=== PATIENT | male | born 1955 ===

== ENCOUNTER 2017-04-19 18:47 | Inpatient (IN) | payer OTHER ==
[~2017-04-19] VITALS: Ht 170.2 cm; Wt 117.7 kg
[2017-04-19 20:01] VITALS: BP 162/96; PULSE 99; TEMP 36.7; O2SAT 95; BMI 35.2
[2017-04-19] MEDS ORDERED: PNEUMOCOCCAL POLYSACCHARIDES 25 MCG/0.5 ML VIAL/SYR IM. ONE (21:15)
[2017-04-19] MEDS ORDERED: INFLUENZA ADMINISTRATION CHARGE ONE (21:15)
[2017-04-19] MEDS ORDERED: INFLUENZA VIRUS QUAD VACCINE 0.5 ML SYR IM. ONE (21:15)
[2017-04-19] MEDS ORDERED: PNEUMOCOCCAL ADMINISTRATION CHARGE ONE (21:15)
[2017-04-19] MEDS ORDERED: PATIENT'S ALLERGY INFO NEEDS ENTERED SCH (21:30)
[2017-04-19] MEDS ORDERED: FRS/40 PO (22:24)
[2017-04-19] MEDS ORDERED: INSU1INJ2 SQ (22:24)
[2017-04-19] MEDS ORDERED: insulin aspart SQ (22:27)
[2017-04-19] MEDS ORDERED: INSDGI SC (22:28)
[2017-04-19] MEDS ORDERED: ISOS10TA5 PO (22:37)
[2017-04-19] MEDS ORDERED: LEVO1INJ IV (22:39)
[2017-04-19] MEDS ORDERED: METO25TA3 PO (22:40)
[2017-04-19] MEDS ORDERED: NTRGSL/4 SL (22:42)
[2017-04-19] MEDS ORDERED: PRLSR20 PO (22:42)
[2017-04-19] MEDS ORDERED: [UNRECOGNIZED DRUG - CODE] IV (22:44)
--- NOTE | 2017-04-19 22:44 | History and Physical ---
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 Deal. He had presented to [facility] with complaints of chest pain, dry coughing which seemed to exacerbate his chest pain, vomiting and loose stools since 4 days. He was having about 4-5 episodes of vomiting per day. Also complains of midabdominal pain about 6-7/10 in severity. Denies any fevers or chills. Denies any chest pain currently, shortness of breath, palpitations or lightheadedness. He stated that he is aware about the pancreatic adenocarcinoma and had elected not to have surgery. Past Medical/Surgical History Coronary artery disease, Hypertension, Hyperlipidemia, Diabetes type 2, Prostate cancer, Pancreatic adenocarcinoma Amputation of toes Social History Smoking Status: Former Smoker Allergies Coded Allergies: Iodinated Diagnostic Agents (Verified Allergy, Mild, GI SYMPTOMS, 04/19/17) No Known Drug Allergy (Verified Allergy, Unknown, none, 04/19/17) Uncoded Allergies: dye (Allergy, Unknown, RASH, 04/19/17) patient does not remember what kind of dye or what kind of reaction he is allergic to Home Medications Scheduled Bisacodyl (Bisacodyl), 2 TAB PO UD Furosemide (Lasix), 40 MG PO DAILY Insulin Aspart (Novolog Penfill), 5 UNITS SQ AC Insulin Glargine (Lantus), 60 UNITS SC HS Ipratropium-Albuterol (Duoneb), 1 TREATMENT INH Q4H Ipratropium-Albuterol (Duoneb), 1 TREATMENT INH QID Isosorbide Mononitrate (Isosorbide Mononitrate), 30 MG PO DAILY Levofloxacin in D5w (Levofloxacin in 5% Dextro 500 mg/100Ml), 500 MG IV DIRECTED Metoprolol Succ (Toprol Xl) (Toprol-Xl), 25 MG PO DAILY Nicotine (Nicoderm Cq 7 Mg Patch), 7 MG TD DAILY Omeprazole (Prilosec), 20 MG PO DAILY Piperacillin Sodium-Tazobactam (Zosyn), 3.375 GM IV Q8 Polyethylene Glycol 3350 (Polyethylene Glycol 3350), 17 GM PO DAILY [insulin aspart], SQ ACHS Scheduled PRN Nitroglycerin (Nitrostat), 0.4 MG SL q5min prn PRN for Chest Pain Ondansetron Hcl (Ondansetron Hcl), 4 MG IV Q6H PRN for Nausea Miscellaneous Medications Acetaminophen (Tylenol), 325 MG PO Metoclopramide Hcl (Reglan), 5 MG PO Nystatin (Topical) (Nystop) Oxycodone Ir (Roxicodone Ir), 5 MG PO Tamsulosin Hcl (Flomax), 0.4 MG PO Review of Systems Constitutional: No fever, No chills Eyes: No worsening of vision ENT: No hearing loss Respiratory: + cough, No sputum, No shortness of breath Cardiovascular: No chest pain, No orthopnea, No edema Abdomen: + pain, + nausea, + vomiting, + diarrhea Musculoskeletal: No joint pain Genitourinary - Male: No hematuria, No dysuria Neurologic: No memory loss Psychiatric: No depression symptoms Endocrine: No fatigue Hematologic / Lymphatic: No abnormal bleeding/bruising Integumentary: No rash Physical Exam Vital Signs Date Time Temp Pulse Resp B/P (MAP) Pulse Ox O2 Delivery O2 Flow Rate FiO2 04/19/17 20:01 36.7 99 18 162/96 95 Room Air General Appearance: WD/WN, no apparent distress Head: normocephalic ENT: normal ENT inspection, hearing grossly normal Neck: supple Respiratory/Chest: lungs clear, normal breath sounds, no respiratory distress, no accessory muscle use Cardiovascular: regular rate, rhythm Abdomen/GI: normal bowel sounds, non tender, soft Extremities/Musculoskelatal: + pedal edema, + pertinent finding (Right foot first and second toes amputated) Neurologic/Psych: alert, normal mood/affect, oriented x 3 Skin: + pertinent finding (Several scabs on bilateral lower extremities) Diagnostics Laboratory Results Results Past 24 Hours Test 04/19/17 21:06 Range/Units Bedside Glucose 76 70-99 mg/dl Diagnostic Radiology Gallbladder ultrasound performed at [facility]: Hydropic gallbladder with intraluminal sludge. Dilated extrahepatic common bile duct 23 mm. Right renal pelviectasis with intrarenal calculus without significant hydronephrosis Impression Assessment and Plan 62-year-old male with a past medical history of coronary artery disease, diabetes, diabetic foot ulcer status post amputation of right first and second toes, hypertension, hyperlipidemia, prostate cancer status post radiation therapy in 2015, pancreatic adenocarcinoma, status post common bile duct stent placement presented a direct admit from [facility] for stent removal by Dr. Deal. Was treated for possible cholangitis at [facility] with Zosyn, white count appears to be normal today Obstructive jaundice: ?Secondary to stent occlusion/history of adenocarcinoma of pancreas -Gallbladder ultrasound from outside hospital suggestive of dilated extrahepatic common bile duct at 23 mm -Total bili 5.1 -ERCP scheduled for tomorrow with Dr. Deal -n.p.o. after midnight -Gastroenterology consult Diabetes mellitus type 2: -Continue Lantus home dose with insulin sliding scale BPH/prostate cancer: -Continue tamsulosin CAD/hypertension -Continue metoprolol and Imdur COPD: Stable -Continue duo nebs Current smoker -Smokes one fourth pack per day -Smoking cessation counseling -NicoDerm patch Full code DVT prophylaxis: SCDs Disposition admitted to [facility]: Resident Physician Supervision Note: I was present with Dr. Saez during the history and exam. I discussed the case with the resident and agree with the findings and plan as documented in the note. Any exceptions or clarifications are listed here: 62 y/o M Hx CAD, COPD, diabetes, DM w/diabetic ulcers and toe amptuations, HTN, HPL, prostate CA treated with radiation, pancreatic adenocarcinoma - bile duct stent placement presents as direct admit from [place] for signs of biliary obstruction. he was scheduled to have his stent removed on the . He will proceed to ERCP and likely removal AM. He had c/o abdominal pain, n/v and CP at [place]. At the time of admission he has no specific complaints and stated that he "just want to get the procedure over with". OE AAO x 3 S1,2 R CTAB mild upper abdominal tenderness No CCE - prior amputations P: Pt to be evaluated w/ERCP for stent removal - NPO Placed on SS for DM Cont nebs as needed for COPD No current evidence of ACS - CP has not recurred Documented By: Ronald Conklin Advanced Directives Existing Living Will: No Existing Power of Rebar Worker: No Resuscitation Status VTE Prophylaxis Will order VTE Prophylaxis: Yes Resident Tracking Resident Involvement: Resident Care Provided Care Provided: Adult Hospital Medicine
[2017-04-19] MEDS ORDERED: ACETAMINOPHEN 325 MG TAB PO PRN (22:45)
[2017-04-19] MEDS ORDERED: POLYETHYLENE (MIRALAX) 17 GM PACK PO PRN (22:45)
[2017-04-19] MEDS ORDERED: PIPE2SOL IV (22:47)
[2017-04-19] MEDS ORDERED: ACET-1311 PO (22:49)
[2017-04-19] MEDS ORDERED: BISA1TAB15 PO (22:50)
[2017-04-19] MEDS ORDERED: NICO7DIS7 TD (22:52)
[2017-04-19] MEDS ORDERED: METO1TAB54 PO (22:52)
[2017-04-19] MEDS ORDERED: NYST100010 (22:54)
[2017-04-19] MEDS ORDERED: OXYC1TAB3 PO (22:55)
[2017-04-19] MEDS ORDERED: TAMS0.4C38 PO (22:55)
[2017-04-19] MEDS ORDERED: POLY3350 PO (22:56)
[2017-04-19] MEDS ORDERED: IPRASOL4 INH ×2 (22:59→23:00)
[2017-04-19 23:02] VITALS: BP 149/90; PULSE 106; TEMP 37.2; O2SAT 98
[2017-04-19 23:07] LABS: BASO % 0.1 %; BASO ABS # 0.01 K/uL (0-0.2); EOS % 0.1 %; EOS ABS # 0.01 K/uL (0-0.5); HEMATOCRIT 33.7 % (42-52); HEMOGLOBIN 11.4 g/dL (14.0-18.0); IG# 0.02 K/uL (0.00-0.02); LYMPH % 8.1 %; LYMPH ABS # 0.88 K/uL (1.2-3.4); MEAN CORPUSCULAR HEMOGLOBIN 27.7 pg (25-34); MEAN CORPUSCULAR HGB CONC 33.8 g/dl (32-36); MEAN PLATELET VOLUME 9.1 fL (7.4-10.4); MONO % 7.2 %; MONO ABS # 0.78 K/uL (0.11-0.59); NEUT % 84.3 %; PLATELET COUNT 241 K/uL (130-400); RED CELL DISTRIBUTION WIDTH CV 14.1 % (11.5-14.5); RED CELL DISTRIBUTION WIDTH SD 42.8 fL (36.4-46.3)
[2017-04-19 23:25] LABS: ALBUMIN 1.6 gm/dl (3.4-5.0); CALCIUM 8.7 mg/dl (8.5-10.1); CREATININE 1.33 mg/dl (0.60-1.40); POTASSIUM 3.3 mmol/L (3.5-5.1)
[2017-04-19 23:28] LABS: TOTAL PROTEIN 6.4 gm/dl (6.4-8.2)
[2017-04-20] VITALS (8 sets, daily range): BP systolic 110–161; BP diastolic 72–89; PULSE 66–138; TEMP 36.4–37.1; O2SAT 94–100; BMI 35.2
[2017-04-20] MEDS ORDERED: BISACODYL 5 MG TABEC PO PRN (00:45)
[2017-04-20] MEDS: SODIUM CHLORIDE 0.9% 1000ML 1,000 ML IV SCH ×2 (02:17→12:04)
[2017-04-20] MEDS ORDERED: ALBUT/IPRATROP 3MG/0.5MG NEB 3 ML VIAL INH SCH (04:00)
[2017-04-20] MEDS ORDERED: ALBUT/IPRATROP 3MG/0.5MG NEB 3 ML VIAL INH PRN (04:00)
[2017-04-20] MEDS ORDERED: NURSING DECISION MEDICATION ORDER SCH (05:15)
[2017-04-20] MEDS: INSULIN ASPART 100 UNITS/ML 3 ML PEN SC SCH ×3 (05:54→18:00)
[2017-04-20 06:59] LABS: HEMATOCRIT 33.8 % (42-52); HEMOGLOBIN 11.2 g/dL (14.0-18.0); MEAN CELL VOLUME 83.3 fL (80-100); MEAN CORPUSCULAR HEMOGLOBIN 27.6 pg (25-34); MEAN CORPUSCULAR HGB CONC 33.1 g/dl (32-36); MEAN PLATELET VOLUME 9.7 fL (7.4-10.4); PLATELET COUNT 229 K/uL (130-400); RED CELL DISTRIBUTION WIDTH CV 14.2 % (11.5-14.5); RED CELL DISTRIBUTION WIDTH SD 43.6 fL (36.4-46.3)
[2017-04-20 07:36] LABS: ALBUMIN 1.5 gm/dl (3.4-5.0); CALCIUM 8.8 mg/dl (8.5-10.1); CREATININE 1.51 mg/dl (0.60-1.40); POTASSIUM 3.4 mmol/L (3.5-5.1)
[2017-04-20 07:38] LABS: TOTAL PROTEIN 6.3 gm/dl (6.4-8.2)
[2017-04-20] MEDS: ALBUT/IPRATROP 3MG/0.5MG NEB 3 ML VIAL INH SCH ×4 (08:00→20:12)
[2017-04-20] MEDS ORDERED: INSULIN ASPART 100 UNITS/ML 3 ML PEN SC SCH ×2 (08:00→12:00)
[2017-04-20] MEDS: NYSTATIN POWDER 15GM BTL EXT SCH ×3 (08:27→16:00)
[2017-04-20] MEDS: POLYETHYLENE (MIRALAX) 17 GM PACK PO SCH (08:29)
[2017-04-20] MEDS: NICOTINE 7 MG/24 HR TDSY TD SCH (08:30)
[2017-04-20] MEDS: ISOSORBIDE MONONITRATE 30 MG TABCR PO SCH (08:32)
[2017-04-20] MEDS: METOPROLOL SUCC 25MG EXT REL TAB PO SCH (08:32)
[2017-04-20] MEDS: PANTOprazole SOD 40 MG TAB PO SCH (08:32)
[2017-04-20] MEDS: FUROSEMIDE 40 MG TAB PO SCH (08:32)
[2017-04-20] MEDS: TAMSULOSIN HCL 0.4 MG CAP PO SCH (08:33)
--- NOTE | 2017-04-20 08:49 | Family Medicine Progress Note ---
Progress Note Date of Service Apr 20, 2017. Subjective Pt evaluation today including: conversation w/ patient, physical exam, chart review, lab review, review of studies, conversation w/ portrait consultant, review of inpatient medication list Patient is a poor historian. He states that he has nausea and vomiting for the last week. He denies fevers, chills, chest pain, dyspnea, or abdominal discomfort or distension. He does not know when his biliary stent was placed. He denies changes in stool habits. He does note that occasionally the stool is light colored stool. He is unable to describe any changes or abnormalities with urination . He is unsure about any lower extremity swelling or skin changes/ rashes. He is not able to provide significant past medical history. He admits to intermittent compliance with his diabetic medications and was unable to elicit range of recent blood glucose measurements. Difficult to obtain more detailed ROS. Objective Vital Signs Date Time Temp Pulse Resp B/P (MAP) Pulse Ox O2 Delivery O2 Flow Rate FiO2 04/20/17 07:39 37.1 84 18 116/84 (95) 94 Room Air 04/20/17 00:20 Room Air 04/19/17 23:02 37.2 106 16 149/90 (109) 98 Room Air 04/19/17 20:01 36.7 99 18 162/96 95 Room Air Physical Exam General Appearance: WD/WN, + mild distress Eyes: normal inspection ENT: hearing grossly normal Neck: supple, no JVD Respiratory/Chest: lungs clear, normal breath sounds, no respiratory distress, no accessory muscle use Cardiovascular: regular rate, rhythm Abdomen: normal bowel sounds, non tender, + distended (mildly ascitic), + pertinent finding (no rebound or guarding, unable to appreciate any organomegaly ) Extremities: no calf tenderness, + pedal edema Neurologic/Psychiatric: alert, + disoriented Skin: + pertinent finding (Evidence of chronic venous stasis extremities, scabs on shins secondary to excoriation.) Laboratory Results Results Past 24 Hours Test 04/20/17 05:46 04/20/17 06:24 04/20/17 10:41 04/20/17 11:50 Range/Units Bedside Glucose 79 75 70-99 mg/dl White Blood Count 10.10 4.8-10.8 K/uL Red Blood Count 4.06 4.7-6.1 M/uL Hemoglobin 11.2 14.0-18.0 g/dL Hematocrit 33.8 42-52 % Mean Corpuscular Volume 83.3 80-100 fL Mean Corpuscular Hemoglobin 27.6 25-34 pg Mean Corpuscular Hemoglobin Concent 33.1 32-36 g/dl RDW Standard Deviation 43.6 36.4-46.3 fL RDW Coefficient of Variation 14.2 11.5-14.5 % Platelet Count 229 130-400 K/uL Mean Platelet Volume 9.7 7.4-10.4 fL Sodium Level 135 136-145 mmol/L Potassium Level 3.4 3.5-5.1 mmol/L Chloride Level 102 98-107 mmol/L Carbon Dioxide Level 24 21-32 mmol/L Anion Gap 9.0 3-11 mmol/L Blood Urea Nitrogen 25 7-18 mg/dl Creatinine 1.51 0.60-1.40 mg/dl Est Creatinine Clear Calc Drug Dose 56.2 ml/min Estimated GFR () 55.8 Estimated GFR (Non- 48.1 BUN/Creatinine Ratio 16.3 10-20 Random Glucose 72 70-99 mg/dl Calcium Level 8.8 8.5-10.1 mg/dl Total Bilirubin 5.1 0.2-1 mg/dl Aspartate Amino Transf (AST/SGOT) 67 15-37 U/L Alanine Aminotransferase (ALT/SGPT) 64 12-78 U/L Alkaline Phosphatase 467 45-117 U/L Total Protein 6.3 6.4-8.2 gm/dl Albumin 1.5 3.4-5.0 gm/dl Globulin 4.8 2.5-4.0 gm/dl Albumin/Globulin Ratio 0.3 0.9-2 Hepatitis C Antibody Screen NEG NEG Test 04/20/17 13:41 04/20/17 15:07 04/20/17 15:49 04/20/17 20:01 Range/Units Bedside Glucose 59 82 84 139 70-99 mg/dl Test 04/20/17 23:48 Range/Units Bedside Glucose 133 70-99 mg/dl Assessment and Plan 62yo male with a pMHx of CAD, DMII, diabetic foot ulcer status post amputation of right first and second toes, HTN, HLD, prostate cancer s/p radiation therapy in 2014, pancreatic adenocarcinoma s/p common bile duct stent placement transferred from [facility] for stent removal by Dr. Deal with concern for cholangitis with stent obstruction. Cholangitis with possible sepsis - WBC in [facility] was 15,000, was treated for possible cholangitis with Zosyn, with minimal elevation of white count today, but had tachycardic and low BP - Gastroenterology consulted, recs appreciated - s/p emergent ERCP with stent removal, brush cytology, stricture dilation and stent placement - Continue antibiotic coverage with Zosyn Obstructive jaundice secondary to stent occlusion/history of adenocarcinoma of pancreas - Gallbladder ultrasound from outside hospital suggestive of dilated extrahepatic common bile duct at 23 mm - LFTs show TB 5 AST 67 ALT 63, ALKP 467 - Gastroenterology consulted, recs appreciated - s/p emergent ERCP with intra-op findings included occluded stent, segmental biliary stricture - which was malignant-appearing, dilated bile duct, hepatic ducts, and intrahepatic branches. Mild, pus, sludge flowed through new stents once tracts were patent again. - Repeat ERCP recommended in 2-4 weeks for stent change New onset a.fib with RVR - Possibly secondary to sepsis - s/p digoxin 250mcg with no improvement of HR - s/p extra dose metoprolol tartrate 25mg - Aim for rate control, which will hopefully improve with drainage of infected GB and resolution of sepsis - Monitor in telemetry - ARTHUR score - 2 - If A fib persists - will discuss anticoagulation and get echo. To consider Event monitor as outpatient to check if cryptogenic. - TSH normal. - Correct electrolytes. Diabetes mellitus type 2 - Continue Lantus home dose with insulin sliding scale - Check HbA1c BPH/prostate cancer: - Continue tamsulosin CAD/hypertension - Continue metoprolol and Imdur COPD: Stable - Continue duo nebs Tobacco abuse: smokes one fourth pack per day. Offered smoking cessation counseling - NicoDerm patch ordered DVT prophylaxis - SCDs Full code Continued [facility] stay due to: abnormal vital signs Resident Tracking Resident Involvement: Resident Care Provided Care Provided: Adult Hospital Medicine Reviewed: Pt Seen/Exam by Me History noted to be a fib with RVR before ERCP. seen in PACU. denied any complains Constitutional: denies: fever Respiratory: negative: short of breath Cardiovascular: denies chest pain Gastrointestinal/Abdominal: negative: abdominal pain General Appearance: no apparent distress Respiratory: lungs clear, no respiratory distress Cardiovascular: other Gastrointestinal: soft Neurologic/Psychiatric: alert, oriented x 3 Skin Characteristics: warm/dry Assessment/Plan Resident Physician Supervision Note: I independently interviewed and examined the patient and verified the casas history and physical, reviewed labs and image studies, discussed the case with the resident Dr. Clarke and agree with the findings and care plan.
--- NOTE | 2017-04-20 09:08 | Gastrointestinal Consultation ---
Gastrointestinal Consultation Date of Consultation: Apr 20, 2017 Attending Physician: Katerin Consulting Physician: Say Reason for Consultation: ERCP History of Present Illness Patient is a 62 year old male w/ pancreatic adenocarcinoma w/ stent placement in December with others listed below who was transferred form [facility] for suspected obstructive symptoms. Pt was seen and evaluated, chart reviewed. Pt is a poor historian. I asked him why he was transferred to [facility] and he is unsure. He tells me this AM he feels ok. He notes his abd pain is improved from yesterday w / less nausea and vomiting. Today, denies fever, chills, CP, SOB. Past Medical/Surgical History abd pain panc ca nausea vomiting ERCP w/ stent Past Medical History: CAD T2DM diabetic neuropathy HTN Dyslipidemia Prostate CA s/p radiation Pancreatic CA Past Surgical History: ERCP amputation of great toe on right foot amputation of second toe on right foot Social History Smoking Status: Former Smoker Allergies Coded Allergies: Iodinated Diagnostic Agents (Verified Allergy, Mild, GI SYMPTOMS, 04/19/17) No Known Drug Allergy (Verified Allergy, Unknown, none, 04/19/17) Uncoded Allergies: dye (Allergy, Unknown, RASH, 04/19/17) patient does not remember what kind of dye or what kind of reaction he is allergic to Current Medications Home Meds and Scripts Medications Dose Route/Sig Max Daily Dose Days Date Category Duoneb (Ipratropium-Albuterol) 3 Ml Nebu 1 Treatment INH QID 04/19/17 Reported Duoneb (Ipratropium-Albuterol) 3 Ml Nebu 1 Treatment INH Q4H 04/19/17 Reported Polyethylene Glycol 3350 1 Pow Pow 17 Gm PO DAILY 04/19/17 Reported Flomax (Tamsulosin Hcl) 0.4 Mg Cap 0.4 Mg PO 04/19/17 Reported Roxicodone Ir (Oxycodone HCl) 5 Mg Tab 5 Mg PO 04/19/17 Reported Nystop (Nystatin (Topical)) 100,000 Unit/Gm Pow 04/19/17 Reported Nicoderm Cq 7 Mg Patch (Nicotine) 7 Mg/24 Hr Dis 7 Mg TD DAILY 04/19/17 Reported Reglan (Metoclopramide Hcl) 5 Mg Tab 5 Mg PO 04/19/17 Reported Bisacodyl 5 Mg Tab 2 Tab PO UD 04/19/17 Reported Tylenol (Acetaminophen) 325 Mg Tab 325 Mg PO 04/19/17 Reported Zosyn (Piperacillin Sodium-Tazobactam) 1 Rayne Rayne 3.375 Gm IV Q8 04/19/17 Reported Ondansetron Hcl 4 Mg/2 Ml Inj 4 Mg IV Q6H PRN 04/19/17 Reported Prilosec (Omeprazole) 20 Mg Capcr 20 Mg PO DAILY 04/19/17 Reported Nitrostat (Nitroglycerin) 0.4 Mg Tab 0.4 Mg SL Q5MIN PRN PRN 04/19/17 Reported Toprol-Xl (Metoprolol Succinate) 25 Mg Tabcr 25 Mg PO DAILY 04/19/17 Reported Levofloxacin in 5% Dextro 500 mg/100Ml (Levofloxacin in D5w) 1 Inj Inj 500 Mg IV DIRECTED 04/19/17 Reported Isosorbide Mononitrate 10 Mg Tab 30 Mg PO DAILY 04/19/17 Reported Lantus (Insulin Glargine) 100 Unit/Ml Inj 60 Units SC HS 04/19/17 Reported [insulin aspart] SQ ACHS 04/19/17 Reported Novolog Penfill (Insulin Aspart) 100 Unit/Ml Inj 5 Units SQ AC 04/19/17 Reported Lasix (Furosemide) 40 Mg Tab 40 Mg PO DAILY 04/19/17 Reported Review of Systems Constitutional: No fever, No chills Respiratory: No cough, No shortness of breath Cardiac: No chest pain, No edema Abdomen: + pain, No nausea, No vomiting, No diarrhea, No constipation, No GI bleeding Physical Exam Date Time Temp Pulse Resp B/P (MAP) Pulse Ox O2 Delivery O2 Flow Rate FiO2 04/20/17 07:39 37.1 84 18 116/84 (95) 94 Room Air 04/20/17 00:20 Room Air 04/19/17 23:02 37.2 106 16 149/90 (109) 98 Room Air 04/19/17 20:01 36.7 99 18 162/96 95 Room Air General Appearance: no apparent distress (pt is resting in bed) Eyes: PERRL ENT: hearing grossly normal Neck: supple, trachea midline Respiratory/Chest: normal breath sounds Cardiovascular: regular rate, rhythm Abdomen: normal bowel sounds, non tender, soft, no organomegaly Neurologic/Psych: alert, normal mood/affect Skin: + jaundice Laboratory Results Last 24 Hours Test 04/19/17 21:06 04/19/17 22:47 04/20/17 00:09 04/20/17 05:46 Bedside Glucose 76 mg/dl 76 mg/dl 79 mg/dl White Blood Count 10.80 K/uL Red Blood Count 4.11 M/uL Hemoglobin 11.4 g/dL Hematocrit 33.7 % Mean Corpuscular Volume 82.0 fL Mean Corpuscular Hemoglobin 27.7 pg Mean Corpuscular Hemoglobin Concent 33.8 g/dl Platelet Count 241 K/uL Mean Platelet Volume 9.1 fL Neutrophils (%) (Auto) 84.3 % Lymphocytes (%) (Auto) 8.1 % Monocytes (%) (Auto) 7.2 % Eosinophils (%) (Auto) 0.1 % Basophils (%) (Auto) 0.1 % Neutrophils # (Auto) 9.10 K/uL Lymphocytes # (Auto) 0.88 K/uL Monocytes # (Auto) 0.78 K/uL Eosinophils # (Auto) 0.01 K/uL Basophils # (Auto) 0.01 K/uL RDW Standard Deviation 42.8 fL RDW Coefficient of Variation 14.1 % Immature Granulocyte % (Auto) 0.2 % Immature Granulocyte # (Auto) 0.02 K/uL Sodium Level 135 mmol/L Potassium Level 3.3 mmol/L Chloride Level 100 mmol/L Carbon Dioxide Level 27 mmol/L Anion Gap 7.0 mmol/L Blood Urea Nitrogen 25 mg/dl Creatinine 1.33 mg/dl Est Creatinine Clear Calc Drug Dose 63.8 ml/min Estimated GFR () 65.0 Estimated GFR (Non- 56.1 BUN/Creatinine Ratio 19.1 Random Glucose 86 mg/dl Calcium Level 8.7 mg/dl Total Bilirubin 5.1 mg/dl Aspartate Amino Transf (AST/SGOT) 68 U/L Alanine Aminotransferase (ALT/SGPT) 65 U/L Alkaline Phosphatase 439 U/L Total Protein 6.4 gm/dl Albumin 1.6 gm/dl Globulin 4.8 gm/dl Albumin/Globulin Ratio 0.3 Test 04/20/17 06:24 White Blood Count 10.10 K/uL Red Blood Count 4.06 M/uL Hemoglobin 11.2 g/dL Hematocrit 33.8 % Mean Corpuscular Volume 83.3 fL Mean Corpuscular Hemoglobin 27.6 pg Mean Corpuscular Hemoglobin Concent 33.1 g/dl RDW Standard Deviation 43.6 fL RDW Coefficient of Variation 14.2 % Platelet Count 229 K/uL Mean Platelet Volume 9.7 fL Sodium Level 135 mmol/L Potassium Level 3.4 mmol/L Chloride Level 102 mmol/L Carbon Dioxide Level 24 mmol/L Anion Gap 9.0 mmol/L Blood Urea Nitrogen 25 mg/dl Creatinine 1.51 mg/dl Est Creatinine Clear Calc Drug Dose 56.2 ml/min Estimated GFR () 55.8 Estimated GFR (Non- 48.1 BUN/Creatinine Ratio 16.3 Random Glucose 72 mg/dl Calcium Level 8.8 mg/dl Total Bilirubin 5.1 mg/dl Aspartate Amino Transf (AST/SGOT) 67 U/L Alanine Aminotransferase (ALT/SGPT) 64 U/L Alkaline Phosphatase 467 U/L Total Protein 6.3 gm/dl Albumin 1.5 gm/dl Globulin 4.8 gm/dl Albumin/Globulin Ratio 0.3 Impression Patient is a 62 year old male w/ known pancreatic CA s/p ERCP w/ CBD stenting, he had decided he did not want stent change back in December, now symptomatic. Suspect obstruction w/ cholangitis. WBC elevated at [facility]. Was on Zosyn Pt is afebrile, VSS without evidence of leukocytosis. Nausea/Vomiting have resolved. TB 5 AST 67 ALT 63, ALKP 467 Plan NPO ERCP today for stent change Indocin to be given in OR ABX for cholangitis coverage Additional recommendation will be found in ERCP report. I saw and evaluated the patient. He presented to an OSH with abdominal pain, nausea, and what appears to be obstruciton of a biliary stent. Given the constellation of symptoms it appears he has cholangitis. His hx is notable a pancreatic mass which was found several months ago with atypical cells. The patient is presently not interested in any therapy. PE: NAD, Icterus IRR/IRR Abd: ruq TTP Impression: patient admitted with signs c/w cholangitis from an obstructed stent. given the problems this appears to be an urgent procedure and will need to proceed with ERCP today. As we do not yet have a cancer diagnosis I will plan for placement of either a covered metal stent or plastic stent. We have discussed the risks to include bleeding, infectio, perforation, pain, pancreatitis, and failed cannulation.
[2017-04-20] MEDS ORDERED: INDOMETHACIN 50 MG SUPP PR SCH (09:30)
[2017-04-20] MEDS ORDERED: PIPERACILL/TAZOBAC CONSULT ACTIVE PRN (14:00)
[2017-04-20] MEDS ORDERED: EpHEDrine SULFATE INJ 50 MG/ML AMP IV PRN (14:15)
[2017-04-20] MEDS ORDERED: ATROPINE SULFATE 0.1 MG/ML 5ML SYR IV PRN (14:15)
[2017-04-20] MEDS ORDERED: ONDANSETRON INJ 2 MG/ML 2 ML VIAL IV PRN (14:15)
[2017-04-20] MEDS ORDERED: FENTANYL CITRATE INJ 50 MCG/1 ML 2 ML VIAL IV PRN (14:15)
[2017-04-20] MEDS ORDERED: ONDANSETRON INJ 2 MG/ML 2 ML VIAL ONE (14:16)
[2017-04-20] MEDS ORDERED: LIDOCAINE HCL 2% 2 ML VIAL (20MG/ML) ONE (14:16)
[2017-04-20] MEDS ORDERED: PROPOFOL IV EMULSION 10 MG/ML 20 ML VIAL IV ONE (14:16)
[2017-04-20] MEDS ORDERED: DEXAMETHASONE SOD INJ 4 MG/ML VIAL ONE ×2 (14:16→15:34)
[2017-04-20] MEDS ORDERED: MIDAZOLAM HCL 1 MG/ML 2ML VIAL ONE (14:17)
[2017-04-20] MEDS ORDERED: FENTANYL CITRATE INJ 50 MCG/1 ML 2 ML VIAL ONE (14:17)
[2017-04-20] MEDS ORDERED: VOLUVEN IN NSS ONE (14:22)
[2017-04-20] MEDS ORDERED: ALBUMIN HUMAN 5% 12.5 GM/250 ML VIAL IV ONE (14:22)
--- NOTE | 2017-04-20 14:26 | History & Physical Bridge Note ---
H&P Re-Evaluation Bridge Note: I have examined the patient, reviewed the History & Physical and in the interval since the performance of the History & Physical I have noted the following changes of clinical significance: No changes noted. Please consult from this am with full details.
[2017-04-20] MEDS ORDERED: PIPERACILL/TAZOBAC IV 4.5 GM in DEXTROSE 5% 100ML IV ONE (14:30)
[2017-04-20] MEDS ORDERED: PHENYLEPHRINE HCL INJ 10 MG/ML VIAL ONE (14:40)
[2017-04-20] MEDS ORDERED: ETOMIDATE 2 MG/ML 20 ML VIAL IV ONE (14:40)
[2017-04-20] MEDS ORDERED: ESMOLOL HCL 10 MG/ML 10 ML VIAL ONE (14:41)
[2017-04-20] MEDS ORDERED: SUCCINYLCHOLINE CHLORIDE 20 MG/ML 10 ML VIAL IV ONE (14:41)
[2017-04-20] MEDS ORDERED: METOPROLOL TARTRATE 1 MG/ML VIAL ONE (14:45)
--- NOTE | 2017-04-20 15:13 | [facility] Post Operative Brief Note ---
Immediate Operative Summary Operative Date Apr 20, 2017. Pre-Operative Diagnosis Cholangitis Post-Operative Diagnosis Cholangitis Procedure(s) Performed ERCP with stent removal, brush cytology, stricture dilation and stent placement Surgeon Dr. Adalid Deal Data Power Consultant Surgeon(s) none Estimated Blood Loss None Findings Consistent with Post-Op Diagnosis Specimens CBD brush cytology Drains None Anesthesia Type General Complication(s) none Disposition Accompanied Pt To Recover: no Disposition: Recovery Room / PACU
--- NOTE | 2017-04-20 16:10 | DIAGNOSTIC IMAGING REPORT ---
ERCP BILIARY DUCTAL HISTORY: 62 years-old Male EXPLORE DUCTS diagnostic ERCP COMPARISON: None available TECHNIQUE: 12 spot fluoroscopic images of the right upper abdomen were obtained utilizing 68.2 seconds fluoroscopy time FINDINGS: Endoscope is noted within the duodenum. There is cannulation of the common bile duct with placement of a biliary stent within the common bile duct. Opacification of the common bile duct demonstrates suggested common bile duct dilation with questioned central filling defect on image 6 suggesting a stone or gas bubble. Additionally, a stent of the right upper abdomen is partially imaged. IMPRESSION: Fluoroscopic assistance as above. Please see procedural report for further details. The above report was generated using voice recognition software. It may contain grammatical, syntax or spelling errors. Electronically signed by: Francisco Francisco M.D. 04/20/2017 4:09 PM Dictated Date/Time: 04/20/2017 4:06 PM
[2017-04-20] MEDS ORDERED: DIGOXIN INJ 500 MCG/2 ML AMP ONE (16:19)
--- NOTE | 2017-04-20 16:20 | Anesthesiology Progress Note ---
Anesthesia Post Op Note Date & Time Apr 20, 2017 at 16:12 Vital Signs Pain Intensity: 0 Vital Signs Past 12 Hours Date Time Temp Pulse Resp B/P (MAP) Pulse Ox O2 Delivery O2 Flow Rate FiO2 04/20/17 16:02 131 12 97 04/20/17 16:02 126 12 04/20/17 16:01 115/88 04/20/17 16:00 36.8 138 18 115/88 (94) 96 Room Air 2 Oxymask 04/20/17 15:57 133 13 04/20/17 15:57 130 13 97 04/20/17 15:56 120/90 04/20/17 15:52 116 17 99 04/20/17 15:52 121 17 04/20/17 15:51 113/85 04/20/17 15:47 131 20 100 04/20/17 15:47 134 20 04/20/17 15:46 112/80 04/20/17 15:45 133 18 100 04/20/17 15:45 139 18 04/20/17 15:41 107/80 04/20/17 15:40 132 26 04/20/17 15:40 144 26 100 04/20/17 15:36 105/75 04/20/17 15:35 128 19 04/20/17 15:35 133 19 100 04/20/17 15:31 105/73 04/20/17 15:30 118 21 04/20/17 15:30 132 21 97 04/20/17 15:26 122/78 04/20/17 15:25 121 22 04/20/17 15:25 121 22 99 04/20/17 15:23 36.3 126 20 122/78 (84) 99 Room Air 10 Oxymask 04/20/17 08:25 Room Air 04/20/17 07:39 37.1 84 18 116/84 (95) 94 Room Air Notes Mental Status: alert / awake / arousable, participated in evaluation Pt Amnestic to Procedure: Yes Nausea / Vomiting: adequately controlled Pain: adequately controlled Airway Patency, RR, SpO2: stable & adequate BP & HR: see Notes Hydration State: stable & adequate Anesthetic Complications: no major complications apparent Patient had new onset A fib with RVR noted in preop holding. Dr. Deal aware but there was a concern for cholangitis and deemed this procedure an emergency. He was taken to the OR and successful underwent ERCP with mario pus noted although patient tolerated a general anesthetic. We gave several doses of esmolol and metoprolol intraoperatively for rate control. In recovery room, patient was awake and conversant. Still in A fib with RVR but stable BP's. After several attempts, I finally was able to speak with the attending hospitalist and updated her on the condition of the patient (Dr. Robles). She stated she was going to come to bedside to evaluate the patient to ensure he is ok for telemetry vs ICU and whether or not they want to initiate further HR control.
[2017-04-20] MEDS ORDERED: DIGOXIN IV 250 MCG in SYRINGE 9 ML IV ONE (16:30)
--- NOTE | 2017-04-20 16:57 | GI REPORT ---
Procedure Date: 04/20/2017 2:35 PM Procedure: ERCP Indications: Abdominal pain of suspected biliary origin, Suspected ascending cholangitis, Elevated liver enzymes Medicines: General Anesthesia Complications: No immediate complications. Estimated blood loss: Minimal. Estimated Blood Loss: Estimated blood loss was minimal. Procedure: Pre-Anesthesia Assessment: - Prior to the procedure, a History and Physical was performed, and patient medications, allergies and sensitivities were reviewed. The patient's tolerance of previous anesthesia was reviewed. - The risks and benefits of the procedure and the sedation options and risks were discussed with the patient. All questions were answered and informed consent was obtained. - Patient identification and proposed procedure were verified prior to the procedure by the physician, the nurse and the paint stock clerk. The procedure was verified in the procedure room. - Pre-procedure physical examination revealed no contraindications to sedation. - ASA Grade Assessment: IV - A patient with severe systemic disease that is a constant threat to life. - After reviewing the risks and benefits, the patient was deemed in satisfactory condition to undergo the procedure. - The anesthesia plan was to use general anesthesia. - Immediately prior to administration of medications, the patient was re-assessed for adequacy to receive sedatives. - The heart rate, respiratory rate, oxygen saturations, blood pressure, adequacy of pulmonary ventilation, and response to care were monitored throughout the procedure. - The physical status of the patient was re-assessed after the procedure. After obtaining informed consent, the scope was passed under direct vision. Throughout the procedure, the patient's blood pressure, pulse, and oxygen saturations were monitored continuously. The SCOPE was introduced through the mouth, and advanced to the duodenum and used to inject contrast into the bile duct. The ERCP was accomplished without difficulty. The patient tolerated the procedure well. Findings: The radio electronics technician film was normal. The esophagus was successfully intubated under direct vision without detailed examination of the pharynx, larynx, and associated structures, and upper GI tract. The upper GI tract was grossly normal. One biliary stent originating in the biliary tree was emerging from the major papilla. The stent was visibly occluded. A biliary sphincterotomy had been performed. The sphincterotomy appeared open. One stent was removed from the biliary tree using a rat-toothed forceps and sent for cytology. The bile duct was deeply cannulated with the short-nosed traction sphincterotome and guidewire. Contrast was injected. I personally interpreted the bile duct images. Contrast extended to the hepatic ducts. The middle third of the main bile duct, upper third of the main bile duct and left and right hepatic ducts and all intrahepatic branches were moderately dilated and diffusely dilated. The largest diameter was 12 mm. The lower third of the main bile duct contained a single segmental stenosis 30 mm in length. Cells for cytology were obtained by brushing. Common bile duct was successfully dilated with a 6 mm balloon dilator. One 10 Fr by 8 cm biliary stent with a single external flap and a single internal flap was placed 8 cm into the common bile duct. Bile, pus and sludge flowed through the stent. The stent was in good position. One 8.5 Fr by 8 cm biliary stent with a single external flap and a single internal flap was attempted to be placed into the common bile duct. Despite a number of tries, the stent could not be placed without pushing the 10 Fr stent up into the duct, therefore it was aborted. Indomethacin 100 mg was given via suppository to decrease the risk of post-ERCP pancreatitis (PEP). The endoscope was withdrawn from the patient. Impression: - One visibly occluded stent from the biliary tree was seen in the major papilla. - Prior biliary sphincterotomy appeared open. - A segmental biliary stricture was found. The stricture was malignant appearing. - The upper third of the main bile duct, middle third of the main bile duct and left and right hepatic ducts and all intrahepatic branches were moderately dilated. - One stent was removed from the biliary tree. - One 10 Fr biliary stent was placed into the common bile duct. - Indomethacin given to decrease risk of post-ERCP pancreatitis. Recommendation: - Return patient to hospital [facility] for ongoing care. - Clear liquid diet today. - Use broad spectrum antibiotics for 2 weeks. - Repeat ERCP in 2 -4 weeks to exchange stent (EUS if cytology negative today). Kiet Deal D.O. Kiet Deal DO 04/20/2017 3:21:07 PM This report has been signed electronically. Note Initiated On: 04/20/2017 2:35 PM I attest to the content of the Intraoperative Record and orders documented therein, exceptions below
[2017-04-20] MEDS ORDERED: METOPROLOL TARTRATE 25 MG TAB PO ONE (19:15)
[2017-04-20] MEDS: PIPERACILL/TAZOBAC IV 4.5 GM in DEXTROSE 5% 100ML 100 ML IV SCH (19:50)
[2017-04-20] MEDS: INSULIN GLARGINE SOLOSTAR 100 UNITS/ML 3 ML PEN SC SCH (20:11)
[2017-04-20] MEDS ORDERED: NURSING VERBAL MED ORDER ONE (20:15)
[2017-04-21] VITALS (9 sets, daily range): BP systolic 132–146; BP diastolic 55–82; PULSE 68–106; TEMP 36.4–36.7; O2SAT 95–99; BMI 37.3
[2017-04-21] MEDS: PIPERACILL/TAZOBAC IV 4.5 GM in DEXTROSE 5% 100ML 100 ML IV SCH ×3 (04:29→20:06)
[2017-04-21 05:58] LABS: HEMATOCRIT 30.8 % (42-52); HEMOGLOBIN 10.1 g/dL (14.0-18.0); MEAN CELL VOLUME 83.9 fL (80-100); MEAN CORPUSCULAR HEMOGLOBIN 27.5 pg (25-34); MEAN CORPUSCULAR HGB CONC 32.8 g/dl (32-36); MEAN PLATELET VOLUME 9.6 fL (7.4-10.4); PLATELET COUNT 229 K/uL (130-400); RED CELL DISTRIBUTION WIDTH CV 14.4 % (11.5-14.5); RED CELL DISTRIBUTION WIDTH SD 44.1 fL (36.4-46.3); WHITE BLOOD COUNT 6.73 K/uL (4.8-10.8)
[2017-04-21] MEDS: SODIUM CHLORIDE 0.9% 1000ML 1,000 ML IV SCH ×2 (06:16→16:40)
[2017-04-21 06:39] LABS: ALBUMIN 1.7 gm/dl (3.4-5.0); CREATININE 2.43 mg/dl (0.60-1.40); POTASSIUM 3.2 mmol/L (3.5-5.1)
[2017-04-21 06:48] LABS: TOTAL PROTEIN 5.9 gm/dl (6.4-8.2)
[2017-04-21] MEDS: ALBUT/IPRATROP 3MG/0.5MG NEB 3 ML VIAL INH SCH ×4 (07:06→19:08)
[2017-04-21 07:30] LABS: HEMOGLOBIN A1C 10.2 % (4.5-5.6)
--- NOTE | 2017-04-21 07:50 | Anesthesiology Progress Note ---
Anesthesia Post Op Note Date & Time Apr 21, 2017 at 07:49 Vital Signs Pain Intensity: 0.0 Vital Signs Past 12 Hours Date Time Temp Pulse Resp B/P (MAP) Pulse Ox O2 Delivery O2 Flow Rate FiO2 04/21/17 07:07 68 16 99 Nasal Cannula 2.0 04/21/17 04:30 Nasal Cannula 2.0 04/21/17 03:40 36.7 75 16 144/82 (102) 99 Nasal Cannula 2.0 04/21/17 00:00 Nasal Cannula 2.0 04/20/17 23:38 36.4 84 20 158/83 (108) 100 Nasal Cannula 2.0 04/20/17 22:26 78 16 124/72 (89) 99 Nasal Cannula 2.0 04/20/17 20:31 93 18 161/89 (113) 99 Nasal Cannula 2.0 Oxymask 04/20/17 20:14 88 20 152/79 (103) 100 Nasal Cannula 2.0 Oxymask 04/20/17 20:12 66 16 98 Nasal Cannula 2.0 04/20/17 20:00 99 Nasal Cannula 2.0 Notes Mental Status: alert / awake / arousable, participated in evaluation Pt Amnestic to Procedure: Yes Nausea / Vomiting: adequately controlled Pain: adequately controlled Airway Patency, RR, SpO2: stable & adequate BP & HR: stable & adequate Hydration State: stable & adequate Anesthetic Complications: no major complications apparent
--- NOTE | 2017-04-21 08:03 | Family Medicine Progress Note ---
Progress Note Date of Service Apr 21, 2017. Subjective Patient denies acute overnight events. He states that he is feeling better this morning and his nausea has seemed to resolve.. He denies fevers, chills, chest pain, dyspnea, or abdominal discomfort. He states no issues with voiding and stooling. He does describe feeling weak. He ambulates with walker at home, but states sometimes his legs give way. ROS otherwise unremarkable. Objective Vital Signs Date Time Temp Pulse Resp B/P (MAP) Pulse Ox O2 Delivery O2 Flow Rate FiO2 04/21/17 07:07 68 16 99 Nasal Cannula 2.0 04/21/17 04:30 Nasal Cannula 2.0 04/21/17 03:40 36.7 75 16 144/82 (102) 99 Nasal Cannula 2.0 04/21/17 00:00 Nasal Cannula 2.0 04/20/17 23:38 36.4 84 20 158/83 (108) 100 Nasal Cannula 2.0 04/20/17 22:26 78 16 124/72 (89) 99 Nasal Cannula 2.0 04/20/17 20:31 93 18 161/89 (113) 99 Nasal Cannula 2.0 Oxymask 04/20/17 20:14 88 20 152/79 (103) 100 Nasal Cannula 2.0 Oxymask 04/20/17 20:12 66 16 98 Nasal Cannula 2.0 04/20/17 20:00 99 Nasal Cannula 2.0 04/20/17 19:30 37.0 138 20 110/76 (87) 99 Nasal Cannula 2.0 Oxymask 04/20/17 19:17 142 26 146/78 93 04/20/17 19:17 141 26 04/20/17 19:12 138 32 94 04/20/17 19:12 141 32 04/20/17 19:10 125/65 04/20/17 19:07 144 26 94 04/20/17 19:07 132 26 04/20/17 19:06 141 20 140/109 95 04/20/17 19:06 146 20 04/20/17 19:01 123 22 04/20/17 19:01 132 22 127/78 95 18 18:56 138 17 04/20/17 18:56 140 17 95 04/20/17 18:51 125 15 140/121 97 3/15/18 18:51 136 15 3/15/18 18:47 119/77 3/15/18 18:46 128 15 /15/18 18:46 127 15 95 /15/18 18:41 143 19 138/84 95 /15/18 18:41 148 19 /15/18 18:36 134 18 154/93 96 /15/18 18:36 139 18 /15/18 18:31 126 14 133/127 98 /15/18 18:31 128 14 /15/18 18:26 124 18 136/90 96 /15/18 18:26 131 18 /15/18 18:21 130 28 113/97 90 15/18 18:21 122 28 15/18 18:16 131 38 15/18 18:16 137 38 139/103 92 15/18 18:12 121/89 15/18 18:11 143 10 15/18 18:11 138 10 131/103 94 15/18 18:08 146/131 15/18 18:07 145/99 /15/18 18:06 145 16 130/101 96 /15/18 18:06 140 16 /15/18 18:01 133 16 126/93 96 15/18 18:01 133 16 /15/18 17:56 140 15 125/93 98 15/18 17:56 132 15 /15/18 17:51 134 18 /15/18 17:51 134 18 131/87 97 /15/18 17:46 120 23 116/88 96 15/18 17:46 133 23 /15/18 17:41 149 12 /15/18 17:41 145 12 129/87 95 15/18 17:38 129/93 /15/18 17:36 128 10 /15/18 17:36 123 10 124/101 92 15/18 17:31 112 9 /15/18 17:31 121 9 132/94 96 15/18 17:26 122 14 119/86 97 /15/18 17:26 127 14 15/18 17:21 107 4 15/18 17:21 137 4 117/81 96 15/18 17:16 129 4 3/15/18 17:16 132 4 116/88 96 04/20/17 17:11 142 4 04/20/17 17:11 142 4 106/79 96 04/20/17 17:06 129 2 127/82 97 04/20/17 17:06 133 2 04/20/17 17:01 149 2 107/81 97 04/20/17 17:01 137 2 04/20/17 17:00 111 14 04/20/17 17:00 129 14 96 04/20/17 16:56 140/76 04/20/17 16:55 126 14 04/20/17 16:55 117 14 98 04/20/17 16:51 131/82 04/20/17 16:50 116 16 04/20/17 16:50 134 16 98 04/20/17 16:46 117/83 04/20/17 16:45 128 12 04/20/17 16:45 130 12 97 04/20/17 16:44 124 12 97 04/20/17 16:44 127 12 04/20/17 16:41 125/85 04/20/17 16:39 140 17 96 04/20/17 16:39 118 17 04/20/17 16:36 125/90 04/20/17 16:34 132 13 97 04/20/17 16:34 112 13 04/20/17 16:31 107/85 04/20/17 16:29 122 10 04/20/17 16:29 124 10 97 04/20/17 16:28 138 4 97 04/20/17 16:28 128 4 04/20/17 16:26 114/87 04/20/17 16:23 124 3 94 04/20/17 16:23 129 3 04/20/17 16:21 97/81 04/20/17 16:18 145 11 92 04/20/17 16:18 136 11 04/20/17 16:16 130/93 04/20/17 16:13 142 24 95 04/20/17 16:13 140 24 04/20/17 16:11 107/76 04/20/17 16:08 130 2 04/20/17 16:08 147 2 97 04/20/17 16:06 114/87 04/20/17 16:03 119 9 97 04/20/17 16:03 104 9 04/20/17 16:02 131 12 97 04/20/17 16:02 126 12 04/20/17 16:01 115/88 04/20/17 16:00 36.8 138 18 115/88 (94) 96 Room Air 2 Oxymask 04/20/17 15:57 133 13 04/20/17 15:57 130 13 97 04/20/17 15:56 120/90 04/20/17 15:52 116 17 99 04/20/17 15:52 121 17 04/20/17 15:51 113/85 04/20/17 15:47 131 20 100 04/20/17 15:47 134 20 04/20/17 15:46 112/80 04/20/17 15:45 133 18 100 04/20/17 15:45 139 18 04/20/17 15:41 107/80 04/20/17 15:40 132 26 04/20/17 15:40 144 26 100 04/20/17 15:36 105/75 04/20/17 15:35 128 19 04/20/17 15:35 133 19 100 04/20/17 15:31 105/73 04/20/17 15:30 118 21 04/20/17 15:30 132 21 97 04/20/17 15:26 122/78 04/20/17 15:25 121 22 04/20/17 15:25 121 22 99 04/20/17 15:23 36.3 126 20 122/78 (84) 99 Room Air 10 Oxymask 04/20/17 08:25 Room Air Physical Exam Notes: General Appearance: WD/WN, no distress Eyes: normal inspection ENT: hearing grossly normal Neck: supple, no JVD Respiratory/Chest: lungs clear, normal breath sounds, no respiratory distress, no accessory muscle use Cardiovascular: regular rate, rhythm Abdomen: normal bowel sounds, non tender, + pertinent finding (no rebound or guarding, unable to appreciate any organomegaly) Extremities: no calf tenderness, + pedal edema Neurologic/Psychiatric: alert, + disoriented Skin: + pertinent finding (Evidence of chronic venous stasis extremities, scabs on shins secondary to excoriation.) Laboratory Results Results Past 24 Hours Test 04/20/17 13:41 04/20/17 15:07 04/20/17 15:49 04/20/17 20:01 Range/Units Bedside Glucose 59 82 84 139 70-99 mg/dl Test 04/20/17 23:48 04/21/17 02:12 04/21/17 04:14 04/21/17 05:43 Range/Units Bedside Glucose 133 179 70-99 mg/dl Urine Color DK YELLOW Urine Appearance CLOUDY CLEAR Urine pH 5.5 4.5-7.5 Urine Specific [place] 1.019 1.000-1.030 Urine Protein 3+ NEG Urine Glucose (UA) NEG NEG Urine Ketones NEG NEG Urine Occult Blood 2+ NEG Urine Nitrite NEG NEG Urine Bilirubin 2+ NEG Urine Urobilinogen NEG NEG Urine Leukocyte Esterase MODERATE NEG Urine WBC (Auto) >30 0-5 /hpf Urine RBC (Auto) 5-10 0-4 /hpf Urine Hyaline Casts (Auto) 1-5 0-5 /lpf Urine Epithelial Cells (Auto) 10-20 0-5 /lpf Urine Bacteria (Auto) NEG NEG Urine Crystals NONE PRSENT Urine Yeast (Auto) BUD W/ HYPHAE NONE PRSENT White Blood Count 6.73 4.8-10.8 K/uL Red Blood Count 3.67 4.7-6.1 M/uL Hemoglobin 10.1 14.0-18.0 g/dL Hematocrit 30.8 42-52 % Mean Corpuscular Volume 83.9 80-100 fL Mean Corpuscular Hemoglobin 27.5 25-34 pg Mean Corpuscular Hemoglobin Concent 32.8 32-36 g/dl RDW Standard Deviation 44.1 36.4-46.3 fL RDW Coefficient of Variation 14.4 11.5-14.5 % Platelet Count 229 130-400 K/uL Mean Platelet Volume 9.6 7.4-10.4 fL Sodium Level 136 136-145 mmol/L Potassium Level 3.2 3.5-5.1 mmol/L Chloride Level 102 98-107 mmol/L Carbon Dioxide Level 25 21-32 mmol/L Anion Gap 9.0 3-11 mmol/L Blood Urea Nitrogen 32 7-18 mg/dl Creatinine 2.43 0.60-1.40 mg/dl Est Creatinine Clear Calc Drug Dose 36.0 ml/min Estimated GFR () 31.4 Estimated GFR (Non- 27.1 BUN/Creatinine Ratio 13.2 10-20 Random Glucose 142 70-99 mg/dl Calcium Level 8.0 8.5-10.1 mg/dl Total Bilirubin 5.3 0.2-1 mg/dl Aspartate Amino Transf (AST/SGOT) 48 15-37 U/L Alanine Aminotransferase (ALT/SGPT) 45 12-78 U/L Alkaline Phosphatase 461 45-117 U/L Total Protein 5.9 6.4-8.2 gm/dl Albumin 1.7 3.4-5.0 gm/dl Globulin 4.2 2.5-4.0 gm/dl Albumin/Globulin Ratio 0.4 0.9-2 Thyroid Stimulating Hormone (TSH) 1.370 0.300-4.500 uIu/ml Test 04/21/17 06:31 04/21/17 11:12 Range/Units Bedside Glucose 141 166 70-99 mg/dl Microbiology Results 04/21/17 Urine Culture, Received Pending Assessment and Plan 62yo male with a pMHx of CAD, DMII, diabetic foot ulcer status post amputation of right first and second toes, HTN, HLD, prostate cancer s/p radiation therapy in 2014, pancreatic adenocarcinoma s/p common bile duct stent placement transferred from [facility] for stent removal by Dr. Deal with concern for cholangitis with stent obstruction. Cholangitis with possible sepsis - WBC in [facility] was 15,000, was treated for possible cholangitis with Zosyn, with minimal elevation of white count today, but had tachycardic and low BP - Gastroenterology consulted, recs appreciated - s/p emergent ERCP with stent removal, brush cytology, stricture dilation and stent placement - Continue antibiotic coverage with Zosyn (Day 2 of 14) Obstructive jaundice secondary to stent occlusion/history of adenocarcinoma of pancreas - Gallbladder ultrasound from outside hospital suggestive of dilated extrahepatic common bile duct at 23 mm - Gastroenterology consulted, recs appreciated - LFTs on admission show TB 5 AST 67 ALT 63, ALKP 467 - s/p emergent ERCP with intra-op findings included occluded stent, segmental biliary stricture - which was malignant-appearing, dilated bile duct, hepatic ducts, and intrahepatic branches. Mild, pus, sludge flowed through new stents once tracts were patent again. - Subsequent improvement in LFTs - Repeat ERCP recommended in 2-4 weeks for stent change New Episode of a.fib with RVR - Back in NSR now - Possibly secondary to sepsis - converted to NSR last night. - s/p digoxin 250mcg - s/p extra dose metoprolol tartrate 25mg - Monitor in telemetry - Normal TSH - Replace K - consider outpatient echo and holter monitor. If recurrent A fib - will need anticoagulation. Diabetes mellitus type 2 - Continue Lantus home dose with insulin sliding scale - HbA1c 10.2 - Patient needs appointment with PCP and visual educator on discharge Weakness - Patient feels his legs are weak and asking about rehab - PT/OT evals ordered BPH/prostate cancer: - Continue tamsulosin CAD/hypertension - Continue metoprolol and Imdur COPD: Stable - Continue duo nebs Tobacco abuse: smokes one fourth pack per day. Offered smoking cessation counseling - NicoDerm patch ordered DVT prophylaxis - SCDs Full code Continued [facility] stay due to: multiple IV medications needed Resident Tracking Resident Involvement: Resident Care Provided Care Provided: Adult Hospital Medicine Reviewed: Pt Seen/Exam by Me History no chest pain, shortness of breath Constitutional: denies: fever Respiratory: negative: short of breath Cardiovascular: denies chest pain General Appearance: no apparent distress Respiratory: lungs clear, no respiratory distress Cardiovascular: regular rate, rhythm Neurologic/Psychiatric: alert, oriented x 3 Assessment/Plan Resident Physician Supervision Note: I independently interviewed and examined the patient and verified the casas history and physical, reviewed labs and image studies, discussed the case with the resident Dr. Clarke and agree with the findings and care plan.
[2017-04-21] MEDS ORDERED: POTASSIUM CHLORIDE 20 MEQ TABCR PO STA (08:04)
[2017-04-21] MEDS: ISOSORBIDE MONONITRATE 30 MG TABCR PO SCH (08:47)
[2017-04-21] MEDS: TAMSULOSIN HCL 0.4 MG CAP PO SCH (08:47)
[2017-04-21] MEDS: METOPROLOL SUCC 25MG EXT REL TAB PO SCH (08:47)
[2017-04-21] MEDS: PANTOprazole SOD 40 MG TAB PO SCH (08:47)
[2017-04-21] MEDS: NYSTATIN POWDER 15GM BTL EXT SCH ×3 (08:47→16:40)
[2017-04-21] MEDS: FUROSEMIDE 40 MG TAB PO SCH (08:48)
[2017-04-21] MEDS: POLYETHYLENE (MIRALAX) 17 GM PACK PO SCH (08:48)
[2017-04-21] MEDS: NICOTINE 7 MG/24 HR TDSY TD SCH (08:51)
[2017-04-21] MEDS: INSULIN ASPART 100 UNITS/ML 3 ML PEN SC SCH ×4 (08:54→21:00)
--- NOTE | 2017-04-21 10:17 | Gastroenterology Progress Note ---
Progress Note Date of Service: Apr 21, 2017 Subjective Pt evaluation today including: conversation w/ patient, physical exam, chart review, lab review Pt was seen and evaluated, chart reviewed. Had ERCP yesterday, today more alert and feels better. Did not sleep last night because he was not tired. Today no abd pain, nausea, vomiting. Denies fever, chills, CP, SOB ERCP 04/20/17: - One visibly occluded stent from the biliary tree was seen in the major papilla. - Prior biliary sphincterotomy appeared open. - A segmental biliary stricture was found. The stricture was malignant appearing.- The upper third of the main bile duct, middle third of the main bile duct and left and right hepatic ducts and all intrahepatic branches were moderately dilated. - One stent was removed from the biliary tree. - One 10 Fr biliary stent was placed into the common bile duct.- Indomethacin given to decrease risk of post -ERCP pancreatitis. Review of Systems Constitutional: No fever, No chills, No weakness, No fatigue Respiratory: No cough, No sputum, No shortness of breath, No hemoptysis Cardiac: No chest pain, No orthopnea, No edema, No palpitations Abdomen: No pain, No nausea, No vomiting, No diarrhea, No constipation, No GI bleeding, No dysphagia, No odynophagia Skin: + jaundice, No rash, No itch, No bleeding Medications Current Inpatient Medications Medications (Trade) Dose Ordered Sig/Sarah Route Start Time Stop Time Status Last Admin Dose Admin Acetaminophen (Tylenol Tab) 650 mg Q4H PRN PO 04/19/17 22:45 05/19/17 22:44 Polyethylene (Miralax Powder Packet) 17 gm DAILY PRN PO 04/19/17 22:45 05/19/17 22:44 Ondansetron HCl (Zofran Inj) 4 mg Q6H PRN IV 04/19/17 22:45 05/19/17 22:44 Bisacodyl (Dulcolax Tab) 10 mg DAILY PRN PO 04/20/17 00:45 05/20/17 00:44 Furosemide (Lasix Tab) 40 mg DAILY PO 04/20/17 09:00 05/20/17 08:59 04/21/17 08:48 40 MG Insulin Glargine (Lantus Solostar Pen) 60 units HS SC 04/20/17 21:00 05/20/17 20:59 04/20/17 20:11 60 UNITS Albuterol/ Ipratropium (Duoneb) 3 ml QIDR INH 04/20/17 08:00 05/20/17 07:59 04/21/17 07:06 3 ML Metoprolol Succinate (Toprol Xl Tab) 25 mg DAILY PO 04/20/17 09:00 05/20/17 08:59 04/21/17 08:47 25 MG Nystatin (Mycostatin Powder) 1 appln [id number] EXT 04/20/17 08:00 05/20/17 07:59 04/21/17 08:47 1 APPLN Tamsulosin HCl (Flomax Cap) 0.4 mg DAILY PO 04/20/17 09:00 05/20/17 08:59 04/21/17 08:47 0.4 MG Isosorbide Mononitrate (Imdur Ext Rel Tab) 30 mg DAILY PO 04/20/17 09:00 05/20/17 08:59 04/21/17 08:47 30 MG Pantoprazole Sodium (Protonix Tab) 40 mg QAM PO 04/20/17 09:00 05/20/17 08:59 04/21/17 08:47 40 MG Polyethylene (Miralax Powder Packet) 17 gm DAILY PO 04/20/17 09:00 05/20/17 08:59 Sodium Chloride 1,000 ml @ 100 mls/hr Q10H IV 04/20/17 00:45 05/20/17 00:44 04/21/17 06:16 100 MLS/HR Nicotine (Nicoderm Cq 7 Mg Patch) 1 patch QAM TD 04/20/17 09:00 05/20/17 08:59 04/21/17 08:51 1 PATCH Miscellaneous (Remove Nicoderm Patch) 1 ea HS N/A 04/20/17 21:00 05/20/17 20:59 Albuterol/ Ipratropium (Duoneb) 3 ml Q4R PRN INH 04/20/17 04:00 05/20/17 03:59 Piperacillin Sod/ Tazobactam Sod 4.5 gm/Dextrose 120 ml @ 30 mls/hr Q8H IV 04/20/17 20:00 04/30/17 19:59 04/21/17 04:29 30 MLS/HR Miscellaneous Information (Consult) 1 ea UD PRN N/A 04/20/17 14:00 05/20/17 13:59 Insulin Aspart (novoLOG ASPART) SLIDING SCALE G... ACHS SC 04/20/17 21:00 05/20/17 05:59 04/21/17 08:54 6 UNITS Potassium Chloride (Klor-Con Tab) 20 meq BID PO 04/21/17 21:00 04/22/17 21:01 Objective Vital Signs Date Time Temp Pulse Resp B/P (MAP) Pulse Ox O2 Delivery O2 Flow Rate FiO2 04/21/17 07:35 36.7 86 20 143/76 (98) 97 Nasal Cannula 1.0 04/21/17 07:07 68 16 99 Nasal Cannula 2.0 04/21/17 04:30 Nasal Cannula 2.0 04/21/17 03:40 36.7 75 16 144/82 (102) 99 Nasal Cannula 2.0 04/21/17 00:00 Nasal Cannula 2.0 04/20/17 23:38 36.4 84 20 158/83 (108) 100 Nasal Cannula 2.0 04/20/17 22:26 78 16 124/72 (89) 99 Nasal Cannula 2.0 04/20/17 20:31 93 18 161/89 (113) 99 Nasal Cannula 2.0 Oxymask 04/20/17 20:14 88 20 152/79 (103) 100 Nasal Cannula 2.0 Oxymask 04/20/17 20:12 66 16 98 Nasal Cannula 2.0 04/20/17 20:00 99 Nasal Cannula 2.0 04/20/17 19:30 37.0 138 20 110/76 (87) 99 Nasal Cannula 2.0 Oxymask 04/20/17 19:17 142 26 146/78 93 04/20/17 19:17 141 26 04/20/17 19:12 138 32 94 04/20/17 19:12 141 32 04/20/17 19:10 125/65 04/20/17 19:07 144 26 94 04/20/17 19:07 132 26 04/20/17 19:06 141 20 140/109 95 04/20/17 19:06 146 20 04/20/17 19:01 123 22 3/15/18 19:01 132 22 127/78 95 3/15/18 18:56 138 17 /15/18 18:56 140 17 95 3/15/18 18:51 125 15 140/121 97 3/15/18 18:51 136 15 3/15/18 18:47 119/77 3/15/18 18:46 128 15 3/15/18 18:46 127 15 95 3/15/18 18:41 143 19 138/84 95 /15/18 18:41 148 19 /15/18 18:36 134 18 154/93 96 /15/18 18:36 139 18 /15/18 18:31 126 14 133/127 98 /15/18 18:31 128 14 15/18 18:26 124 18 136/90 96 /15/18 18:26 131 18 /15/18 18:21 130 28 113/97 90 /15/18 18:21 122 28 15/18 18:16 131 38 /15/18 18:16 137 38 139/103 92 /15/18 18:12 121/89 /15/18 18:11 143 10 /15/18 18:11 138 10 131/103 94 /15/18 18:08 146/131 /15/18 18:07 145/99 /15/18 18:06 145 16 130/101 96 /15/18 18:06 140 16 /15/18 18:01 133 16 126/93 96 /15/18 18:01 133 16 /15/18 17:56 140 15 125/93 98 /15/18 17:56 132 15 3/15/18 17:51 134 18 /15/18 17:51 134 18 131/87 97 /15/18 17:46 120 23 116/88 96 /15/18 17:46 133 23 /15/18 17:41 149 12 /15/18 17:41 145 12 129/87 95 /15/18 17:38 129/93 /15/18 17:36 128 10 /15/18 17:36 123 10 124/101 92 15/18 17:31 112 9 /15/18 17:31 121 9 132/94 96 3/15/18 17:26 122 14 119/86 97 04/20/17 17:26 127 14 04/20/17 17:21 107 4 04/20/17 17:21 137 4 117/81 96 04/20/17 17:16 129 4 04/20/17 17:16 132 4 116/88 96 04/20/17 17:11 142 4 04/20/17 17:11 142 4 106/79 96 04/20/17 17:06 129 2 127/82 97 04/20/17 17:06 133 2 04/20/17 17:01 149 2 107/81 97 04/20/17 17:01 137 2 04/20/17 17:00 111 14 04/20/17 17:00 129 14 96 04/20/17 16:56 140/76 04/20/17 16:55 126 14 04/20/17 16:55 117 14 98 04/20/17 16:51 131/82 18 16:50 116 16 04/20/17 16:50 134 16 98 04/20/17 16:46 117/83 04/20/17 16:45 128 12 04/20/17 16:45 130 12 97 04/20/17 16:44 124 12 97 04/20/17 16:44 127 12 04/20/17 16:41 125/85 04/20/17 16:39 140 17 96 04/20/17 16:39 118 17 04/20/17 16:36 125/90 04/20/17 16:34 132 13 97 04/20/17 16:34 112 13 04/20/17 16:31 107/85 04/20/17 16:29 122 10 04/20/17 16:29 124 10 97 04/20/17 16:28 138 4 97 04/20/17 16:28 128 4 04/20/17 16:26 114/87 18 16:23 124 3 94 18 16:23 129 3 04/20/17 16:21 97/81 04/20/17 16:18 145 11 92 04/20/17 16:18 136 11 1518 16:16 130/93 1518 16:13 142 24 95 1518 16:13 140 24 04/20/17 16:11 107/76 04/20/17 16:08 130 2 04/20/17 16:08 147 2 97 04/20/17 16:06 114/87 04/20/17 16:03 119 9 97 04/20/17 16:03 104 9 04/20/17 16:02 131 12 97 04/20/17 16:02 126 12 04/20/17 16:01 115/88 04/20/17 16:00 36.8 138 18 115/88 (94) 96 Room Air 2 Oxymask 04/20/17 15:57 133 13 04/20/17 15:57 130 13 97 04/20/17 15:56 120/90 04/20/17 15:52 116 17 99 04/20/17 15:52 121 17 04/20/17 15:51 113/85 04/20/17 15:47 131 20 100 04/20/17 15:47 134 20 04/20/17 15:46 112/80 04/20/17 15:45 133 18 100 04/20/17 15:45 139 18 04/20/17 15:41 107/80 04/20/17 15:40 132 26 04/20/17 15:40 144 26 100 04/20/17 15:36 105/75 04/20/17 15:35 128 19 04/20/17 15:35 133 19 100 04/20/17 15:31 105/73 04/20/17 15:30 118 21 04/20/17 15:30 132 21 97 04/20/17 15:26 122/78 04/20/17 15:25 121 22 04/20/17 15:25 121 22 99 04/20/17 15:23 36.3 126 20 122/78 (84) 99 Room Air 10 Oxymask Physical Exam General Appearance: no apparent distress Eyes: PERRL ENT: hearing grossly normal Neck: supple, trachea midline Respiratory/Chest: lungs clear, normal breath sounds, no respiratory distress, no accessory muscle use Cardiovascular: regular rate, rhythm, no edema, no gallop, no JVD Abdomen: normal bowel sounds, non tender, soft, no organomegaly Neurologic/Psych: alert, normal mood/affect, oriented x 3 Skin: normal color, warm/dry, no rash, + jaundice Laboratory Results Last 24 Hours Test 3/15/18 10:41 04/20/17 11:50 04/20/17 13:41 04/20/17 15:07 Hepatitis C Antibody Screen NEG Bedside Glucose 75 mg/dl 59 mg/dl 82 mg/dl Test 04/20/17 15:49 04/20/17 20:01 04/20/17 23:48 04/21/17 02:12 Bedside Glucose 84 mg/dl 139 mg/dl 133 mg/dl 179 mg/dl Test 04/21/17 04:14 04/21/17 05:43 04/21/17 06:31 Urine Color DK YELLOW Urine Appearance CLOUDY Urine pH 5.5 Urine Specific [place] 1.019 Urine Protein 3+ Urine Glucose (UA) NEG Urine Ketones NEG Urine Occult Blood 2+ Urine Nitrite NEG Urine Bilirubin 2+ Urine Urobilinogen NEG Urine Leukocyte Esterase MODERATE Urine WBC (Auto) >30 /hpf Urine RBC (Auto) 5-10 /hpf Urine Hyaline Casts (Auto) 1-5 /lpf Urine Epithelial Cells (Auto) 10-20 /lpf Urine Bacteria (Auto) NEG Urine Crystals Urine Yeast (Auto) BUD W/ HYPHAE White Blood Count 6.73 K/uL Red Blood Count 3.67 M/uL Hemoglobin 10.1 g/dL Hematocrit 30.8 % Mean Corpuscular Volume 83.9 fL Mean Corpuscular Hemoglobin 27.5 pg Mean Corpuscular Hemoglobin Concent 32.8 g/dl RDW Standard Deviation 44.1 fL RDW Coefficient of Variation 14.4 % Platelet Count 229 K/uL Mean Platelet Volume 9.6 fL Sodium Level 136 mmol/L Potassium Level 3.2 mmol/L Chloride Level 102 mmol/L Carbon Dioxide Level 25 mmol/L Anion Gap 9.0 mmol/L Blood Urea Nitrogen 32 mg/dl Creatinine 2.43 mg/dl Est Creatinine Clear Calc Drug Dose 36.0 ml/min Estimated GFR () 31.4 Estimated GFR (Non- 27.1 BUN/Creatinine Ratio 13.2 Random Glucose 142 mg/dl Calcium Level 8.0 mg/dl Total Bilirubin 5.3 mg/dl Aspartate Amino Transf (AST/SGOT) 48 U/L Alanine Aminotransferase (ALT/SGPT) 45 U/L Alkaline Phosphatase 461 U/L Total Protein 5.9 gm/dl Albumin 1.7 gm/dl Globulin 4.2 gm/dl Albumin/Globulin Ratio 0.4 Thyroid Stimulating Hormone (TSH) 1.370 uIu/ml Bedside Glucose 141 mg/dl Assessment and Plan 62 year old male w/ pancreatic malignancy, history of obstruction s/p biliary stenting in December who presented w/ cholangitis. Is S/P ERCP yesterday for decompression w/ placement of 10 Fr biliary stent was placed into the common bile duct. This AM, notes resolution of his symptoms and is feeling a lot better. - Advance diet as tolerated - Continue broad spectrum antibiotics for 2 weeks - OP ERCP in 2 -4 weeks to exchange stent - EUS for FNA if cytology negative - GI to sign off. Please call with any acute changes, questions or concerns. I saw and evaluated the patient. He does appear improved today. I would suggest that he be continued on intravenous antibiotics for another 24 hours after which he can be discharged. The patient should complete 2 week course of oral antibiotics. We will be awaiting his pathology from yesterday, if negative a repeat EUS will be offered to the patient.
[2017-04-21] MEDS: ONDANSETRON INJ 2 MG/ML 2 ML VIAL IV PRN (19:04)
[2017-04-21] MEDS: POTASSIUM CHLORIDE 20 MEQ TABCR PO SCH (21:00)
[2017-04-21] MEDS ORDERED: NURSING VERBAL MED ORDER ONE (21:15)
[2017-04-21] MEDS: INSULIN GLARGINE SOLOSTAR 100 UNITS/ML 3 ML PEN SC SCH (21:57)
[2017-04-22] VITALS (10 sets, daily range): BP systolic 121–154; BP diastolic 61–79; PULSE 74–122; TEMP 36.8–37.5; O2SAT 91–96; BMI 37.1
[2017-04-22] MEDS: PIPERACILL/TAZOBAC IV 4.5 GM in DEXTROSE 5% 100ML 100 ML IV SCH ×2 (03:30→11:47)
[2017-04-22] MEDS: SODIUM CHLORIDE 0.9% 1000ML 1,000 ML IV SCH ×5 (04:53→22:31)
[2017-04-22 05:50] LABS: HEMATOCRIT 27.5 % (42-52); HEMOGLOBIN 9.2 g/dL (14.0-18.0); MEAN CELL VOLUME 82.8 fL (80-100); MEAN CORPUSCULAR HEMOGLOBIN 27.7 pg (25-34); MEAN CORPUSCULAR HGB CONC 33.5 g/dl (32-36); MEAN PLATELET VOLUME 9.1 fL (7.4-10.4); PLATELET COUNT 287 K/uL (130-400); RED CELL DISTRIBUTION WIDTH CV 14.6 % (11.5-14.5); RED CELL DISTRIBUTION WIDTH SD 44.3 fL (36.4-46.3); WHITE BLOOD COUNT 8.05 K/uL (4.8-10.8)
[2017-04-22 06:29] LABS: ALBUMIN 1.6 gm/dl (3.4-5.0); CALCIUM 7.7 mg/dl (8.5-10.1); CREATININE 3.29 mg/dl (0.60-1.40); POTASSIUM 3.5 mmol/L (3.5-5.1)
[2017-04-22 06:40] LABS: TOTAL PROTEIN 5.7 gm/dl (6.4-8.2)
[2017-04-22] MEDS: ALBUT/IPRATROP 3MG/0.5MG NEB 3 ML VIAL INH SCH ×4 (07:06→19:41)
[2017-04-22] MEDS: INSULIN ASPART 100 UNITS/ML 3 ML PEN SC SCH ×4 (08:22→20:36)
[2017-04-22] MEDS: ONDANSETRON INJ 2 MG/ML 2 ML VIAL IV PRN ×2 (08:23→19:56)
[2017-04-22] MEDS: NYSTATIN POWDER 15GM BTL EXT SCH ×3 (08:23→15:27)
[2017-04-22] MEDS: FUROSEMIDE 40 MG TAB PO SCH (08:26)
[2017-04-22] MEDS: POLYETHYLENE (MIRALAX) 17 GM PACK PO SCH (08:26)
--- NOTE | 2017-04-22 08:58 | Gastroenterology Progress Note ---
Progress Note Date of Service: Apr 22, 2017 Subjective Pt evaluation today including: conversation w/ patient, physical exam The patient reports having nausea and vomiting this morning. Of note he has had some problems with urination and a Velez catheter was placed again. Patient also appears to be having worsening renal failure. Review of Systems Constitutional: No fever, No weight loss Respiratory: No cough, No wheezing, No dyspnea at rest Cardiac: No chest pain, No PND, No palpitations Medications Current Inpatient Medications Medications (Trade) Dose Ordered Sig/Sarah Route Start Time Stop Time Status Last Admin Dose Admin Acetaminophen (Tylenol Tab) 650 mg Q4H PRN PO 04/19/17 22:45 05/19/17 22:44 Polyethylene (Miralax Powder Packet) 17 gm DAILY PRN PO 04/19/17 22:45 05/19/17 22:44 Ondansetron HCl (Zofran Inj) 4 mg Q6H PRN IV 04/19/17 22:45 05/19/17 22:44 04/22/17 08:23 4 MG Bisacodyl (Dulcolax Tab) 10 mg DAILY PRN PO 04/20/17 00:45 05/20/17 00:44 Furosemide (Lasix Tab) 40 mg DAILY PO 04/20/17 09:00 05/20/17 08:59 04/21/17 08:48 40 MG Insulin Glargine (Lantus Solostar Pen) 60 units HS SC 04/20/17 21:00 05/20/17 20:59 04/20/17 20:11 60 UNITS Albuterol/ Ipratropium (Duoneb) 3 ml QIDR INH 04/20/17 08:00 05/20/17 07:59 04/22/17 07:06 3 ML Metoprolol Succinate (Toprol Xl Tab) 25 mg DAILY PO 04/20/17 09:00 05/20/17 08:59 04/21/17 08:47 25 MG Nystatin (Mycostatin Powder) 1 appln [id number] EXT 04/20/17 08:00 05/20/17 07:59 04/22/17 08:23 1 APPLN Tamsulosin HCl (Flomax Cap) 0.4 mg DAILY PO 04/20/17 09:00 05/20/17 08:59 3/16/18 08:47 0.4 MG Isosorbide Mononitrate (Imdur Ext Rel Tab) 30 mg DAILY PO 04/20/17 09:00 05/20/17 08:59 04/21/17 08:47 30 MG Pantoprazole Sodium (Protonix Tab) 40 mg QAM PO 04/20/17 09:00 05/20/17 08:59 04/21/17 08:47 40 MG Polyethylene (Miralax Powder Packet) 17 gm DAILY PO 04/20/17 09:00 05/20/17 08:59 Nicotine (Nicoderm Cq 7 Mg Patch) 1 patch QAM TD 04/20/17 09:00 05/20/17 08:59 04/21/17 08:51 1 PATCH Miscellaneous (Remove Nicoderm Patch) 1 ea HS N/A 04/20/17 21:00 05/20/17 20:59 04/21/17 20:08 1 EA Albuterol/ Ipratropium (Duoneb) 3 ml Q4R PRN INH 04/20/17 04:00 05/20/17 03:59 Piperacillin Sod/ Tazobactam Sod 4.5 gm/Dextrose 120 ml @ 30 mls/hr Q8H IV 04/20/17 20:00 04/30/17 19:59 04/22/17 03:30 30 MLS/HR Miscellaneous Information (Consult) 1 ea UD PRN N/A 04/20/17 14:00 05/20/17 13:59 Insulin Aspart (novoLOG ASPART) SLIDING SCALE G... ACHS SC 04/20/17 21:00 05/20/17 05:59 04/21/17 18:20 7 UNITS Potassium Chloride (Klor-Con Tab) 20 meq BID PO 04/21/17 21:00 04/22/17 21:01 Sodium Chloride 1,000 ml @ 80 mls/hr [id number] IV 04/21/17 20:00 05/21/17 19:59 04/22/17 04:53 80 MLS/HR Objective Vital Signs Date Time Temp Pulse Resp B/P (MAP) Pulse Ox O2 Delivery O2 Flow Rate FiO2 04/22/17 07:14 37.1 100 16 153/78 (103) 96 Room Air 04/22/17 07:06 98 16 91 Room Air 3/17/18 04:00 Room Air 04/22/17 03:31 37.5 101 20 136/70 (92) 96 Room Air 04/22/17 00:01 Room Air 04/21/17 23:32 36.7 102 18 136/73 (94) 95 Room Air 04/21/17 20:29 36.6 106 16 146/76 (99) 98 Room Air 04/21/17 20:00 Room Air 04/21/17 16:54 36.6 105 18 136/71 (92) 97 Room Air 04/21/17 16:05 Room Air 04/21/17 15:36 83 16 95 Room Air 04/21/17 12:10 36.4 102 20 132/55 (80) 96 Room Air 04/21/17 12:05 Room Air 04/21/17 11:06 88 16 98 Nasal Cannula 1.0 Physical Exam General Appearance: no apparent distress Neck: no JVD Respiratory/Chest: + decreased breath sounds Cardiovascular: + systolic murmur Abdomen: soft Laboratory Results Last 24 Hours Test 04/21/17 11:12 04/21/17 16:01 04/21/17 20:54 04/22/17 02:10 Bedside Glucose 166 mg/dl 175 mg/dl 132 mg/dl 115 mg/dl Test 04/22/17 05:13 04/22/17 06:55 White Blood Count 8.05 K/uL Red Blood Count 3.32 M/uL Hemoglobin 9.2 g/dL Hematocrit 27.5 % Mean Corpuscular Volume 82.8 fL Mean Corpuscular Hemoglobin 27.7 pg Mean Corpuscular Hemoglobin Concent 33.5 g/dl RDW Standard Deviation 44.3 fL RDW Coefficient of Variation 14.6 % Platelet Count 287 K/uL Mean Platelet Volume 9.1 fL Sodium Level 135 mmol/L Potassium Level 3.5 mmol/L Chloride Level 105 mmol/L Carbon Dioxide Level 22 mmol/L Anion Gap 8.0 mmol/L Blood Urea Nitrogen 37 mg/dl Creatinine 3.29 mg/dl Est Creatinine Clear Calc Drug Dose 26.5 ml/min Estimated GFR () 21.7 Estimated GFR (Non- 18.8 BUN/Creatinine Ratio 11.1 Random Glucose 105 mg/dl Calcium Level 7.7 mg/dl Total Bilirubin 4.7 mg/dl Aspartate Amino Transf (AST/SGOT) 42 U/L Alanine Aminotransferase (ALT/SGPT) 40 U/L Alkaline Phosphatase 474 U/L Total Protein 5.7 gm/dl Albumin 1.6 gm/dl Globulin 4.1 gm/dl Albumin/Globulin Ratio 0.4 Bedside Glucose 103 mg/dl Assessment and Plan 62-year-old male with a creatinine of mass. His brush cytology from last week did show evidence of adenocarcinoma. Of note he does have worsening nausea, I am not certain if this is related to his renal insufficiency or stent occlusion. Of note the material coming out of his bile duct after his ERCP was very thick and tenacious and could easily occlude the stent that was recently placed. I would suggest that we repeat his liver enzymes later today to see if they are trending upward. In addition I would suggest that he be n.p.o. at midnight in case an urgent ERCP is indicated over the weekend. If there is no evidence of obstruction by labs today or tomorrow we could certainly repeat his ERCP in the next 1-2 weeks as an outpatient for stent replacement.
[2017-04-22] MEDS: NICOTINE 7 MG/24 HR TDSY TD SCH (09:00)
[2017-04-22] MEDS: ISOSORBIDE MONONITRATE 30 MG TABCR PO SCH (09:00)
[2017-04-22] MEDS: PANTOprazole SOD 40 MG TAB PO SCH (09:00)
[2017-04-22] MEDS: METOPROLOL SUCC 25MG EXT REL TAB PO SCH (09:00)
[2017-04-22] MEDS: POTASSIUM CHLORIDE 20 MEQ TABCR PO SCH ×2 (09:00→20:36)
[2017-04-22] MEDS: TAMSULOSIN HCL 0.4 MG CAP PO SCH (09:00)
--- NOTE | 2017-04-22 10:13 | Family Medicine Progress Note ---
Progress Note Date of Service Apr 22, 2017. Subjective Pt evaluation today including: conversation w/ patient, physical exam, chart review, lab review The patient was seen and examined at bedside. Pt reported intractable vomiting overnight. Evening Lantus dose was held. Patient reports feeling cruddy and to have had continued vomiting since admission. Per signout from previous team this appears to be new onset vomiting. Pt is unable to tolerate PO. At bedside IVF of 80mls/hr were being infused. Per patient he is not in any pain except for his vomiting. Pt denies have a BM in the hospital. Per nursing staff they have required to straight cath the patient, a verbal OK was placed for cherry to gravity. Plan of care was described to the patient and all questions were answered. Constitutional: No fever, No chills, No sweats Eyes: No worsening of vision ENT: No hearing loss Respiratory: No cough, No sputum, No wheezing, No shortness of breath Cardiovascular: No chest pain Abdomen: + pain, + nausea, + vomiting, + constipation, No diarrhea Musculoskeletal: No joint pain Neurologic: No weakness, No numbness/tingling Objective Physical Exam Notes: General Appearance: WD/WN, mild distress Eyes: normal inspection ENT: hearing grossly normal Neck: supple, no JVD Respiratory/Chest: lungs clear, normal breath sounds, no respiratory distress, no accessory muscle use Cardiovascular: regular rate, rhythm, questionable systolic murmur (hard to hear due to large body habitus). Abdomen: there is tenderness to palpation in the RLQ and LLQ, no rebound noted. Patient jumps out in pain. Extremities: no calf tenderness, + pedal edema Neurologic/Psychiatric: Awake, alert and oriented x 3. Skin: + pertinent finding (Evidence of chronic venous stasis extremities, scabs on shins secondary to excoriation.) Assessment and Plan 62Mwith a pMHx of CAD, DM2, diabetic foot ulcer status post amputation of right first and second toes, HTN, HLD, prostate cancer s/p radiation therapy in 2014, pancreatic adenocarcinoma s/p common bile duct stent placement in Dec 2016. Pt presented to [facility] for vomiting. There was a concern for bile duct obstruction. Pt was transferred to [facility] on 04/19. 04/20 - ERCP with stent removal, brush cytology, stricture dilation and stent placement 04/21 - Emergent ERCP showed intra-op findings included occluded stent, segmental biliary stricture - which was malignant-appearing, dilated bile duct, hepatic ducts, and intrahepatic branches. Mild, pus, sludge flowed through new stents once tracts were patent again. (reocclusion possible if not likely) 04/22- Worsening of nausea and vomiting, 2/2 to worsening renal function vs bile duct reocclusion. Cholangitis with possible sepsis 2/2 occluded bile duct stent in setting of pancreatic adenocarcinoma. Pt has worsening nausea, thus far LFTs have been either downtrending or stable. Per Dr. Deal, we will repeat the LFTs at 2pm today and make pt NPO at midnight for possible repeat ERCP. There is a concern for reocclusion. Per PGY2 Dr. Doshi - Chest portable and KUB for possible obstruction. C/w Zosyn (Day 3 ) Zofran PRN. DC follow up will need repeat ERCP. New Episode of A.fib with RVR (resolved) 2/2 ?Sepsis Converted to NSR on overnight 04/20 and has been in sinus since. TSH WNL. s/p digoxin 250mcg and extra dose metoprolol tartrate 25mg c/w Metoprolol 25mg XL & Imdur. consider outpatient holter to determine if patient needs terminal gauger AC. Will get echo today. Acute Kidney Injury 2/2 to dehydration Pt was on [id number] on admission, decreased to 80mls/hr on 04/21. Creatinine rising from 2.43 to 3.29 this AM Consulting Nephro today. (Dr. Hudson) Increasing IVF to NSS 125mls/hr. Getting ECHO for Afib / murmur which will also give us EF. HOLDING LASIX. (pt was on 40mg PO daily) Anemia Hemoglobin on admission was 11.4, now 9.2 this AM. One documented BM since admission on 04/19, small and soft. Will get FOBT and track hemoglobin Q12H. DM2 (HBA1C was 10.2) Lantus held overnight but sugars have been stable. Pt is not tolerating PO intake. Diabetic control consult once pt's condition improves. Weakness Patient feels his legs are weak and asking about rehab PT/OT evals ordered. BPH/prostate cancer Continue tamsulosin CAD/hypertension Continue metoprolol and Imdur COPD: Stable Continue duo nebs Tobacco abuse: smokes one fourth pack per day. Offered smoking cessation counseling NicoDerm patch ordered DVT prophylaxis SCDs Full code Resident Involvement: Resident Care Provided Care Provided: Adult Hospital Medicine Reviewed: Pt Seen/Exam by Me History has been nauseous all morning. Constitutional: denies: fever Respiratory: negative: short of breath Cardiovascular: denies chest pain General Appearance: no apparent distress Respiratory: lungs clear, no respiratory distress Cardiovascular: regular rate, rhythm Gastrointestinal: soft Neurologic/Psychiatric: alert, oriented x 3 Skin Characteristics: warm/dry Assessment/Plan Resident Physician Supervision Note: I independently interviewed and examined the patient and verified the casas history and physical, reviewed labs and image studies, discussed the case with the resident Dr. Doshi and agree with the findings and care plan.
--- NOTE | 2017-04-22 10:46 | DIAGNOSTIC IMAGING REPORT ---
KUB CLINICAL HISTORY: persistent vomiting, r/o obstruction COMPARISON STUDY: No previous studies for comparison. FINDINGS: Nonobstructive bowel pattern. Biliary stent in position. Right ureteral stent is noted. IMPRESSION: Nonobstructive bowel pattern. Good position of the right ureteral and biliary stents. The above report was generated using voice recognition software. It may contain grammatical, syntax or spelling errors. Electronically signed by: Robert Rodriguez M.D. 04/22/2017 10:44 AM Dictated Date/Time: 04/22/2017 10:44 AM
--- NOTE | 2017-04-22 10:46 | DIAGNOSTIC IMAGING REPORT ---
CHEST ONE VIEW PORTABLE CLINICAL HISTORY: vomiting, eval for pulm edema pain COMPARISON STUDY: No previous studies for comparison. FINDINGS: The bones soft tissues and hemidiaphragms are normal. The cardiomediastinal silhouette is normal. The lungs are clear. The pulmonary vasculature is normal. IMPRESSION: Negative chest. The above report was generated using voice recognition software. It may contain grammatical, syntax or spelling errors. Electronically signed by: Robert Rodriguez M.D. 04/22/2017 10:45 AM Dictated Date/Time: 04/22/2017 10:45 AM
[2017-04-22] MEDS ORDERED: PERFLUTREN LIPID MICROSPHERE (DEFINITY) IV ONE (12:11)
[2017-04-22 14:15] LABS: HEMATOCRIT 28.7 % (42-52); HEMOGLOBIN 9.4 g/dL (14.0-18.0)
[2017-04-22 14:35] LABS: ALBUMIN 1.6 gm/dl (3.4-5.0); TOTAL PROTEIN 5.9 gm/dl (6.4-8.2)
--- NOTE | 2017-04-22 15:08 | Nephrology Consultation ---
Nephrology Consultation Date & Providers Date of Consultation: Apr 22, 2017. Primary Care Provider: Marilyn Blue PA-C Referring Provider: Reason for Consultation LIYA History of Present Illness Mr. Plummer is a 62 year old white male who is seen at the request of Dr. Robles for evaluation of nonoliguric LIYA. Medical records in the hospital EMR were reviewed and are summarized as follows: Mr. Plummer lives in [place], [place]. His PCP is Dr. Marilyn Blue. This is his first [facility] hospitalization. He has no history of kidney disease. His baseline creatinine is 1.0. Mr. Plummer's medical history is significant for ASCVD, AODM, HTN, dyslipidemia and prostate CA s/p radiation therapy. Recently Mr. Plummer was diagnosed with pancreatic carcinoma. He required biliary stenting 12/23. 0n 04/19 Mr. Plummer presented to [facility] w/ a 4 day h/o N/V/D. There was concern that his biliary stent was obstructed. He was transferred to [facility] to have the stent changed. On 04/20 Dr. Deal changed the stent. He noted the presence of a biliary stricture and purulent drainage. Mr. Plummer was placed on broad spectrum antibiotics and hydrated. Despite these measures his creatinine has risen from 1.0 to 3.2. He remains nonoliguric. Urine sediment is difficult to assess. He has hematuria related to his cherry catheter and urine has tested positive for bilirubin. Past Medical/Surgical History Medical: # ASCVD # AODM # diabetic neuropathy # HTN # Dyslipidemia # Prostate CA s/p radiation # Pancreatic CA Surgical: # Biliary stent Allergies Coded Allergies: Iodinated Diagnostic Agents (Verified Allergy, Mild, GI SYMPTOMS, 04/19/17) No Known Drug Allergy (Verified Allergy, Unknown, none, 04/19/17) Uncoded Allergies: dye (Allergy, Unknown, RASH, 04/19/17) patient does not remember what kind of dye or what kind of reaction he is allergic to Inpatient Medications Current Inpatient Medications Medications (Trade) Dose Ordered Sig/Sarah Route Start Time Stop Time Status Last Admin Dose Admin Acetaminophen (Tylenol Tab) 650 mg Q4H PRN PO 04/19/17 22:45 05/19/17 22:44 Polyethylene (Miralax Powder Packet) 17 gm DAILY PRN PO 04/19/17 22:45 05/19/17 22:44 Ondansetron HCl (Zofran Inj) 4 mg Q6H PRN IV 04/19/17 22:45 05/19/17 22:44 04/22/17 08:23 4 MG Bisacodyl (Dulcolax Tab) 10 mg DAILY PRN PO 04/20/17 00:45 05/20/17 00:44 Furosemide (Lasix Tab) 40 mg DAILY PO 04/20/17 09:00 05/20/17 08:59 Future Hold 04/21/17 08:48 40 MG Insulin Glargine (Lantus Solostar Pen) 60 units HS SC 04/20/17 21:00 05/20/17 20:59 04/20/17 20:11 60 UNITS Albuterol/ Ipratropium (Duoneb) 3 ml QIDR INH 04/20/17 08:00 05/20/17 07:59 04/22/17 14:29 3 ML Metoprolol Succinate (Toprol Xl Tab) 25 mg DAILY PO 04/20/17 09:00 05/20/17 08:59 04/21/17 08:47 25 MG Nystatin (Mycostatin Powder) 1 appln [id number] EXT 04/20/17 08:00 05/20/17 07:59 04/22/17 11:47 1 APPLN Tamsulosin HCl (Flomax Cap) 0.4 mg DAILY PO 04/20/17 09:00 05/20/17 08:59 04/21/17 08:47 0.4 MG Isosorbide Mononitrate (Imdur Ext Rel Tab) 30 mg DAILY PO 04/20/17 09:00 05/20/17 08:59 04/21/17 08:47 30 MG Pantoprazole Sodium (Protonix Tab) 40 mg QAM PO 04/20/17 09:00 05/20/17 08:59 04/21/17 08:47 40 MG Polyethylene (Miralax Powder Packet) 17 gm DAILY PO 04/20/17 09:00 05/20/17 08:59 Nicotine (Nicoderm Cq 7 Mg Patch) 1 patch QAM TD 04/20/17 09:00 05/20/17 08:59 04/21/17 08:51 1 PATCH Miscellaneous (Remove Nicoderm Patch) 1 ea HS N/A 04/20/17 21:00 05/20/17 20:59 04/21/17 20:08 1 EA Albuterol/ Ipratropium (Duoneb) 3 ml Q4R PRN INH 04/20/17 04:00 05/20/17 03:59 Piperacillin Sod/ Tazobactam Sod 4.5 gm/Dextrose 120 ml @ 30 mls/hr Q8H IV 04/20/17 20:00 04/30/17 19:59 04/22/17 11:47 30 MLS/HR Miscellaneous Information (Consult) 1 ea UD PRN N/A 04/20/17 14:00 05/20/17 13:59 Insulin Aspart (novoLOG ASPART) SLIDING SCALE G... ACHS SC 04/20/17 21:00 05/20/17 05:59 04/21/17 18:20 7 UNITS Potassium Chloride (Klor-Con Tab) 20 meq BID PO 04/21/17 21:00 04/22/17 21:01 Sodium Chloride 1,000 ml @ 125 mls/hr Q8H IV 04/21/17 20:00 05/21/17 19:59 04/22/17 11:20 125 MLS/HR Family History Negative for CKD / ESRD Social History Smoking Status: Former Smoker Marital Status: Resides in [place], [place]. . Seven children. Formerly worked in [employer]. Review of Systems Constitutional: No fever Respiratory: No dyspnea at rest Cardiovascular: No chest pain Abdomen: + nausea, + vomiting A complete review of systems was performed. Pertinent positives are noted above. All other systems are negative. Physical Exam Date Time Temp Pulse Resp B/P (MAP) Pulse Ox O2 Delivery O2 Flow Rate FiO2 04/22/17 14:30 74 16 93 Room Air 04/22/17 12:00 Room Air 04/22/17 11:15 100 16 93 Room Air 04/22/17 10:48 36.8 100 22 129/69 (89) 93 Room Air 04/22/17 08:00 Room Air 04/22/17 07:14 37.1 100 16 153/78 (103) 96 Room Air 04/22/17 07:06 98 16 91 Room Air 04/22/17 04:00 Room Air 04/22/17 03:31 37.5 101 20 136/70 (92) 96 Room Air 04/22/17 00:01 Room Air 04/21/17 23:32 36.7 102 18 136/73 (94) 95 Room Air 04/21/17 20:29 36.6 106 16 146/76 (99) 98 Room Air 04/21/17 20:00 Room Air 04/21/17 16:54 36.6 105 18 136/71 (92) 97 Room Air 04/21/17 16:05 Room Air 04/21/17 15:36 83 16 95 Room Air General Appearance: + pertinent finding (acutely ill appearing due to recurrent emesis) Head: normocephalic, atraumatic Eyes: PERRL, EOMI, + abnormal sclerae exam (icteric) Neck: no adenopathy Respiratory/Chest: lungs clear, no respiratory distress Cardiovascular: regular rate, rhythm Abdomen/GI: + pertinent finding (no bowel sounds. RUQ tenderness) Genitourinary - Male: + pertinent finding (Cherry catheter draining clear yellow urine) Extremities/Musculoskelatal: no calf tenderness, no pedal edema Neurologic/Psych: alert, oriented x 3 Skin: warm/dry, + jaundice, + pertinent finding (no edema) Laboratory Results Last 24 Hours Test 04/21/17 16:01 04/21/17 20:54 04/22/17 02:10 04/22/17 05:13 Bedside Glucose 175 mg/dl 132 mg/dl 115 mg/dl White Blood Count 8.05 K/uL Red Blood Count 3.32 M/uL Hemoglobin 9.2 g/dL Hematocrit 27.5 % Mean Corpuscular Volume 82.8 fL Mean Corpuscular Hemoglobin 27.7 pg Mean Corpuscular Hemoglobin Concent 33.5 g/dl RDW Standard Deviation 44.3 fL RDW Coefficient of Variation 14.6 % Platelet Count 287 K/uL Mean Platelet Volume 9.1 fL Sodium Level 135 mmol/L Potassium Level 3.5 mmol/L Chloride Level 105 mmol/L Carbon Dioxide Level 22 mmol/L Anion Gap 8.0 mmol/L Blood Urea Nitrogen 37 mg/dl Creatinine 3.29 mg/dl Est Creatinine Clear Calc Drug Dose 26.5 ml/min Estimated GFR () 21.7 Estimated GFR (Non- 18.8 BUN/Creatinine Ratio 11.1 Random Glucose 105 mg/dl Calcium Level 7.7 mg/dl Total Bilirubin 4.7 mg/dl Aspartate Amino Transf (AST/SGOT) 42 U/L Alanine Aminotransferase (ALT/SGPT) 40 U/L Alkaline Phosphatase 474 U/L Total Protein 5.7 gm/dl Albumin 1.6 gm/dl Globulin 4.1 gm/dl Albumin/Globulin Ratio 0.4 Test 04/22/17 06:55 04/22/17 10:51 04/22/17 14:03 Bedside Glucose 103 mg/dl 112 mg/dl Hemoglobin 9.4 g/dL Hematocrit 28.7 % Total Bilirubin 4.5 mg/dl Direct Bilirubin 4.0 mg/dl Aspartate Amino Transf (AST/SGOT) 39 U/L Alanine Aminotransferase (ALT/SGPT) 39 U/L Alkaline Phosphatase 475 U/L Total Protein 5.9 gm/dl Albumin 1.6 gm/dl Impression (1) Acute kidney injury (2) Dehydration (3) Pancreatic carcinoma (4) Common bile duct obstruction (5) Jaundice Acute kidney injury is likely related to dehydration and inflammation. At the time of presentation patient was on a loop diuretic but no other potential nephrotoxic medications. Clinically doubt obstruction as patient remains nonoliguric. Recommendations -- Discontinue furosemide -- Continue IV hydration w/ 0.9 NS at 125 cc/hr -- Will repeat urine microscopy to check for ATN casts -- Volume status and electrolyte balance are acceptable. No acute indication for STAND IN at this time. -- Monitor serial PRP -- Await further GI input. Patient will likely require repeat ERCP -- Recommend consulting pharmacy to assist w/ antibiotic dosing due to changing kidney function.
[2017-04-22 15:12] LABS: CALCIUM 7.8 mg/dl (8.5-10.1); CREATININE 3.63 mg/dl (0.60-1.40); POTASSIUM 3.6 mmol/L (3.5-5.1)
--- NOTE | 2017-04-22 15:46 | ECHOCARDIOGRAM REPORT ---
*NOTICE TO RECEIVING DEMOCRAT AGENCY This information is strictly Confidential and protected under [place] law. [place] law prohibits you from making any further disclosure of this information unless further disclosure is expressly permitted by the written consent of the person to whom it pertains or is authorized by law. A general authorization for the release of medical or other information is not sufficient for this purpose. Hospital accepts no responsibility if the information is made available to any other person, INCLUDING THE PATIENT. Interpretation Summary * Name: SHABNAM MERCADO Study Date: 04/22/2017 11:41 AM BP: 153/78 mmHg * Patient Location: C.2T\S\E218\S\1 HR: 113 * : 1955 (M/d/yyyy) Gender: Male Height: 67 in * Age: 62 yrs Ethnicity: [place] Weight: 236 lb * Ordering Physician: Robert Doshi * Referring Physician: No Doctor, Assigned * Performed By: Juan M Yan RDCS * * Reason For Study: Murmurs * BSA: 2.2 m2 * -- Conclusions -- * 1. Normal left ventricular size with hyperdynamic systolic function. EF 65-70%. No regional wall motion abnormalities. Mild concentric left ventricular hypertrophy. * 2. The left atrium is mildly dilated. * 3. No significant valvular abnormalities visualized. * 4. Small echodense structure within the left atrium near the anterior mitral annulus; cannot rule out artifact. * 5. Technically difficult study, enhanced with IV Definity. * 6. No prior study available for comparison. Procedure Details * A complete two-dimensional transthoracic echocardiogram was performed (2D, M-mode, Doppler and color flow Doppler). * The study was technically difficult, but visualization was adequate with the administration of Definity ultrasound contrast. * There were technical limitations due to patient'spoor positioning Left Ventricle * Normal left ventricular size and hyperdynamic systolic function. EF 65-70%. No regional wall motion abnormalities. Mild concentric left ventricular hypertrophy. Right Ventricle * The right ventricle is normal in size and function. * The right ventricular systolic function is normal as assessed by tricuspid annular plane systolic excursion (TAPSE) (normal >1.5 cm). Atria * The left atrium is mildly dilated. * Right atrial size is normal. * There is no evidence of atrial septal defect, but resolution does not allow assessment for a patent foramen ovale. Mitral Valve * The mitral valve is grossly normal. * There is no mitral valve stenosis. * Significant mitral regurgitation is absent. Tricuspid Valve * The tricuspid valve is not well visualized. * There is no tricuspid stenosis. * Significant tricuspid regurgitation is absent. Aortic Valve * The aortic valve is not well visualized. * No hemodynamically significant valvular aortic stenosis. * There is no significant aortic regurgitation. Pulmonic Valve * The pulmonic valve is not well visualized. * There is no pulmonic valvular stenosis. * There is no significant pulmonary regurgitation. Great Vessels * The aortic root is normal size. * Ascending aorta of normal dimension Pericardium/Pleural * There is no pericardial effusion. Great Vessels * Top normal IVC size with reduced inspiratory collapse. MMode 2D Measurements and Calculations IVSd 1.2 cm IVSs 1.5 cm LVIDd 4.6 cm LVIDs 2.8 cm LVPWd 1.2 cm LVPWs 1.6 cm IVS/LVPW 0.96 FS 37.7 % EDV(Teich) 95.5 ml ESV(Teich) 30.6 ml EF(Teich) 67.9 % EDV(cubed) 95.0 ml ESV(cubed) 22.9 ml EF(cubed) 75.8 % % IVS thick 28.1 % % LVPW thick 31.5 % LV mass(C)d 197.7 grams LV mass(C)dI 91.1 grams/m\S\2 LV mass(C)s 152.9 grams LV mass(C)sI 70.5 grams/m\S\2 SV(Teich) 64.9 ml SI(Teich) 29.9 ml/m\S\2 SV(cubed) 72.1 ml SI(cubed) 33.2 ml/m\S\2 Ao root diam 3.4 cm Ao root area 9.0 cm\S\2 ACS 1.9 cm LA dimension 5.5 cm asc Aorta Diam 3.0 cm LA/Ao 1.6 LVOT diam 2.2 cm LVOT area 4.0 cm\S\2 LVAd ap4 29.4 cm\S\2 LVLd ap4 8.6 cm EDV(MOD-sp4) 81.9 ml EDV(sp4-el) 85.9 ml LVAs ap4 15.3 cm\S\2 LVLs ap4 7.1 cm ESV(MOD-sp4) 27.3 ml ESV(sp4-el) 27.9 ml EF(MOD-sp4) 66.7 % EF(sp4-el) 67.5 % LVAd ap2 26.7 cm\S\2 LVLd ap2 8.9 cm EDV(MOD-sp2) 63.8 ml EDV(sp2-el) 67.9 ml LVAs ap2 14.6 cm\S\2 LVLs ap2 7.3 cm ESV(MOD-sp2) 24.9 ml ESV(sp2-el) 24.9 ml EF(MOD-sp2) 60.9 % EF(sp2-el) 63.4 % LVLd %diff 4.0 % EDV(MOD-bp) 73.2 ml LVLs %diff 2.7 % ESV(MOD-bp) 26.5 ml EF(MOD-bp) 63.9 % SV(MOD-sp4) 54.6 ml SI(MOD-sp4) 25.2 ml/m\S\2 SV(MOD-sp2) 38.9 ml SI(MOD-sp2) 17.9 ml/m\S\2 SV(MOD-bp) 46.8 ml SI(MOD-bp) 21.6 ml/m\S\2 SV(sp4-el) 58.0 ml SI(sp4-el) 26.7 ml/m\S\2 SV(sp2-el) 43.1 ml SI(sp2-el) 19.8 ml/m\S\2 Doppler Measurements and Calculations MV E max rupal 109.1 cm/sec MV A max rupal 102.2 cm/sec MV E/A 1.1 MV dec time 0.22 sec Ao V2 max 163.7 cm/sec Ao max PG 10.7 mmHg Ao max PG (full) 4.9 mmHg BARBARA(V,A) 2.9 cm\S\2 BARBARA(V,D) 2.9 cm\S\2 LV V1 max PG 5.9 mmHg LV V1 max 121.1 cm/sec PA V2 max 157.0 cm/sec PA max PG 9.9 mmHg PA acc slope 1053.3 cm/sec\S\2 PA acc time 0.11 sec RAP systole 8.0 mmHg PA pr(Accel) 31.1 mmHg
[2017-04-22] MEDS: METOPROLOL TARTRATE 1 MG/ML VIAL IV. SCH ×2 (16:10→21:18)
[2017-04-22] MEDS: PIPERACILL/TAZOBAC IV 3.375 GM in DEXTROSE 5% 100ML 100 ML IV SCH (19:50)
[2017-04-22] MEDS ORDERED: INSULIN GLARGINE SOLOSTAR 100 UNITS/ML 3 ML PEN SC SCH (21:00)
[2017-04-23] VITALS (11 sets, daily range): BP systolic 130–161; BP diastolic 70–84; PULSE 63–99; TEMP 36.4–37; O2SAT 95–100
[2017-04-23] MEDS: PIPERACILL/TAZOBAC IV 3.375 GM in DEXTROSE 5% 100ML 100 ML IV SCH ×3 (03:58→23:44)
[2017-04-23] MEDS: METOPROLOL TARTRATE 1 MG/ML VIAL IV. SCH ×2 (03:58→09:32)
[2017-04-23] MEDS: SODIUM CHLORIDE 0.9% 1000ML 1,000 ML IV SCH ×2 (05:52→20:51)
[2017-04-23] MEDS: INSULIN ASPART 100 UNITS/ML 3 ML PEN SC SCH ×4 (07:00→20:52)
[2017-04-23] MEDS: ALBUT/IPRATROP 3MG/0.5MG NEB 3 ML VIAL INH SCH ×4 (07:02→19:25)
[2017-04-23 07:22] LABS: BASO % 1.1 %; BASO ABS # 0.09 K/uL (0-0.2); EOS ABS # 0.24 K/uL (0-0.5); HEMOGLOBIN 9.1 g/dL (14.0-18.0); IG# 0.08 K/uL (0.00-0.02); LYMPH % 12.9 %; LYMPH ABS # 1.04 K/uL (1.2-3.4); MEAN CELL VOLUME 82.6 fL (80-100); MEAN CORPUSCULAR HEMOGLOBIN 26.8 pg (25-34); MEAN CORPUSCULAR HGB CONC 32.5 g/dl (32-36); MEAN PLATELET VOLUME 8.8 fL (7.4-10.4); MONO % 7.9 %; MONO ABS # 0.64 K/uL (0.11-0.59); NEUT % 74.1 %; NEUT ABS # 5.97 K/uL (1.4-6.5); PLATELET COUNT 316 K/uL (130-400); RED CELL DISTRIBUTION WIDTH CV 15.1 % (11.5-14.5); RED CELL DISTRIBUTION WIDTH SD 45.6 fL (36.4-46.3); WHITE BLOOD COUNT 8.06 K/uL (4.8-10.8)
[2017-04-23] MEDS ORDERED: FENTANYL CITRATE INJ 50 MCG/1 ML 2 ML VIAL ONE (07:29)
[2017-04-23] MEDS ORDERED: EpHEDrine SULFATE INJ 50 MG/ML AMP IV PRN (07:30)
[2017-04-23] MEDS ORDERED: ONDANSETRON INJ 2 MG/ML 2 ML VIAL IV PRN (07:30)
[2017-04-23] MEDS ORDERED: FENTANYL CITRATE INJ 50 MCG/1 ML 2 ML VIAL IV PRN (07:30)
[2017-04-23] MEDS ORDERED: ATROPINE SULFATE 0.1 MG/ML 5ML SYR IV PRN (07:30)
--- NOTE | 2017-04-23 07:31 | History & Physical Bridge Note ---
H&P Re-Evaluation Bridge Note: I have examined the patient, reviewed the History & Physical and in the interval since the performance of the History & Physical I have noted the following changes of clinical significance: No changes noted. Due to a suspected early occlusion of a biliay stent we are planning to repeat ERCP today. As we finally have a tissue diagnosis of adenocarcinoma we will place a metal stent which should decrease the chance of early occlusion. We have discussed the risks to include bleeding, infection, perforation, pain, pancreatitis, failed cannulation and need for follow-up studies.
[2017-04-23 07:45] LABS: ALBUMIN 1.6 gm/dl (3.4-5.0); CALCIUM 8.2 mg/dl (8.5-10.1); CREATININE 4.27 mg/dl (0.60-1.40); POTASSIUM 3.4 mmol/L (3.5-5.1)
[2017-04-23 07:48] LABS: TOTAL PROTEIN 6.2 gm/dl (6.4-8.2)
[2017-04-23] MEDS ORDERED: INDOMETHACIN 50 MG SUPP PR ONE (07:50)
--- NOTE | 2017-04-23 08:23 | [facility] Post Operative Brief Note ---
Immediate Operative Summary Operative Date Apr 23, 2017. Pre-Operative Diagnosis Common Bile Duct Stricture Post-Operative Diagnosis Occlusion of biliary stent / malignant biliary stricture / food bolus impaction / esophagitis Procedure(s) Performed Endoscopic Retrograde Cholangiopancreatography Surgeon Dr. Kiet Deal Senior Enterprise Architect Surgeon(s) None Estimated Blood Loss None Findings Consistent with Post-Op Diagnosis Specimens None Drains Internal biliary drain Anesthesia Type General Complication(s) none Disposition Accompanied Pt To Recover: no Disposition: Recovery Room / PACU
--- NOTE | 2017-04-23 08:38 | GI REPORT ---
Procedure Date: 04/23/2017 7:54 AM Procedure: ERCP Indications: Jaundice, Malignant tumor of the head of pancreas, Stent change Medicines: General Anesthesia Complications: No immediate complications. Estimated blood loss: Minimal. Estimated Blood Loss: Estimated blood loss was minimal. Procedure: Pre-Anesthesia Assessment: - Prior to the procedure, a History and Physical was performed, and patient medications, allergies and sensitivities were reviewed. The patient's tolerance of previous anesthesia was reviewed. - The risks and benefits of the procedure and the sedation options and risks were discussed with the patient. All questions were answered and informed consent was obtained. - Patient identification and proposed procedure were verified prior to the procedure by the physician, the nurse and the soapstoner. The procedure was verified in the procedure room. - Pre-procedure physical examination revealed no contraindications to sedation. - ASA Grade Assessment: III - A patient with severe systemic disease. - After reviewing the risks and benefits, the patient was deemed in satisfactory condition to undergo the procedure. - The anesthesia plan was to use general anesthesia. - Immediately prior to administration of medications, the patient was re-assessed for adequacy to receive sedatives. - The heart rate, respiratory rate, oxygen saturations, blood pressure, adequacy of pulmonary ventilation, and response to care were monitored throughout the procedure. - The physical status of the patient was re-assessed after the procedure. After obtaining informed consent, the scope was passed under direct vision. Throughout the procedure, the patient's blood pressure, pulse, and oxygen saturations were monitored continuously. The Scope was introduced through the mouth, and advanced to the duodenum and used to inject contrast into the bile duct. The ERCP was accomplished without difficulty. The patient tolerated the procedure well. Findings: A biliary stent was visible on the fitter placer film. Initially we tried to pass the ERCP scope without success, therefore an upper endoscope was obtained to further evaluate. A standard esophagogastroduodenoscopy scope was used for the examination of the upper gastrointestinal tract. The scope was passed under direct vision through the upper GI tract. A large amount of food was found impacted in the lower third of the esophagus. Food was removed with a snare and Trevino retrieval net. Severe esophagitis with diffuse oozing was found in the lower third of the esophagus. Diffuse mild inflammation characterized by erythema and granularity was found in the entire examined stomach. The in the duodenum was normal. The ERCP scope was then passed easily to the duodenum. One biliary stent originating in the biliary tree was emerging from the major papilla. The stent was partially occluded as suspected. One stent was removed from the biliary tree using a snare. The bile duct was deeply cannulated with the short-nosed traction sphincterotome (Omni 35) and 0.035 in MET 2 guidewire. Contrast was injected. I personally interpreted the bile duct images. Contrast extended to the hepatic ducts. The lower third of the main bile duct contained a single segmental stenosis 30 mm in length. One 10 Fr by 6 cm metal stent ([employer], REF STEPH [id number], REF [id number]) was placed 6 cm into the common bile duct. Bile and sludge flowed through the stent. The stent was in good position. Indomethacin 100 mg was given via suppository to decrease the risk of post-ERCP pancreatitis (PEP). Impression: - Food in the lower third of the esophagus, removed. - Esophagitis. - Gastritis. - One partially occluded stent from the biliary tree was seen in the major papilla and removed. - A segmental biliary stricture was found. The stricture was malignant appearing. - One metal stent was placed into the common bile duct. - Indomethacin given to decrease risk of post-ERCP pancreatitis. Recommendation: - Avoid aspirin and nonsteroidal anti-inflammatory medicines for 1 week. - Use Prilosec (omeprazole) 40 mg PO BID for 6 weeks then 1 time daily. - Clear liquid diet today then advance to a Mechanical soft. - EGD in 2 to 4 weeks to evaluate the distal esophagus and provide an esophageal dilation. Kiet Deal D.O. Kiet Deal, 04/23/2017 8:38:28 AM This report has been signed electronically. Note Initiated On: 04/23/2017 7:54 AM I attest to the content of the Intraoperative Record and orders documented therein, exceptions below
--- NOTE | 2017-04-23 08:51 | Anesthesiology Progress Note ---
Anesthesia Post Op Note Date & Time Apr 23, 2017 at 08:51 Vital Signs Pain Intensity: 0.0 Vital Signs Past 12 Hours Date Time Temp Pulse Resp B/P (MAP) Pulse Ox O2 Delivery O2 Flow Rate FiO2 04/23/17 07:32 37.0 95 22 150/71 (97) 100 Room Air 04/23/17 07:03 96 18 97 Room Air 04/23/17 04:00 Room Air 04/23/17 03:58 99 151/81 04/23/17 03:35 36.7 99 17 151/81 (104) 95 Room Air 04/23/17 00:01 Room Air 04/22/17 23:16 36.8 108 18 138/79 (98) 93 Room Air 04/22/17 21:18 114 119/61 Notes Mental Status: alert / awake / arousable, participated in evaluation Pt Amnestic to Procedure: Yes Nausea / Vomiting: adequately controlled Pain: adequately controlled Airway Patency, RR, SpO2: stable & adequate BP & HR: stable & adequate Hydration State: stable & adequate Anesthetic Complications: no major complications apparent
[2017-04-23] MEDS ORDERED: LIDOCAINE HCL 2% 2 ML VIAL (20MG/ML) ONE ×2 (08:53→08:54)
[2017-04-23] MEDS ORDERED: ONDANSETRON INJ 2 MG/ML 2 ML VIAL ONE (08:53)
--- NOTE | 2017-04-23 08:54 | DIAGNOSTIC IMAGING REPORT ---
ERCP BILIARY DUCTAL HISTORY: 62 years-old Male ERCP DONE IN THE OR repeat exploratory ERCP COMPARISON: ERCP 04/20/2017 TECHNIQUE: 3 spot fluoroscopic images of the right upper abdomen were obtained utilizing 38.0 seconds fluoroscopy time FINDINGS: Endoscope is noted within the duodenum. There is cannulation of the common bile duct with injection of contrast which opacifies the common bile duct and intrahepatic biliary tree. There is a focal area of high-grade luminal narrowing involving the mid common bile duct nicely seen on image 2 of 4 with proximal common bile duct dilation suggesting a stricture or possibly an annular constricting mass. No intrahepatic biliary ductal dilation identified. No definite filling defects identified. The third image demonstrates placement of a stent within the common bile duct. A right ureteral stent is partially imaged. IMPRESSION: Fluoroscopic assistance as above. Please see procedural report for further details. The above report was generated using voice recognition software. It may contain grammatical, syntax or spelling errors. Electronically signed by: Francisco Francisco M.D. 04/23/2017 8:52 AM Dictated Date/Time: 04/23/2017 8:49 AM
[2017-04-23] MEDS ORDERED: PROPOFOL IV EMULSION 10 MG/ML 20 ML VIAL IV ONE (08:56)
[2017-04-23] MEDS: POLYETHYLENE (MIRALAX) 17 GM PACK PO SCH (09:00)
[2017-04-23] MEDS: PANTOprazole SOD 40 MG TAB PO SCH (09:30)
[2017-04-23] MEDS: NICOTINE 7 MG/24 HR TDSY TD SCH (09:30)
[2017-04-23] MEDS: NYSTATIN POWDER 15GM BTL EXT SCH ×3 (09:31→17:12)
[2017-04-23] MEDS: TAMSULOSIN HCL 0.4 MG CAP PO SCH (09:31)
[2017-04-23] MEDS: ISOSORBIDE MONONITRATE 30 MG TABCR PO SCH (09:31)
--- NOTE | 2017-04-23 11:06 | Nephrology Progress Note ---
Nephrology Progress Note Date of Service Apr 23, 2017. Chief Complaint LIYA Subjective Mr. Plummer was seen & examined in the PCU this morning. He has just returned from endoscopy. He reports that his biliary stent was again changed. His appetite has returned and he is now tolerating a liquid diet. Mr. Plummer now relates a h/o kidney stones. He indicates that several years ago he had a stone requiring Lithotripsy and stent placement at [facility]. The ureteral stent has since been removed and he denies any further kidney stones. He denies fever, flank pain or gross hematuria. Review of Systems Constitutional: No fever Cardiovascular: No chest pain Respiratory: No dyspnea at rest Abdomen: No pain, No nausea, No vomiting Extremities: No leg edema A complete review of systems was performed. Pertinent positives are noted above. All other systems are negative. Vital Signs Last 8 Hrs Date Time Temp Pulse Resp B/P (MAP) Pulse Ox O2 Delivery O2 Flow Rate FiO2 04/23/17 09:45 88 16 152/74 (100) 97 Room Air 04/23/17 09:32 94 153/82 04/23/17 09:30 36.5 93 18 153/82 (105) 97 Room Air 04/23/17 09:15 36.4 93 18 148/77 96 Room Air 04/23/17 09:05 94 20 152/77 97 Room Air 04/23/17 08:55 96 15 138/76 99 Oxymask 10 04/23/17 08:45 97 17 138/73 100 Oxymask 10 04/23/17 08:38 36.3 98 20 118/66 98 Oxymask 10 04/23/17 07:32 37.0 95 22 150/71 (97) 100 Room Air 04/23/17 07:03 96 18 97 Room Air 04/23/17 04:00 Room Air 04/23/17 03:58 99 151/81 04/23/17 03:35 36.7 99 17 151/81 (104) 95 Room Air I & O 24-Hour Column 04/24/17 08:00 Intake Total 400 ml Output Total 325 ml Balance 75 ml Last Recorded Weight Weight (Kilograms): 107.600 Physical Exam General Appearance: no apparent distress Head: normocephalic, atraumatic Eyes: PERRL, EOMI Neck: no adenopathy Respiratory/Chest: lungs clear Cardiovascular: regular rate, rhythm Abdomen/GI: normal bowel sounds, non tender, soft Extremities/Musculoskelatal: no calf tenderness, no pedal edema Neurologic/Psych: alert, oriented x 3 Family History Negative for CKD / ESRD Social History Marital Status: Resides in [place], [place]. . Seven children. Formerly worked in [employer]. Laboratory Results Past 24 Hours 04/22/17 14:03 04/23/17 06:43 Red Blood Count 3.39, Mean Corpuscular Volume 82.6, Mean Corpuscular Hemoglobin 26.8, Mean Corpuscular Hemoglobin Concent 32.5, Mean Platelet Volume 8.8, Neutrophils (%) (Auto) 74.1, Lymphocytes (%) (Auto) 12.9, Monocytes (%) (Auto) 7.9, Eosinophils (%) (Auto) 3.0, Basophils (%) (Auto) 1.1, Neutrophils # (Auto) 5.97, Lymphocytes # (Auto) 1.04, Monocytes # (Auto) 0.64, Eosinophils # (Auto) 0.24, Basophils # (Auto) 0.09 04/22/17 14:03 04/23/17 06:43 Test 04/22/17 14:03 04/22/17 15:35 04/22/17 16:16 04/22/17 20:05 Anion Gap 13.0 mmol/L (3-11) Est Creatinine Clear Calc Drug Dose 24.0 ml/min Estimated GFR () 19.3 Estimated GFR (Non- 16.7 BUN/Creatinine Ratio 10.6 (10-20) Calcium Level 7.8 mg/dl (8.5-10.1) Total Bilirubin 4.5 mg/dl (0.2-1) Direct Bilirubin 4.0 mg/dl (0-0.2) Aspartate Amino Transf (AST/SGOT) 39 U/L (15-37) Alanine Aminotransferase (ALT/SGPT) 39 U/L (12-78) Alkaline Phosphatase 475 U/L (45-117) Total Protein 5.9 gm/dl (6.4-8.2) Albumin 1.6 gm/dl (3.4-5.0) Globulin 4.3 gm/dl (2.5-4.0) Albumin/Globulin Ratio 0.4 (0.9-2) Urine Color YELLOW Urine Appearance CLOUDY (CLEAR) Urine pH 5.0 (4.5-7.5) Urine Specific [place] 1.009 (1.000-1.030) Urine Protein TRACE (NEG) Urine Glucose (UA) NEG (NEG) Urine Ketones NEG (NEG) Urine Occult Blood 1+ (NEG) Urine Nitrite NEG (NEG) Urine Bilirubin NEG (NEG) Urine Urobilinogen NEG (NEG) Urine Leukocyte Esterase LARGE (NEG) Urine WBC (Auto) >30 /hpf (0-5) Urine RBC (Auto) 0-4 /hpf (0-4) Urine Hyaline Casts (Auto) 1-5 /lpf (0-5) Urine Epithelial Cells (Auto) 0-5 /lpf (0-5) Urine Bacteria (Auto) NEG (NEG) Urine Yeast (Auto) BUD W/ HYPHAE (NONE PRSENT) Bedside Glucose 156 mg/dl (70-99) 145 mg/dl (70-99) Test 04/23/17 00:18 04/23/17 06:03 04/23/17 06:43 04/23/17 08:48 Bedside Glucose 143 mg/dl (70-99) 92 mg/dl (70-99) 90 mg/dl (70-99) White Blood Count 8.06 K/uL (4.8-10.8) Red Blood Count 3.39 M/uL (4.7-6.1) Hemoglobin 9.1 g/dL (14.0-18.0) Hematocrit 28.0 % (42-52) Mean Corpuscular Volume 82.6 fL (80-100) Mean Corpuscular Hemoglobin 26.8 pg (25-34) Mean Corpuscular Hemoglobin Concent 32.5 g/dl (32-36) Platelet Count 316 K/uL (130-400) Mean Platelet Volume 8.8 fL (7.4-10.4) Neutrophils (%) (Auto) 74.1 % Lymphocytes (%) (Auto) 12.9 % Monocytes (%) (Auto) 7.9 % Eosinophils (%) (Auto) 3.0 % Basophils (%) (Auto) 1.1 % Neutrophils # (Auto) 5.97 K/uL (1.4-6.5) Lymphocytes # (Auto) 1.04 K/uL (1.2-3.4) Monocytes # (Auto) 0.64 K/uL (0.11-0.59) Eosinophils # (Auto) 0.24 K/uL (0-0.5) Basophils # (Auto) 0.09 K/uL (0-0.2) RDW Standard Deviation 45.6 fL (36.4-46.3) RDW Coefficient of Variation 15.1 % (11.5-14.5) Immature Granulocyte % (Auto) 1.0 % Immature Granulocyte # (Auto) 0.08 K/uL (0.00-0.02) Anion Gap 10.0 mmol/L (3-11) Est Creatinine Clear Calc Drug Dose 20.4 ml/min Estimated GFR () 15.9 Estimated GFR (Non- 13.7 BUN/Creatinine Ratio 9.3 (10-20) Calcium Level 8.2 mg/dl (8.5-10.1) Total Bilirubin 4.1 mg/dl (0.2-1) Aspartate Amino Transf (AST/SGOT) 39 U/L (15-37) Alanine Aminotransferase (ALT/SGPT) 36 U/L (12-78) Alkaline Phosphatase 534 U/L (45-117) Total Protein 6.2 gm/dl (6.4-8.2) Albumin 1.6 gm/dl (3.4-5.0) Globulin 4.6 gm/dl (2.5-4.0) Albumin/Globulin Ratio 0.3 (0.9-2) Allergies Coded Allergies: Iodinated Diagnostic Agents (Verified Allergy, Mild, GI SYMPTOMS, 04/19/17) No Known Drug Allergy (Verified Allergy, Unknown, none, 04/19/17) Uncoded Allergies: dye (Allergy, Unknown, RASH, 04/19/17) patient does not remember what kind of dye or what kind of reaction he is allergic to Medications Current Inpatient Medications Medications (Trade) Dose Ordered Sig/Sarah Route Start Time Stop Time Status Last Admin Dose Admin Acetaminophen (Tylenol Tab) 650 mg Q4H PRN PO 04/19/17 22:45 05/19/17 22:44 Polyethylene (Miralax Powder Packet) 17 gm DAILY PRN PO 04/19/17 22:45 05/19/17 22:44 Ondansetron HCl (Zofran Inj) 4 mg Q6H PRN IV 04/19/17 22:45 05/19/17 22:44 04/22/17 19:56 4 MG Bisacodyl (Dulcolax Tab) 10 mg DAILY PRN PO 04/20/17 00:45 05/20/17 00:44 Furosemide (Lasix Tab) 40 mg DAILY PO 04/20/17 09:00 05/20/17 08:59 Future Hold 04/21/17 08:48 40 MG Albuterol/ Ipratropium (Duoneb) 3 ml QIDR INH 04/20/17 08:00 05/20/17 07:59 04/23/17 07:02 3 ML Metoprolol Succinate (Toprol Xl Tab) 25 mg DAILY PO 04/20/17 09:00 05/20/17 08:59 Future Hold 04/21/17 08:47 25 MG Nystatin (Mycostatin Powder) 1 appln [id number] EXT 04/20/17 08:00 05/20/17 07:59 04/23/17 09:31 1 APPLN Tamsulosin HCl (Flomax Cap) 0.4 mg DAILY PO 04/20/17 09:00 05/20/17 08:59 04/23/17 09:31 0.4 MG Isosorbide Mononitrate (Imdur Ext Rel Tab) 30 mg DAILY PO 04/20/17 09:00 05/20/17 08:59 04/23/17 09:31 30 MG Pantoprazole Sodium (Protonix Tab) 40 mg QAM PO 04/20/17 09:00 05/20/17 08:59 04/23/17 09:30 40 MG Polyethylene (Miralax Powder Packet) 17 gm DAILY PO 04/20/17 09:00 05/20/17 08:59 Nicotine (Nicoderm Cq 7 Mg Patch) 1 patch QAM TD 04/20/17 09:00 05/20/17 08:59 04/23/17 09:30 1 PATCH Miscellaneous (Remove Nicoderm Patch) 1 ea HS N/A 04/20/17 21:00 05/20/17 20:59 04/21/17 20:08 1 EA Albuterol/ Ipratropium (Duoneb) 3 ml Q4R PRN INH 04/20/17 04:00 05/20/17 03:59 Miscellaneous Information (Consult) 1 ea UD PRN N/A 04/20/17 14:00 05/20/17 13:59 Insulin Aspart (novoLOG ASPART) SLIDING SCALE G... ACHS SC 04/20/17 21:00 05/20/17 05:59 04/21/17 18:20 7 UNITS Sodium Chloride 1,000 ml @ 140 mls/hr Q7H9M IV 04/21/17 20:00 05/21/17 19:59 04/23/17 05:52 140 MLS/HR Piperacillin Sod/ Tazobactam Sod 3.375 gm/Dextrose 115 ml @ 28.75 mls/ hr Q8H IV 04/22/17 20:00 04/30/17 19:59 04/23/17 03:58 28.75 MLS/HR Metoprolol Tartrate (Lopressor Iv) 5 mg Q6H IV. 04/22/17 16:00 05/22/17 15:59 04/23/17 09:32 5 MG Insulin Glargine (Lantus Solostar Pen) 20 units HS SC 04/22/17 21:00 05/20/17 20:59 04/22/17 21:15 20 UNITS Fentanyl Citrate (Fentanyl Inj) 50 mcg Q5M PRN IV 04/23/17 07:30 04/23/17 12:30 Ondansetron HCl (Zofran Inj) 4 mg ONE PRN IV 04/23/17 07:30 04/23/17 12:30 Ephedrine Sulfate (EpHEDrine SULFATE INJ) 5 mg Q5M PRN IV 04/23/17 07:30 04/23/17 12:30 Atropine Sulfate (Atropine Sulfate 0.1mg/ml Inj) 0.5 mg Q1M PRN IV 04/23/17 07:30 04/23/17 12:30 Impression (1) Acute kidney injury (2) Dehydration (3) Pancreatic carcinoma (4) Common bile duct obstruction (5) Jaundice Acute kidney injury is likely related to dehydration and inflammation. At the time of presentation patient was on a loop diuretic but no other potential nephrotoxic medications. Clinically doubt obstruction as patient remains nonoliguric. Recommendations -- Continue to hold Furosemide -- Continue IV hydration w/ 0.9 NS at 125 cc/hr -- Urinalysis reviewed. No ATN casts reported -- Volume status and electrolyte balance are acceptable. No acute indication for FRAME POLISHER at this time. -- Monitor serial PRP -- Await further GI input. Continue gentle hydration and broad spectrum antibiotics -- Recommend consulting pharmacy to assist w/ antibiotic dosing due to changing kidney function -- Given h/o kidney stones will order renal US today
--- NOTE | 2017-04-23 11:38 | DIAGNOSTIC IMAGING REPORT ---
(RENAL)RETROPERITON COMP HISTORY: 62 years-old Male Elevated creatinine x 4 days, h/o uretral stones acutely elevated creatinine COMPARISON: None available TECHNIQUE: Multiple real-time sonographic images of the kidneys and urinary bladder were obtained assessing grayscale appearance and color flow FINDINGS: The right kidney measures 10.7 cm in length and demonstrates asymmetric cortical thinning which measures up to 6 mm. Mild pelviectasis is likely physiologic without dilation of the calyces identified. No renal calculi or suspicious mass lesions of the right. Velez catheter is noted within a collapsed urinary bladder. Spleen is mildly enlarged, 13.8 cm. Left kidney measures 13.9 cm in length. There is a ovoid hypoechoic lesion of the interpolar left kidney, 1.8 cm suggesting renal cyst. No left-sided renal calculi or hydronephrosis. IMPRESSION: 1. Minimally asymmetric atrophic morphology of the right kidney with cortical thinning. 2. No renal calculi or hydronephrosis. 3. 1.8 cm cyst of the interpolar left kidney. 4. Velez catheter noted within a collapsed urinary bladder lumen. The above report was generated using voice recognition software. It may contain grammatical, syntax or spelling errors. Electronically signed by: Francisco Francisco M.D. 04/23/2017 11:36 AM Dictated Date/Time: 04/23/2017 11:34 AM
--- NOTE | 2017-04-23 14:53 | Family Medicine Progress Note ---
Progress Note Date of Service Apr 23, 2017. Subjective Pt evaluation today including: conversation w/ patient, physical exam, chart review, lab review The patient was seen and examined at bedside. Telemetry showed sinus rhythm in the 90s overnight. Patient is resting comfortably in bed after his endoscope/ ERCP today where a obstructing piece of beef was removed from the esophagus and then his biliary stent was replaced. He is tolerating a clear liquid PO diet. Pt reports feeling much better. He has not pain other than his usual indigestion discomfort. Plan of care was described to the patient and all questions were answered. Constitutional: No fever, No chills, No sweats Eyes: No worsening of vision Respiratory: No cough, No sputum, No wheezing, No shortness of breath Cardiovascular: No chest pain Abdomen: + pain, No nausea, No vomiting, No diarrhea, No constipation Musculoskeletal: No joint pain Male : No dysuria Neurologic: No memory loss Psychiatric: No depression symptoms Objective Physical Exam Notes: General Appearance: WD/WN, no apparent distress, obese. Eyes: normal inspection ENT: hearing grossly normal, pt doesn't not have teeth. Neck: supple, no JVD Respiratory/Chest: lungs clear, normal breath sounds, no respiratory distress, no accessory muscle use Cardiovascular: regular rate, rhythm, questionable systolic murmur (hard to hear due to large body habitus). Abdomen: soft, nontender, non distended, no rebound, no masses, no hepatosplenomegaly appreciated. Extremities: no calf tenderness, + pedal edema Neurologic/Psychiatric: Awake, alert and oriented x 3. Skin: + pertinent finding (Evidence of chronic venous stasis extremities, scabs on shins secondary to excoriation.) Assessment and Plan 62Mwith a pMHx of CAD, DM2, diabetic foot ulcer status post amputation of right first and second toes, HTN, HLD, prostate cancer s/p radiation therapy in 2014, pancreatic adenocarcinoma s/p common bile duct stent placement in Dec 2016. Pt presented to [facility] for vomiting. There was a concern for bile duct obstruction. Pt was transferred to [facility] on 04/19. 04/20 - ERCP with stent removal, brush cytology, stricture dilation and stent placement 04/21 - Emergent ERCP showed intra-op findings included occluded stent, segmental biliary stricture - which was malignant-appearing, dilated bile duct, hepatic ducts, and intrahepatic branches. Mild, pus, sludge flowed through new stents once tracts were patent again. 04/22- Worsening of nausea and vomiting, unknown etiology, renal vs GI. 04/23 - Repeat ERCP, Dr. Deal found a large piece of beef obstructing the lower esophagus, that was removed and bile duct stent was changed - pt showed significant improvement of symptoms. Renal function however is worsening though. Cholangitis with possible sepsis 2/2 occluded bile duct stent in setting of pancreatic adenocarcinoma. s/p ERCP today with bile duct stent change, pt feels much better now. C/w Zosyn (Day 4 ) Zofran PRN. DC follow up will need repeat ERCP in 2-4 weeks. Acute Kidney Injury 2/2 to dehydration Creatinine rising to 4.27 this AM. Per [facility] chart review pt has a history of obstructing uretral stones. US kidney was WNL, no evidence of hydronephrosis or stones. Per nephro, c/w IVF at 125mls/hr Continue to hold LASIX. (was on 40mg daily) Check BMP in AM. This afternoon urine output is low, 125mls over 8 hours - getting a STAT BMP and chest X-ray (lungs clear on exam, no CVA tenderness). New Episode of A.fib with RVR (resolved) 2/2 ?Sepsis Converted to NSR on overnight 04/20 and has been in sinus since. TSH WNL. s/p digoxin 250mcg and extra dose metoprolol tartrate 25mg c/w Metoprolol 25mg XL & Imdur. Grossly normal echo with normal EF of 65-70%. consider outpatient holter to determine if patient needs [facility]. Anemia (stable) Hemoglobin on admission was 11.4 -->9.2-->9.1 One documented BM since admission on 04/19, small and soft. FOBT still pending. DM2 (HBA1C was 10.2) Home dose of Lantus was 60units and reduced to 20units QHS while patient wasn't tolerating PO. Now tolerating PO, will increase Lantus to 30units QHS. Weakness Patient feels his legs are weak and asking about rehab PT/OT on board. BPH/prostate cancer Continue tamsulosin CAD/hypertension Continue IV 5mg Q6H metoprolol and PO Imdur. If pt tolerates PO intake today and tomorrow switch Metoprolol back to home PO dose. COPD: Stable Continue duo nebs Tobacco abuse: smokes one fourth pack per day. Offered smoking cessation counseling NicoDerm patch ordered DVT prophylaxis SCDs FULL CODE Resident Involvement: Resident Care Provided Care Provided: Adult Hospital Medicine Reviewed: Pt Seen/Exam by Me History feeling much better after egd. nausea resolved Constitutional: denies: fever Respiratory: negative: short of breath Cardiovascular: denies chest pain General Appearance: no apparent distress Respiratory: lungs clear, no respiratory distress Cardiovascular: regular rate, rhythm Gastrointestinal: normal bowel sounds, non tender, soft Neurologic/Psychiatric: alert, oriented x 3 Skin Characteristics: warm/dry Assessment/Plan Resident Physician Supervision Note: I independently interviewed and examined the patient and verified the casas history and physical, reviewed labs and image studies, discussed the case with the resident Dr. Doshi and agree with the findings and care plan.
--- NOTE | 2017-04-23 14:56 | DIAGNOSTIC IMAGING REPORT ---
CHEST ONE VIEW PORTABLE HISTORY: 62 years-old Male Low urine output on fluids, eval for developing pulm edema decreased urine output with concern for pulmonary edema COMPARISON: Chest radiograph 04/22/2017 TECHNIQUE: Portable AP view of the chest FINDINGS: Cardiac mediastinal and hilar silhouettes are within normal limits. There is no pneumothorax, pleural effusion or overt pulmonary edema. Subsegmental left basilar opacities. Bones of the chest appear grossly intact. IMPRESSION: Subsegmental left basilar opacities suggest atelectasis. No evidence of overt pulmonary edema. The above report was generated using voice recognition software. It may contain grammatical, syntax or spelling errors. Electronically signed by: Francisco Francisco M.D. 04/23/2017 2:54 PM Dictated Date/Time: 04/23/2017 2:53 PM
[2017-04-23 15:23] LABS: CALCIUM 7.6 mg/dl (8.5-10.1); CREATININE 4.13 mg/dl (0.60-1.40); POTASSIUM 3.5 mmol/L (3.5-5.1)
[2017-04-23] MEDS ORDERED: METOPROLOL TARTRATE 25 MG TAB PO ONE (18:00)
[2017-04-23] MEDS: INSULIN GLARGINE SOLOSTAR 100 UNITS/ML 3 ML PEN SC SCH (20:52)
[2017-04-24] VITALS (12 sets, daily range): BP systolic 129–147; BP diastolic 68–73; PULSE 94–109; TEMP 36.6–37.1; O2SAT 94–100
[2017-04-24] MEDS: ONDANSETRON INJ 2 MG/ML 2 ML VIAL IV PRN ×2 (01:53→09:23)
[2017-04-24 05:29] LABS: BASO % 0.7 %; BASO ABS # 0.05 K/uL (0-0.2); EOS % 3.8 %; EOS ABS # 0.28 K/uL (0-0.5); HEMATOCRIT 22.2 % (42-52); HEMOGLOBIN 7.3 g/dL (14.0-18.0); IG# 0.09 K/uL (0.00-0.02); LYMPH % 13.3 %; LYMPH ABS # 0.99 K/uL (1.2-3.4); MEAN CELL VOLUME 82.5 fL (80-100); MEAN CORPUSCULAR HEMOGLOBIN 27.1 pg (25-34); MEAN CORPUSCULAR HGB CONC 32.9 g/dl (32-36); MEAN PLATELET VOLUME 8.6 fL (7.4-10.4); MONO % 6.7 %; NEUT % 74.3 %; NEUT ABS # 5.51 K/uL (1.4-6.5); PLATELET COUNT 283 K/uL (130-400); RED CELL DISTRIBUTION WIDTH CV 15.3 % (11.5-14.5); RED CELL DISTRIBUTION WIDTH SD 46.5 fL (36.4-46.3); WHITE BLOOD COUNT 7.42 K/uL (4.8-10.8)
[2017-04-24 05:49] LABS: ALBUMIN 1.5 gm/dl (3.4-5.0); CALCIUM 7.4 mg/dl (8.5-10.1); CREATININE 4.38 mg/dl (0.60-1.40); POTASSIUM 3.4 mmol/L (3.5-5.1)
[2017-04-24 05:52] LABS: TOTAL PROTEIN 5.6 gm/dl (6.4-8.2)
[2017-04-24] MEDS: SODIUM CHLORIDE 0.9% 1000ML 1,000 ML IV SCH ×3 (05:52→20:52)
[2017-04-24 06:17] LABS: HEMATOCRIT 21.2 % (42-52)
[2017-04-24] MEDS: INSULIN ASPART 100 UNITS/ML 3 ML PEN SC SCH ×4 (07:00→20:49)
[2017-04-24] MEDS: ALBUT/IPRATROP 3MG/0.5MG NEB 3 ML VIAL INH SCH ×3 (07:11→18:30)
[2017-04-24] MEDS: NICOTINE 7 MG/24 HR TDSY TD SCH (09:00)
[2017-04-24] MEDS: POLYETHYLENE (MIRALAX) 17 GM PACK PO SCH (09:00)
[2017-04-24] MEDS: NYSTATIN POWDER 15GM BTL EXT SCH ×3 (09:24→14:51)
[2017-04-24] MEDS: ISOSORBIDE MONONITRATE 30 MG TABCR PO SCH (09:27)
[2017-04-24] MEDS: TAMSULOSIN HCL 0.4 MG CAP PO SCH (09:27)
[2017-04-24] MEDS: PANTOprazole SOD 40 MG TAB PO SCH ×2 (10:42→20:52)
[2017-04-24] MEDS: METOPROLOL SUCC 25MG EXT REL TAB PO SCH (10:42)
--- NOTE | 2017-04-24 11:45 | Gastroenterology Progress Note ---
Progress Note Date of Service: Apr 24, 2017 Subjective Pt evaluation today including: conversation w/ patient, physical exam, chart review, lab review, review of studies, review of inpatient medication list Pt laying in bed, a bit drowsy but easily awakens when name called. He is c/o some nausea/vomiting, emesis yellowish, no abd pain. Hasn't tried breakfast yet. Noted H/H dropped but no signs of GI bleeding. No melena. Review of Systems Constitutional: No fever, No chills Respiratory: No cough, No shortness of breath Cardiac: No chest pain Abdomen: + nausea, + vomiting, No pain, No GI bleeding Medications Current Inpatient Medications Medications (Trade) Dose Ordered Sig/Sarah Route Start Time Stop Time Status Last Admin Dose Admin Acetaminophen (Tylenol Tab) 650 mg Q4H PRN PO 04/19/17 22:45 05/19/17 22:44 Polyethylene (Miralax Powder Packet) 17 gm DAILY PRN PO 04/19/17 22:45 05/19/17 22:44 Ondansetron HCl (Zofran Inj) 4 mg Q6H PRN IV 04/19/17 22:45 05/19/17 22:44 04/24/17 09:23 4 MG Bisacodyl (Dulcolax Tab) 10 mg DAILY PRN PO 04/20/17 00:45 05/20/17 00:44 04/23/17 17:15 10 MG Furosemide (Lasix Tab) 40 mg DAILY PO 04/20/17 09:00 05/20/17 08:59 Future Hold 04/21/17 08:48 40 MG Albuterol/ Ipratropium (Duoneb) 3 ml QIDR INH 04/20/17 08:00 05/20/17 07:59 04/24/17 11:12 3 ML Metoprolol Succinate (Toprol Xl Tab) 25 mg DAILY PO 04/20/17 09:00 05/20/17 08:59 Future hold 04/24/17 10:42 25 MG Nystatin (Mycostatin Powder) 1 appln [id number] EXT 04/20/17 08:00 05/20/17 07:59 04/24/17 09:24 1 APPLN Tamsulosin HCl (Flomax Cap) 0.4 mg DAILY PO 04/20/17 09:00 05/20/17 08:59 04/24/17 09:27 0.4 MG Isosorbide Mononitrate (Imdur Ext Rel Tab) 30 mg DAILY PO 04/20/17 09:00 05/20/17 08:59 04/24/17 09:27 30 MG Polyethylene (Miralax Powder Packet) 17 gm DAILY PO 04/20/17 09:00 05/20/17 08:59 Nicotine (Nicoderm Cq 7 Mg Patch) 1 patch QAM TD 04/20/17 09:00 05/20/17 08:59 04/23/17 09:30 1 PATCH Miscellaneous (Remove Nicoderm Patch) 1 ea HS N/A 04/20/17 21:00 05/20/17 20:59 04/23/17 20:50 1 EA Albuterol/ Ipratropium (Duoneb) 3 ml Q4R PRN INH 04/20/17 04:00 05/20/17 03:59 Miscellaneous Information (Consult) 1 ea UD PRN N/A 04/20/17 14:00 05/20/17 13:59 Insulin Aspart (novoLOG ASPART) SLIDING SCALE G... ACHS SC 04/20/17 21:00 05/20/17 05:59 04/23/17 20:52 1 UNITS Sodium Chloride 1,000 ml @ 125 mls/hr Q8H IV 04/21/17 20:00 05/21/17 19:59 04/24/17 05:52 125 MLS/HR Insulin Glargine (Lantus Solostar Pen) 30 units HS SC 04/23/17 21:00 05/20/17 20:59 04/23/17 20:52 30 UNITS Piperacillin Sod/ Tazobactam Sod 3.375 gm/Dextrose 115 ml @ 28.75 mls/ hr Q12H IV 04/24/17 00:00 04/29/17 23:59 04/23/17 23:44 28.75 MLS/HR Pantoprazole Sodium (Protonix Tab) 40 mg BID PO 04/24/17 10:00 05/20/17 09:59 04/24/17 10:42 40 MG Objective Vital Signs Date Time Temp Pulse Resp B/P (MAP) Pulse Ox O2 Delivery O2 Flow Rate FiO2 04/24/17 11:14 97 18 94 Room Air 04/24/17 08:00 Room Air 04/24/17 07:35 36.6 98 20 134/70 (91) 97 Room Air 04/24/17 07:11 94 18 96 Room Air 04/24/17 04:00 Room Air 04/24/17 03:35 36.8 95 17 129/72 (91) 94 Room Air 04/24/17 00:00 Room Air 04/23/17 23:38 36.7 96 19 130/70 (90) 97 Room Air 04/23/17 20:00 Room Air 04/23/17 19:25 92 18 97 Room Air 04/23/17 19:15 36.5 93 24 135/74 (94) 99 Room Air 04/23/17 16:00 Room Air 04/23/17 15:25 36.4 97 22 145/78 (100) 99 Room Air 04/23/17 15:11 63 18 95 Room Air 04/23/17 12:00 Room Air 04/23/17 11:57 36.4 90 18 161/84 (109) 99 Physical Exam General Appearance: WD/WN, no apparent distress Eyes: normal inspection, PERRL, EOMI Neck: supple, no JVD, trachea midline Respiratory/Chest: normal breath sounds, no respiratory distress, no accessory muscle use Cardiovascular: regular rate, rhythm, no gallop, no murmur Abdomen: non tender, soft, + abnormal bowel sounds (hypoactive) Extremities: + swelling (+1 edema bilaterally) Neurologic/Psych: alert, normal mood/affect, oriented x 3 Skin: normal color, no jaundice, no rash Laboratory Results Last 24 Hours Test 04/23/17 14:43 04/23/17 16:32 04/23/17 20:14 04/24/17 05:06 Sodium Level 135 mmol/L 135 mmol/L Potassium Level 3.5 mmol/L 3.4 mmol/L Chloride Level 105 mmol/L 104 mmol/L Carbon Dioxide Level 18 mmol/L 19 mmol/L Anion Gap 12.0 mmol/L 12.0 mmol/L Blood Urea Nitrogen 38 mg/dl 41 mg/dl Creatinine 4.13 mg/dl 4.38 mg/dl Est Creatinine Clear Calc Drug Dose 21.1 ml/min 19.9 ml/min Estimated GFR () 16.5 15.4 Estimated GFR (Non- 14.3 13.3 BUN/Creatinine Ratio 9.1 9.4 Random Glucose 150 mg/dl 146 mg/dl Calcium Level 7.6 mg/dl 7.4 mg/dl Bedside Glucose 181 mg/dl 194 mg/dl White Blood Count 7.42 K/uL Red Blood Count 2.69 M/uL Hemoglobin 7.3 g/dL Hematocrit 22.2 % Mean Corpuscular Volume 82.5 fL Mean Corpuscular Hemoglobin 27.1 pg Mean Corpuscular Hemoglobin Concent 32.9 g/dl Platelet Count 283 K/uL Mean Platelet Volume 8.6 fL Neutrophils (%) (Auto) 74.3 % Lymphocytes (%) (Auto) 13.3 % Monocytes (%) (Auto) 6.7 % Eosinophils (%) (Auto) 3.8 % Basophils (%) (Auto) 0.7 % Neutrophils # (Auto) 5.51 K/uL Lymphocytes # (Auto) 0.99 K/uL Monocytes # (Auto) 0.50 K/uL Eosinophils # (Auto) 0.28 K/uL Basophils # (Auto) 0.05 K/uL RDW Standard Deviation 46.5 fL RDW Coefficient of Variation 15.3 % Immature Granulocyte % (Auto) 1.2 % Immature Granulocyte # (Auto) 0.09 K/uL Red Blood Cell Morphology Unremarkable Total Bilirubin 3.6 mg/dl Aspartate Amino Transf (AST/SGOT) 31 U/L Alanine Aminotransferase (ALT/SGPT) 28 U/L Alkaline Phosphatase 435 U/L Total Protein 5.6 gm/dl Albumin 1.5 gm/dl Globulin 4.1 gm/dl Albumin/Globulin Ratio 0.4 Test 04/24/17 06:09 04/24/17 06:41 04/24/17 11:00 Hemoglobin 7.0 g/dL Hematocrit 21.2 % Bedside Glucose 151 mg/dl 142 mg/dl Assessment and Plan Pt is a 62 y/o male with biliary mass cytology consistent w adenocarcinoma, now cholangitis. He had repeat ERCP over the weekend along w EGD - noted to have food impaction, removed; previously placed biliary stent was occluded, now replaced w metal stent. His LFTs are trending down. H/H dropping. Did have n/v this AM but denies hematemesis/coffee ground emesis. Denies any melena either. - Monitor H/H, transfuse prn - Monitor LFTs - CL diet - Protonix 40mg BID. - EGD in 2-4 week's time to eval esophagitis
[2017-04-24] MEDS: PIPERACILL/TAZOBAC IV 3.375 GM in DEXTROSE 5% 100ML 100 ML IV SCH ×2 (14:40→23:43)
--- NOTE | 2017-04-24 15:37 | Nephrology Progress Note ---
Nephrology Progress Note Date of Service Apr 24, 2017. Chief Complaint LIYA Subjective Mr. Plummer was seen & examined in his hospital room this morning. He complained of persistent nausea and epigastric pain. He had one episode of emesis this morning. Review of Systems Constitutional: No fever Cardiovascular: No chest pain Respiratory: No dyspnea at rest Abdomen: + pain, + nausea, + vomiting Extremities: No leg edema A complete review of systems was performed. Pertinent positives are noted above. All other systems are negative. Vital Signs Last 8 Hrs Date Time Temp Pulse Resp B/P (MAP) Pulse Ox O2 Delivery O2 Flow Rate FiO2 04/24/17 12:00 97 Room Air 04/24/17 11:58 36.9 107 26 147/68 (94) 97 Room Air 04/24/17 11:14 97 18 94 Room Air 04/24/17 08:00 Room Air 04/24/17 07:35 36.6 98 20 134/70 (91) 97 Room Air I & O 24-Hour Column 04/25/17 08:00 Intake Total 1065 ml Output Total 550 ml Balance 515 ml Last Recorded Weight Weight (Kilograms): 107.600 Physical Exam General Appearance: + mild distress Head: normocephalic, atraumatic Eyes: normal inspection, EOMI Neck: no adenopathy Respiratory/Chest: lungs clear, no respiratory distress Cardiovascular: regular rate, rhythm Abdomen/GI: + pertinent finding (no bowel sounds. + epigastric tenderness) Extremities/Musculoskelatal: no pedal edema Neurologic/Psych: alert, oriented x 3 Family History Negative for CKD / ESRD Social History Marital Status: Resides in [place], [place]. . Seven children. Formerly worked in [employer]. Laboratory Results Past 24 Hours 04/24/17 05:06 Red Blood Count 2.69, Mean Corpuscular Volume 82.5, Mean Corpuscular Hemoglobin 27.1, Mean Corpuscular Hemoglobin Concent 32.9, Mean Platelet Volume 8.6, Neutrophils (%) (Auto) 74.3, Lymphocytes (%) (Auto) 13.3, Monocytes (%) (Auto) 6.7, Eosinophils (%) (Auto) 3.8, Basophils (%) (Auto) 0.7, Neutrophils # (Auto) 5.51, Lymphocytes # (Auto) 0.99, Monocytes # (Auto) 0.50, Eosinophils # (Auto) 0.28, Basophils # (Auto) 0.05 04/24/17 06:09 04/24/17 05:06 Test 04/23/17 16:32 04/23/17 20:14 04/24/17 05:06 04/24/17 06:41 Bedside Glucose 181 mg/dl (70-99) 194 mg/dl (70-99) 151 mg/dl (70-99) White Blood Count 7.42 K/uL (4.8-10.8) Red Blood Count 2.69 M/uL (4.7-6.1) Hemoglobin 7.3 g/dL (14.0-18.0) Hematocrit 22.2 % (42-52) Mean Corpuscular Volume 82.5 fL (80-100) Mean Corpuscular Hemoglobin 27.1 pg (25-34) Mean Corpuscular Hemoglobin Concent 32.9 g/dl (32-36) Platelet Count 283 K/uL (130-400) Mean Platelet Volume 8.6 fL (7.4-10.4) Neutrophils (%) (Auto) 74.3 % Lymphocytes (%) (Auto) 13.3 % Monocytes (%) (Auto) 6.7 % Eosinophils (%) (Auto) 3.8 % Basophils (%) (Auto) 0.7 % Neutrophils # (Auto) 5.51 K/uL (1.4-6.5) Lymphocytes # (Auto) 0.99 K/uL (1.2-3.4) Monocytes # (Auto) 0.50 K/uL (0.11-0.59) Eosinophils # (Auto) 0.28 K/uL (0-0.5) Basophils # (Auto) 0.05 K/uL (0-0.2) RDW Standard Deviation 46.5 fL (36.4-46.3) RDW Coefficient of Variation 15.3 % (11.5-14.5) Immature Granulocyte % (Auto) 1.2 % Immature Granulocyte # (Auto) 0.09 K/uL (0.00-0.02) Red Blood Cell Morphology Unremarkable Anion Gap 12.0 mmol/L (3-11) Est Creatinine Clear Calc Drug Dose 19.9 ml/min Estimated GFR () 15.4 Estimated GFR (Non- 13.3 BUN/Creatinine Ratio 9.4 (10-20) Calcium Level 7.4 mg/dl (8.5-10.1) Total Bilirubin 3.6 mg/dl (0.2-1) Aspartate Amino Transf (AST/SGOT) 31 U/L (15-37) Alanine Aminotransferase (ALT/SGPT) 28 U/L (12-78) Alkaline Phosphatase 435 U/L (45-117) Total Protein 5.6 gm/dl (6.4-8.2) Albumin 1.5 gm/dl (3.4-5.0) Globulin 4.1 gm/dl (2.5-4.0) Albumin/Globulin Ratio 0.4 (0.9-2) Test 04/24/17 11:00 04/24/17 14:39 Bedside Glucose 142 mg/dl (70-99) Transferrin % Saturation % (20-50) Allergies Coded Allergies: Iodinated Diagnostic Agents (Verified Allergy, Mild, GI SYMPTOMS, 04/19/17) No Known Drug Allergy (Verified Allergy, Unknown, none, 04/19/17) Uncoded Allergies: dye (Allergy, Unknown, RASH, 04/19/17) patient does not remember what kind of dye or what kind of reaction he is allergic to Medications Current Inpatient Medications Medications (Trade) Dose Ordered Sig/Sarah Route Start Time Stop Time Status Last Admin Dose Admin Acetaminophen (Tylenol Tab) 650 mg Q4H PRN PO 04/19/17 22:45 05/19/17 22:44 Polyethylene (Miralax Powder Packet) 17 gm DAILY PRN PO 04/19/17 22:45 05/19/17 22:44 Ondansetron HCl (Zofran Inj) 4 mg Q6H PRN IV 04/19/17 22:45 05/19/17 22:44 04/24/17 09:23 4 MG Bisacodyl (Dulcolax Tab) 10 mg DAILY PRN PO 04/20/17 00:45 05/20/17 00:44 04/23/17 17:15 10 MG Furosemide (Lasix Tab) 40 mg DAILY PO 04/20/17 09:00 05/20/17 08:59 Future Hold 04/21/17 08:48 40 MG Albuterol/ Ipratropium (Duoneb) 3 ml QIDR INH 04/20/17 08:00 05/20/17 07:59 04/24/17 11:12 3 ML Metoprolol Succinate (Toprol Xl Tab) 25 mg DAILY PO 04/20/17 09:00 05/20/17 08:59 Future hold 04/24/17 10:42 25 MG Nystatin (Mycostatin Powder) 1 appln [id number] EXT 04/20/17 08:00 05/20/17 07:59 04/24/17 14:39 1 APPLN Tamsulosin HCl (Flomax Cap) 0.4 mg DAILY PO 04/20/17 09:00 05/20/17 08:59 04/24/17 09:27 0.4 MG Isosorbide Mononitrate (Imdur Ext Rel Tab) 30 mg DAILY PO 04/20/17 09:00 05/20/17 08:59 04/24/17 09:27 30 MG Polyethylene (Miralax Powder Packet) 17 gm DAILY PO 04/20/17 09:00 05/20/17 08:59 Nicotine (Nicoderm Cq 7 Mg Patch) 1 patch QAM TD 04/20/17 09:00 05/20/17 08:59 04/23/17 09:30 1 PATCH Miscellaneous (Remove Nicoderm Patch) 1 ea HS N/A 04/20/17 21:00 05/20/17 20:59 04/23/17 20:50 1 EA Albuterol/ Ipratropium (Duoneb) 3 ml Q4R PRN INH 04/20/17 04:00 05/20/17 03:59 Miscellaneous Information (Consult) 1 ea UD PRN N/A 04/20/17 14:00 05/20/17 13:59 Insulin Aspart (novoLOG ASPART) SLIDING SCALE G... ACHS SC 04/20/17 21:00 05/20/17 05:59 04/23/17 20:52 1 UNITS Sodium Chloride 1,000 ml @ 125 mls/hr Q8H IV 04/21/17 20:00 05/21/17 19:59 04/24/17 14:40 125 MLS/HR Insulin Glargine (Lantus Solostar Pen) 30 units HS SC 04/23/17 21:00 05/20/17 20:59 04/23/17 20:52 30 UNITS Piperacillin Sod/ Tazobactam Sod 3.375 gm/Dextrose 115 ml @ 28.75 mls/ hr Q12H IV 04/24/17 00:00 04/29/17 23:59 04/24/17 14:40 28.75 MLS/HR Pantoprazole Sodium (Protonix Tab) 40 mg BID PO 04/24/17 10:00 05/20/17 09:59 04/24/17 10:42 40 MG Impression (1) Acute kidney injury (2) Dehydration (3) Pancreatic carcinoma (4) Common bile duct obstruction (5) Jaundice Acute kidney injury is likely related to dehydration and inflammation. At the time of presentation patient was on a loop diuretic but no other potential nephrotoxic medications. Clinically doubt obstruction as patient remains nonoliguric. Recommendations -- Continue to hold Furosemide -- Continue IV hydration w/ 0.9 NS at 125 cc/hr -- Urinalysis reviewed. No ATN casts reported -- Volume status and electrolyte balance are acceptable. No acute indication for DIE FINISHER at this time. -- Monitor serial PRP -- Await further GI input. Continue gentle hydration and broad spectrum antibiotics -- Recommend consulting pharmacy to assist w/ antibiotic dosing due to changing kidney function -- 04/23 Renal US report reviewed today: No stone or obstruction
[2017-04-24 15:58] LABS: RETIC COUNT % 1.8 % (0.5-2.0)
--- NOTE | 2017-04-24 18:54 | Family Medicine Progress Note ---
Progress Note Date of Service Apr 24, 2017. Subjective Pt evaluation today including: conversation w/ patient, physical exam, chart review, lab review PO Intake: Clear liquids Voiding: cherry catheter in place Had episodes of nausea and vomiting this morning which was blood-tinged Denies any abdominal pain, fevers or chills, bright red bleeding per rectum or melena Denies any chest pain, shortness of breath or palpitations or lightheadedness or dizziness Constitutional: No fever, No chills Eyes: No worsening of vision ENT: No hearing loss Respiratory: No cough, No sputum, No wheezing, No shortness of breath Cardiovascular: No chest pain Breast: No breast lump Abdomen: + nausea, + vomiting (Blood-tinged), No pain, No diarrhea, No constipation, No GI bleeding Musculoskeletal: No joint pain Male : No dysuria, No urinary frequency Neurologic: No weakness, No numbness/tingling Psychiatric: No depression symptoms Heme: No abnormal bleeding/bruising Medications Current Inpatient Medications Medications (Trade) Dose Ordered Sig/Sarah Route Start Time Stop Time Status Last Admin Dose Admin Acetaminophen (Tylenol Tab) 650 mg Q4H PRN PO 04/19/17 22:45 05/19/17 22:44 Polyethylene (Miralax Powder Packet) 17 gm DAILY PRN PO 04/19/17 22:45 05/19/17 22:44 Ondansetron HCl (Zofran Inj) 4 mg Q6H PRN IV 04/19/17 22:45 05/19/17 22:44 04/24/17 09:23 4 MG Bisacodyl (Dulcolax Tab) 10 mg DAILY PRN PO 04/20/17 00:45 05/20/17 00:44 04/23/17 17:15 10 MG Furosemide (Lasix Tab) 40 mg DAILY PO 04/20/17 09:00 05/20/17 08:59 Future Hold 04/21/17 08:48 40 MG Albuterol/ Ipratropium (Duoneb) 3 ml QIDR INH 04/20/17 08:00 05/20/17 07:59 04/24/17 11:12 3 ML Metoprolol Succinate (Toprol Xl Tab) 25 mg DAILY PO 04/20/17 09:00 05/20/17 08:59 Future hold 04/24/17 10:42 25 MG Nystatin (Mycostatin Powder) 1 appln [id number] EXT 04/20/17 08:00 05/20/17 07:59 04/24/17 14:51 1 APPLN Tamsulosin HCl (Flomax Cap) 0.4 mg DAILY PO 04/20/17 09:00 05/20/17 08:59 04/24/17 09:27 0.4 MG Isosorbide Mononitrate (Imdur Ext Rel Tab) 30 mg DAILY PO 04/20/17 09:00 05/20/17 08:59 04/24/17 09:27 30 MG Polyethylene (Miralax Powder Packet) 17 gm DAILY PO 04/20/17 09:00 05/20/17 08:59 Nicotine (Nicoderm Cq 7 Mg Patch) 1 patch QAM TD 04/20/17 09:00 05/20/17 08:59 04/23/17 09:30 1 PATCH Miscellaneous (Remove Nicoderm Patch) 1 ea HS N/A 04/20/17 21:00 05/20/17 20:59 04/23/17 20:50 1 EA Albuterol/ Ipratropium (Duoneb) 3 ml Q4R PRN INH 04/20/17 04:00 05/20/17 03:59 Miscellaneous Information (Consult) 1 ea UD PRN N/A 04/20/17 14:00 05/20/17 13:59 Insulin Aspart (novoLOG ASPART) SLIDING SCALE G... ACHS SC 04/20/17 21:00 05/20/17 05:59 04/23/17 20:52 1 UNITS Sodium Chloride 1,000 ml @ 125 mls/hr Q8H IV 04/21/17 20:00 05/21/17 19:59 04/24/17 14:40 125 MLS/HR Insulin Glargine (Lantus Solostar Pen) 30 units HS SC 04/23/17 21:00 05/20/17 20:59 04/23/17 20:52 30 UNITS Piperacillin Sod/ Tazobactam Sod 3.375 gm/Dextrose 115 ml @ 28.75 mls/ hr Q12H IV 04/24/17 00:00 04/29/17 23:59 04/24/17 14:40 28.75 MLS/HR Pantoprazole Sodium (Protonix Tab) 40 mg BID PO 04/24/17 10:00 05/20/17 09:59 04/24/17 10:42 40 MG Objective Vital Signs Date Time Temp Pulse Resp B/P (MAP) Pulse Ox O2 Delivery O2 Flow Rate FiO2 04/24/17 16:00 98 Room Air 04/24/17 15:55 37.1 109 18 130/69 (89) 98 Room Air 04/24/17 14:51 99 18 96 Room Air 04/24/17 12:00 97 Room Air 04/24/17 11:58 36.9 107 26 147/68 (94) 97 Room Air 04/24/17 11:14 97 18 94 Room Air 04/24/17 08:00 Room Air 04/24/17 07:35 36.6 98 20 134/70 (91) 97 Room Air 04/24/17 07:11 94 18 96 Room Air 04/24/17 04:00 Room Air 04/24/17 03:35 36.8 95 17 129/72 (91) 94 Room Air 04/24/17 00:00 Room Air 04/23/17 23:38 36.7 96 19 130/70 (90) 97 Room Air 04/23/17 20:00 Room Air 04/23/17 19:25 92 18 97 Room Air 04/23/17 19:15 36.5 93 24 135/74 (94) 99 Room Air Physical Exam General Appearance: WD/WN, no apparent distress ENT: hearing grossly normal Neck: supple Respiratory/Chest: lungs clear, normal breath sounds, no respiratory distress Cardiovascular: + irregularly irregular Extremities: + pedal edema, + pertinent finding (right foot 1-3 toes amputated. ) Neurologic/Psychiatric: alert, normal mood/affect, oriented x 3 Laboratory Results 04/24/17 05:06 Red Blood Count 2.69, Mean Corpuscular Volume 82.5, Mean Corpuscular Hemoglobin 27.1, Mean Corpuscular Hemoglobin Concent 32.9, Mean Platelet Volume 8.6, Neutrophils (%) (Auto) 74.3, Lymphocytes (%) (Auto) 13.3, Monocytes (%) (Auto) 6.7, Eosinophils (%) (Auto) 3.8, Basophils (%) (Auto) 0.7, Neutrophils # (Auto) 5.51, Lymphocytes # (Auto) 0.99, Monocytes # (Auto) 0.50, Eosinophils # (Auto) 0.28, Basophils # (Auto) 0.05 04/24/17 06:09 04/24/17 05:06 Test 04/24/17 05:06 04/24/17 15:20 04/24/17 15:46 04/24/17 16:13 White Blood Count 7.42 K/uL (4.8-10.8) Red Blood Count 2.69 M/uL (4.7-6.1) Hemoglobin 7.3 g/dL (14.0-18.0) Hematocrit 22.2 % (42-52) Mean Corpuscular Volume 82.5 fL (80-100) Mean Corpuscular Hemoglobin 27.1 pg (25-34) Mean Corpuscular Hemoglobin Concent 32.9 g/dl (32-36) Platelet Count 283 K/uL (130-400) Mean Platelet Volume 8.6 fL (7.4-10.4) Neutrophils (%) (Auto) 74.3 % Lymphocytes (%) (Auto) 13.3 % Monocytes (%) (Auto) 6.7 % Eosinophils (%) (Auto) 3.8 % Basophils (%) (Auto) 0.7 % Neutrophils # (Auto) 5.51 K/uL (1.4-6.5) Lymphocytes # (Auto) 0.99 K/uL (1.2-3.4) Monocytes # (Auto) 0.50 K/uL (0.11-0.59) Eosinophils # (Auto) 0.28 K/uL (0-0.5) Basophils # (Auto) 0.05 K/uL (0-0.2) RDW Standard Deviation 46.5 fL (36.4-46.3) RDW Coefficient of Variation 15.3 % (11.5-14.5) Immature Granulocyte % (Auto) 1.2 % Immature Granulocyte # (Auto) 0.09 K/uL (0.00-0.02) Red Blood Cell Morphology Unremarkable Anion Gap 12.0 mmol/L (3-11) Est Creatinine Clear Calc Drug Dose 19.9 ml/min Estimated GFR () 15.4 Estimated GFR (Non- 13.3 BUN/Creatinine Ratio 9.4 (10-20) Calcium Level 7.4 mg/dl (8.5-10.1) Total Bilirubin 3.6 mg/dl (0.2-1) Aspartate Amino Transf (AST/SGOT) 31 U/L (15-37) Alanine Aminotransferase (ALT/SGPT) 28 U/L (12-78) Alkaline Phosphatase 435 U/L (45-117) Total Protein 5.6 gm/dl (6.4-8.2) Albumin 1.5 gm/dl (3.4-5.0) Globulin 4.1 gm/dl (2.5-4.0) Albumin/Globulin Ratio 0.4 (0.9-2) Urine Random Sodium 53 mEq/L Absolute Reticulocyte Count 0.04 10^6/uL (0.02-0.10) Percent Reticulocyte Count 1.8 % (0.5-2.0) Iron Level 50 mcg/dl (35-175) Total Iron Binding Capacity 133 mcg/dl (250-450) Transferrin 114 mg/dl (200-360) Transferrin % Saturation 31 % (20-50) Ferritin 98.1 ng/ml (8.0-388.0) Vitamin B12 Level 397 pg/mL (211-911) Folate 23.52 ng/mL (>5.38) Bedside Glucose 165 mg/dl (70-99) Assessment and Plan 62-year-old male with a past medical history of coronary artery disease, diabetes type 2, diabetic foot ulcer status post amputation of right first and second toes, hypertension, hyperlipidemia, prostate cancer status post radiation therapy 2014, pancreatic adenocarcinoma status post common bile duct stent placement in December 2016 had presented from [facility] with intractable nausea and vomiting on 04/19 04/20 - ERCP with stent removal, brush cytology, stricture dilation and stent placement 04/21 - Emergent ERCP showed intra-op findings included occluded stent, segmental biliary stricture - which was malignant-appearing, dilated bile duct, hepatic ducts, and intrahepatic branches. Mild, pus, sludge flowed through new stents once tracts were patent again. 04/22- Worsening of nausea and vomiting, unknown etiology, renal vs GI. 04/23 - Repeat ERCP, Dr. Deal found a large piece of beef obstructing the lower esophagus, that was removed and bile duct stent was changed - pt showed significant improvement of symptoms. Sepsis secondary to cholangitis, bile duct occlusion/pancreatic adenocarcinoma -Continue Zosyn -Status post ERCP with bile duct stent change -Will need repeat ERCP in 2-4 weeks Nausea/vomiting with blood tinged vomitus - pantoprazole 40 mg BID - EGD to be performed in 2- 4 weeks - clear liquid diet Anemia: -Hemoglobin at 7, hemoglobin at admission 11.4 .Hemoccult currently pending -Reticulocyte count, iron studies, B12 and folic acid ordered Acute kidney injury : - likely prerenal -Creatinine at 4.3 -Continue fluids and hold Lasix -Urine sodium and creatinine ordered New onset A fib TSH WNL. s/p digoxin 250mcg and metoprolol tartrate 25mg continue Metoprolol 25mg XL & Imdur. consider outpatient holter to determine if patient needs terminal clerk AC. DM2 hba1c 10.2 Home dose of Lantus was 60units and reduced to 20units QHS while patient wasn't tolerating PO. Continue 30 units Lantus Weakness PT/OT on board. BPH/prostate cancer Continue tamsulosin CAD/hypertension Continue 25 mg toprol and PO Imdur. COPD: Stable Continue duo nebs Tobacco abuse: smokes one fourth pack per day. Offered smoking cessation counseling NicoDerm patch ordered DVT prophylaxis SCDs FULL CODE Resident Physician Supervision Note: I interviewed and examined the patient. Discussed with Dr. De La Torre and agree with findings and plan as documented in the note. Any exceptions or clarifications are listed here: None Documented By: Jd Fish feeling ok no significant abdominal pain would like to be able to eat more vitals noted nad breathing unlabored no pallor or icterus abd soft surprisngly nontender cholangitis - now post restent, ongoing zosyn ARF - behaving like ATN although objective studies don't totally support - check UA again, FeNa, follow anemia - follow, no overt blood loss otherwise as above Resident Tracking Resident Involvement: Resident Care Provided Care Provided: Adult Hospital Medicine
[2017-04-24] MEDS: INSULIN GLARGINE SOLOSTAR 100 UNITS/ML 3 ML PEN SC SCH (20:55)
[2017-04-25] VITALS (20 sets, daily range): BP systolic 139–172; BP diastolic 64–91; PULSE 91–102; TEMP 36.3–37; O2SAT 94–98
[2017-04-25 01:37] LABS: HEMATOCRIT 19.2 % (42-52); HEMOGLOBIN 6.3 g/dL (14.0-18.0)
[2017-04-25] MEDS: INSULIN ASPART 100 UNITS/ML 3 ML PEN SC SCH ×4 (07:00→20:40)
[2017-04-25] MEDS: ALBUT/IPRATROP 3MG/0.5MG NEB 3 ML VIAL INH SCH ×4 (07:08→19:33)
[2017-04-25] MEDS: SODIUM CHLORIDE 0.9% 1000ML 1,000 ML IV SCH ×3 (08:10→22:18)
[2017-04-25] MEDS: NYSTATIN POWDER 15GM BTL EXT SCH ×3 (08:10→15:35)
[2017-04-25] MEDS: TAMSULOSIN HCL 0.4 MG CAP PO SCH (08:17)
[2017-04-25] MEDS: POLYETHYLENE (MIRALAX) 17 GM PACK PO SCH (08:17)
[2017-04-25] MEDS: NICOTINE 7 MG/24 HR TDSY TD SCH (08:17)
[2017-04-25] MEDS: METOPROLOL SUCC 25MG EXT REL TAB PO SCH (08:17)
[2017-04-25] MEDS: ISOSORBIDE MONONITRATE 30 MG TABCR PO SCH (08:17)
[2017-04-25 08:49] LABS: BASO % 0.7 %; BASO ABS # 0.05 K/uL (0-0.2); EOS % 4.8 %; EOS ABS # 0.35 K/uL (0-0.5); HEMATOCRIT 25.7 % (42-52); HEMOGLOBIN 8.6 g/dL (14.0-18.0); IG# 0.07 K/uL (0.00-0.02); LYMPH % 17.4 %; LYMPH ABS # 1.28 K/uL (1.2-3.4); MEAN CELL VOLUME 82.6 fL (80-100); MEAN CORPUSCULAR HEMOGLOBIN 27.7 pg (25-34); MEAN CORPUSCULAR HGB CONC 33.5 g/dl (32-36); MEAN PLATELET VOLUME 8.5 fL (7.4-10.4); MONO % 8.4 %; MONO ABS # 0.62 K/uL (0.11-0.59); NEUT % 67.7 %; NEUT ABS # 4.97 K/uL (1.4-6.5); PLATELET COUNT 289 K/uL (130-400); WHITE BLOOD COUNT 7.34 K/uL (4.8-10.8)
--- NOTE | 2017-04-25 09:13 | Family Medicine Progress Note ---
Progress Note Date of Service Apr 25, 2017. Subjective Pt evaluation today including: conversation w/ patient, physical exam, chart review, lab review Pain: denies pain PO Intake: clear liquids Voiding: no voiding problems Hemoglobin had dropped to 6.3 overnight and received 2 units PRBC transfusion. Denies CP, lightheadedness, dizziness. denies BRBPR but had a small BM which tested positive for hemoccult. Later in the day , had a large liquid blackish BM Constitutional: No fever Eyes: No worsening of vision ENT: No hearing loss Respiratory: No cough, No sputum Cardiovascular: No chest pain, No orthopnea, No palpitations Abdomen: + nausea, + vomiting, No pain Male : No dysuria, No urinary frequency Medications Current Inpatient Medications Medications (Trade) Dose Ordered Sig/Sarah Route Start Time Stop Time Status Last Admin Dose Admin Acetaminophen (Tylenol Tab) 650 mg Q4H PRN PO 04/19/17 22:45 05/19/17 22:44 Polyethylene (Miralax Powder Packet) 17 gm DAILY PRN PO 04/19/17 22:45 05/19/17 22:44 Ondansetron HCl (Zofran Inj) 4 mg Q6H PRN IV 04/19/17 22:45 05/19/17 22:44 04/24/17 09:23 4 MG Bisacodyl (Dulcolax Tab) 10 mg DAILY PRN PO 04/20/17 00:45 05/20/17 00:44 04/23/17 17:15 10 MG Furosemide (Lasix Tab) 40 mg DAILY PO 04/20/17 09:00 05/20/17 08:59 Future Hold 04/21/17 08:48 40 MG Albuterol/ Ipratropium (Duoneb) 3 ml QIDR INH 04/20/17 08:00 05/20/17 07:59 04/25/17 07:08 3 ML Metoprolol Succinate (Toprol Xl Tab) 25 mg DAILY PO 04/20/17 09:00 05/20/17 08:59 Future hold 04/25/17 08:17 25 MG Nystatin (Mycostatin Powder) 1 appln [id number] EXT 04/20/17 08:00 05/20/17 07:59 04/25/17 08:10 1 APPLN Tamsulosin HCl (Flomax Cap) 0.4 mg DAILY PO 04/20/17 09:00 05/20/17 08:59 04/25/17 08:17 0.4 MG Isosorbide Mononitrate (Imdur Ext Rel Tab) 30 mg DAILY PO 04/20/17 09:00 05/20/17 08:59 04/25/17 08:17 30 MG Polyethylene (Miralax Powder Packet) 17 gm DAILY PO 04/20/17 09:00 05/20/17 08:59 04/25/17 08:17 17 GM Nicotine (Nicoderm Cq 7 Mg Patch) 1 patch QAM TD 04/20/17 09:00 05/20/17 08:59 04/23/17 09:30 1 PATCH Miscellaneous (Remove Nicoderm Patch) 1 ea HS N/A 04/20/17 21:00 05/20/17 20:59 04/23/17 20:50 1 EA Albuterol/ Ipratropium (Duoneb) 3 ml Q4R PRN INH 04/20/17 04:00 05/20/17 03:59 Miscellaneous Information (Consult) 1 ea UD PRN N/A 04/20/17 14:00 05/20/17 13:59 Insulin Aspart (novoLOG ASPART) SLIDING SCALE G... ACHS SC 04/20/17 21:00 05/20/17 05:59 04/23/17 20:52 1 UNITS Sodium Chloride 1,000 ml @ 125 mls/hr Q8H IV 04/21/17 20:00 05/21/17 19:59 04/25/17 08:10 125 MLS/HR Insulin Glargine (Lantus Solostar Pen) 30 units HS SC 04/23/17 21:00 05/20/17 20:59 04/24/17 20:55 30 UNITS Piperacillin Sod/ Tazobactam Sod 3.375 gm/Dextrose 115 ml @ 28.75 mls/ hr Q12H IV 04/24/17 00:00 04/29/17 23:59 04/24/17 23:43 28.75 MLS/HR Pantoprazole Sodium (Protonix Tab) 40 mg BID PO 04/24/17 10:00 05/20/17 09:59 3/19/18 20:52 40 MG Objective Vital Signs Date Time Temp Pulse Resp B/P (MAP) Pulse Ox O2 Delivery O2 Flow Rate FiO2 04/25/17 08:15 36.5 102 20 159/79 94 04/25/17 08:00 Room Air 04/25/17 08:00 36.5 102 20 159/79 (105) 94 Room Air 04/25/17 07:30 36.6 99 18 165/83 95 04/25/17 07:08 95 18 97 Room Air 04/25/17 06:28 97 161/80 04/25/17 05:58 36.5 98 16 160/82 04/25/17 05:40 36.6 99 16 150/79 95 04/25/17 04:47 36.6 98 16 155/80 04/25/17 04:00 Room Air 04/25/17 03:47 36.5 99 16 150/78 04/25/17 03:35 36.3 99 20 139/69 (92) 97 Room Air 04/25/17 02:47 101 139/69 04/25/17 02:17 36.4 101 16 148/64 97 04/25/17 01:59 36.6 100 16 151/70 98 04/25/17 00:00 Room Air 04/24/17 23:38 36.8 102 18 138/73 (94) 98 Room Air 04/24/17 20:00 Room Air 04/24/17 19:48 36.9 105 20 137/69 (91) 100 Room Air 04/24/17 18:30 94 18 96 Room Air 04/24/17 16:00 98 Room Air 04/24/17 15:55 37.1 109 18 130/69 (89) 98 Room Air 04/24/17 14:51 99 18 96 Room Air 04/24/17 12:00 97 Room Air 04/24/17 11:58 36.9 107 26 147/68 (94) 97 Room Air 04/24/17 11:14 97 18 94 Room Air Physical Exam General Appearance: WD/WN ENT: hearing grossly normal Neck: supple Respiratory/Chest: lungs clear, normal breath sounds, no respiratory distress Cardiovascular: + tachycardia Abdomen: normal bowel sounds, non tender Extremities: normal range of motion Neurologic/Psychiatric: alert, normal mood/affect, oriented x 3 Skin: + pallor Laboratory Results 04/25/17 08:32 Red Blood Count 3.11, Mean Corpuscular Volume 82.6, Mean Corpuscular Hemoglobin 27.7, Mean Corpuscular Hemoglobin Concent 33.5, Mean Platelet Volume 8.5, Neutrophils (%) (Auto) 67.7, Lymphocytes (%) (Auto) 17.4, Monocytes (%) (Auto) 8.4, Eosinophils (%) (Auto) 4.8, Basophils (%) (Auto) 0.7, Neutrophils # (Auto) 4.97, Lymphocytes # (Auto) 1.28, Monocytes # (Auto) 0.62, Eosinophils # (Auto) 0.35, Basophils # (Auto) 0.05 Test 04/24/17 15:20 04/24/17 15:46 04/25/17 00:27 04/25/17 02:12 Urine Random Sodium 53 mEq/L Absolute Reticulocyte Count 0.04 10^6/uL (0.02-0.10) Percent Reticulocyte Count 1.8 % (0.5-2.0) Iron Level 50 mcg/dl (35-175) Total Iron Binding Capacity 133 mcg/dl (250-450) Transferrin 114 mg/dl (200-360) Transferrin % Saturation 31 % (20-50) Ferritin 98.1 ng/ml (8.0-388.0) Vitamin B12 Level 397 pg/mL (211-911) Folate 23.52 ng/mL (>5.38) Stool Occult Blood POSITIVE (NEGATIVE) Urine Color YELLOW Urine Appearance TURBID (CLEAR) Urine pH 5.5 (4.5-7.5) Urine Specific [place] 1.008 (1.000-1.030) Urine Protein 1+ (NEG) Urine Glucose (UA) NEG (NEG) Urine Ketones NEG (NEG) Urine Occult Blood 2+ (NEG) Urine Nitrite NEG (NEG) Urine Bilirubin NEG (NEG) Urine Urobilinogen NEG (NEG) Urine Leukocyte Esterase LARGE (NEG) Urine WBC (Auto) >30 /hpf (0-5) Urine RBC (Auto) 5-10 /hpf (0-4) Urine Hyaline Casts (Auto) 5-10 /lpf (0-5) Urine Epithelial Cells (Auto) 0-5 /lpf (0-5) Urine Bacteria (Auto) NEG (NEG) Urine Yeast (Auto) BUD W/ HYPHAE (NONE PRSENT) Test 04/25/17 06:39 04/25/17 08:32 04/25/17 09:00 Bedside Glucose 80 mg/dl (70-99) White Blood Count 7.34 K/uL (4.8-10.8) Red Blood Count 3.11 M/uL (4.7-6.1) Hemoglobin 8.6 g/dL (14.0-18.0) Hematocrit 25.7 % (42-52) Mean Corpuscular Volume 82.6 fL (80-100) Mean Corpuscular Hemoglobin 27.7 pg (25-34) Mean Corpuscular Hemoglobin Concent 33.5 g/dl (32-36) Platelet Count 289 K/uL (130-400) Mean Platelet Volume 8.5 fL (7.4-10.4) Neutrophils (%) (Auto) 67.7 % Lymphocytes (%) (Auto) 17.4 % Monocytes (%) (Auto) 8.4 % Eosinophils (%) (Auto) 4.8 % Basophils (%) (Auto) 0.7 % Neutrophils # (Auto) 4.97 K/uL (1.4-6.5) Lymphocytes # (Auto) 1.28 K/uL (1.2-3.4) Monocytes # (Auto) 0.62 K/uL (0.11-0.59) Eosinophils # (Auto) 0.35 K/uL (0-0.5) Basophils # (Auto) 0.05 K/uL (0-0.2) RDW Standard Deviation 45.0 fL (36.4-46.3) RDW Coefficient of Variation 15.0 % (11.5-14.5) Immature Granulocyte % (Auto) 1.0 % Immature Granulocyte # (Auto) 0.07 K/uL (0.00-0.02) Assessment and Plan 62-year-old male with a past medical history of coronary artery disease, diabetes type 2, diabetic foot ulcer status post amputation of right first and second toes, hypertension, hyperlipidemia, prostate cancer status post radiation therapy 2014, pancreatic adenocarcinoma status post common bile duct stent placement in December 2016 had presented from [facility] with intractable nausea and vomiting on 04/19 04/20 - ERCP with stent removal, brush cytology, stricture dilation and stent placement 04/21 - Emergent ERCP showed intra-op findings included occluded stent, segmental biliary stricture - which was malignant-appearing, dilated bile duct, hepatic ducts, and intrahepatic branches. Mild, pus, sludge flowed through new stents once tracts were patent again. 04/22- Worsening of nausea and vomiting, unknown etiology, renal vs GI. 04/23 - Repeat ERCP, Dr. Deal found a large piece of beef obstructing the lower esophagus, that was removed and bile duct stent was changed - pt showed significant improvement of symptoms. Sepsis secondary to cholangitis, bile duct occlusion/pancreatic adenocarcinoma- improving -Continue Zosyn -Status post ERCP with bile duct stent change -Will need repeat ERCP in 2-4 weeks Nausea/vomiting with blood tinged vomitus - pantoprazole 40 mg BID - EGD to be performed in 2- 4 weeks - clear liquid diet Anemia: -Hemoglobin dropped to 6.3 overnight, hemoglobin at admission 11.4 .Hemoccult was positive. - Received 2 units PRBC transfusion -Reticulocyte count index 0.3, B12 and folic acid WNL - check serial H &H Acute kidney injury : - likely prerenal -Creatinine at 4.8 -Continue fluids and hold Lasix -Urine sodium and creatinine ordered New onset A fib TSH WNL. s/p digoxin 250mcg and metoprolol tartrate 25mg continue Metoprolol 25mg XL & Imdur. consider outpatient holter to determine if patient needs bed bug exterminator AC. UTI - UC growing carrie - diflucan ordered( renally dosed) DM2 hba1c 10.2 Home dose of Lantus was 60units and reduced to 20units QHS while patient wasn't tolerating PO. Had some low blood sugars earlier today which is likely due to decreased PO intake, lantus dose has been decreased to 15 units Weakness PT/OT on board. BPH/prostate cancer Continue tamsulosin CAD/hypertension Continue 25 mg toprol and PO Imdur. COPD: Stable Continue duo nebs Tobacco abuse: smokes one fourth pack per day. Offered smoking cessation counseling NicoDerm patch ordered DVT prophylaxis SCDs FULL CODE Resident Physician Supervision Note: I interviewed and examined the patient. Discussed with Dr. De La Torre and agree with findings and plan as documented in the note. Any exceptions or clarifications are listed here: None Documented By: Jd Fish feeling a bit better, would like more to eat. notes current diet going well. does feel better after transfusion. notes not much as far as abdominal pain vitals noted nad fatigued appearing breathing unlabored no pallor or icterus abd soft nd nt cholangitis - seems improving arf - objective findings don't really corroborate, but clinical scenario would be most c/w ATN. no noted nephrotoxic meds, possibly anemia was contributing as well hypoproliferative anemia - multifactorial, no overt bleed, needed transfused, follow pharmacologic DVT proph is contraindicated since a degree of oozing seems to be contributing to anemia Resident Tracking Resident Involvement: Resident Care Provided Care Provided: Adult Hospital Medicine
[2017-04-25 09:28] LABS: CALCIUM 7.8 mg/dl (8.5-10.1); CREATININE 4.81 mg/dl (0.60-1.40); POTASSIUM 3.5 mmol/L (3.5-5.1)
[2017-04-25] MEDS: PANTOprazole SOD 40 MG TAB PO SCH ×2 (09:52→20:40)
[2017-04-25 10:06] LABS: ALBUMIN 1.5 gm/dl (3.4-5.0); TOTAL PROTEIN 5.8 gm/dl (6.4-8.2)
[2017-04-25] MEDS ORDERED: GLUCOSE 10 TABS/TUBE ONE (10:25)
[2017-04-25] MEDS ORDERED: DEXTROSE 50% 50 ML SYR ONE (10:31)
[2017-04-25] MEDS ORDERED: DEXTROSE 50% 50 ML SYR IV PRN (10:45)
[2017-04-25] MEDS ORDERED: GLUCOSE 40% GEL 15 GM TUBE PO PRN (10:45)
[2017-04-25] MEDS ORDERED: GLUCOSE 10 TABS/TUBE PO PRN (10:45)
[2017-04-25] MEDS ORDERED: GLUCAGON FOR INJ 1 MG VIAL SQ PRN (10:45)
[2017-04-25] MEDS: PIPERACILL/TAZOBAC IV 3.375 GM in DEXTROSE 5% 100ML 100 ML IV SCH (11:47)
--- NOTE | 2017-04-25 11:47 | Nephrology Progress Note ---
Nephrology Progress Note Date of Service Apr 25, 2017. Chief Complaint LIYA Subjective Mr. Plummer was seen & examined in his hospital room this morning. He required transfusion w/ 2 U PRBC last night. He is FOBT +. His abdominal discomfort is mildly improved. Review of Systems Constitutional: No fever Cardiovascular: No chest pain Respiratory: No dyspnea at rest Abdomen: + pain A complete review of systems was performed. Pertinent positives are noted above. All other systems are negative. Vital Signs Last 8 Hrs Date Time Temp Pulse Resp B/P (MAP) Pulse Ox O2 Delivery O2 Flow Rate FiO2 04/25/17 11:25 95 18 98 Room Air 04/25/17 08:15 36.5 102 20 159/79 94 04/25/17 08:00 Room Air 04/25/17 08:00 36.5 102 20 159/79 (105) 94 Room Air 04/25/17 07:30 36.6 99 18 165/83 95 04/25/17 07:08 95 18 97 Room Air 04/25/17 06:28 97 161/80 04/25/17 05:58 36.5 98 16 160/82 04/25/17 05:40 36.6 99 16 150/79 95 04/25/17 04:47 36.6 98 16 155/80 04/25/17 04:00 Room Air 04/25/17 03:47 36.5 99 16 150/78 I & O 24-Hour Column 04/26/17 08:00 Intake Total 310 ml Balance 310 ml Last Recorded Weight Weight (Kilograms): 106.600 Physical Exam General Appearance: no apparent distress Head: normocephalic, atraumatic Eyes: + pertinent finding (scleral icterus) Neck: no adenopathy Respiratory/Chest: lungs clear, no respiratory distress Cardiovascular: regular rate, rhythm Abdomen/GI: normal bowel sounds, non tender, soft Extremities/Musculoskelatal: no calf tenderness, no pedal edema Neurologic/Psych: alert, oriented x 3 Family History Negative for CKD / ESRD Social History Marital Status: Resides in [place], [place]. . Seven children. Formerly worked in [employer]. Laboratory Results Past 24 Hours 04/25/17 00:54 04/25/17 08:32 Red Blood Count 3.11, Mean Corpuscular Volume 82.6, Mean Corpuscular Hemoglobin 27.7, Mean Corpuscular Hemoglobin Concent 33.5, Mean Platelet Volume 8.5, Neutrophils (%) (Auto) 67.7, Lymphocytes (%) (Auto) 17.4, Monocytes (%) (Auto) 8.4, Eosinophils (%) (Auto) 4.8, Basophils (%) (Auto) 0.7, Neutrophils # (Auto) 4.97, Lymphocytes # (Auto) 1.28, Monocytes # (Auto) 0.62, Eosinophils # (Auto) 0.35, Basophils # (Auto) 0.05 04/25/17 08:32 Test 04/24/17 15:20 04/24/17 15:46 04/24/17 16:13 04/24/17 20:06 Urine Random Sodium 53 mEq/L Absolute Reticulocyte Count 0.04 10^6/uL (0.02-0.10) Percent Reticulocyte Count 1.8 % (0.5-2.0) Iron Level 50 mcg/dl (35-175) Total Iron Binding Capacity 133 mcg/dl (250-450) Transferrin 114 mg/dl (200-360) Transferrin % Saturation 31 % (20-50) Ferritin 98.1 ng/ml (8.0-388.0) Vitamin B12 Level 397 pg/mL (211-911) Folate 23.52 ng/mL (>5.38) Bedside Glucose 165 mg/dl (70-99) 161 mg/dl (70-99) Test 04/25/17 00:27 04/25/17 02:12 04/25/17 06:39 04/25/17 08:32 Stool Occult Blood POSITIVE (NEGATIVE) Urine Color YELLOW Urine Appearance TURBID (CLEAR) Urine pH 5.5 (4.5-7.5) Urine Specific [place] 1.008 (1.000-1.030) Urine Protein 1+ (NEG) Urine Glucose (UA) NEG (NEG) Urine Ketones NEG (NEG) Urine Occult Blood 2+ (NEG) Urine Nitrite NEG (NEG) Urine Bilirubin NEG (NEG) Urine Urobilinogen NEG (NEG) Urine Leukocyte Esterase LARGE (NEG) Urine WBC (Auto) >30 /hpf (0-5) Urine RBC (Auto) 5-10 /hpf (0-4) Urine Hyaline Casts (Auto) 5-10 /lpf (0-5) Urine Epithelial Cells (Auto) 0-5 /lpf (0-5) Urine Bacteria (Auto) NEG (NEG) Urine Yeast (Auto) BUD W/ HYPHAE (NONE PRSENT) Bedside Glucose 80 mg/dl (70-99) White Blood Count 7.34 K/uL (4.8-10.8) Red Blood Count 3.11 M/uL (4.7-6.1) Hemoglobin 8.6 g/dL (14.0-18.0) Hematocrit 25.7 % (42-52) Mean Corpuscular Volume 82.6 fL (80-100) Mean Corpuscular Hemoglobin 27.7 pg (25-34) Mean Corpuscular Hemoglobin Concent 33.5 g/dl (32-36) Platelet Count 289 K/uL (130-400) Mean Platelet Volume 8.5 fL (7.4-10.4) Neutrophils (%) (Auto) 67.7 % Lymphocytes (%) (Auto) 17.4 % Monocytes (%) (Auto) 8.4 % Eosinophils (%) (Auto) 4.8 % Basophils (%) (Auto) 0.7 % Neutrophils # (Auto) 4.97 K/uL (1.4-6.5) Lymphocytes # (Auto) 1.28 K/uL (1.2-3.4) Monocytes # (Auto) 0.62 K/uL (0.11-0.59) Eosinophils # (Auto) 0.35 K/uL (0-0.5) Basophils # (Auto) 0.05 K/uL (0-0.2) RDW Standard Deviation 45.0 fL (36.4-46.3) RDW Coefficient of Variation 15.0 % (11.5-14.5) Immature Granulocyte % (Auto) 1.0 % Immature Granulocyte # (Auto) 0.07 K/uL (0.00-0.02) Hypochromasia PRESENT Anion Gap 10.0 mmol/L (3-11) Est Creatinine Clear Calc Drug Dose 18.1 ml/min Estimated GFR () 13.7 Estimated GFR (Non- 11.9 BUN/Creatinine Ratio 10.8 (10-20) Calcium Level 7.8 mg/dl (8.5-10.1) Total Bilirubin 3.0 mg/dl (0.2-1) Direct Bilirubin 2.3 mg/dl (0-0.2) Aspartate Amino Transf (AST/SGOT) 28 U/L (15-37) Alanine Aminotransferase (ALT/SGPT) 26 U/L (12-78) Alkaline Phosphatase 408 U/L (45-117) Total Protein 5.8 gm/dl (6.4-8.2) Albumin 1.5 gm/dl (3.4-5.0) Test 04/25/17 10:22 04/25/17 10:51 04/25/17 11:25 Bedside Glucose 67 mg/dl (70-99) 103 mg/dl (70-99) Stool Occult Blood POSITIVE (NEGATIVE) Allergies Coded Allergies: Iodinated Diagnostic Agents (Verified Allergy, Mild, GI SYMPTOMS, 04/19/17) No Known Drug Allergy (Verified Allergy, Unknown, none, 04/19/17) Uncoded Allergies: dye (Allergy, Unknown, RASH, 04/19/17) patient does not remember what kind of dye or what kind of reaction he is allergic to Medications Current Inpatient Medications Medications (Trade) Dose Ordered Sig/Sarah Route Start Time Stop Time Status Last Admin Dose Admin Acetaminophen (Tylenol Tab) 650 mg Q4H PRN PO 04/19/17 22:45 05/19/17 22:44 Polyethylene (Miralax Powder Packet) 17 gm DAILY PRN PO 04/19/17 22:45 05/19/17 22:44 Ondansetron HCl (Zofran Inj) 4 mg Q6H PRN IV 04/19/17 22:45 05/19/17 22:44 04/24/17 09:23 4 MG Bisacodyl (Dulcolax Tab) 10 mg DAILY PRN PO 04/20/17 00:45 05/20/17 00:44 04/23/17 17:15 10 MG Furosemide (Lasix Tab) 40 mg DAILY PO 04/20/17 09:00 05/20/17 08:59 Future Hold 04/21/17 08:48 40 MG Albuterol/ Ipratropium (Duoneb) 3 ml QIDR INH 04/20/17 08:00 05/20/17 07:59 04/25/17 11:25 3 ML Metoprolol Succinate (Toprol Xl Tab) 25 mg DAILY PO 04/20/17 09:00 05/20/17 08:59 Future hold 04/25/17 08:17 25 MG Nystatin (Mycostatin Powder) 1 appln [id number] EXT 04/20/17 08:00 05/20/17 07:59 04/25/17 08:10 1 APPLN Tamsulosin HCl (Flomax Cap) 0.4 mg DAILY PO 04/20/17 09:00 05/20/17 08:59 04/25/17 08:17 0.4 MG Isosorbide Mononitrate (Imdur Ext Rel Tab) 30 mg DAILY PO 04/20/17 09:00 05/20/17 08:59 04/25/17 08:17 30 MG Polyethylene (Miralax Powder Packet) 17 gm DAILY PO 04/20/17 09:00 05/20/17 08:59 04/25/17 08:17 17 GM Nicotine (Nicoderm Cq 7 Mg Patch) 1 patch QAM TD 04/20/17 09:00 05/20/17 08:59 04/23/17 09:30 1 PATCH Miscellaneous (Remove Nicoderm Patch) 1 ea HS N/A 04/20/17 21:00 05/20/17 20:59 04/23/17 20:50 1 EA Albuterol/ Ipratropium (Duoneb) 3 ml Q4R PRN INH 04/20/17 04:00 05/20/17 03:59 Miscellaneous Information (Consult) 1 ea UD PRN N/A 04/20/17 14:00 05/20/17 13:59 Insulin Aspart (novoLOG ASPART) SLIDING SCALE G... ACHS SC 04/20/17 21:00 05/20/17 05:59 04/23/17 20:52 1 UNITS Sodium Chloride 1,000 ml @ 125 mls/hr Q8H IV 04/21/17 20:00 05/21/17 19:59 04/25/17 08:10 125 MLS/HR Piperacillin Sod/ Tazobactam Sod 3.375 gm/Dextrose 115 ml @ 28.75 mls/ hr Q12H IV 04/24/17 00:00 04/29/17 23:59 04/24/17 23:43 28.75 MLS/HR Pantoprazole Sodium (Protonix Tab) 40 mg BID PO 04/24/17 10:00 05/20/17 09:59 04/25/17 09:52 40 MG Glucose (Glucose 40% Gel) 15-30 GRAMS 15 GRAMS... UD PRN PO 04/25/17 10:45 05/25/17 10:44 Glucose (Glucose Chew Tab) 4-8 Tablets 4 Tabl... UD PRN PO 04/25/17 10:45 05/25/17 10:44 Dextrose (Dextrose 50% 50ML Syringe) 25-50ML OF 50% DW IV FOR... UD PRN IV 04/25/17 10:45 05/25/17 10:44 Glucagon (Glucagon Inj) 1 mg UD PRN SQ 04/25/17 10:45 05/25/17 10:44 Insulin Glargine (Lantus Solostar Pen) 15 units HS SC 04/25/17 21:00 05/20/17 20:59 UNV Impression (1) Acute kidney injury (2) Dehydration (3) Pancreatic carcinoma (4) Common bile duct obstruction (5) Jaundice Acute kidney injury is likely related to dehydration and inflammation. At the time of presentation patient was on a loop diuretic but no other potential nephrotoxic medications. Clinically doubt obstruction as patient remains nonoliguric. Recommendations -- Continue to hold Furosemide -- Reduce IVF to 100 cc/hr -- Urinalysis reviewed. No ATN casts reported. Will change catheter due to yeast and pyuria -- Volume status and electrolyte balance are acceptable. 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 -- Monitor serial PRP -- Await further GI input. Continue gentle hydration and broad spectrum antibiotics -- Recommend consulting pharmacy to assist w/ antibiotic dosing due to changing kidney function -- 04/23 Renal US report: No stone or obstruction
--- NOTE | 2017-04-25 11:55 | Gastroenterology Progress Note ---
Progress Note Date of Service: Apr 25, 2017 Subjective Pt evaluation today including: conversation w/ patient, physical exam, chart review, lab review, review of inpatient medication list Pt had 2U PRBC transfusion yesterday for Hgb of 6, now up to 8.6. Heme positive stools. Reports did have some blood streaked emesis (recent food bolus w severe esophagitis signs), no tarry or bloody stools. He denies any n/v, abd pain, appetite low. LFTs continue to improve. Review of Systems Constitutional: No fever, No chills Respiratory: No cough, No shortness of breath Cardiac: No chest pain Abdomen: No pain, No nausea, No vomiting Medications Current Inpatient Medications Medications (Trade) Dose Ordered Sig/Sarah Route Start Time Stop Time Status Last Admin Dose Admin Acetaminophen (Tylenol Tab) 650 mg Q4H PRN PO 04/19/17 22:45 05/19/17 22:44 Polyethylene (Miralax Powder Packet) 17 gm DAILY PRN PO 04/19/17 22:45 05/19/17 22:44 Ondansetron HCl (Zofran Inj) 4 mg Q6H PRN IV 04/19/17 22:45 05/19/17 22:44 04/24/17 09:23 4 MG Bisacodyl (Dulcolax Tab) 10 mg DAILY PRN PO 04/20/17 00:45 05/20/17 00:44 04/23/17 17:15 10 MG Furosemide (Lasix Tab) 40 mg DAILY PO 04/20/17 09:00 05/20/17 08:59 Future Hold 04/21/17 08:48 40 MG Albuterol/ Ipratropium (Duoneb) 3 ml QIDR INH 04/20/17 08:00 05/20/17 07:59 04/25/17 11:25 3 ML Metoprolol Succinate (Toprol Xl Tab) 25 mg DAILY PO 04/20/17 09:00 05/20/17 08:59 Future hold 04/25/17 08:17 25 MG Nystatin (Mycostatin Powder) 1 appln [id number] EXT 04/20/17 08:00 05/20/17 07:59 04/25/17 08:10 1 APPLN Tamsulosin HCl (Flomax Cap) 0.4 mg DAILY PO 04/20/17 09:00 05/20/17 08:59 04/25/17 08:17 0.4 MG Isosorbide Mononitrate (Imdur Ext Rel Tab) 30 mg DAILY PO 04/20/17 09:00 05/20/17 08:59 04/25/17 08:17 30 MG Polyethylene (Miralax Powder Packet) 17 gm DAILY PO 04/20/17 09:00 05/20/17 08:59 04/25/17 08:17 17 GM Nicotine (Nicoderm Cq 7 Mg Patch) 1 patch QAM TD 04/20/17 09:00 05/20/17 08:59 04/23/17 09:30 1 PATCH Miscellaneous (Remove Nicoderm Patch) 1 ea HS N/A 04/20/17 21:00 05/20/17 20:59 04/23/17 20:50 1 EA Albuterol/ Ipratropium (Duoneb) 3 ml Q4R PRN INH 04/20/17 04:00 05/20/17 03:59 Miscellaneous Information (Consult) 1 ea UD PRN N/A 04/20/17 14:00 05/20/17 13:59 Insulin Aspart (novoLOG ASPART) SLIDING SCALE G... ACHS SC 04/20/17 21:00 05/20/17 05:59 04/23/17 20:52 1 UNITS Sodium Chloride 1,000 ml @ 100 mls/hr Q10H IV 04/21/17 20:00 05/21/17 19:59 04/25/17 08:10 125 MLS/HR Piperacillin Sod/ Tazobactam Sod 3.375 gm/Dextrose 115 ml @ 28.75 mls/ hr Q12H IV 04/24/17 00:00 04/29/17 23:59 04/24/17 23:43 28.75 MLS/HR Pantoprazole Sodium (Protonix Tab) 40 mg BID PO 04/24/17 10:00 05/20/17 09:59 04/25/17 09:52 40 MG Glucose (Glucose 40% Gel) 15-30 GRAMS 15 GRAMS... UD PRN PO 04/25/17 10:45 05/25/17 10:44 Glucose (Glucose Chew Tab) 4-8 Tablets 4 Tabl... UD PRN PO 04/25/17 10:45 05/25/17 10:44 Dextrose (Dextrose 50% 50ML Syringe) 25-50ML OF 50% DW IV FOR... UD PRN IV 04/25/17 10:45 05/25/17 10:44 Glucagon (Glucagon Inj) 1 mg UD PRN SQ 04/25/17 10:45 05/25/17 10:44 Insulin Glargine (Lantus Solostar Pen) 15 units HS SC 04/25/17 21:00 05/20/17 20:59 UNV Fluconazole (Diflucan Tab) 200 mg ONE PO 04/25/17 11:45 05/05/17 11:44 UNV Fluconazole (Diflucan Tab) 100 mg QAM PO 04/26/17 09:00 05/06/17 08:59 UNV Objective Vital Signs Date Time Temp Pulse Resp B/P (MAP) Pulse Ox O2 Delivery O2 Flow Rate FiO2 04/25/17 11:25 95 18 98 Room Air 04/25/17 08:15 36.5 102 20 159/79 94 04/25/17 08:00 Room Air 04/25/17 08:00 36.5 102 20 159/79 (105) 94 Room Air 04/25/17 07:30 36.6 99 18 165/83 95 04/25/17 07:08 95 18 97 Room Air 04/25/17 06:28 97 161/80 04/25/17 05:58 36.5 98 16 160/82 04/25/17 05:40 36.6 99 16 150/79 95 04/25/17 04:47 36.6 98 16 155/80 04/25/17 04:00 Room Air 04/25/17 03:47 36.5 99 16 150/78 04/25/17 03:35 36.3 99 20 139/69 (92) 97 Room Air 04/25/17 02:47 101 139/69 04/25/17 02:17 36.4 101 16 148/64 97 04/25/17 01:59 36.6 100 16 151/70 98 04/25/17 00:00 Room Air 04/24/17 23:38 36.8 102 18 138/73 (94) 98 Room Air 04/24/17 20:00 Room Air 04/24/17 19:48 36.9 105 20 137/69 (91) 100 Room Air 04/24/17 18:30 94 18 96 Room Air 04/24/17 16:00 98 Room Air 04/24/17 15:55 37.1 109 18 130/69 (89) 98 Room Air 04/24/17 14:51 99 18 96 Room Air 04/24/17 12:00 97 Room Air 04/24/17 11:58 36.9 107 26 147/68 (94) 97 Room Air Physical Exam General Appearance: WD/WN, no apparent distress Eyes: normal inspection, PERRL, EOMI Neck: supple, no JVD, trachea midline Respiratory/Chest: normal breath sounds, no respiratory distress, no accessory muscle use Cardiovascular: regular rate, rhythm, no gallop, no murmur Abdomen: normal bowel sounds, non tender, soft Extremities: normal inspection, no pedal edema, no calf tenderness Neurologic/Psych: alert, + depressed affect Skin: normal color, no jaundice, no rash Laboratory Results Last 24 Hours Test 04/24/17 15:20 04/24/17 15:46 04/24/17 16:13 04/24/17 20:06 Urine Random Sodium 53 mEq/L Absolute Reticulocyte Count 0.04 10^6/uL Percent Reticulocyte Count 1.8 % Iron Level 50 mcg/dl Total Iron Binding Capacity 133 mcg/dl Transferrin 114 mg/dl Transferrin % Saturation 31 % Ferritin 98.1 ng/ml Vitamin B12 Level 397 pg/mL Folate 23.52 ng/mL Bedside Glucose 165 mg/dl 161 mg/dl Test 04/25/17 00:27 04/25/17 00:54 04/25/17 02:12 04/25/17 06:39 Stool Occult Blood POSITIVE Hemoglobin 6.3 g/dL Hematocrit 19.2 % Urine Color YELLOW Urine Appearance TURBID Urine pH 5.5 Urine Specific [place] 1.008 Urine Protein 1+ Urine Glucose (UA) NEG Urine Ketones NEG Urine Occult Blood 2+ Urine Nitrite NEG Urine Bilirubin NEG Urine Urobilinogen NEG Urine Leukocyte Esterase LARGE Urine WBC (Auto) >30 /hpf Urine RBC (Auto) 5-10 /hpf Urine Hyaline Casts (Auto) 5-10 /lpf Urine Epithelial Cells (Auto) 0-5 /lpf Urine Bacteria (Auto) NEG Urine Yeast (Auto) BUD W/ HYPHAE Bedside Glucose 80 mg/dl Test 04/25/17 08:32 04/25/17 10:22 04/25/17 10:51 04/25/17 11:25 White Blood Count 7.34 K/uL Red Blood Count 3.11 M/uL Hemoglobin 8.6 g/dL Hematocrit 25.7 % Mean Corpuscular Volume 82.6 fL Mean Corpuscular Hemoglobin 27.7 pg Mean Corpuscular Hemoglobin Concent 33.5 g/dl Platelet Count 289 K/uL Mean Platelet Volume 8.5 fL Neutrophils (%) (Auto) 67.7 % Lymphocytes (%) (Auto) 17.4 % Monocytes (%) (Auto) 8.4 % Eosinophils (%) (Auto) 4.8 % Basophils (%) (Auto) 0.7 % Neutrophils # (Auto) 4.97 K/uL Lymphocytes # (Auto) 1.28 K/uL Monocytes # (Auto) 0.62 K/uL Eosinophils # (Auto) 0.35 K/uL Basophils # (Auto) 0.05 K/uL RDW Standard Deviation 45.0 fL RDW Coefficient of Variation 15.0 % Immature Granulocyte % (Auto) 1.0 % Immature Granulocyte # (Auto) 0.07 K/uL Hypochromasia PRESENT Sodium Level 140 mmol/L Potassium Level 3.5 mmol/L Chloride Level 107 mmol/L Carbon Dioxide Level 23 mmol/L Anion Gap 10.0 mmol/L Blood Urea Nitrogen 52 mg/dl Creatinine 4.81 mg/dl Est Creatinine Clear Calc Drug Dose 18.1 ml/min Estimated GFR () 13.7 Estimated GFR (Non- 11.9 BUN/Creatinine Ratio 10.8 Random Glucose 53 mg/dl Calcium Level 7.8 mg/dl Total Bilirubin 3.0 mg/dl Direct Bilirubin 2.3 mg/dl Aspartate Amino Transf (AST/SGOT) 28 U/L Alanine Aminotransferase (ALT/SGPT) 26 U/L Alkaline Phosphatase 408 U/L Total Protein 5.8 gm/dl Albumin 1.5 gm/dl Bedside Glucose 67 mg/dl 103 mg/dl Stool Occult Blood POSITIVE Test 04/25/17 11:37 Assessment and Plan Pt is a 62 y/o male with biliary mass cytology consistent w adenocarcinoma, now cholangitis. He had repeat ERCP over the weekend along w EGD - noted to have food impaction, removed; previously placed biliary stent was occluded, now replaced w metal stent. His LFTs are trending down. Hgb down to 6 last night, given 2u PRBC transfusion and it improved. He is having some blood streaked emesis & heme positive stool but also noted to have severe esophagitis w food impaction recently. No melena. LFTs trending down since biliary stent exchanged. - Monitor H/H, transfuse prn - Monitor LFTs - CL diet, may advance to mechanical soft diet at most as tolerated. - Protonix 40mg BID. - EGD in 2-4 week's time to eval esophagitis - Will watch peripherally, call if new questions/concerns arise. I have seen and examined the patient with HERNÁN Britt whose note reflects our findings and plan.
[2017-04-25] MEDS ORDERED: FLUCONAZOLE 100 MG TAB PO ONE (12:30)
[2017-04-25 12:40] LABS: HEMOGLOBIN 8.8 g/dL (14.0-18.0)
[2017-04-25 12:47] LABS: INR 1.4 (0.9-1.1); PTT PATIENT 28.3 SECONDS (21.0-31.0)
[2017-04-25 19:18] LABS: HEMATOCRIT 24.7 % (42-52); HEMOGLOBIN 8.3 g/dL (14.0-18.0)
[2017-04-25] MEDS: INSULIN GLARGINE SOLOSTAR 100 UNITS/ML 3 ML PEN SC SCH (20:39)
[2017-04-26] VITALS (20 sets, daily range): BP systolic 79–169; BP diastolic 49–87; PULSE 68–104; TEMP 36.6–36.9; O2SAT 95–98; Ht 170.2 cm; Wt 117.7 kg
[2017-04-26] MEDS: PIPERACILL/TAZOBAC IV 3.375 GM in DEXTROSE 5% 100ML 100 ML IV SCH ×2 (00:36→11:38)
[2017-04-26 01:01] LABS: HEMATOCRIT 23.5 % (42-52); HEMOGLOBIN 7.8 g/dL (14.0-18.0)
[2017-04-26] MEDS: ONDANSETRON INJ 2 MG/ML 2 ML VIAL IV PRN (02:12)
[2017-04-26 06:40] LABS: BASO % 0.6 %; BASO ABS # 0.04 K/uL (0-0.2); EOS % 4.8 %; EOS ABS # 0.34 K/uL (0-0.5); HEMATOCRIT 23.2 % (42-52); HEMOGLOBIN 7.8 g/dL (14.0-18.0); IG# 0.07 K/uL (0.00-0.02); LYMPH % 14.9 %; LYMPH ABS # 1.06 K/uL (1.2-3.4); MEAN CELL VOLUME 82.3 fL (80-100); MEAN CORPUSCULAR HEMOGLOBIN 27.7 pg (25-34); MEAN CORPUSCULAR HGB CONC 33.6 g/dl (32-36); MEAN PLATELET VOLUME 8.5 fL (7.4-10.4); MONO % 7.6 %; MONO ABS # 0.54 K/uL (0.11-0.59); NEUT % 71.1 %; NEUT ABS # 5.05 K/uL (1.4-6.5); PLATELET COUNT 277 K/uL (130-400); RED CELL DISTRIBUTION WIDTH CV 15.3 % (11.5-14.5); RED CELL DISTRIBUTION WIDTH SD 45.7 fL (36.4-46.3)
[2017-04-26] MEDS: INSULIN ASPART 100 UNITS/ML 3 ML PEN SC SCH ×4 (07:00→20:39)
[2017-04-26] MEDS: ALBUT/IPRATROP 3MG/0.5MG NEB 3 ML VIAL INH SCH ×4 (07:06→19:16)
[2017-04-26 07:28] LABS: CALCIUM 7.9 mg/dl (8.5-10.1); CREATININE 5.01 mg/dl (0.60-1.40); POTASSIUM 3.8 mmol/L (3.5-5.1)
[2017-04-26] MEDS: NYSTATIN POWDER 15GM BTL EXT SCH ×3 (07:45→15:43)
[2017-04-26] MEDS: POLYETHYLENE (MIRALAX) 17 GM PACK PO SCH (07:46)
[2017-04-26] MEDS: FLUCONAZOLE 100 MG TAB PO SCH (07:46)
[2017-04-26] MEDS: TAMSULOSIN HCL 0.4 MG CAP PO SCH (07:46)
[2017-04-26] MEDS: NICOTINE 7 MG/24 HR TDSY TD SCH (07:46)
[2017-04-26] MEDS: PANTOprazole SOD 40 MG TAB PO SCH ×2 (07:46→20:40)
[2017-04-26] MEDS: ISOSORBIDE MONONITRATE 30 MG TABCR PO SCH (07:50)
[2017-04-26] MEDS: METOPROLOL SUCC 25MG EXT REL TAB PO SCH (07:50)
--- NOTE | 2017-04-26 11:41 | Nephrology Progress Note ---
Nephrology Progress Note Date of Service Apr 26, 2017. Chief Complaint LIYA Subjective Mr. Plummer was seen & examined in his hospital room this morning. He has persistent RUQ discomfort and nausea. He reports that he is now able to keep down clear liquids. Review of Systems Constitutional: No fever Respiratory: No dyspnea at rest Abdomen: + pain, + nausea, No vomiting Extremities: No leg edema A complete review of systems was performed. Pertinent positives are noted above. All other systems are negative. Vital Signs Last 8 Hrs Date Time Temp Pulse Resp B/P (MAP) Pulse Ox O2 Delivery O2 Flow Rate FiO2 04/26/17 11:04 96 18 97 Room Air 04/26/17 08:00 Room Air 04/26/17 07:49 36.8 101 20 141/65 (90) 97 Room Air 04/26/17 07:49 36.7 80 16 129/84 (99) 96 04/26/17 07:07 95 18 96 Room Air 04/26/17 04:00 Room Air 04/26/17 03:38 36.9 92 17 134/73 (93) 97 Room Air Last Recorded Weight Weight (Kilograms): 115.900 Physical Exam General Appearance: no apparent distress Head: normocephalic, atraumatic Eyes: PERRL, EOMI Neck: no adenopathy Respiratory/Chest: lungs clear, no respiratory distress Cardiovascular: regular rate, rhythm Abdomen/GI: soft, + pertinent finding (mild epigastric tenderness. No guarding ) Extremities/Musculoskelatal: no pedal edema Neurologic/Psych: alert, oriented x 3 Family History Negative for CKD / ESRD Social History Marital Status: Resides in [place], [place]. . Seven children. Formerly worked in [employer]. Laboratory Results Past 24 Hours 04/25/17 12:33 04/25/17 19:00 04/26/17 00:49 04/26/17 06:23 Red Blood Count 2.82, Mean Corpuscular Volume 82.3, Mean Corpuscular Hemoglobin 27.7, Mean Corpuscular Hemoglobin Concent 33.6, Mean Platelet Volume 8.5, Neutrophils (%) (Auto) 71.1, Lymphocytes (%) (Auto) 14.9, Monocytes (%) (Auto) 7.6, Eosinophils (%) (Auto) 4.8, Basophils (%) (Auto) 0.6, Neutrophils # (Auto) 5.05, Lymphocytes # (Auto) 1.06, Monocytes # (Auto) 0.54, Eosinophils # (Auto) 0.34, Basophils # (Auto) 0.04 04/26/17 06:23 Test 04/25/17 12:33 04/25/17 16:08 04/25/17 19:59 04/26/17 06:23 Prothrombin Time 14.7 SECONDS (9.0-12.0) Prothromb Time International Ratio 1.4 (0.9-1.1) Activated Partial Thromboplast Time 28.3 SECONDS (21.0-31.0) Partial Thromboplastin Ratio 1.1 Bedside Glucose 177 mg/dl (70-99) 185 mg/dl (70-99) White Blood Count 7.10 K/uL (4.8-10.8) Red Blood Count 2.82 M/uL (4.7-6.1) Hemoglobin 7.8 g/dL (14.0-18.0) Hematocrit 23.2 % (42-52) Mean Corpuscular Volume 82.3 fL (80-100) Mean Corpuscular Hemoglobin 27.7 pg (25-34) Mean Corpuscular Hemoglobin Concent 33.6 g/dl (32-36) Platelet Count 277 K/uL (130-400) Mean Platelet Volume 8.5 fL (7.4-10.4) Neutrophils (%) (Auto) 71.1 % Lymphocytes (%) (Auto) 14.9 % Monocytes (%) (Auto) 7.6 % Eosinophils (%) (Auto) 4.8 % Basophils (%) (Auto) 0.6 % Neutrophils # (Auto) 5.05 K/uL (1.4-6.5) Lymphocytes # (Auto) 1.06 K/uL (1.2-3.4) Monocytes # (Auto) 0.54 K/uL (0.11-0.59) Eosinophils # (Auto) 0.34 K/uL (0-0.5) Basophils # (Auto) 0.04 K/uL (0-0.2) RDW Standard Deviation 45.7 fL (36.4-46.3) RDW Coefficient of Variation 15.3 % (11.5-14.5) Immature Granulocyte % (Auto) 1.0 % Immature Granulocyte # (Auto) 0.07 K/uL (0.00-0.02) Red Blood Cell Morphology Unremarkable Anion Gap 12.0 mmol/L (3-11) Est Creatinine Clear Calc Drug Dose 18.1 ml/min Estimated GFR () 13.1 Estimated GFR (Non- 11.3 BUN/Creatinine Ratio 12.0 (10-20) Calcium Level 7.9 mg/dl (8.5-10.1) Test 04/26/17 06:56 04/26/17 11:22 Bedside Glucose 79 mg/dl (70-99) 83 mg/dl (70-99) Allergies Coded Allergies: Iodinated Diagnostic Agents (Verified Allergy, Mild, GI SYMPTOMS, 04/19/17) No Known Drug Allergy (Verified Allergy, Unknown, none, 04/19/17) Uncoded Allergies: dye (Allergy, Unknown, RASH, 04/19/17) patient does not remember what kind of dye or what kind of reaction he is allergic to Medications Current Inpatient Medications Medications (Trade) Dose Ordered Sig/Sarah Route Start Time Stop Time Status Last Admin Dose Admin Acetaminophen (Tylenol Tab) 650 mg Q4H PRN PO 04/19/17 22:45 05/19/17 22:44 Polyethylene (Miralax Powder Packet) 17 gm DAILY PRN PO 04/19/17 22:45 05/19/17 22:44 Ondansetron HCl (Zofran Inj) 4 mg Q6H PRN IV 04/19/17 22:45 05/19/17 22:44 04/26/17 02:12 4 MG Bisacodyl (Dulcolax Tab) 10 mg DAILY PRN PO 04/20/17 00:45 05/20/17 00:44 04/23/17 17:15 10 MG Furosemide (Lasix Tab) 40 mg DAILY PO 04/20/17 09:00 05/20/17 08:59 Future Hold 04/21/17 08:48 40 MG Albuterol/ Ipratropium (Duoneb) 3 ml QIDR INH 04/20/17 08:00 05/20/17 07:59 04/26/17 11:04 3 ML Metoprolol Succinate (Toprol Xl Tab) 25 mg DAILY PO 04/20/17 09:00 4/14/18 08:59 Future hold 04/26/17 07:50 25 MG Nystatin (Mycostatin Powder) 1 appln [id number] EXT 04/20/17 08:00 05/20/17 07:59 04/26/17 07:45 1 APPLN Tamsulosin HCl (Flomax Cap) 0.4 mg DAILY PO 04/20/17 09:00 05/20/17 08:59 04/26/17 07:46 0.4 MG Isosorbide Mononitrate (Imdur Ext Rel Tab) 30 mg DAILY PO 04/20/17 09:00 05/20/17 08:59 04/26/17 07:50 30 MG Polyethylene (Miralax Powder Packet) 17 gm DAILY PO 04/20/17 09:00 05/20/17 08:59 04/25/17 08:17 17 GM Nicotine (Nicoderm Cq 7 Mg Patch) 1 patch QAM TD 04/20/17 09:00 05/20/17 08:59 04/23/17 09:30 1 PATCH Miscellaneous (Remove Nicoderm Patch) 1 ea HS N/A 04/20/17 21:00 05/20/17 20:59 04/23/17 20:50 1 EA Albuterol/ Ipratropium (Duoneb) 3 ml Q4R PRN INH 04/20/17 04:00 05/20/17 03:59 Miscellaneous Information (Consult) 1 ea UD PRN N/A 04/20/17 14:00 05/20/17 13:59 Insulin Aspart (novoLOG ASPART) SLIDING SCALE G... ACHS SC 04/20/17 21:00 05/20/17 05:59 04/25/17 20:40 1 UNITS Sodium Chloride 1,000 ml @ 100 mls/hr Q10H IV 04/21/17 20:00 05/21/17 19:59 04/25/17 22:18 100 MLS/HR Piperacillin Sod/ Tazobactam Sod 3.375 gm/Dextrose 115 ml @ 28.75 mls/ hr Q12H IV 04/24/17 00:00 04/29/17 23:59 04/26/17 00:36 28.75 MLS/HR Pantoprazole Sodium (Protonix Tab) 40 mg BID PO 04/24/17 10:00 05/20/17 09:59 04/26/17 07:46 40 MG Glucose (Glucose 40% Gel) 15-30 GRAMS 15 GRAMS... UD PRN PO 04/25/17 10:45 05/25/17 10:44 Glucose (Glucose Chew Tab) 4-8 Tablets 4 Tabl... UD PRN PO 04/25/17 10:45 05/25/17 10:44 Dextrose (Dextrose 50% 50ML Syringe) 25-50ML OF 50% DW IV FOR... UD PRN IV 04/25/17 10:45 05/25/17 10:44 Glucagon (Glucagon Inj) 1 mg UD PRN SQ 04/25/17 10:45 05/25/17 10:44 Insulin Glargine (Lantus Solostar Pen) 15 units HS SC 04/25/17 21:00 05/20/17 20:59 04/25/17 20:39 15 UNITS Fluconazole (Diflucan Tab) 100 mg QAM PO 04/26/17 09:00 05/06/17 08:59 04/26/17 07:46 100 MG Impression (1) Acute kidney injury (2) Dehydration (3) Pancreatic carcinoma (4) Common bile duct obstruction (5) Jaundice Acute kidney injury is likely related to dehydration and inflammation. At the time of presentation patient was on a loop diuretic but no other potential nephrotoxic medications. Clinically doubt obstruction as patient remains nonoliguric. Recommendations -- Continue to hold Furosemide -- Heplock IV -- Recommend transfusion to maintain Hgb > 8.0 -- Volume status and electrolyte balance are acceptable. No acute indication for [employer] at this time. Discussed worsening LIYA and potential need for HD w/ patient today. He voiced understanding. Patient does remain nonoliguric -- Monitor serial PRP -- Await further GI input -- 04/23 Renal US report: No stone or obstruction
[2017-04-26 12:52] LABS: HEMATOCRIT 23.6 % (42-52)
--- NOTE | 2017-04-26 13:02 | Gastroenterology Progress Note ---
Progress Note Date of Service: Apr 26, 2017 Subjective Pt evaluation today including: conversation w/ patient, physical exam, chart review, lab review, review of inpatient medication list Pt's blood ct is dropping again. RN reports melanotic looking stools overnight and this AM. He has mild RUQ abd pain but no n/v. Review of Systems Constitutional: No fever, No chills Respiratory: No cough, No shortness of breath Cardiac: No chest pain Abdomen: + see HPI, + pain (mild RUQ area ), No nausea, No vomiting Medications Current Inpatient Medications Medications (Trade) Dose Ordered Sig/Sarah Route Start Time Stop Time Status Last Admin Dose Admin Acetaminophen (Tylenol Tab) 650 mg Q4H PRN PO 04/19/17 22:45 05/19/17 22:44 Polyethylene (Miralax Powder Packet) 17 gm DAILY PRN PO 04/19/17 22:45 05/19/17 22:44 Ondansetron HCl (Zofran Inj) 4 mg Q6H PRN IV 04/19/17 22:45 05/19/17 22:44 04/26/17 02:12 4 MG Bisacodyl (Dulcolax Tab) 10 mg DAILY PRN PO 04/20/17 00:45 05/20/17 00:44 04/23/17 17:15 10 MG Furosemide (Lasix Tab) 40 mg DAILY PO 04/20/17 09:00 05/20/17 08:59 Future Hold 04/21/17 08:48 40 MG Albuterol/ Ipratropium (Duoneb) 3 ml QIDR INH 04/20/17 08:00 05/20/17 07:59 04/26/17 11:04 3 ML Metoprolol Succinate (Toprol Xl Tab) 25 mg DAILY PO 04/20/17 09:00 05/20/17 08:59 Future hold 04/26/17 07:50 25 MG Nystatin (Mycostatin Powder) 1 appln [id number] EXT 04/20/17 08:00 05/20/17 07:59 04/26/17 11:37 1 APPLN Tamsulosin HCl (Flomax Cap) 0.4 mg DAILY PO 04/20/17 09:00 05/20/17 08:59 04/26/17 07:46 0.4 MG Isosorbide Mononitrate (Imdur Ext Rel Tab) 30 mg DAILY PO 04/20/17 09:00 05/20/17 08:59 04/26/17 07:50 30 MG Polyethylene (Miralax Powder Packet) 17 gm DAILY PO 04/20/17 09:00 05/20/17 08:59 04/25/17 08:17 17 GM Nicotine (Nicoderm Cq 7 Mg Patch) 1 patch QAM TD 04/20/17 09:00 05/20/17 08:59 04/23/17 09:30 1 PATCH Miscellaneous (Remove Nicoderm Patch) 1 ea HS N/A 04/20/17 21:00 05/20/17 20:59 04/23/17 20:50 1 EA Albuterol/ Ipratropium (Duoneb) 3 ml Q4R PRN INH 04/20/17 04:00 05/20/17 03:59 Miscellaneous Information (Consult) 1 ea UD PRN N/A 04/20/17 14:00 05/20/17 13:59 Insulin Aspart (novoLOG ASPART) SLIDING SCALE G... ACHS SC 04/20/17 21:00 05/20/17 05:59 04/25/17 20:40 1 UNITS Piperacillin Sod/ Tazobactam Sod 3.375 gm/Dextrose 115 ml @ 28.75 mls/ hr Q12H IV 04/24/17 00:00 04/29/17 23:59 04/26/17 11:38 28.75 MLS/HR Pantoprazole Sodium (Protonix Tab) 40 mg BID PO 04/24/17 10:00 05/20/17 09:59 04/26/17 07:46 40 MG Glucose (Glucose 40% Gel) 15-30 GRAMS 15 GRAMS... UD PRN PO 04/25/17 10:45 05/25/17 10:44 Glucose (Glucose Chew Tab) 4-8 Tablets 4 Tabl... UD PRN PO 04/25/17 10:45 05/25/17 10:44 Dextrose (Dextrose 50% 50ML Syringe) 25-50ML OF 50% DW IV FOR... UD PRN IV 04/25/17 10:45 05/25/17 10:44 Glucagon (Glucagon Inj) 1 mg UD PRN SQ 04/25/17 10:45 05/25/17 10:44 Insulin Glargine (Lantus Solostar Pen) 15 units HS SC 04/25/17 21:00 05/20/17 20:59 04/25/17 20:39 15 UNITS Fluconazole (Diflucan Tab) 100 mg QAM PO 04/26/17 09:00 05/06/17 08:59 04/26/17 07:46 100 MG Sodium Bicarbonate (Sodium Bicarbonate Tab) 650 mg BID PO 04/26/17 21:00 05/26/17 20:59 Objective Vital Signs Date Time Temp Pulse Resp B/P (MAP) Pulse Ox O2 Delivery O2 Flow Rate FiO2 04/26/17 12:00 Room Air 04/26/17 11:51 36.9 68 16 118/70 (86) 95 04/26/17 11:04 96 18 97 Room Air 04/26/17 08:00 Room Air 04/26/17 07:49 36.8 101 20 141/65 (90) 97 Room Air 04/26/17 07:49 36.7 80 16 129/84 (99) 96 04/26/17 07:07 95 18 96 Room Air 04/26/17 04:00 Room Air 04/26/17 03:38 36.9 92 17 134/73 (93) 97 Room Air 04/25/17 23:59 Room Air 04/25/17 23:35 37.0 97 18 150/78 (102) 98 Room Air 04/25/17 20:00 Room Air 04/25/17 19:33 91 18 98 Room Air 04/25/17 19:16 36.6 96 20 155/84 (107) 97 Room Air 04/25/17 16:00 Room Air 04/25/17 15:19 92 18 98 Room Air 04/25/17 15:17 36.7 94 20 172/91 (118) 98 Room Air Physical Exam General Appearance: WD/WN, no apparent distress Eyes: normal inspection, PERRL, EOMI Neck: supple, no JVD, trachea midline Respiratory/Chest: normal breath sounds, no respiratory distress, no accessory muscle use Cardiovascular: regular rate, rhythm, no gallop, no murmur Abdomen: normal bowel sounds, soft, + tenderness (ruq) Extremities: normal inspection, no pedal edema, no calf tenderness Neurologic/Psych: alert, normal mood/affect, oriented x 3 Skin: normal color, no jaundice, no rash Laboratory Results Last 24 Hours Test 04/25/17 16:08 04/25/17 19:00 04/25/17 19:59 04/26/17 00:49 Bedside Glucose 177 mg/dl 185 mg/dl Hemoglobin 8.3 g/dL 7.8 g/dL Hematocrit 24.7 % 23.5 % Test 04/26/17 06:23 04/26/17 06:56 04/26/17 11:22 04/26/17 12:40 White Blood Count 7.10 K/uL Red Blood Count 2.82 M/uL Hemoglobin 7.8 g/dL 8.0 g/dL Hematocrit 23.2 % 23.6 % Mean Corpuscular Volume 82.3 fL Mean Corpuscular Hemoglobin 27.7 pg Mean Corpuscular Hemoglobin Concent 33.6 g/dl Platelet Count 277 K/uL Mean Platelet Volume 8.5 fL Neutrophils (%) (Auto) 71.1 % Lymphocytes (%) (Auto) 14.9 % Monocytes (%) (Auto) 7.6 % Eosinophils (%) (Auto) 4.8 % Basophils (%) (Auto) 0.6 % Neutrophils # (Auto) 5.05 K/uL Lymphocytes # (Auto) 1.06 K/uL Monocytes # (Auto) 0.54 K/uL Eosinophils # (Auto) 0.34 K/uL Basophils # (Auto) 0.04 K/uL RDW Standard Deviation 45.7 fL RDW Coefficient of Variation 15.3 % Immature Granulocyte % (Auto) 1.0 % Immature Granulocyte # (Auto) 0.07 K/uL Red Blood Cell Morphology Unremarkable Sodium Level 139 mmol/L Potassium Level 3.8 mmol/L Chloride Level 110 mmol/L Carbon Dioxide Level 17 mmol/L Anion Gap 12.0 mmol/L Blood Urea Nitrogen 60 mg/dl Creatinine 5.01 mg/dl Est Creatinine Clear Calc Drug Dose 18.1 ml/min Estimated GFR () 13.1 Estimated GFR (Non- 11.3 BUN/Creatinine Ratio 12.0 Random Glucose 82 mg/dl Calcium Level 7.9 mg/dl Bedside Glucose 79 mg/dl 83 mg/dl Assessment and Plan Pt is a 62 y/o male with biliary mass cytology consistent w adenocarcinoma, now cholangitis. He had repeat ERCP over the weekend along w EGD - noted to have food impaction, removed; previously placed biliary stent was occluded, now replaced w metal stent. His LFTs are trending down. Blood ct dropping, he is having melanotic stools overnight and this AM. Last BM this AM RN reports stools are semi formed. - Monitor H/H, transfuse prn - Monitor LFTs - CL diet, may advance to mechanical soft diet at most as tolerated. - Protonix 40mg BID. - Add Carafate 1g QID susp - NPO after midnight for EGD evaluation to r/o UGI bleed on 04/[address] Bunch Late entry: ptient was seen and examined with Martine Rucker on 04/26. Her note reflects our findings and plan. EGD tomorrow. PPI gtt
--- NOTE | 2017-04-26 13:35 | Family Medicine Progress Note ---
Progress Note Date of Service Apr 26, 2017. Subjective Pt evaluation today including: conversation w/ patient, physical exam, chart review, lab review had 2 more episodes of dark stools overnight. denies CP, dizziness, lightheadedness Constitutional: No fever, No chills Eyes: No worsening of vision ENT: No hearing loss Respiratory: No cough, No sputum Cardiovascular: No chest pain, No orthopnea, No palpitations Abdomen: + GI bleeding (Melanotic stools), No pain, No nausea Male : No dysuria Neurologic: No memory loss Medications Current Inpatient Medications Medications (Trade) Dose Ordered Sig/Sarah Route Start Time Stop Time Status Last Admin Dose Admin Acetaminophen (Tylenol Tab) 650 mg Q4H PRN PO 04/19/17 22:45 05/19/17 22:44 Polyethylene (Miralax Powder Packet) 17 gm DAILY PRN PO 04/19/17 22:45 05/19/17 22:44 Ondansetron HCl (Zofran Inj) 4 mg Q6H PRN IV 04/19/17 22:45 05/19/17 22:44 04/26/17 02:12 4 MG Bisacodyl (Dulcolax Tab) 10 mg DAILY PRN PO 04/20/17 00:45 05/20/17 00:44 04/23/17 17:15 10 MG Furosemide (Lasix Tab) 40 mg DAILY PO 04/20/17 09:00 05/20/17 08:59 Future Hold 04/21/17 08:48 40 MG Albuterol/ Ipratropium (Duoneb) 3 ml QIDR INH 04/20/17 08:00 05/20/17 07:59 04/26/17 11:04 3 ML Metoprolol Succinate (Toprol Xl Tab) 25 mg DAILY PO 04/20/17 09:00 05/20/17 08:59 Future hold 04/26/17 07:50 25 MG Nystatin (Mycostatin Powder) 1 appln [id number] EXT 04/20/17 08:00 05/20/17 07:59 04/26/17 11:37 1 APPLN Tamsulosin HCl (Flomax Cap) 0.4 mg DAILY PO 04/20/17 09:00 05/20/17 08:59 04/26/17 07:46 0.4 MG Isosorbide Mononitrate (Imdur Ext Rel Tab) 30 mg DAILY PO 04/20/17 09:00 05/20/17 08:59 04/26/17 07:50 30 MG Polyethylene (Miralax Powder Packet) 17 gm DAILY PO 04/20/17 09:00 05/20/17 08:59 04/25/17 08:17 17 GM Nicotine (Nicoderm Cq 7 Mg Patch) 1 patch QAM TD 04/20/17 09:00 05/20/17 08:59 04/23/17 09:30 1 PATCH Miscellaneous (Remove Nicoderm Patch) 1 ea HS N/A 04/20/17 21:00 05/20/17 20:59 04/23/17 20:50 1 EA Albuterol/ Ipratropium (Duoneb) 3 ml Q4R PRN INH 04/20/17 04:00 05/20/17 03:59 Miscellaneous Information (Consult) 1 ea UD PRN N/A 04/20/17 14:00 05/20/17 13:59 Insulin Aspart (novoLOG ASPART) SLIDING SCALE G... ACHS SC 04/20/17 21:00 05/20/17 05:59 04/25/17 20:40 1 UNITS Piperacillin Sod/ Tazobactam Sod 3.375 gm/Dextrose 115 ml @ 28.75 mls/ hr Q12H IV 04/24/17 00:00 04/29/17 23:59 04/26/17 11:38 28.75 MLS/HR Pantoprazole Sodium (Protonix Tab) 40 mg BID PO 04/24/17 10:00 05/20/17 09:59 04/26/17 07:46 40 MG Glucose (Glucose 40% Gel) 15-30 GRAMS 15 GRAMS... UD PRN PO 04/25/17 10:45 05/25/17 10:44 Glucose (Glucose Chew Tab) 4-8 Tablets 4 Tabl... UD PRN PO 04/25/17 10:45 05/25/17 10:44 Dextrose (Dextrose 50% 50ML Syringe) 25-50ML OF 50% DW IV FOR... UD PRN IV 04/25/17 10:45 05/25/17 10:44 Glucagon (Glucagon Inj) 1 mg UD PRN SQ 04/25/17 10:45 05/25/17 10:44 Insulin Glargine (Lantus Solostar Pen) 15 units HS SC 04/25/17 21:00 05/20/17 20:59 04/25/17 20:39 15 UNITS Fluconazole (Diflucan Tab) 100 mg QAM PO 04/26/17 09:00 05/06/17 08:59 04/26/17 07:46 100 MG Sodium Bicarbonate (Sodium Bicarbonate Tab) 650 mg BID PO 04/26/17 21:00 05/26/17 20:59 Sucralfate (Carafate Susp) 1 gm QID PO 04/26/17 13:30 05/26/17 13:29 Objective Vital Signs Date Time Temp Pulse Resp B/P (MAP) Pulse Ox O2 Delivery O2 Flow Rate FiO2 04/26/17 12:00 Room Air 04/26/17 11:51 36.9 68 16 118/70 (86) 95 04/26/17 11:04 96 18 97 Room Air 04/26/17 08:00 Room Air 04/26/17 07:49 36.8 101 20 141/65 (90) 97 Room Air 04/26/17 07:49 36.7 80 16 129/84 (99) 96 04/26/17 07:07 95 18 96 Room Air 04/26/17 04:00 Room Air 04/26/17 03:38 36.9 92 17 134/73 (93) 97 Room Air 04/25/17 23:59 Room Air 04/25/17 23:35 37.0 97 18 150/78 (102) 98 Room Air 04/25/17 20:00 Room Air 04/25/17 19:33 91 18 98 Room Air 04/25/17 19:16 36.6 96 20 155/84 (107) 97 Room Air 04/25/17 16:00 Room Air 04/25/17 15:19 92 18 98 Room Air 04/25/17 15:17 36.7 94 20 172/91 (118) 98 Room Air Physical Exam General Appearance: WD/WN, no apparent distress ENT: hearing grossly normal Neck: supple Respiratory/Chest: lungs clear, normal breath sounds, no respiratory distress Cardiovascular: regular rate, rhythm Abdomen: normal bowel sounds, non tender, soft Extremities: + pertinent finding Neurologic/Psychiatric: alert, normal mood/affect, oriented x 3 Laboratory Results Last 24 Hours Test 04/25/17 16:08 04/25/17 19:00 04/25/17 19:59 04/26/17 00:49 Bedside Glucose 177 mg/dl 185 mg/dl Hemoglobin 8.3 g/dL 7.8 g/dL Hematocrit 24.7 % 23.5 % Test 04/26/17 06:23 04/26/17 06:56 04/26/17 11:22 04/26/17 12:40 White Blood Count 7.10 K/uL Red Blood Count 2.82 M/uL Hemoglobin 7.8 g/dL 8.0 g/dL Hematocrit 23.2 % 23.6 % Mean Corpuscular Volume 82.3 fL Mean Corpuscular Hemoglobin 27.7 pg Mean Corpuscular Hemoglobin Concent 33.6 g/dl Platelet Count 277 K/uL Mean Platelet Volume 8.5 fL Neutrophils (%) (Auto) 71.1 % Lymphocytes (%) (Auto) 14.9 % Monocytes (%) (Auto) 7.6 % Eosinophils (%) (Auto) 4.8 % Basophils (%) (Auto) 0.6 % Neutrophils # (Auto) 5.05 K/uL Lymphocytes # (Auto) 1.06 K/uL Monocytes # (Auto) 0.54 K/uL Eosinophils # (Auto) 0.34 K/uL Basophils # (Auto) 0.04 K/uL RDW Standard Deviation 45.7 fL RDW Coefficient of Variation 15.3 % Immature Granulocyte % (Auto) 1.0 % Immature Granulocyte # (Auto) 0.07 K/uL Red Blood Cell Morphology Unremarkable Sodium Level 139 mmol/L Potassium Level 3.8 mmol/L Chloride Level 110 mmol/L Carbon Dioxide Level 17 mmol/L Anion Gap 12.0 mmol/L Blood Urea Nitrogen 60 mg/dl Creatinine 5.01 mg/dl Est Creatinine Clear Calc Drug Dose 18.1 ml/min Estimated GFR () 13.1 Estimated GFR (Non- 11.3 BUN/Creatinine Ratio 12.0 Random Glucose 82 mg/dl Calcium Level 7.9 mg/dl Bedside Glucose 79 mg/dl 83 mg/dl Assessment and Plan 62-year-old male with a past medical history of coronary artery disease, diabetes type 2, diabetic foot ulcer status post amputation of right first and second toes, hypertension, hyperlipidemia, prostate cancer status post radiation therapy 2014, pancreatic adenocarcinoma status post common bile duct stent placement in December 2016 had presented from [facility] with intractable nausea and vomiting on 04/19 04/20 - ERCP with stent removal, brush cytology, stricture dilation and stent placement 04/21 - Emergent ERCP showed intra-op findings included occluded stent, segmental biliary stricture - which was malignant-appearing, dilated bile duct, hepatic ducts, and intrahepatic branches. Mild, pus, sludge flowed through new stents once tracts were patent again. 04/22- Worsening of nausea and vomiting, unknown etiology, renal vs GI. 04/23 - Repeat ERCP, Dr. Deal found a large piece of beef obstructing the lower esophagus, that was removed and bile duct stent was changed - pt showed significant improvement of symptoms. Sepsis secondary to cholangitis, bile duct occlusion/pancreatic adenocarcinoma- improving -Continue Zosyn -Status post ERCP with bile duct stent change -Will need repeat ERCP in 2-4 weeks esophagitis with melena - pantoprazole 40 mg BID - Carafate added - NPO after midnight for EGD tomorrow Acute blood loss Anemia: - likely from esophagitis -hgb around 8 - Received 2 units PRBC transfusion, transfuse another unit -Reticulocyte count index 0.3, B12 and folic acid WNL - check serial H &H Acute kidney injury : -Creatinine at 5.3 - avoid nephrotoxic drugs - bicarb added New onset A fib TSH WNL. s/p digoxin 250mcg and metoprolol tartrate 25mg continue Metoprolol 25mg XL & Imdur. consider outpatient holter to determine if patient needs predatory animal exterminator AC. UTI - UC growing carrie - diflucan ordered( renally dosed) DM2 hba1c 10.2 Home dose of Lantus was 60units and reduced to 20units QHS while patient wasn't tolerating PO. lantus dose has been decreased to 15 units Weakness PT/OT on board. BPH/prostate cancer Continue tamsulosin CAD/hypertension Continue 25 mg toprol and PO Imdur. COPD: Stable Continue duo nebs Tobacco abuse: smokes one fourth pack per day. Offered smoking cessation counseling NicoDerm patch ordered DVT prophylaxis SCDs FULL CODE Resident Physician Supervision Note: I interviewed and examined the patient. Discussed with Dr. De La Torre and agree with findings and plan as documented in the note. Any exceptions or clarifications are listed here: None Documented By: Jd Fish feels Ok. GI to scope again tomorrow given ongoing probably esophageal blood loss vitals noted nad fatigued appearing breathing unlabored no pallor or icterus pleasant cholangitis - seems stable/ improving arf - objective findings don't really corroborate, but clinical scenario would be most c/w ATN. no noted nephrotoxic meds, possibly anemia was contributing as well hypoproliferative anemia - multifactorial, no hemorrhagic bleed but has become clear that there is a significant component of GI blood loss - concern being esophageal - EGD tomorrow, needed transfused again, follow pharmacologic DVT proph is contraindicated since a degree of oozing seems to be contributing to anemia Resident Tracking Resident Involvement: Resident Care Provided Care Provided: Adult Hospital Medicine
[2017-04-26] MEDS: SUCRALFATE 1 GM/10 ML UDC PO SCH ×3 (14:25→22:03)
[2017-04-26 19:09] LABS: HEMATOCRIT 23.4 % (42-52); HEMOGLOBIN 7.8 g/dL (14.0-18.0)
[2017-04-26] MEDS: SODIUM BICARBONATE 650 MG TAB PO SCH (20:40)
[2017-04-26] MEDS: INSULIN GLARGINE SOLOSTAR 100 UNITS/ML 3 ML PEN SC SCH (20:42)
[2017-04-27] VITALS (28 sets, daily range): BP systolic 95–161; BP diastolic 58–87; PULSE 86–102; TEMP 36.4–36.8; O2SAT 94–100
[2017-04-27] MEDS: PIPERACILL/TAZOBAC IV 3.375 GM in DEXTROSE 5% 100ML 100 ML IV SCH ×3 (00:45→23:48)
[2017-04-27 01:08] LABS: HEMOGLOBIN 6.7 g/dL (14.0-18.0)
[2017-04-27] MEDS ORDERED: OCTREOTIDE IV BOLUS & DRIP IV STA (01:34)
[2017-04-27] MEDS ORDERED: OCTREOTIDE ACETATE INJ 100 MCG in SYR 9 ML PHA PREPARED IV SCH (01:45)
[2017-04-27] MEDS ORDERED: PANTOprazole INJ 80 MG in DEXTROSE 5% 100ML IV SCH (01:45)
[2017-04-27] MEDS ORDERED: PHYTONADIONE INJ 10 MG in SODIUM CHLORIDE 0.9% 50ML 50 ML IV STA (02:01)
[2017-04-27] MEDS: OCTREOTIDE ACETATE INJ 500 MCG in NSS 100ML IV SCH ×3 (02:20→21:33)
[2017-04-27 02:37] LABS: INR 1.6 (0.9-1.1); PTT PATIENT 30.6 SECONDS (21.0-31.0)
[2017-04-27] MEDS: ONDANSETRON INJ 2 MG/ML 2 ML VIAL IV PRN (02:39)
[2017-04-27] MEDS: PANTOprazole INJ 40 MG in DEXTROSE 5% 100ML IV SCH ×5 (02:48→22:35)
[2017-04-27 03:01] LABS: ALBUMIN 1.4 gm/dl (3.4-5.0); CALCIUM 7.3 mg/dl (8.5-10.1); CREATININE 5.03 mg/dl (0.60-1.40); HEMATOCRIT 20.2 % (42-52); HEMOGLOBIN 6.9 g/dL (14.0-18.0); MEAN CELL VOLUME 83.5 fL (80-100); MEAN CORPUSCULAR HEMOGLOBIN 28.5 pg (25-34); MEAN CORPUSCULAR HGB CONC 34.2 g/dl (32-36); MEAN PLATELET VOLUME 8.4 fL (7.4-10.4); PLATELET COUNT 247 K/uL (130-400); POTASSIUM 4.3 mmol/L (3.5-5.1); RED CELL DISTRIBUTION WIDTH CV 15.3 % (11.5-14.5); RED CELL DISTRIBUTION WIDTH SD 47.1 fL (36.4-46.3); TOTAL PROTEIN 4.8 gm/dl (6.4-8.2); WHITE BLOOD COUNT 6.66 K/uL (4.8-10.8)
[2017-04-27 03:04] LABS: BASO % 0.8 %; BASO ABS # 0.05 K/uL (0-0.2); EOS % 1.8 %; EOS ABS # 0.12 K/uL (0-0.5); IG# 0.07 K/uL (0.00-0.02); LYMPH % 11.4 %; LYMPH ABS # 0.76 K/uL (1.2-3.4); MONO % 5.1 %; MONO ABS # 0.34 K/uL (0.11-0.59); NEUT % 79.8 %; NEUT ABS # 5.32 K/uL (1.4-6.5)
--- NOTE | 2017-04-27 03:40 | Progress Note ---
Progress Note Date of Service Apr 27, 2017. Progress Note Called for critical lab value Hb 6.7 Chart reviewed. Already somewhat familiar with patient secondary to previous care provided Recent history reviewed: s/p transfusion of 4 units pRBC over last 2 days. Previous Hb 7.8 six hours prior. Possible upper GI bleed from recent food impaction. FOBT positive x 2. Multiple, ongoing dark tarry stools per nursing staff. Previous hematemesis. Patient NPO and scheduled for EGD in AM. Patient denying current pain. Vitals reviewed: afebrile, hypotensive SBP 90-100, HR 90-100, Sat well on RA Labs reviewed and orders placed: Recheck CBC, CMP + Mg, INR/PT, PTT Asked for placement of 2 more pIV lines Ordered pantoprazole drip, octreotide drip, IV vitamin K+, type & cross for 2 units with immediate transfusion (with 2 more on hold) Discussed case with attending, Dr. Glass, and ICU PA Neel Marina Vitals rechecked, showed mild improvement in SBP to 120 Given ongoing active bleeding, and concern for hemodynamic stability, will transfer to ICU. Resident Tracking Resident Involvement: Resident Care Provided Care Provided: Adult Hospital Medicine
--- NOTE | 2017-04-27 04:38 | Critical Care Consultation ---
Critical Care Consultation Date of Consultation: Apr 27, 2017. Attending Physician: Jd Fish D.O. Reason for Consultation: 62-year-old male with pancreatic adenocarcinoma requiring biliary stenting 2 during this visit he was had precipitous drop in H&H over the past few days requiring transfusion of 4 units PRBC. Hypotensive this evening after 2 episodes of hematemesis and 4 episodes of melanotic stools. Repeat H&H after blood products was critical at 6.7 and 20.2, respectively. Transferred to the ICU for closer hemodynamic monitoring and further intervention including PPI drip, Sandostatin drip, and aggressive treatment with blood products. History of Present Illness Patient is a pleasant 62-year-old male with a history of pancreatic adenocarcinoma who had his initial biliary stent placed in December of this past year. He follows with [facility] gastroenterology. Several days ago he presented to the [place] emergency department with reported complaints of abdominal discomfort and chest discomfort. On ultrasound, he had biliary dilatation concerning for obstruction of his stent. He was subsequently transferred to this facility for further evaluation and management. The patient underwent ERCP 2 for repair of stents. In addition, during most recent ERCP (04/23) the patient was noted to have a food bolus in the distal esophagus with associated esophagitis and gastritis. He was started on oral PPI twice daily. The patient's stay has been complicated by an episode of A. fib with RVR which was responded to dig and metoprolol. An echocardiogram performed demonstrated no significant findings otherwise. In addition, the patient has had significant increase in renal function throughout his stay. Per nephrologists reports, the patient is trending towards the need for SWEATBAND PERFORATOR. Most recently, the patient has had an ongoing drop in H&H requiring transfusion of 4 units PRBCs over the last 48 hours. He has had melanotic stool, but no bright red blood per rectum. In addition, he has had reported blood-tinged vomitus prior to earlier last evening. Per nursing reports, the patient had 2 separate episodes of bloody emesis while receiving PRBCs. In addition, he has had 4 separate melanotic stools over the past 12 hours. I was contacted by primary service as the patient had continued drop in H&H despite PRBC transfusion. Patient was noted to be hypotensive with systolic blood pressures in the 70s. On evaluation, the patient's blood pressures were in the 100s. He was started on a Protonix drip as well as Sandostatin drip. Peripheral IVs 3 were placed successfully by nursing staff. He is awake, alert , and oriented. At this point, he complains of some nausea as well as some RIGHT upper quadrant abdominal discomfort. He reports this is new from his baseline and rates it a 4/10. He currently denies any headaches, dizziness, lightheadedness, blurry vision, double vision, slurred speech, facial droop, unilateral weakness/numbness, chest pain, palpitations, shortness of breath, or dysuria. Past Medical/Surgical History Medical Problems: (1) Acute kidney injury (2) Common bile duct obstruction (3) Dehydration (4) Intractable nausea and vomiting (5) Jaundice (6) Pancreatic carcinoma Family History Noncontributory Social History Smoking Status: Former Smoker Smokeless Tobacco Use: No Alcohol Use: Drug Use: none Marital Status: Housing Status: lives alone Occupation Status: other Allergies Coded Allergies: Iodinated Diagnostic Agents (Verified Allergy, Mild, GI SYMPTOMS, 04/19/17) No Known Drug Allergy (Verified Allergy, Unknown, none, 04/19/17) Uncoded Allergies: dye (Allergy, Unknown, RASH, 04/19/17) patient does not remember what kind of dye or what kind of reaction he is allergic to Home Medications Scheduled Bisacodyl (Bisacodyl), 2 TAB PO UD Furosemide (Lasix), 40 MG PO DAILY Insulin Aspart (Novolog Penfill), 5 UNITS SQ AC Insulin Glargine (Lantus), 60 UNITS SC HS Ipratropium-Albuterol (Duoneb), 1 TREATMENT INH Q4H Ipratropium-Albuterol (Duoneb), 1 TREATMENT INH QID Isosorbide Mononitrate (Isosorbide Mononitrate), 30 MG PO DAILY Levofloxacin in D5w (Levofloxacin in 5% Dextro 500 mg/100Ml), 500 MG IV DIRECTED Metoprolol Succ (Toprol Xl) (Toprol-Xl), 25 MG PO DAILY Nicotine (Nicoderm Cq 7 Mg Patch), 7 MG TD DAILY Omeprazole (Prilosec), 20 MG PO DAILY Piperacillin Sodium-Tazobactam (Zosyn), 3.375 GM IV Q8 Polyethylene Glycol 3350 (Polyethylene Glycol 3350), 17 GM PO DAILY [insulin aspart], SQ ACHS Scheduled PRN Nitroglycerin (Nitrostat), 0.4 MG SL q5min prn PRN for Chest Pain Ondansetron Hcl (Ondansetron Hcl), 4 MG IV Q6H PRN for Nausea Miscellaneous Medications Acetaminophen (Tylenol), 325 MG PO Metoclopramide Hcl (Reglan), 5 MG PO Nystatin (Topical) (Nystop) Oxycodone Ir (Roxicodone Ir), 5 MG PO Tamsulosin Hcl (Flomax), 0.4 MG PO Current Inpatient Medications Current Inpatient Medications Medications (Trade) Dose Ordered Sig/Sarah Route Start Time Stop Time Status Last Admin Dose Admin Acetaminophen (Tylenol Tab) 650 mg Q4H PRN PO 04/19/17 22:45 05/19/17 22:44 Polyethylene (Miralax Powder Packet) 17 gm DAILY PRN PO 04/19/17 22:45 05/19/17 22:44 Ondansetron HCl (Zofran Inj) 4 mg Q6H PRN IV 04/19/17 22:45 05/19/17 22:44 04/27/17 02:39 4 MG Bisacodyl (Dulcolax Tab) 10 mg DAILY PRN PO 04/20/17 00:45 05/20/17 00:44 04/23/17 17:15 10 MG Furosemide (Lasix Tab) 40 mg DAILY PO 04/20/17 09:00 05/20/17 08:59 Future Hold 04/21/17 08:48 40 MG Albuterol/ Ipratropium (Duoneb) 3 ml QIDR INH 04/20/17 08:00 05/20/17 07:59 04/26/17 19:16 3 ML Metoprolol Succinate (Toprol Xl Tab) 25 mg DAILY PO 04/20/17 09:00 05/20/17 08:59 Future hold 04/26/17 07:50 25 MG Nystatin (Mycostatin Powder) 1 appln [id number] EXT 04/20/17 08:00 05/20/17 07:59 04/26/17 15:43 1 APPLN Tamsulosin HCl (Flomax Cap) 0.4 mg DAILY PO 04/20/17 09:00 05/20/17 08:59 04/26/17 07:46 0.4 MG Isosorbide Mononitrate (Imdur Ext Rel Tab) 30 mg DAILY PO 04/20/17 09:00 05/20/17 08:59 04/26/17 07:50 30 MG Polyethylene (Miralax Powder Packet) 17 gm DAILY PO 04/20/17 09:00 05/20/17 08:59 04/25/17 08:17 17 GM Nicotine (Nicoderm Cq 7 Mg Patch) 1 patch QAM TD 04/20/17 09:00 05/20/17 08:59 04/23/17 09:30 1 PATCH Miscellaneous (Remove Nicoderm Patch) 1 ea HS N/A 04/20/17 21:00 05/20/17 20:59 04/26/17 21:00 1 EA Albuterol/ Ipratropium (Duoneb) 3 ml Q4R PRN INH 04/20/17 04:00 05/20/17 03:59 Miscellaneous Information (Consult) 1 ea UD PRN N/A 04/20/17 14:00 05/20/17 13:59 Insulin Aspart (novoLOG ASPART) SLIDING SCALE G... ACHS SC 04/20/17 21:00 05/20/17 05:59 04/25/17 20:40 1 UNITS Piperacillin Sod/ Tazobactam Sod 3.375 gm/Dextrose 115 ml @ 28.75 mls/ hr Q12H IV 04/24/17 00:00 04/29/17 23:59 04/27/17 00:45 28.75 MLS/HR Glucose (Glucose 40% Gel) 15-30 GRAMS 15 GRAMS... UD PRN PO 04/25/17 10:45 05/25/17 10:44 Glucose (Glucose Chew Tab) 4-8 Tablets 4 Tabl... UD PRN PO 04/25/17 10:45 05/25/17 10:44 Dextrose (Dextrose 50% 50ML Syringe) 25-50ML OF 50% DW IV FOR... UD PRN IV 04/25/17 10:45 05/25/17 10:44 Glucagon (Glucagon Inj) 1 mg UD PRN SQ 04/25/17 10:45 05/25/17 10:44 Insulin Glargine (Lantus Solostar Pen) 15 units HS SC 04/25/17 21:00 05/20/17 20:59 04/26/17 20:42 15 UNITS Fluconazole (Diflucan Tab) 100 mg QAM PO 04/26/17 09:00 05/06/17 08:59 04/26/17 07:46 100 MG Sodium Bicarbonate (Sodium Bicarbonate Tab) 650 mg BID PO 04/26/17 21:00 05/26/17 20:59 04/26/17 20:40 650 MG Sucralfate (Carafate Susp) 1 gm QID PO 04/26/17 13:30 05/26/17 13:29 04/26/17 22:03 1 GM Pantoprazole Sodium 40 mg/ Dextrose 100 ml @ 20 mls/hr Q5H IV 04/27/17 02:00 05/27/17 01:59 04/27/17 02:48 20 MLS/HR Octreotide Acetate 500 mcg/ Sodium Chloride 105 ml @ 10 mls/hr [id number] IV 04/27/17 02:00 05/27/17 01:59 04/27/17 02:20 10 MLS/HR Review of Systems A complete 10 point review of systems was reviewed with the patient with pertinent positives and negatives as per history of present illness. All else were negative. Physical Exam Date Time Temp Pulse Resp B/P (MAP) Pulse Ox O2 Delivery O2 Flow Rate FiO2 04/27/17 03:58 36.4 90 15 113/60 95 04/27/17 03:45 90 14 121/61 95 04/27/17 03:30 36.6 91 12 120/60 95 04/27/17 03:15 92 12 108/67 98 04/27/17 03:00 36.8 92 12 125/73 100 04/27/17 00:43 04/27/17 00:25 106/69 (81) 04/27/17 00:25 95/58 (70) 04/27/17 00:00 96/61 (73) 04/27/17 00:00 101/62 (75) 04/26/17 23:59 Room Air 04/26/17 23:35 36.6 97 16 93/61 (72) 97 Room Air 04/26/17 23:35 79/49 (59) 04/26/17 21:45 36.7 101 137/76 04/26/17 20:45 102 113/61 04/26/17 20:12 36.9 103 125/71 95 04/26/17 20:00 Room Air 04/26/17 19:40 36.8 104 130/77 96 04/26/17 19:26 36.9 102 25 118/62 97 04/26/17 19:16 87 18 96 Room Air 04/26/17 18:27 36.8 96 17 141/77 97 04/26/17 17:05 36.6 102 18 156/82 (106) 97 Room Air 04/26/17 16:30 36.9 96 136/83 04/26/17 16:09 36.7 99 148/70 04/26/17 16:00 Room Air 04/26/17 15:45 36.6 98 156/82 04/26/17 15:30 36.6 102 20 167/72 96 04/26/17 14:50 36.6 99 20 169/87 95 04/26/17 14:48 96 18 98 Room Air 04/26/17 12:00 Room Air 04/26/17 11:51 36.9 68 16 118/70 (86) 95 04/26/17 11:04 96 18 97 Room Air 04/26/17 08:00 Room Air 04/26/17 07:49 36.8 101 20 141/65 (90) 97 Room Air 04/26/17 07:49 36.7 80 16 129/84 (99) 96 04/26/17 07:07 95 18 96 Room Air VITAL SIGNS - Vital signs and nursing notes were reviewed. GENERAL - 62-year-old male appearing his stated age who is in no acute distress. Communicates well with provider and answers questions appropriately. SKIN - Pale and jaundiced. HEAD - NC/AT. EYES - PERRL with EOMI bilaterally. Sclera icteric. EARS - No deformities of external structures noted on gross examination bilaterally. NOSE - Midline and without cyanosis. MOUTH/OROPHARYNX - Without perioral cyanosis. NECK - Neck with FROM. Supple to palpation. LUNGS - Chest wall symmetric without accessory muscle use, intercostals retractions, or central cyanosis. Normal vesicular breath sounds CTA B/L. No wheezes, rales, or rhonchi appreciated. CARDIAC - RRR with S1/S2. No murmur, rubs, or gallops appreciated. ABDOMEN - Abdominal contour obese and without pulsations or visible masses. BS distant all four quadrants. Mild tenderness to palpation appreciated in the RIGHT upper quadrant. No guarding. No Rebound Tenderness. Negative Rovsing's. Negative Akers's. No palpable masses, hepatosplenomegaly, or ascites noted. EXTREMITIES - No clubbing or peripheral cyanosis. +3/5 radial and dorsalis pedis pulses palpated throughout. PSYCH - A&Ox3 and cooperates fully with examiner. Pt is very pleasant and interacts well with examiner. Laboratory Results Last 24 Hours Test 04/26/17 06:23 04/26/17 06:56 04/26/17 11:22 04/26/17 12:40 White Blood Count 7.10 K/uL Red Blood Count 2.82 M/uL Hemoglobin 7.8 g/dL 8.0 g/dL Hematocrit 23.2 % 23.6 % Mean Corpuscular Volume 82.3 fL Mean Corpuscular Hemoglobin 27.7 pg Mean Corpuscular Hemoglobin Concent 33.6 g/dl Platelet Count 277 K/uL Mean Platelet Volume 8.5 fL Neutrophils (%) (Auto) 71.1 % Lymphocytes (%) (Auto) 14.9 % Monocytes (%) (Auto) 7.6 % Eosinophils (%) (Auto) 4.8 % Basophils (%) (Auto) 0.6 % Neutrophils # (Auto) 5.05 K/uL Lymphocytes # (Auto) 1.06 K/uL Monocytes # (Auto) 0.54 K/uL Eosinophils # (Auto) 0.34 K/uL Basophils # (Auto) 0.04 K/uL RDW Standard Deviation 45.7 fL RDW Coefficient of Variation 15.3 % Immature Granulocyte % (Auto) 1.0 % Immature Granulocyte # (Auto) 0.07 K/uL Red Blood Cell Morphology Unremarkable Sodium Level 139 mmol/L Potassium Level 3.8 mmol/L Chloride Level 110 mmol/L Carbon Dioxide Level 17 mmol/L Anion Gap 12.0 mmol/L Blood Urea Nitrogen 60 mg/dl Creatinine 5.01 mg/dl Est Creatinine Clear Calc Drug Dose 18.1 ml/min Estimated GFR () 13.1 Estimated GFR (Non- 11.3 BUN/Creatinine Ratio 12.0 Random Glucose 82 mg/dl Calcium Level 7.9 mg/dl Bedside Glucose 79 mg/dl 83 mg/dl Test 04/26/17 16:22 04/26/17 18:53 04/26/17 20:13 04/27/17 00:44 Bedside Glucose 95 mg/dl 125 mg/dl Hemoglobin 7.8 g/dL 6.7 g/dL Hematocrit 23.4 % 20.0 % Test 04/27/17 02:07 04/27/17 04:00 White Blood Count 6.66 K/uL Red Blood Count 2.42 M/uL Hemoglobin 6.9 g/dL Hematocrit 20.2 % Mean Corpuscular Volume 83.5 fL Mean Corpuscular Hemoglobin 28.5 pg Mean Corpuscular Hemoglobin Concent 34.2 g/dl Platelet Count 247 K/uL Mean Platelet Volume 8.4 fL Neutrophils (%) (Auto) 79.8 % Lymphocytes (%) (Auto) 11.4 % Monocytes (%) (Auto) 5.1 % Eosinophils (%) (Auto) 1.8 % Basophils (%) (Auto) 0.8 % Neutrophils # (Auto) 5.32 K/uL Lymphocytes # (Auto) 0.76 K/uL Monocytes # (Auto) 0.34 K/uL Eosinophils # (Auto) 0.12 K/uL Basophils # (Auto) 0.05 K/uL RDW Standard Deviation 47.1 fL RDW Coefficient of Variation 15.3 % Immature Granulocyte % (Auto) 1.1 % Immature Granulocyte # (Auto) 0.07 K/uL Red Blood Cell Morphology Unremarkable Prothrombin Time 16.3 SECONDS Prothromb Time International Ratio 1.6 Activated Partial Thromboplast Time 30.6 SECONDS Partial Thromboplastin Ratio 1.2 Sodium Level 138 mmol/L Potassium Level 4.3 mmol/L Chloride Level 110 mmol/L Carbon Dioxide Level 18 mmol/L Anion Gap 10.0 mmol/L Blood Urea Nitrogen 60 mg/dl Creatinine 5.03 mg/dl Est Creatinine Clear Calc Drug Dose 18.1 ml/min Estimated GFR () 13.0 Estimated GFR (Non- 11.2 BUN/Creatinine Ratio 12.1 Random Glucose 121 mg/dl Calcium Level 7.3 mg/dl Magnesium Level 1.6 mg/dl Total Bilirubin 2.2 mg/dl Aspartate Amino Transf (AST/SGOT) 23 U/L Alanine Aminotransferase (ALT/SGPT) 17 U/L Alkaline Phosphatase 306 U/L Total Protein 4.8 gm/dl Albumin 1.4 gm/dl Globulin 3.4 gm/dl Albumin/Globulin Ratio 0.4 Diagnostic Results Radiological imaging and reports were reviewed by myself. Assessment & Plan (1) UGIB (upper gastrointestinal bleed) (2) Hematemesis (3) Liver failure (4) ARF (acute renal failure) (5) A-fib (6) Cholangitis (7) Acute blood loss anemia (8) Pancreatic carcinoma (9) Common bile duct obstruction (10) Jaundice Reason Critically Ill: 62-year-old male with pancreatic adenocarcinoma requiring biliary stenting 2 during this visit he was had precipitous drop in H &H over the past few days requiring transfusion of 4 units PRBC. Hypotensive this evening after 2 episodes of hematemesis and 4 episodes of melanotic stools. Repeat H&H after blood products was critical at 6.7 and 20.2, respectively. Transferred to the ICU for closer hemodynamic monitoring and further intervention including PPI drip, Sandostatin drip, and aggressive treatment with blood products. Neuro - * CAM ICU: NEGATIVE * Monitor for any mental status changes in the setting of blood loss anemia for concerns of hypoperfusion. Cardiac - * h/o CAD, HTN, HLD, A. Fib * NSR at this point. * Hold PO meds at this point 2/2 hematemesis. * Echo (04/22): * -- Conclusions -- * 1. Normal left ventricular size with hyperdynamic systolic function. EF 65-70 %. No regional wall motion abnormalities. Mild concentric left ventricular hypertrophy. * 2. The left atrium is mildly dilated. * 3. No significant valvular abnormalities visualized. * 4. Small echodense structure within the left atrium near the anterior mitral annulus; cannot rule out artifact. * 5. Technically difficult study, enhanced with IV Definity. * 6. No prior study available for comparison. * Will monitor closely from a hemodynamic standpoint in the setting of Acute blood loss anemia. * Provide pressure support with blood first. * Consider other agents as needed (i.e. fluids, pressors). Respiratory - * No h/o Pulmonary Disease. * Would have low threshold for early intubation for airway protection in this patient if hematemesis were to worsen. GI - * Upper GI Bleed w/ acute blood loss anemia: * Spoke with GI after patient had episode of mario hematemesis (~75mL) upon arrival in the ICU. She suggests continuing w/ supportive care and resuscitation efforts. Will see the patient in the AM unless clinical picture were to worsen sooner. * Started on Protonix gtt - previously on BID PO doses only. * Started on Octreotide gtt. * Blood products (see HEME) * Will Ultrasound Portal Vein as the patient is likely more coagulopathic at this point after receiving blood products. Will also look at the stent as well to evaluate for any acute occlusion. * Continue Zosyn at this point for SBP prophylaxis in the setting of UGIB from ??origin. * Continue with plans for EGD today. * Pancreatic Adenocarcinoma w/ Cholangitis 2/2 Occlusion of Biliary Stent: * ERCPx2. * Found to have food bolus w/ esophagitis/gastritis. * Appreciate continued GI management. RENAL/LYTES - * Acute Renal Failure: * ??Hepatorenal Syndrome vs. Hypoperfusion vs. Prerenal State. * Continue w/ IVF/HCO3 per Nephro. * Patient may eventually require HD. * In the setting of GI bleed, were the patient to require CLV, would suggest placement of HD cath w/ access as well. Will hold at this point, but would have low threshold for placement if patient's hemodynamics were to worsen. * Appreciate Nephrology guidance. - * h/o Prostate CA ENDO - * h/o DM: * ISS per protocol * No h/o Thyroid Disease. HEME - * Acute Blood Loss Anemia 2/2 UGIB: * Received 2U PRBCs this evening w/ a total of 4 U over the past 48 hours. * Hematemesis noted by nursing staff w/ melanotic stools noted tonight. * Received an additional 2 U PRBCs plus 1U FFP upon arrival in the ICU. * Will keep 2 units on hold. * Plan for UGI today. ID - * Currently on Zosyn for ??Biliary stent infection. * Continue in the setting of UGIB to cover SBP prophylactically. LINES/IV ACCESS - * PIVs x3 intact. DVT PROPHYLAXIS - * Hold on chemoprophylaxis 2/2 active UGIB I have personally spent 60 minutes of critical care time in the direct management of this patient. This is a life/limb threatening event. This includes time spent evaluating patient, direct bedside care, chart review, placing orders, interpretation of diagnostic studies, discussion with consultants, patient, and family members, as well as other required patient management activities. This time is exclusive of all separately billable procedures, and teaching time and separate from and in addition to any other critical care service time. Thank you for this consultation allow us to be part of this patient's care. Please refer to my attending physician's documentation for any further recommendations. Attending addendum, The patient was seen, examined independently, agree with assessment and plan of my colleague latasha Marina. The patient appeared lethargic, he did have hematemesis, maintaining his airways , when I interviewed him, he was planned to go to the OR for EGD, after returning from the OR, the patient continued to be lethargic but answering questions opening his eyes. Denies any pain no shortness of breath and continue to maintain his airways. His physical exam revealed jaundice, vital signs otherwise stable, blood pressure 130/76, O2 saturation 98%, heart rate is 101 normal sinus rhythm, S1- S2 regular rate and rhythm, distant breath sounds bilaterally, abdomen slightly tender distended but soft, no edema. No asterixis. His labs been reviewed which showed acute renal failure with creatinine of 5, elevated alkaline phosphatase, bicarb of 19, potassium and magnesium reviewed. Hematocrit remains stable after 6 units of blood transfusion. Impression: 1. Hemorrhagic shock. 2. GI bleeding secondary to esophagitis and exposed vessel status post metallic clips placed by Dr. Bunch, input appreciated. 3. Pancreatic adenocarcinoma status post stent placement 2. 4. Liver failure. 5. Acute kidney insufficiency secondary to prerenal dehydration and recent hemorrhagic shock. Plan: 1. Appreciate GI and renal input. 2. Continue with Protonix. 3. Serial hemoglobin and hematocrit. 4. Keep the patient n.p.o. 5. Respiratory status has been maintained without the need for supplemental oxygen at this point. 6. Venodyne boots. 7. Keep diuretics on hold. 8. Urine sodium. 9. Palliative care consult. Case discussed with the staff on rounds and details, critical care time spent with the patient was 45 minutes. Problem Qualifiers (1) Hematemesis: Nausea presence: with nausea Qualified Codes: K92.0 - Hematemesis (2) Liver failure: Liver failure chronicity: acute Hepatic coma status: without hepatic coma Qualified Codes: K72.00 - Acute and subacute hepatic failure without coma (3) ARF (acute renal failure): Acute renal failure type: unspecified Qualified Codes: N17.9 - Acute kidney failure, unspecified
[2017-04-27] MEDS: INSULIN ASPART 100 UNITS/ML 3 ML PEN SC SCH ×4 (06:45→21:00)
[2017-04-27 06:53] LABS: BASO % 0.6 %; BASO ABS # 0.04 K/uL (0-0.2); EOS % 2.7 %; EOS ABS # 0.19 K/uL (0-0.5); HEMATOCRIT 23.7 % (42-52); HEMOGLOBIN 8.1 g/dL (14.0-18.0); IG# 0.08 K/uL (0.00-0.02); LYMPH % 12.6 %; MEAN CELL VOLUME 84.3 fL (80-100); MEAN CORPUSCULAR HEMOGLOBIN 28.8 pg (25-34); MEAN CORPUSCULAR HGB CONC 34.2 g/dl (32-36); MEAN PLATELET VOLUME 8.2 fL (7.4-10.4); NEUT ABS # 5.44 K/uL (1.4-6.5); PLATELET COUNT 208 K/uL (130-400); RED CELL DISTRIBUTION WIDTH CV 15.6 % (11.5-14.5); RED CELL DISTRIBUTION WIDTH SD 48.6 fL (36.4-46.3); WHITE BLOOD COUNT 7.15 K/uL (4.8-10.8)
--- NOTE | 2017-04-27 07:09 | DIAGNOSTIC IMAGING REPORT ---
BILIARY ULTRASOUND CLINICAL HISTORY: Right upper quadrant abdominal pain. Recent stent placement. COMPARISON STUDY: ERCP dated 04/23/2017 FINDINGS: The study is limited from a technical standpoint due to the patient's body habitus and inability to cooperate with breath holding. The liver measured 17.9 cm. No focal masses were visualized. The gallbladder was contracted. No calculi were visualized. There is borderline gallbladder wall thickening. The common bile duct was dilated measuring 17 mm proximally. There is common bile duct wall thickening. The distal common bile duct was nonvisualized. IMPRESSION: 1. Significantly limited study from a technical standpoint 2. Dilated proximal common bile duct with wall thickening. Electronically signed by: Jose Gary M.D. 04/27/2017 7:08 AM Dictated Date/Time: 04/27/2017 7:06 AM
--- NOTE | 2017-04-27 07:11 | DIAGNOSTIC IMAGING REPORT ---
DUPLEX PORTAL HEPATIC VEINS CLINICAL HISTORY: Hematemesis. COMPARISON STUDY: No previous studies for comparison. FINDINGS: Color-flow and spectral waveform analysis was performed. The hepatic and portal veins appear patent with normal directional flow. The splenic vein was not visualized due to overlying bowel gas shadowing. IMPRESSION: Hepatic and portal veins appear patent with normal directional flow. The splenic vein was not visualized. Electronically signed by: Jose Gary M.D. 04/27/2017 7:10 AM Dictated Date/Time: 04/27/2017 7:08 AM
[2017-04-27 07:35] LABS: CALCIUM 7.6 mg/dl (8.5-10.1); CREATININE 5.02 mg/dl (0.60-1.40); POTASSIUM 4.4 mmol/L (3.5-5.1)
[2017-04-27] MEDS: ALBUT/IPRATROP 3MG/0.5MG NEB 3 ML VIAL INH SCH ×4 (07:35→18:57)
[2017-04-27] MEDS: TAMSULOSIN HCL 0.4 MG CAP PO SCH (07:41)
[2017-04-27] MEDS: FLUCONAZOLE 100 MG TAB PO SCH (07:41)
[2017-04-27] MEDS: SUCRALFATE 1 GM/10 ML UDC PO SCH (07:41)
[2017-04-27] MEDS: ISOSORBIDE MONONITRATE 30 MG TABCR PO SCH (07:41)
[2017-04-27] MEDS: POLYETHYLENE (MIRALAX) 17 GM PACK PO SCH (07:42)
[2017-04-27] MEDS: SODIUM BICARBONATE 650 MG TAB PO SCH (07:42)
[2017-04-27] MEDS: METOPROLOL SUCC 25MG EXT REL TAB PO SCH (07:42)
[2017-04-27] MEDS: NICOTINE 7 MG/24 HR TDSY TD SCH (07:55)
[2017-04-27] MEDS: NYSTATIN POWDER 15GM BTL EXT SCH ×3 (07:55→16:50)
[2017-04-27 08:07] LABS: HEMATOCRIT 23.8 % (42-52); HEMOGLOBIN 8.3 g/dL (14.0-18.0)
--- NOTE | 2017-04-27 08:29 | Endo History and Physical ---
History & Physical Date of Service: Apr 27, 2017. Chief Complaint: UGI bleed Referring Physician: Dr. Marie History of Present Illness pancreatic/biliary CA; recent placement of metal stent. Now with hemAtemesis and melena. Drop in H/H requiring PRBC and FFP. Past Surgical History Hx Cardiac Surgery: No Hx Abdominal Surgery: Yes (bile duct stent) Hx Post-Op Nausea and Vomiting: No Hx Cancer Surgery: No Hx Thoracic Surgery: No Hx Orthopedic: Yes (right toe amputation) Hx Urinary Tract Surgery: Yes (cystoscopy/stent placement) Social History Smoking Status: Former Smoker Smokeless Tobacco Use: No Hx Substance Use: No Hx Alcohol Use: No Allergies Coded Allergies: Iodinated Diagnostic Agents (Verified Allergy, Mild, GI SYMPTOMS, 04/19/17) No Known Drug Allergy (Verified Allergy, Unknown, none, 04/19/17) Uncoded Allergies: dye (Allergy, Unknown, RASH, 04/19/17) patient does not remember what kind of dye or what kind of reaction he is allergic to Current Medications Reported Home Medications Medications Dose Route/Sig Max Daily Dose Days Date Category Duoneb (Ipratropium-Albuterol) 3 Ml Nebu 1 Treatment INH QID 04/19/17 Reported Duoneb (Ipratropium-Albuterol) 3 Ml Nebu 1 Treatment INH Q4H 04/19/17 Reported Polyethylene Glycol 3350 1 Pow Pow 17 Gm PO DAILY 04/19/17 Reported Flomax (Tamsulosin Hcl) 0.4 Mg Cap 0.4 Mg PO 04/19/17 Reported Roxicodone Ir (Oxycodone HCl) 5 Mg Tab 5 Mg PO 04/19/17 Reported Nystop (Nystatin (Topical)) 100,000 Unit/Gm Pow 04/19/17 Reported Nicoderm Cq 7 Mg Patch (Nicotine) 7 Mg/24 Hr Dis 7 Mg TD DAILY 04/19/17 Reported Reglan (Metoclopramide Hcl) 5 Mg Tab 5 Mg PO 04/19/17 Reported Bisacodyl 5 Mg Tab 2 Tab PO UD 04/19/17 Reported Tylenol (Acetaminophen) 325 Mg Tab 325 Mg PO 04/19/17 Reported Zosyn (Piperacillin Sodium-Tazobactam) 1 Rayne Rayne 3.375 Gm IV Q8 04/19/17 Reported Ondansetron Hcl 4 Mg/2 Ml Inj 4 Mg IV Q6H PRN 04/19/17 Reported Prilosec (Omeprazole) 20 Mg Capcr 20 Mg PO DAILY 04/19/17 Reported Nitrostat (Nitroglycerin) 0.4 Mg Tab 0.4 Mg SL Q5MIN PRN PRN 04/19/17 Reported Toprol-Xl (Metoprolol Succinate) 25 Mg Tabcr 25 Mg PO DAILY 04/19/17 Reported Levofloxacin in 5% Dextro 500 mg/100Ml (Levofloxacin in D5w) 1 Inj Inj 500 Mg IV DIRECTED 04/19/17 Reported Isosorbide Mononitrate 10 Mg Tab 30 Mg PO DAILY 04/19/17 Reported Lantus (Insulin Glargine) 100 Unit/Ml Inj 60 Units SC HS 04/19/17 Reported [insulin aspart] SQ ACHS 04/19/17 Reported Novolog Penfill (Insulin Aspart) 100 Unit/Ml Inj 5 Units SQ AC 04/19/17 Reported Lasix (Furosemide) 40 Mg Tab 40 Mg PO DAILY 04/19/17 Reported Vital Signs Weight (Kilograms): 121.000 Height (Feet): 5 Height (Inches): 7.00 Date Time Temp Pulse Resp B/P (MAP) Pulse Ox O2 Delivery O2 Flow Rate FiO2 04/27/17 07:36 90 18 98 Room Air 04/27/17 06:30 36.5 87 12 112/68 97 04/27/17 06:00 88 14 125/65 (85) 96 Room Air 04/27/17 06:00 36.5 88 14 125/65 96 04/27/17 05:45 90 14 125/67 98 04/27/17 05:35 36.6 89 12 124/64 97 04/27/17 05:15 36.6 88 12 121/63 96 04/27/17 04:45 88 13 110/62 96 04/27/17 04:30 92 13 115/62 97 04/27/17 04:15 36.4 90 12 112/58 94 04/27/17 04:00 36.4 90 12 113/60 (77) 95 Room Air 04/27/17 04:00 Room Air 04/27/17 03:58 36.4 90 15 113/60 95 04/27/17 03:45 90 14 121/61 95 04/27/17 03:30 36.6 91 12 120/60 95 3/22/18 03:15 92 12 108/67 98 04/27/17 03:00 36.8 92 12 125/73 100 04/27/17 00:43 04/27/17 00:25 106/69 (81) 04/27/17 00:25 95/58 (70) 04/27/17 00:00 96/61 (73) 04/27/17 00:00 101/62 (75) 04/26/17 23:59 Room Air 04/26/17 23:35 36.6 97 16 93/61 (72) 97 Room Air 04/26/17 23:35 79/49 (59) 04/26/17 21:45 36.7 101 137/76 04/26/17 20:45 102 113/61 04/26/17 20:12 36.9 103 125/71 95 04/26/17 20:00 Room Air 04/26/17 19:40 36.8 104 130/77 96 04/26/17 19:26 36.9 102 25 118/62 97 04/26/17 19:16 87 18 96 Room Air 04/26/17 18:27 36.8 96 17 141/77 97 04/26/17 17:05 36.6 102 18 156/82 (106) 97 Room Air 04/26/17 16:30 36.9 96 136/83 04/26/17 16:09 36.7 99 148/70 04/26/17 16:00 Room Air 04/26/17 15:45 36.6 98 156/82 04/26/17 15:30 36.6 102 20 167/72 96 04/26/17 14:50 36.6 99 20 169/87 95 04/26/17 14:48 96 18 98 Room Air 04/26/17 12:00 Room Air 04/26/17 11:51 36.9 68 16 118/70 (86) 95 04/26/17 11:04 96 18 97 Room Air Physical Exam General Appearance: WD/WN, + mild distress Assessment and Plan Emergent EGD in the OR this AM. Continue PPI and octreotide gtt. Palliative medicine consult
[2017-04-27] MEDS ORDERED: PROPOFOL IV EMULSION 10 MG/ML 20 ML VIAL IV ONE (08:33)
[2017-04-27] MEDS ORDERED: EpHEDrine SULFATE 50MG/5ML SYR ONE (08:33)
[2017-04-27] MEDS ORDERED: LIDOCAINE HCL 2% 2 ML VIAL (20MG/ML) ONE (08:33)
[2017-04-27] MEDS ORDERED: ONDANSETRON INJ 2 MG/ML 2 ML VIAL ONE (08:33)
[2017-04-27] MEDS ORDERED: FENTANYL CITRATE INJ 50 MCG/1 ML 2 ML VIAL ONE (08:33)
[2017-04-27] MEDS ORDERED: ATROPINE SULFATE 0.1 MG/ML 5ML SYR IV PRN (09:30)
[2017-04-27] MEDS ORDERED: EpHEDrine SULFATE INJ 50 MG/ML AMP IV PRN (09:30)
--- NOTE | 2017-04-27 09:37 | GI REPORT ---
Procedure Date: 04/27/2017 8:45 AM Procedure: Upper GI endoscopy Indications: Hematemesis, Melena, Active gastrointestinal bleeding, Suspected upper gastrointestinal bleeding Medicines: General Anesthesia Complications: No immediate complications. Estimated blood loss: None. Estimated Blood Loss: Estimated blood loss: none. Procedure: Pre-Anesthesia Assessment: - Prior to the procedure, a History and Physical was performed, and patient medications, allergies and sensitivities were reviewed. The patient's tolerance of previous anesthesia was reviewed. - The risks and benefits of the procedure and the sedation options and risks were discussed with the patient. All questions were answered and informed consent was obtained. - Patient identification and proposed procedure were verified prior to the procedure by the physician and the nurse. The procedure was verified in the pre-procedure area in the procedure room. - Mental Status Examination: alert and oriented. Airway Examination: normal oropharyngeal airway and neck mobility. Respiratory Examination: clear to auscultation. CV Examination: normal. Abdominal Examination: bowel sounds present, abdomen soft and non-tender, no masses or organomegaly noted. - ASA Grade Assessment: IV - A patient with severe systemic disease that is a constant threat to life. After obtaining informed consent, the endoscope was passed under direct vision. Throughout the procedure, the patient's blood pressure, pulse, and oxygen saturations were monitored continuously. The Scope was introduced through the mouth, and advanced to the duodenal bulb. The upper GI endoscopy was accomplished without difficulty. The patient tolerated the procedure well. Findings: Red blood and clot was found in the middle third of the esophagus and in the lower third of the esophagus. One esophageal ulcer with oozing blood and stigmata of recent bleeding was found. For hemostasis, two hemostatic clips were successfully placed (MR conditional). There was no bleeding at the end of the procedure. Clotted blood was found in the stomach. The duodenal bulb was normal. Impression: - Red blood and clot in the lower third of the esophagus and in the middle third of the esophagus. - Severe esophagitis with a large visible vessel with active oozing. Clips (MR conditional) were placed. - Clotted blood in the stomach. - Normal duodenal bulb with bilious fluid. - No specimens collected. Recommendation: - Keep patient NPO. - Continue PPI gtt for total of 72 hours. - Continue octreotide gtt. - Follow H.H. - Return patient to ICU for ongoing care. Carola T. SuvBetsy beltran, 04/27/2017 9:37:23 AM This report has been signed electronically. Note Initiated On: 04/27/2017 8:45 AM I attest to the content of the Intraoperative Record and orders documented therein, exceptions below
[2017-04-27] MEDS ORDERED: SUCCINYLCHOLINE CHLORIDE 20 MG/ML 10 ML VIAL IV ONE (10:27)
--- NOTE | 2017-04-27 10:41 | Nephrology Progress Note ---
Nephrology Progress Note Date of Service Apr 27, 2017. Chief Complaint LIYA Subjective Mr. Plummer required transfusion yesterday due to anemia. He subsequently developed hematemesis w/ SBP ~ 70 and required transfer to the ICU. EGD completed this morning revealed severe esophagitis and a visible vessel with blood clot. Metal clips were placed for hemostasis. Patient has been transfused an additional 2 U PRBC. Mr. Plummer currently denies angina or dyspnea. Review of Systems Constitutional: No fever Respiratory: No dyspnea at rest Abdomen: + pain (RUQ) A complete review of systems was performed. Pertinent positives are noted above. All other systems are negative. Vital Signs Last 8 Hrs Date Time Temp Pulse Resp B/P (MAP) Pulse Ox O2 Delivery O2 Flow Rate FiO2 04/27/17 10:25 87 16 97/46 95 Room Air 04/27/17 10:15 36.1 87 18 99/48 95 Room Air 04/27/17 10:05 88 16 118/64 100 Oxymask 10 04/27/17 09:55 90 20 113/61 100 Oxymask 10 04/27/17 09:48 36.2 94 18 116/71 99 Oxymask 10 04/27/17 09:00 36.6 93 22 115/74 (88) 97 Room Air 04/27/17 09:00 97 Room Air 04/27/17 07:36 90 18 98 Room Air 04/27/17 06:30 36.5 87 12 112/68 97 04/27/17 06:00 88 14 125/65 (85) 96 Room Air 04/27/17 06:00 36.5 88 14 125/65 96 04/27/17 05:45 90 14 125/67 98 04/27/17 05:35 36.6 89 12 124/64 97 04/27/17 05:15 36.6 88 12 121/63 96 04/27/17 04:45 88 13 110/62 96 04/27/17 04:30 92 13 115/62 97 04/27/17 04:15 36.4 90 12 112/58 94 04/27/17 04:00 36.4 90 12 113/60 (77) 95 Room Air 04/27/17 04:00 Room Air 04/27/17 03:58 36.4 90 15 113/60 95 04/27/17 03:45 90 14 121/61 95 04/27/17 03:30 36.6 91 12 120/60 95 04/27/17 03:15 92 12 108/67 98 04/27/17 03:00 36.8 92 12 125/73 100 I & O 24-Hour Column 04/28/17 08:00 Intake Total 300 ml Output Total 228 ml Balance 72 ml Last Recorded Weight Weight (Kilograms): 121.000 Physical Exam General Appearance: no apparent distress Head: normocephalic, atraumatic Eyes: PERRL, EOMI Neck: no adenopathy Respiratory/Chest: lungs clear, no respiratory distress Cardiovascular: regular rate, rhythm Abdomen/GI: + pertinent finding (hypoactive BS, RUQ tenderness) Extremities/Musculoskelatal: no calf tenderness, no pedal edema Neurologic/Psych: alert Family History Negative for CKD / ESRD Social History Smokeless Tobacco Use: No Alcohol Use: Drug Use: none Marital Status: Occupation: other Resides in [place]. . Seven children. Formerly worked in [employer]. Laboratory Results Past 24 Hours 04/26/17 12:40 04/26/17 18:53 04/27/17 00:44 04/27/17 02:07 Red Blood Count 2.42, Mean Corpuscular Volume 83.5, Mean Corpuscular Hemoglobin 28.5, Mean Corpuscular Hemoglobin Concent 34.2, Mean Platelet Volume 8.4, Neutrophils (%) (Auto) 79.8, Lymphocytes (%) (Auto) 11.4, Monocytes (%) (Auto) 5.1, Eosinophils (%) (Auto) 1.8, Basophils (%) (Auto) 0.8, Neutrophils # (Auto) 5.32, Lymphocytes # (Auto) 0.76, Monocytes # (Auto) 0.34, Eosinophils # (Auto) 0.12, Basophils # (Auto) 0.05 04/27/17 06:38 Red Blood Count 2.81, Mean Corpuscular Volume 84.3, Mean Corpuscular Hemoglobin 28.8, Mean Corpuscular Hemoglobin Concent 34.2, Mean Platelet Volume 8.2, Neutrophils (%) (Auto) 76.0, Lymphocytes (%) (Auto) 12.6, Monocytes (%) (Auto) 7.0, Eosinophils (%) (Auto) 2.7, Basophils (%) (Auto) 0.6, Neutrophils # (Auto) 5.44, Lymphocytes # (Auto) 0.90, Monocytes # (Auto) 0.50, Eosinophils # (Auto) 0.19, Basophils # (Auto) 0.04 04/27/17 08:00 04/27/17 02:07 04/27/17 06:38 Test 04/26/17 11:22 04/26/17 16:22 04/26/17 20:13 04/27/17 02:07 Bedside Glucose 83 mg/dl (70-99) 95 mg/dl (70-99) 125 mg/dl (70-99) White Blood Count 6.66 K/uL (4.8-10.8) Red Blood Count 2.42 M/uL (4.7-6.1) Hemoglobin 6.9 g/dL (14.0-18.0) Hematocrit 20.2 % (42-52) Mean Corpuscular Volume 83.5 fL (80-100) Mean Corpuscular Hemoglobin 28.5 pg (25-34) Mean Corpuscular Hemoglobin Concent 34.2 g/dl (32-36) Platelet Count 247 K/uL (130-400) Mean Platelet Volume 8.4 fL (7.4-10.4) Neutrophils (%) (Auto) 79.8 % Lymphocytes (%) (Auto) 11.4 % Monocytes (%) (Auto) 5.1 % Eosinophils (%) (Auto) 1.8 % Basophils (%) (Auto) 0.8 % Neutrophils # (Auto) 5.32 K/uL (1.4-6.5) Lymphocytes # (Auto) 0.76 K/uL (1.2-3.4) Monocytes # (Auto) 0.34 K/uL (0.11-0.59) Eosinophils # (Auto) 0.12 K/uL (0-0.5) Basophils # (Auto) 0.05 K/uL (0-0.2) RDW Standard Deviation 47.1 fL (36.4-46.3) RDW Coefficient of Variation 15.3 % (11.5-14.5) Immature Granulocyte % (Auto) 1.1 % Immature Granulocyte # (Auto) 0.07 K/uL (0.00-0.02) Red Blood Cell Morphology Unremarkable Prothrombin Time 16.3 SECONDS (9.0-12.0) Prothromb Time International Ratio 1.6 (0.9-1.1) Activated Partial Thromboplast Time 30.6 SECONDS (21.0-31.0) Partial Thromboplastin Ratio 1.2 Anion Gap 10.0 mmol/L (3-11) Est Creatinine Clear Calc Drug Dose 18.1 ml/min Estimated GFR () 13.0 Estimated GFR (Non- 11.2 BUN/Creatinine Ratio 12.1 (10-20) Calcium Level 7.3 mg/dl (8.5-10.1) Magnesium Level 1.6 mg/dl (1.8-2.4) Total Bilirubin 2.2 mg/dl (0.2-1) Aspartate Amino Transf (AST/SGOT) 23 U/L (15-37) Alanine Aminotransferase (ALT/SGPT) 17 U/L (12-78) Alkaline Phosphatase 306 U/L (45-117) Total Protein 4.8 gm/dl (6.4-8.2) Albumin 1.4 gm/dl (3.4-5.0) Globulin 3.4 gm/dl (2.5-4.0) Albumin/Globulin Ratio 0.4 (0.9-2) Test 04/27/17 06:38 04/27/17 06:46 04/27/17 09:58 White Blood Count 7.15 K/uL (4.8-10.8) Red Blood Count 2.81 M/uL (4.7-6.1) Hemoglobin 8.1 g/dL (14.0-18.0) Hematocrit 23.7 % (42-52) Mean Corpuscular Volume 84.3 fL (80-100) Mean Corpuscular Hemoglobin 28.8 pg (25-34) Mean Corpuscular Hemoglobin Concent 34.2 g/dl (32-36) Platelet Count 208 K/uL (130-400) Mean Platelet Volume 8.2 fL (7.4-10.4) Neutrophils (%) (Auto) 76.0 % Lymphocytes (%) (Auto) 12.6 % Monocytes (%) (Auto) 7.0 % Eosinophils (%) (Auto) 2.7 % Basophils (%) (Auto) 0.6 % Neutrophils # (Auto) 5.44 K/uL (1.4-6.5) Lymphocytes # (Auto) 0.90 K/uL (1.2-3.4) Monocytes # (Auto) 0.50 K/uL (0.11-0.59) Eosinophils # (Auto) 0.19 K/uL (0-0.5) Basophils # (Auto) 0.04 K/uL (0-0.2) RDW Standard Deviation 48.6 fL (36.4-46.3) RDW Coefficient of Variation 15.6 % (11.5-14.5) Immature Granulocyte % (Auto) 1.1 % Immature Granulocyte # (Auto) 0.08 K/uL (0.00-0.02) Poikilocytosis PRESENT Anion Gap 11.0 mmol/L (3-11) Est Creatinine Clear Calc Drug Dose 18.5 ml/min Estimated GFR () 13.0 Estimated GFR (Non- 11.3 BUN/Creatinine Ratio 11.8 (10-20) Calcium Level 7.6 mg/dl (8.5-10.1) Bedside Glucose 121 mg/dl (70-99) 104 mg/dl (70-99) Date/Time Source Procedure Growth Status 04/27/17 02:07 Nasal MRSA DNA Surveillance Screen - Final Specimen Positive for MRSA by DNA Probe Complete Allergies Coded Allergies: Iodinated Diagnostic Agents (Verified Allergy, Mild, GI SYMPTOMS, 04/19/17) No Known Drug Allergy (Verified Allergy, Unknown, none, 04/19/17) Uncoded Allergies: dye (Allergy, Unknown, RASH, 04/19/17) patient does not remember what kind of dye or what kind of reaction he is allergic to Medications Current Inpatient Medications Medications (Trade) Dose Ordered Sig/Sarah Route Start Time Stop Time Status Last Admin Dose Admin Acetaminophen (Tylenol Tab) 650 mg Q4H PRN PO 04/19/17 22:45 05/19/17 22:44 Future Hold Polyethylene (Miralax Powder Packet) 17 gm DAILY PRN PO 04/19/17 22:45 05/19/17 22:44 Future Hold Ondansetron HCl (Zofran Inj) 4 mg Q6H PRN IV 04/19/17 22:45 05/19/17 22:44 04/27/17 02:39 4 MG Bisacodyl (Dulcolax Tab) 10 mg DAILY PRN PO 04/20/17 00:45 05/20/17 00:44 Future Hold 04/23/17 17:15 10 MG Furosemide (Lasix Tab) 40 mg DAILY PO 04/20/17 09:00 05/20/17 08:59 Future Hold 04/21/17 08:48 40 MG Albuterol/ Ipratropium (Duoneb) 3 ml QIDR INH 04/20/17 08:00 05/20/17 07:59 04/27/17 07:35 3 ML Metoprolol Succinate (Toprol Xl Tab) 25 mg DAILY PO 04/20/17 09:00 05/20/17 08:59 Future Hold 04/26/17 07:50 25 MG Nystatin (Mycostatin Powder) 1 appln [id number] EXT 04/20/17 08:00 05/20/17 07:59 04/27/17 07:55 1 APPLN Tamsulosin HCl (Flomax Cap) 0.4 mg DAILY PO 04/20/17 09:00 05/20/17 08:59 Future Hold 04/26/17 07:46 0.4 MG Isosorbide Mononitrate (Imdur Ext Rel Tab) 30 mg DAILY PO 04/20/17 09:00 05/20/17 08:59 Future Hold 04/26/17 07:50 30 MG Polyethylene (Miralax Powder Packet) 17 gm DAILY PO 04/20/17 09:00 05/20/17 08:59 Future Hold 04/25/17 08:17 17 GM Nicotine (Nicoderm Cq 7 Mg Patch) 1 patch QAM TD 04/20/17 09:00 05/20/17 08:59 04/27/17 07:55 1 PATCH Miscellaneous (Remove Nicoderm Patch) 1 ea HS N/A 04/20/17 21:00 05/20/17 20:59 04/26/17 21:00 1 EA Albuterol/ Ipratropium (Duoneb) 3 ml Q4R PRN INH 04/20/17 04:00 05/20/17 03:59 Miscellaneous Information (Consult) 1 ea UD PRN N/A 04/20/17 14:00 05/20/17 13:59 Insulin Aspart (novoLOG ASPART) SLIDING SCALE G... ACHS SC 04/20/17 21:00 05/20/17 05:59 04/25/17 20:40 1 UNITS Piperacillin Sod/ Tazobactam Sod 3.375 gm/Dextrose 115 ml @ 28.75 mls/ hr Q12H IV 04/24/17 00:00 04/29/17 23:59 04/27/17 00:45 28.75 MLS/HR Glucose (Glucose 40% Gel) 15-30 GRAMS 15 GRAMS... UD PRN PO 04/25/17 10:45 05/25/17 10:44 Glucose (Glucose Chew Tab) 4-8 Tablets 4 Tabl... UD PRN PO 04/25/17 10:45 05/25/17 10:44 Dextrose (Dextrose 50% 50ML Syringe) 25-50ML OF 50% DW IV FOR... UD PRN IV 04/25/17 10:45 05/25/17 10:44 Glucagon (Glucagon Inj) 1 mg UD PRN SQ 04/25/17 10:45 05/25/17 10:44 Insulin Glargine (Lantus Solostar Pen) 15 units HS SC 04/25/17 21:00 05/20/17 20:59 04/26/17 20:42 15 UNITS Fluconazole (Diflucan Tab) 100 mg QAM PO 04/26/17 09:00 05/06/17 08:59 Future Hold 04/26/17 07:46 100 MG Sodium Bicarbonate (Sodium Bicarbonate Tab) 650 mg BID PO 04/26/17 21:00 05/26/17 20:59 Future Hold 04/26/17 20:40 650 MG Sucralfate (Carafate Susp) 1 gm QID PO 04/26/17 13:30 05/26/17 13:29 04/26/17 22:03 1 GM Pantoprazole Sodium 40 mg/ Dextrose 100 ml @ 20 mls/hr Q5H IV 04/27/17 02:00 05/27/17 01:59 04/27/17 07:13 20 MLS/HR Octreotide Acetate 500 mcg/ Sodium Chloride 105 ml @ 10 mls/hr [id number] IV 04/27/17 02:00 05/27/17 01:59 04/27/17 02:20 10 MLS/HR Ephedrine Sulfate (EpHEDrine SULFATE INJ) 5 mg Q5M PRN IV 04/27/17 09:30 04/27/17 14:30 Atropine Sulfate (Atropine Sulfate 0.1mg/ml Inj) 0.5 mg Q1M PRN IV 04/27/17 09:30 04/27/17 14:30 Fluconazole/ Sodium Chloride 100 mg/Prmx 50 ml @ 100 mls/hr Q24H IV 04/27/17 12:00 05/07/17 11:59 Impression (1) Acute kidney injury (2) Dehydration (3) Pancreatic carcinoma (4) Common bile duct obstruction (5) Jaundice Acute kidney injury is likely related to dehydration and inflammation. At the time of presentation patient was on a loop diuretic but no other potential nephrotoxic medications. Clinically doubt obstruction as patient remains nonoliguric. UGI bleed 04/26 complicated by hypotension. EGD w/ severe esophagitis and visible vessel requiring clipping. Patient transfused w/ 6 U PRBC since admission Recommendations -- Continue to hold Furosemide -- Recommend transfusion to maintain Hgb > 8.0 -- Volume status and electrolyte balance are acceptable. No acute indication for STORE ASS[facility] at this time. Discussed worsening LIYA and potential need for HD w/ patient yesterday. He voiced understanding. Patient does remain nonoliguric -- Monitor serial PRP -- Await further GI input -- 04/23 Renal US report: No stone or obstruction
--- NOTE | 2017-04-27 10:59 | Anesthesiology Progress Note ---
Anesthesia Post Op Note Date & Time Apr 27, 2017 at 10:59 Vital Signs Pain Intensity: 4 Vital Signs Past 12 Hours Date Time Temp Pulse Resp B/P (MAP) Pulse Ox O2 Delivery O2 Flow Rate FiO2 04/27/17 10:36 36.5 88 15 101/58 (72) 95 Room Air 04/27/17 10:25 87 16 97/46 95 Room Air 04/27/17 10:15 36.1 87 18 99/48 95 Room Air 04/27/17 10:05 88 16 118/64 100 Oxymask 10 04/27/17 09:55 90 20 113/61 100 Oxymask 10 04/27/17 09:48 36.2 94 18 116/71 99 Oxymask 10 04/27/17 09:00 36.6 93 22 115/74 (88) 97 Room Air 04/27/17 09:00 97 Room Air 04/27/17 07:36 90 18 98 Room Air 04/27/17 06:30 36.5 87 12 112/68 97 04/27/17 06:00 88 14 125/65 (85) 96 Room Air 04/27/17 06:00 36.5 88 14 125/65 96 04/27/17 05:45 90 14 125/67 98 04/27/17 05:35 36.6 89 12 124/64 97 04/27/17 05:15 36.6 88 12 121/63 96 04/27/17 04:45 88 13 110/62 96 04/27/17 04:30 92 13 115/62 97 04/27/17 04:15 36.4 90 12 112/58 94 04/27/17 04:00 36.4 90 12 113/60 (77) 95 Room Air 04/27/17 04:00 Room Air 04/27/17 03:58 36.4 90 15 113/60 95 04/27/17 03:45 90 14 121/61 95 04/27/17 03:30 36.6 91 12 120/60 95 04/27/17 03:15 92 12 108/67 98 04/27/17 03:00 36.8 92 12 125/73 100 04/27/17 00:43 04/27/17 00:25 106/69 (81) 04/27/17 00:25 95/58 (70) 04/27/17 00:00 96/61 (73) 04/27/17 00:00 101/62 (75) 04/26/17 23:59 Room Air 04/26/17 23:35 36.6 97 16 93/61 (72) 97 Room Air 04/26/17 23:35 79/49 (59) Notes Mental Status: alert / awake / arousable, participated in evaluation Pt Amnestic to Procedure: Yes Nausea / Vomiting: adequately controlled Pain: adequately controlled Airway Patency, RR, SpO2: stable & adequate BP & HR: stable & adequate Hydration State: stable & adequate Anesthetic Complications: no major complications apparent
[2017-04-27] MEDS ORDERED: FLUCONAZOLE 100MG / NSS IV SCH (12:00)
[2017-04-27 12:12] LABS: HEMATOCRIT 25.1 % (42-52); HEMOGLOBIN 8.6 g/dL (14.0-18.0)
--- NOTE | 2017-04-27 14:30 | Family Medicine Progress Note ---
Progress Note Date of Service Apr 27, 2017. Subjective Pt evaluation today including: conversation w/ patient, physical exam, chart review, lab review PO Intake: npo Voiding: cherry catheter in place Had several episodes of hematemesis yesterday requiring transfer to the ICU and 3 more units of blood. EGD performed this morning and appears to be sedated post procedure Additional Comments: sedated post procedure. unable to obtain ROS Medications Current Inpatient Medications Medications (Trade) Dose Ordered Sig/Sarah Route Start Time Stop Time Status Last Admin Dose Admin Acetaminophen (Tylenol Tab) 650 mg Q4H PRN PO 04/19/17 22:45 05/19/17 22:44 Future Hold Polyethylene (Miralax Powder Packet) 17 gm DAILY PRN PO 04/19/17 22:45 05/19/17 22:44 Future Hold Ondansetron HCl (Zofran Inj) 4 mg Q6H PRN IV 04/19/17 22:45 05/19/17 22:44 04/27/17 02:39 4 MG Bisacodyl (Dulcolax Tab) 10 mg DAILY PRN PO 04/20/17 00:45 05/20/17 00:44 Future Hold 04/23/17 17:15 10 MG Furosemide (Lasix Tab) 40 mg DAILY PO 04/20/17 09:00 05/20/17 08:59 Future Hold 04/21/17 08:48 40 MG Albuterol/ Ipratropium (Duoneb) 3 ml QIDR INH 04/20/17 08:00 05/20/17 07:59 04/27/17 18:57 3 ML Metoprolol Succinate (Toprol Xl Tab) 25 mg DAILY PO 04/20/17 09:00 05/20/17 08:59 Future Hold 04/26/17 07:50 25 MG Nystatin (Mycostatin Powder) 1 appln [id number] EXT 04/20/17 08:00 05/20/17 07:59 04/27/17 16:50 1 APPLN Tamsulosin HCl (Flomax Cap) 0.4 mg DAILY PO 04/20/17 09:00 05/20/17 08:59 Future Hold 04/26/17 07:46 0.4 MG Isosorbide Mononitrate (Imdur Ext Rel Tab) 30 mg DAILY PO 04/20/17 09:00 05/20/17 08:59 Future Hold 04/26/17 07:50 30 MG Polyethylene (Miralax Powder Packet) 17 gm DAILY PO 04/20/17 09:00 05/20/17 08:59 Future Hold 04/25/17 08:17 17 GM Nicotine (Nicoderm Cq 7 Mg Patch) 1 patch QAM TD 04/20/17 09:00 05/20/17 08:59 04/27/17 07:55 1 PATCH Miscellaneous (Remove Nicoderm Patch) 1 ea HS N/A 04/20/17 21:00 05/20/17 20:59 04/26/17 21:00 1 EA Albuterol/ Ipratropium (Duoneb) 3 ml Q4R PRN INH 04/20/17 04:00 05/20/17 03:59 Miscellaneous Information (Consult) 1 ea UD PRN N/A 04/20/17 14:00 05/20/17 13:59 Insulin Aspart (novoLOG ASPART) SLIDING SCALE G... ACHS SC 04/20/17 21:00 05/20/17 05:59 04/25/17 20:40 1 UNITS Piperacillin Sod/ Tazobactam Sod 3.375 gm/Dextrose 115 ml @ 28.75 mls/ hr Q12H IV 04/24/17 00:00 04/29/17 23:59 04/27/17 11:59 28.75 MLS/HR Glucose (Glucose 40% Gel) 15-30 GRAMS 15 GRAMS... UD PRN PO 04/25/17 10:45 05/25/17 10:44 Glucose (Glucose Chew Tab) 4-8 Tablets 4 Tabl... UD PRN PO 04/25/17 10:45 05/25/17 10:44 Dextrose (Dextrose 50% 50ML Syringe) 25-50ML OF 50% DW IV FOR... UD PRN IV 04/25/17 10:45 05/25/17 10:44 Glucagon (Glucagon Inj) 1 mg UD PRN SQ 04/25/17 10:45 05/25/17 10:44 Insulin Glargine (Lantus Solostar Pen) 15 units HS SC 04/25/17 21:00 05/20/17 20:59 3/21/18 20:42 15 UNITS Fluconazole (Diflucan Tab) 100 mg QAM PO 04/26/17 09:00 05/06/17 08:59 Future Hold 04/26/17 07:46 100 MG Sodium Bicarbonate (Sodium Bicarbonate Tab) 650 mg BID PO 04/26/17 21:00 05/26/17 20:59 Future Hold 04/26/17 20:40 650 MG Sucralfate (Carafate Susp) 1 gm QID PO 04/26/17 13:30 05/26/17 13:29 Future Hold 04/26/17 22:03 1 GM Pantoprazole Sodium 40 mg/ Dextrose 100 ml @ 20 mls/hr Q5H IV 04/27/17 02:00 05/27/17 01:59 04/27/17 16:50 20 MLS/HR Octreotide Acetate 500 mcg/ Sodium Chloride 105 ml @ 10 mls/hr [id number] IV 04/27/17 02:00 05/27/17 01:59 04/27/17 11:59 10 MLS/HR Fluconazole/ Sodium Chloride 100 mg/Prmx 50 ml @ 100 mls/hr Q24H IV 04/27/17 12:00 05/07/17 11:59 04/27/17 11:59 100 MLS/HR Objective Vital Signs Date Time Temp Pulse Resp B/P (MAP) Pulse Ox O2 Delivery O2 Flow Rate FiO2 04/27/17 18:00 98 22 135/72 (93) 97 Room Air 04/27/17 16:43 93 18 97 Room Air 04/27/17 16:00 95 Room Air 04/27/17 16:00 99 18 130/76 (94) 97 Room Air 04/27/17 14:00 93 20 141/73 (95) 97 Room Air 04/27/17 12:00 97 Room Air 04/27/17 12:00 93 18 161/87 (111) 94 Room Air 04/27/17 11:17 86 18 96 Room Air 04/27/17 10:36 36.5 88 15 101/58 (72) 95 Room Air 04/27/17 10:25 87 16 97/46 95 Room Air 04/27/17 10:15 36.1 87 18 99/48 95 Room Air 04/27/17 10:05 88 16 118/64 100 Oxymask 10 04/27/17 09:55 90 20 113/61 100 Oxymask 10 04/27/17 09:48 36.2 94 18 116/71 99 Oxymask 10 04/27/17 09:00 36.6 93 22 115/74 (88) 97 Room Air 04/27/17 09:00 97 Room Air 04/27/17 08:00 Room Air 04/27/17 07:36 90 18 98 Room Air 04/27/17 06:30 36.5 87 12 112/68 97 04/27/17 06:00 88 14 125/65 (85) 96 Room Air 04/27/17 06:00 36.5 88 14 125/65 96 04/27/17 05:45 90 14 125/67 98 04/27/17 05:35 36.6 89 12 124/64 97 04/27/17 05:15 36.6 88 12 121/63 96 04/27/17 04:45 88 13 110/62 96 04/27/17 04:30 92 13 115/62 97 04/27/17 04:15 36.4 90 12 112/58 94 04/27/17 04:00 36.4 90 12 113/60 (77) 95 Room Air 04/27/17 04:00 Room Air 04/27/17 03:58 36.4 90 15 113/60 95 04/27/17 03:45 90 14 121/61 95 04/27/17 03:30 36.6 91 12 120/60 95 04/27/17 03:15 92 12 108/67 98 04/27/17 03:00 36.8 92 12 125/73 100 04/27/17 00:43 04/27/17 00:25 106/69 (81) 04/27/17 00:25 95/58 (70) 04/27/17 00:00 96/61 (73) 04/27/17 00:00 101/62 (75) 04/26/17 23:59 Room Air 04/26/17 23:35 36.6 97 16 93/61 (72) 97 Room Air 04/26/17 23:35 79/49 (59) 04/26/17 21:45 36.7 101 137/76 04/26/17 20:45 102 113/61 04/26/17 20:12 36.9 103 125/71 95 04/26/17 20:00 Room Air 04/26/17 19:40 36.8 104 130/77 96 Physical Exam General Appearance: WD/WN ENT: hearing grossly normal Neck: supple Respiratory/Chest: chest non-tender, lungs clear Cardiovascular: + tachycardia Abdomen: normal bowel sounds, non tender, soft Extremities: no pedal edema, + pertinent finding (right foot toes amputated) Neurologic/Psychiatric: + pertinent finding (sedated post procedure) Laboratory Results Last 24 Hours Test 04/26/17 20:13 04/27/17 00:44 04/27/17 02:07 04/27/17 06:38 Bedside Glucose 125 mg/dl Hemoglobin 6.7 g/dL 6.9 g/dL 8.1 g/dL Hematocrit 20.0 % 20.2 % 23.7 % White Blood Count 6.66 K/uL 7.15 K/uL Red Blood Count 2.42 M/uL 2.81 M/uL Mean Corpuscular Volume 83.5 fL 84.3 fL Mean Corpuscular Hemoglobin 28.5 pg 28.8 pg Mean Corpuscular Hemoglobin Concent 34.2 g/dl 34.2 g/dl Platelet Count 247 K/uL 208 K/uL Mean Platelet Volume 8.4 fL 8.2 fL Neutrophils (%) (Auto) 79.8 % 76.0 % Lymphocytes (%) (Auto) 11.4 % 12.6 % Monocytes (%) (Auto) 5.1 % 7.0 % Eosinophils (%) (Auto) 1.8 % 2.7 % Basophils (%) (Auto) 0.8 % 0.6 % Neutrophils # (Auto) 5.32 K/uL 5.44 K/uL Lymphocytes # (Auto) 0.76 K/uL 0.90 K/uL Monocytes # (Auto) 0.34 K/uL 0.50 K/uL Eosinophils # (Auto) 0.12 K/uL 0.19 K/uL Basophils # (Auto) 0.05 K/uL 0.04 K/uL RDW Standard Deviation 47.1 fL 48.6 fL RDW Coefficient of Variation 15.3 % 15.6 % Immature Granulocyte % (Auto) 1.1 % 1.1 % Immature Granulocyte # (Auto) 0.07 K/uL 0.08 K/uL Red Blood Cell Morphology Unremarkable Prothrombin Time 16.3 SECONDS Prothromb Time International Ratio 1.6 Activated Partial Thromboplast Time 30.6 SECONDS Partial Thromboplastin Ratio 1.2 Sodium Level 138 mmol/L 140 mmol/L Potassium Level 4.3 mmol/L 4.4 mmol/L Chloride Level 110 mmol/L 109 mmol/L Carbon Dioxide Level 18 mmol/L 19 mmol/L Anion Gap 10.0 mmol/L 11.0 mmol/L Blood Urea Nitrogen 60 mg/dl 60 mg/dl Creatinine 5.03 mg/dl 5.02 mg/dl Est Creatinine Clear Calc Drug Dose 18.1 ml/min 18.5 ml/min Estimated GFR () 13.0 13.0 Estimated GFR (Non- 11.2 11.3 BUN/Creatinine Ratio 12.1 11.8 Random Glucose 121 mg/dl 122 mg/dl Calcium Level 7.3 mg/dl 7.6 mg/dl Magnesium Level 1.6 mg/dl Total Bilirubin 2.2 mg/dl Aspartate Amino Transf (AST/SGOT) 23 U/L Alanine Aminotransferase (ALT/SGPT) 17 U/L Alkaline Phosphatase 306 U/L Total Protein 4.8 gm/dl Albumin 1.4 gm/dl Globulin 3.4 gm/dl Albumin/Globulin Ratio 0.4 Poikilocytosis PRESENT Test 04/27/17 06:46 04/27/17 08:00 04/27/17 09:58 04/27/17 11:56 Bedside Glucose 121 mg/dl 104 mg/dl Hemoglobin 8.3 g/dL 8.6 g/dL Hematocrit 23.8 % 25.1 % Test 04/27/17 16:16 04/27/17 16:25 Bedside Glucose 116 mg/dl Hemoglobin 8.3 g/dL Hematocrit 24.2 % Assessment and Plan 62-year-old male with a past medical history of coronary artery disease, diabetes type 2, diabetic foot ulcer status post amputation of right first and second toes, hypertension, hyperlipidemia, prostate cancer status post radiation therapy 2014, pancreatic adenocarcinoma status post common bile duct stent placement in December 2016 had presented from [facility] with intractable nausea and vomiting on 04/19 04/20 - ERCP with stent removal, brush cytology, stricture dilation and stent placement 04/21 - Emergent ERCP showed intra-op findings included occluded stent, segmental biliary stricture - which was malignant-appearing, dilated bile duct, hepatic ducts, and intrahepatic branches. Mild, pus, sludge flowed through new stents once tracts were patent again. 04/22- Worsening of nausea and vomiting, unknown etiology, renal vs GI. 04/23 - Repeat ERCP, Dr. Deal found a large piece of beef obstructing the lower esophagus, that was removed and bile duct stent was changed - pt showed significant improvement of symptoms. Esophagitis with melena - s/p EGD - EGD : - Red blood and clot in the lower third of the esophagus and in the middle third of the esophagus. - Severe esophagitis with a large visible vessel with active oozing. Clips (MR conditional) were placed. - Clotted blood in the stomach, Normal duodenal bulb with bilious fluid. - Continue Protonix and octreotide drip Acute blood loss Anemia: - likely from upper GI bleed - received 6 units total PRBC transfusion - check serial H &H Sepsis secondary to cholangitis, bile duct occlusion/pancreatic adenocarcinoma -Continue Zosyn -Status post ERCP with bile duct stent change -Will need repeat ERCP in 2-4 weeks - Palliative consult Acute kidney injury : -Creatinine at 5.3 - avoid nephrotoxic drugs - bicarb added New onset A fib TSH WNL. s/p digoxin 250mcg and metoprolol tartrate 25mg continue Metoprolol 25mg XL & Imdur. consider outpatient holter to determine if patient needs assisted AC. UTI - UC growing carrie - diflucan ordered( renally dosed) DM2 hba1c 10.2 Home dose of Lantus was 60units and reduced to 20units QHS while patient wasn't tolerating PO. lantus dose has been decreased to 15 units Weakness PT/OT on board. BPH/prostate cancer Continue tamsulosin CAD/hypertension Continue 25 mg Toprol and PO Imdur. COPD: Stable Continue duo nebs Tobacco abuse: smokes one fourth pack per day. Offered smoking cessation counseling NicoDerm patch ordered DVT prophylaxis SCDs FULL CODE Resident Physician Supervision Note: I interviewed and examined the patient. Discussed with Dr. De La Torre and agree with findings and plan as documented in the note. Any exceptions or clarifications are listed here: None Documented By: Jd Fish no HPI or ROS obtainable - sedated post scope. 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 cardio reg no r/m/g lungs cta b/l no r/r/w good spontaneous effort abdomen benign without guarding/rebound or rigidity cholangitis - ongoing zosyn, s/p multiple stents by GI arf - most likely ATN hypoproliferative anemia - repeat bleeding amplified through the night - urgent scope today done - clips, transfused again. IV meds, supportive care pharmacologic DVT proph is contraindicated due to bleeding prognosis poor Resident Tracking Resident Involvement: Resident Care Provided Care Provided: Adult Hospital Medicine
[2017-04-27 16:36] LABS: HEMATOCRIT 24.2 % (42-52); HEMOGLOBIN 8.3 g/dL (14.0-18.0)
[2017-04-27 20:04] LABS: HEMATOCRIT 24.8 % (42-52); HEMOGLOBIN 8.5 g/dL (14.0-18.0)
[2017-04-27] MEDS: INSULIN GLARGINE SOLOSTAR 100 UNITS/ML 3 ML PEN SC SCH (21:34)
[2017-04-28] VITALS (23 sets, daily range): BP systolic 123–164; BP diastolic 60–90; PULSE 91–101; TEMP 36.5–36.8; O2SAT 96–98
[2017-04-28 00:37] LABS: HEMATOCRIT 23.4 % (42-52)
[2017-04-28] MEDS: PANTOprazole INJ 40 MG in DEXTROSE 5% 100ML IV SCH ×4 (04:11→21:29)
[2017-04-28 05:47] LABS: BASO % 1.2 %; BASO ABS # 0.08 K/uL (0-0.2); EOS % 2.6 %; EOS ABS # 0.18 K/uL (0-0.5); HEMATOCRIT 24.1 % (42-52); IG# 0.07 K/uL (0.00-0.02); LYMPH % 13.8 %; LYMPH ABS # 0.95 K/uL (1.2-3.4); MEAN CELL VOLUME 84.6 fL (80-100); MEAN CORPUSCULAR HEMOGLOBIN 28.1 pg (25-34); MEAN CORPUSCULAR HGB CONC 33.2 g/dl (32-36); MEAN PLATELET VOLUME 8.8 fL (7.4-10.4); MONO % 8.1 %; MONO ABS # 0.56 K/uL (0.11-0.59); NEUT % 73.3 %; NEUT ABS # 5.04 K/uL (1.4-6.5); PLATELET COUNT 273 K/uL (130-400); RED CELL DISTRIBUTION WIDTH CV 15.8 % (11.5-14.5); RED CELL DISTRIBUTION WIDTH SD 49.1 fL (36.4-46.3); WHITE BLOOD COUNT 6.88 K/uL (4.8-10.8)
[2017-04-28 06:37] LABS: ALBUMIN 1.7 gm/dl (3.4-5.0); CALCIUM 7.7 mg/dl (8.5-10.1); CREATININE 5.2 mg/dl (0.60-1.40); TOTAL PROTEIN 5.5 gm/dl (6.4-8.2)
[2017-04-28] MEDS: ALBUT/IPRATROP 3MG/0.5MG NEB 3 ML VIAL INH SCH ×4 (07:29→21:36)
--- NOTE | 2017-04-28 07:45 | Family Medicine Progress Note ---
Progress Note Date of Service Apr 28, 2017. Subjective Pt evaluation today including: conversation w/ patient, physical exam, chart review, lab review had a smear of dark stool overnight but denies any more hematemesis. denies any CP/SOB/dizziness/lightheadedness. Constitutional: No fever, No chills Eyes: No worsening of vision ENT: No hearing loss Respiratory: No cough Cardiovascular: No chest pain Abdomen: + GI bleeding (melena), No pain, No nausea, No vomiting Musculoskeletal: No joint pain Male : No dysuria, No urinary frequency Neurologic: No memory loss Psychiatric: No depression symptoms Heme: No abnormal bleeding/bruising Medications Current Inpatient Medications Medications (Trade) Dose Ordered Sig/Sarah Route Start Time Stop Time Status Last Admin Dose Admin Acetaminophen (Tylenol Tab) 650 mg Q4H PRN PO 04/19/17 22:45 05/19/17 22:44 Future Hold Polyethylene (Miralax Powder Packet) 17 gm DAILY PRN PO 04/19/17 22:45 05/19/17 22:44 Future Hold Ondansetron HCl (Zofran Inj) 4 mg Q6H PRN IV 04/19/17 22:45 05/19/17 22:44 04/27/17 02:39 4 MG Bisacodyl (Dulcolax Tab) 10 mg DAILY PRN PO 04/20/17 00:45 05/20/17 00:44 Future Hold 04/23/17 17:15 10 MG Furosemide (Lasix Tab) 40 mg DAILY PO 04/20/17 09:00 05/20/17 08:59 Future Hold 04/21/17 08:48 40 MG Albuterol/ Ipratropium (Duoneb) 3 ml QIDR INH 04/20/17 08:00 05/20/17 07:59 04/28/17 11:19 3 ML Nystatin (Mycostatin Powder) 1 appln [id number] EXT 04/20/17 08:00 05/20/17 07:59 04/28/17 12:17 1 APPLN Isosorbide Mononitrate (Imdur Ext Rel Tab) 30 mg DAILY PO 04/20/17 09:00 05/20/17 08:59 Future Hold 04/26/17 07:50 30 MG Polyethylene (Miralax Powder Packet) 17 gm DAILY PO 04/20/17 09:00 05/20/17 08:59 Future Hold 04/25/17 08:17 17 GM Nicotine (Nicoderm Cq 7 Mg Patch) 1 patch QAM TD 04/20/17 09:00 05/20/17 08:59 04/28/17 08:16 1 PATCH Miscellaneous (Remove Nicoderm Patch) 1 ea HS N/A 04/20/17 21:00 05/20/17 20:59 04/27/17 21:12 1 EA Albuterol/ Ipratropium (Duoneb) 3 ml Q4R PRN INH 04/20/17 04:00 05/20/17 03:59 Miscellaneous Information (Consult) 1 ea UD PRN N/A 04/20/17 14:00 05/20/17 13:59 Insulin Aspart (novoLOG ASPART) SLIDING SCALE G... ACHS SC 04/20/17 21:00 05/20/17 05:59 04/25/17 20:40 1 UNITS Piperacillin Sod/ Tazobactam Sod 3.375 gm/Dextrose 115 ml @ 28.75 mls/ hr Q12H IV 04/24/17 00:00 04/29/17 23:59 04/28/17 12:17 28.75 MLS/HR Glucose (Glucose 40% Gel) 15-30 GRAMS 15 GRAMS... UD PRN PO 04/25/17 10:45 05/25/17 10:44 Glucose (Glucose Chew Tab) 4-8 Tablets 4 Tabl... UD PRN PO 04/25/17 10:45 05/25/17 10:44 Dextrose (Dextrose 50% 50ML Syringe) 25-50ML OF 50% DW IV FOR... UD PRN IV 04/25/17 10:45 05/25/17 10:44 Glucagon (Glucagon Inj) 1 mg UD PRN SQ 04/25/17 10:45 05/25/17 10:44 Insulin Glargine (Lantus Solostar Pen) 15 units HS SC 04/25/17 21:00 05/20/17 20:59 04/27/17 21:34 15 UNITS Sodium Bicarbonate (Sodium Bicarbonate Tab) 650 mg BID PO 04/26/17 21:00 05/26/17 20:59 Future Hold 04/26/17 20:40 650 MG Sucralfate (Carafate Susp) 1 gm QID PO 04/26/17 13:30 05/26/17 13:29 Future Hold 04/26/17 22:03 1 GM Pantoprazole Sodium 40 mg/ Dextrose 100 ml @ 20 mls/hr Q5H IV 04/27/17 02:00 05/27/17 01:59 04/28/17 13:36 20 MLS/HR Metoprolol Succinate (Toprol Xl Tab) 25 mg DAILY PO 04/28/17 09:30 05/28/17 09:29 04/28/17 10:01 25 MG Tamsulosin HCl (Flomax Cap) 0.4 mg DAILY PO 04/28/17 09:30 05/28/17 09:29 04/28/17 10:00 0.4 MG Sodium Bicarbonate (Sodium Bicarbonate Tab) 650 mg QAM PO 04/29/17 09:00 05/29/17 08:59 UNV Sodium Bicarbonate (Sodium Bicarbonate Tab) 650 mg 1441 ONCE PO 04/28/17 14:41 04/28/17 14:42 UNV Objective Vital Signs Date Time Temp Pulse Resp B/P (MAP) Pulse Ox O2 Delivery O2 Flow Rate FiO2 04/28/17 13:00 100 18 97 04/28/17 12:01 36.7 101 12 145/84 (104) 97 Room Air 04/28/17 12:00 101 15 97 04/28/17 11:19 92 16 97 Room Air 04/28/17 11:17 96 Room Air 04/28/17 11:00 92 14 97 04/28/17 10:01 93 13 143/81 (101) 97 Room Air 04/28/17 10:00 92 6 96 04/28/17 09:00 95 12 96 04/28/17 08:01 36.7 95 15 164/90 (114) 98 Room Air 04/28/17 08:00 Room Air 04/28/17 08:00 95 14 98 04/28/17 07:45 96 Room Air 04/28/17 07:29 94 16 97 Room Air 04/28/17 07:00 91 14 98 04/28/17 06:01 91 12 132/76 (94) 96 Room Air 04/28/17 04:00 36.7 96 16 144/76 (98) 98 Room Air 04/28/17 04:00 Room Air 04/28/17 02:00 97 12 123/60 (81) 97 Room Air 04/28/17 00:01 36.7 96 15 138/73 (94) 98 Room Air 04/27/17 23:59 Room Air 04/27/17 22:00 96 12 146/66 (92) 97 Room Air 04/27/17 20:00 Room Air 04/27/17 20:00 36.6 102 12 126/77 (93) 99 Room Air 04/27/17 18:57 98 16 98 Room Air 04/27/17 18:00 98 22 135/72 (93) 97 Room Air 04/27/17 16:43 93 18 97 Room Air 04/27/17 16:00 95 Room Air 04/27/17 16:00 99 18 130/76 (94) 97 Room Air Physical Exam General Appearance: WD/WN, no apparent distress Eyes: normal inspection ENT: hearing grossly normal Neck: supple Respiratory/Chest: chest non-tender, lungs clear, no respiratory distress Abdomen: normal bowel sounds, non tender, soft Extremities: no pedal edema, + pertinent finding (right foot 1-3 toes amputated ) Neurologic/Psychiatric: alert, normal mood/affect, oriented x 3 Skin: normal color Laboratory Results 04/28/17 05:10 Red Blood Count 2.85, Mean Corpuscular Volume 84.6, Mean Corpuscular Hemoglobin 28.1, Mean Corpuscular Hemoglobin Concent 33.2, Mean Platelet Volume 8.8, Neutrophils (%) (Auto) 73.3, Lymphocytes (%) (Auto) 13.8, Monocytes (%) (Auto) 8.1, Eosinophils (%) (Auto) 2.6, Basophils (%) (Auto) 1.2, Neutrophils # (Auto) 5.04, Lymphocytes # (Auto) 0.95, Monocytes # (Auto) 0.56, Eosinophils # (Auto) 0.18, Basophils # (Auto) 0.08 04/28/17 12:07 04/28/17 05:10 Test 04/28/17 05:10 04/28/17 11:08 White Blood Count 6.88 K/uL (4.8-10.8) Red Blood Count 2.85 M/uL (4.7-6.1) Hemoglobin 8.0 g/dL (14.0-18.0) Hematocrit 24.1 % (42-52) Mean Corpuscular Volume 84.6 fL (80-100) Mean Corpuscular Hemoglobin 28.1 pg (25-34) Mean Corpuscular Hemoglobin Concent 33.2 g/dl (32-36) Platelet Count 273 K/uL (130-400) Mean Platelet Volume 8.8 fL (7.4-10.4) Neutrophils (%) (Auto) 73.3 % Lymphocytes (%) (Auto) 13.8 % Monocytes (%) (Auto) 8.1 % Eosinophils (%) (Auto) 2.6 % Basophils (%) (Auto) 1.2 % Neutrophils # (Auto) 5.04 K/uL (1.4-6.5) Lymphocytes # (Auto) 0.95 K/uL (1.2-3.4) Monocytes # (Auto) 0.56 K/uL (0.11-0.59) Eosinophils # (Auto) 0.18 K/uL (0-0.5) Basophils # (Auto) 0.08 K/uL (0-0.2) RDW Standard Deviation 49.1 fL (36.4-46.3) RDW Coefficient of Variation 15.8 % (11.5-14.5) Immature Granulocyte % (Auto) 1.0 % Immature Granulocyte # (Auto) 0.07 K/uL (0.00-0.02) Red Blood Cell Morphology Unremarkable Prothrombin Time 10.9 SECONDS (9.0-12.0) Prothromb Time International Ratio 1.0 (0.9-1.1) Anion Gap 10.0 mmol/L (3-11) Est Creatinine Clear Calc Drug Dose 17.6 ml/min Estimated GFR () 12.5 Estimated GFR (Non- 10.8 BUN/Creatinine Ratio 11.6 (10-20) Calcium Level 7.7 mg/dl (8.5-10.1) Total Bilirubin 2.7 mg/dl (0.2-1) Direct Bilirubin 2.0 mg/dl (0-0.2) Aspartate Amino Transf (AST/SGOT) 39 U/L (15-37) Alanine Aminotransferase (ALT/SGPT) 29 U/L (12-78) Alkaline Phosphatase 300 U/L (45-117) Total Protein 5.5 gm/dl (6.4-8.2) Albumin 1.7 gm/dl (3.4-5.0) Bedside Glucose 121 mg/dl (70-99) Assessment and Plan 62-year-old male with a past medical history of coronary artery disease, diabetes type 2, diabetic foot ulcer status post amputation of right first and second toes, hypertension, hyperlipidemia, prostate cancer status post radiation therapy 2014, pancreatic adenocarcinoma status post common bile duct stent placement in December 2016 had presented from [facility] with intractable nausea and vomiting on 04/19 04/20 - ERCP with stent removal, brush cytology, stricture dilation and stent placement 04/21 - Emergent ERCP showed intra-op findings included occluded stent, segmental biliary stricture - which was malignant-appearing, dilated bile duct, hepatic ducts, and intrahepatic branches. Mild, pus, sludge flowed through new stents once tracts were patent again. 04/22- Worsening of nausea and vomiting, unknown etiology, renal vs GI. 04/23 - Repeat ERCP, Dr. Deal found a large piece of beef obstructing the lower esophagus, that was removed and bile duct stent was changed - pt showed significant improvement of symptoms. Acute GI bleeding from [id number] - s/p EGD - EGD : - Red blood and clot in the lower third of the esophagus and in the middle third of the esophagus. - Severe esophagitis with a large visible vessel with active oozing. Clips (MR conditional) were placed. - Clotted blood in the stomach, Normal duodenal bulb with bilious fluid. - Continue Protonix drip, octreotide dc Acute blood loss Anemia: - likely from upper GI bleed - received 6 units total PRBC transfusion - check serial H &H, transfuse PRN Sepsis secondary to cholangitis, bile duct occlusion/pancreatic adenocarcinoma -Continue Zosyn -Status post ERCP with bile duct stent change -Will need repeat ERCP in 2-4 weeks - Palliative consult Acute kidney injury : -Creatinine at 5.2 - avoid nephrotoxic drugs - bicarb added New onset A fib TSH WNL. s/p digoxin 250mcg and metoprolol tartrate 25mg continue Metoprolol 25mg XL & Imdur. consider outpatient holter to determine if patient needs mcc AC. DM2 hba1c 10.2 Home dose of Lantus was 60units and reduced to 20units QHS while patient wasn't tolerating PO. lantus dose has been decreased to 15 units Weakness PT/OT on board. BPH/prostate cancer Continue tamsulosin CAD/hypertension Continue 25 mg Toprol and PO Imdur. COPD: Stable Continue duo nebs Tobacco abuse: smokes one fourth pack per day. Offered smoking cessation counseling NicoDerm patch ordered DVT prophylaxis SCDs FULL CODE Resident Physician Supervision Note: I interviewed and examined the patient. Discussed with Dr. De La Torre and agree with findings and plan as documented in the note. Any exceptions or clarifications are listed here: None Documented By: Jd Fish feeling better again, no direct complaints. asks how long his hospitalization is going to be. this allows an "open door" to start to discuss his big picture goals and values. he is somewhat vague on what he specifically does or doesn't want, but expresses what appears to be an overriding theme of wanting to be home for whatever time he has left - but won't directly refute considerations for dialysis or cancer treatment at this time vitals noted nad breathing unlabored no pallor or icterus, mentation intact cholangitis - ongoing zosyn, s/p multiple stents by GI arf - most likely ATN, not showing improvement. isn't directly refusing HD if warranted, but also notes values lying more in getting home than ongoing treatment hypoproliferative and hemorrhagic anemia - now stable post repeat EGD and clipping. post many units transfusion pharmacologic DVT proph is contraindicated due to bleeding prognosis poor, but today as above noted he did open up enough to allow a degree of palliative type discussions - and while he does not allow himself to directly say he does not want cancer treatment or dialysis - he does express a strong desire to get home and repeats this even when i relate that this would mean many untreated comorbidities Resident Tracking Resident Involvement: Resident Care Provided Care Provided: Adult Hospital Medicine
[2017-04-28] MEDS: INSULIN ASPART 100 UNITS/ML 3 ML PEN SC SCH ×4 (08:14→21:00)
[2017-04-28 08:16] LABS: HEMATOCRIT 22.7 % (42-52); HEMOGLOBIN 7.7 g/dL (14.0-18.0)
[2017-04-28] MEDS: NICOTINE 7 MG/24 HR TDSY TD SCH (08:16)
[2017-04-28] MEDS: NYSTATIN POWDER 15GM BTL EXT SCH ×3 (08:16→16:18)
[2017-04-28] MEDS: TAMSULOSIN HCL 0.4 MG CAP PO SCH (10:00)
[2017-04-28] MEDS: METOPROLOL SUCC 25MG EXT REL TAB PO SCH (10:01)
[2017-04-28] MEDS: PIPERACILL/TAZOBAC IV 3.375 GM in DEXTROSE 5% 100ML 100 ML IV SCH (12:17)
[2017-04-28 12:22] LABS: HEMATOCRIT 23.1 % (42-52); HEMOGLOBIN 7.9 g/dL (14.0-18.0)
--- NOTE | 2017-04-28 12:30 | Gastroenterology Progress Note ---
Progress Note Date of Service: Apr 28, 2017 Subjective Pt evaluation today including: conversation w/ patient, physical exam, chart review, lab review, review of inpatient medication list Pt had a smear of dark stools overnight, no melena. H/H stable. No n/v, denies any abd pain. Octreotide gtt off; PPI gtt still on. Review of Systems Constitutional: No fever, No chills Respiratory: No cough, No shortness of breath Cardiac: No chest pain Abdomen: No pain, No nausea, No vomiting, No GI bleeding Medications Current Inpatient Medications Medications (Trade) Dose Ordered Sig/Sarah Route Start Time Stop Time Status Last Admin Dose Admin Acetaminophen (Tylenol Tab) 650 mg Q4H PRN PO 04/19/17 22:45 05/19/17 22:44 Future Hold Polyethylene (Miralax Powder Packet) 17 gm DAILY PRN PO 04/19/17 22:45 05/19/17 22:44 Future Hold Ondansetron HCl (Zofran Inj) 4 mg Q6H PRN IV 04/19/17 22:45 05/19/17 22:44 04/27/17 02:39 4 MG Bisacodyl (Dulcolax Tab) 10 mg DAILY PRN PO 04/20/17 00:45 05/20/17 00:44 Future Hold 04/23/17 17:15 10 MG Furosemide (Lasix Tab) 40 mg DAILY PO 04/20/17 09:00 05/20/17 08:59 Future Hold 04/21/17 08:48 40 MG Albuterol/ Ipratropium (Duoneb) 3 ml QIDR INH 04/20/17 08:00 05/20/17 07:59 04/28/17 11:19 3 ML Nystatin (Mycostatin Powder) 1 appln [id number] EXT 04/20/17 08:00 05/20/17 07:59 04/28/17 12:17 1 APPLN Isosorbide Mononitrate (Imdur Ext Rel Tab) 30 mg DAILY PO 04/20/17 09:00 05/20/17 08:59 Future Hold 04/26/17 07:50 30 MG Polyethylene (Miralax Powder Packet) 17 gm DAILY PO 04/20/17 09:00 05/20/17 08:59 Future Hold 04/25/17 08:17 17 GM Nicotine (Nicoderm Cq 7 Mg Patch) 1 patch QAM TD 04/20/17 09:00 05/20/17 08:59 04/28/17 08:16 1 PATCH Miscellaneous (Remove Nicoderm Patch) 1 ea HS N/A 04/20/17 21:00 05/20/17 20:59 04/27/17 21:12 1 EA Albuterol/ Ipratropium (Duoneb) 3 ml Q4R PRN INH 04/20/17 04:00 05/20/17 03:59 Miscellaneous Information (Consult) 1 ea UD PRN N/A 04/20/17 14:00 05/20/17 13:59 Insulin Aspart (novoLOG ASPART) SLIDING SCALE G... ACHS SC 04/20/17 21:00 05/20/17 05:59 04/25/17 20:40 1 UNITS Piperacillin Sod/ Tazobactam Sod 3.375 gm/Dextrose 115 ml @ 28.75 mls/ hr Q12H IV 04/24/17 00:00 04/29/17 23:59 04/28/17 12:17 28.75 MLS/HR Glucose (Glucose 40% Gel) 15-30 GRAMS 15 GRAMS... UD PRN PO 04/25/17 10:45 05/25/17 10:44 Glucose (Glucose Chew Tab) 4-8 Tablets 4 Tabl... UD PRN PO 04/25/17 10:45 05/25/17 10:44 Dextrose (Dextrose 50% 50ML Syringe) 25-50ML OF 50% DW IV FOR... UD PRN IV 04/25/17 10:45 05/25/17 10:44 Glucagon (Glucagon Inj) 1 mg UD PRN SQ 04/25/17 10:45 05/25/17 10:44 Insulin Glargine (Lantus Solostar Pen) 15 units HS SC 04/25/17 21:00 05/20/17 20:59 04/27/17 21:34 15 UNITS Sodium Bicarbonate (Sodium Bicarbonate Tab) 650 mg BID PO 04/26/17 21:00 05/26/17 20:59 Future Hold 04/26/17 20:40 650 MG Sucralfate (Carafate Susp) 1 gm QID PO 04/26/17 13:30 05/26/17 13:29 Future Hold 04/26/17 22:03 1 GM Pantoprazole Sodium 40 mg/ Dextrose 100 ml @ 20 mls/hr Q5H IV 04/27/17 02:00 05/27/17 01:59 04/28/17 08:17 20 MLS/HR Metoprolol Succinate (Toprol Xl Tab) 25 mg DAILY PO 04/28/17 09:30 05/28/17 09:29 04/28/17 10:01 25 MG Tamsulosin HCl (Flomax Cap) 0.4 mg DAILY PO 04/28/17 09:30 05/28/17 09:29 04/28/17 10:00 0.4 MG Objective Vital Signs Date Time Temp Pulse Resp B/P (MAP) Pulse Ox O2 Delivery O2 Flow Rate FiO2 04/28/17 11:19 92 16 97 Room Air 04/28/17 11:17 96 Room Air 04/28/17 09:00 95 12 96 04/28/17 08:01 36.7 95 15 164/90 (114) 98 Room Air 04/28/17 08:00 95 14 98 04/28/17 07:45 96 Room Air 04/28/17 07:29 94 16 97 Room Air 04/28/17 07:00 91 14 98 04/28/17 06:01 91 12 132/76 (94) 96 Room Air 04/28/17 04:00 36.7 96 16 144/76 (98) 98 Room Air 04/28/17 04:00 Room Air 04/28/17 02:00 97 12 123/60 (81) 97 Room Air 04/28/17 00:01 36.7 96 15 138/73 (94) 98 Room Air 04/27/17 23:59 Room Air 04/27/17 22:00 96 12 146/66 (92) 97 Room Air 04/27/17 20:00 Room Air 04/27/17 20:00 36.6 102 12 126/77 (93) 99 Room Air 04/27/17 18:57 98 16 98 Room Air 04/27/17 18:00 98 22 135/72 (93) 97 Room Air 04/27/17 16:43 93 18 97 Room Air 04/27/17 16:00 95 Room Air 04/27/17 16:00 99 18 130/76 (94) 97 Room Air 04/27/17 14:00 93 20 141/73 (95) 97 Room Air Physical Exam General Appearance: WD/WN, no apparent distress Eyes: normal inspection, PERRL, EOMI Neck: supple, no JVD, trachea midline Respiratory/Chest: no respiratory distress, no accessory muscle use, + decreased breath sounds Cardiovascular: regular rate, rhythm, no gallop, no murmur Abdomen: normal bowel sounds, non tender, soft Extremities: normal inspection, no pedal edema, no calf tenderness Neurologic/Psych: alert, normal mood/affect, oriented x 3 Skin: normal color, no jaundice, no rash Laboratory Results Last 24 Hours Test 04/27/17 16:16 04/27/17 16:25 04/27/17 19:55 04/27/17 21:21 Bedside Glucose 116 mg/dl 110 mg/dl Hemoglobin 8.3 g/dL 8.5 g/dL Hematocrit 24.2 % 24.8 % Test 04/27/17 23:59 04/28/17 05:10 04/28/17 06:37 04/28/17 08:00 Hemoglobin 8.0 g/dL 8.0 g/dL 7.7 g/dL Hematocrit 23.4 % 24.1 % 22.7 % White Blood Count 6.88 K/uL Red Blood Count 2.85 M/uL Mean Corpuscular Volume 84.6 fL Mean Corpuscular Hemoglobin 28.1 pg Mean Corpuscular Hemoglobin Concent 33.2 g/dl Platelet Count 273 K/uL Mean Platelet Volume 8.8 fL Neutrophils (%) (Auto) 73.3 % Lymphocytes (%) (Auto) 13.8 % Monocytes (%) (Auto) 8.1 % Eosinophils (%) (Auto) 2.6 % Basophils (%) (Auto) 1.2 % Neutrophils # (Auto) 5.04 K/uL Lymphocytes # (Auto) 0.95 K/uL Monocytes # (Auto) 0.56 K/uL Eosinophils # (Auto) 0.18 K/uL Basophils # (Auto) 0.08 K/uL RDW Standard Deviation 49.1 fL RDW Coefficient of Variation 15.8 % Immature Granulocyte % (Auto) 1.0 % Immature Granulocyte # (Auto) 0.07 K/uL Red Blood Cell Morphology Unremarkable Prothrombin Time 10.9 SECONDS Prothromb Time International Ratio 1.0 Sodium Level 137 mmol/L Potassium Level 4.0 mmol/L Chloride Level 109 mmol/L Carbon Dioxide Level 18 mmol/L Anion Gap 10.0 mmol/L Blood Urea Nitrogen 61 mg/dl Creatinine 5.20 mg/dl Est Creatinine Clear Calc Drug Dose 17.6 ml/min Estimated GFR () 12.5 Estimated GFR (Non- 10.8 BUN/Creatinine Ratio 11.6 Random Glucose 127 mg/dl Calcium Level 7.7 mg/dl Total Bilirubin 2.7 mg/dl Direct Bilirubin 2.0 mg/dl Aspartate Amino Transf (AST/SGOT) 39 U/L Alanine Aminotransferase (ALT/SGPT) 29 U/L Alkaline Phosphatase 300 U/L Total Protein 5.5 gm/dl Albumin 1.7 gm/dl Bedside Glucose 125 mg/dl Test 04/28/17 11:08 04/28/17 12:07 Bedside Glucose 121 mg/dl Hemoglobin 7.9 g/dL Hematocrit 23.1 % Assessment and Plan Pt is a 62 y/o male with biliary mass cytology consistent w adenocarcinoma, now cholangitis. He had repeat ERCP over the weekend along w EGD - noted to have food impaction, removed; previously placed biliary stent was occluded, now replaced w metal stent. His LFTs are trending down. Blood ct was dropping, he is having melanotic stools. Total 6U PRBC given, 1FFP. EGD done on 04/27 note blood clots on lower esophagus, with one visible vessel, clipped. H/H stable, no more melena since procedure. - Monitor H/H, transfuse prn - Monitor LFTs - CL diet - Protonix gtt x 72 hrs I have seen and examined the patient with HERNÁN Britt whose note reflects our findings and plan. H/H relatively stable. Overall prognosis remains poor secondary to malignancy.
[2017-04-28] MEDS ORDERED: SODIUM BICARBONATE 650 MG TAB PO ONE (14:41)
--- NOTE | 2017-04-28 14:42 | Critical Care Progress Note ---
Critical Care Progress Note Date of Service Apr 28, 2017. Attending Dr. Frank Greco The patient is asymptomatic this a.m., does not have any hematemesis, denies any dizziness no abdominal pain no nausea or vomiting and tolerating oral intake with clear liquid. Objective Physical exam on April 28, 2017 revealed stable vital signs, blood pressure and heart rate are stable, no JVP, S1-S2 regular rate and rhythm, distant breath sounds bilaterally, abdomen without tenderness, edema in the periphery noted. His labs also were reviewed which revealed stable hematocrit with minimal drop at this point. Chemistry has been reviewed as well. Assessment & Plan #1 GI bleed secondary to esophagitis as well as exposed vessel status post clipping. 2. History of pancreatic CA with cholangiole stent 2. 3. History of COPD. 4. Liver failure. Plan: 1. We will continue to follow H&H. 2. Transfuse accordingly. 3. Stop octreotide drip. 4. Stop Velez catheter. 5. Start Flomax with this is all medication. 6. restart Toprol. 7. Stop Diflucan. 8. Transfer the patient to regular floor. 9. Palliative care consult. 10. Appreciate all consults involved. All notes has been reviewed. Discussed with the staff on rounds and details. Critical care time spent with the patient was 35 minutes. Data Medications: Current Inpatient Medications Medications (Trade) Dose Ordered Sig/Sarah Route Start Time Stop Time Status Last Admin Dose Admin Acetaminophen (Tylenol Tab) 650 mg Q4H PRN PO 04/19/17 22:45 05/19/17 22:44 Future Hold Polyethylene (Miralax Powder Packet) 17 gm DAILY PRN PO 04/19/17 22:45 05/19/17 22:44 Future Hold Ondansetron HCl (Zofran Inj) 4 mg Q6H PRN IV 04/19/17 22:45 05/19/17 22:44 04/27/17 02:39 4 MG Bisacodyl (Dulcolax Tab) 10 mg DAILY PRN PO 04/20/17 00:45 05/20/17 00:44 Future Hold 04/23/17 17:15 10 MG Furosemide (Lasix Tab) 40 mg DAILY PO 04/20/17 09:00 05/20/17 08:59 Future Hold 04/21/17 08:48 40 MG Albuterol/ Ipratropium (Duoneb) 3 ml QIDR INH 04/20/17 08:00 05/20/17 07:59 04/28/17 11:19 3 ML Nystatin (Mycostatin Powder) 1 appln [id number] EXT 04/20/17 08:00 05/20/17 07:59 04/28/17 12:17 1 APPLN Isosorbide Mononitrate (Imdur Ext Rel Tab) 30 mg DAILY PO 04/20/17 09:00 05/20/17 08:59 Future Hold 04/26/17 07:50 30 MG Polyethylene (Miralax Powder Packet) 17 gm DAILY PO 04/20/17 09:00 05/20/17 08:59 Future Hold 04/25/17 08:17 17 GM Nicotine (Nicoderm Cq 7 Mg Patch) 1 patch QAM TD 04/20/17 09:00 05/20/17 08:59 04/28/17 08:16 1 PATCH Miscellaneous (Remove Nicoderm Patch) 1 ea HS N/A 04/20/17 21:00 05/20/17 20:59 04/27/17 21:12 1 EA Albuterol/ Ipratropium (Duoneb) 3 ml Q4R PRN INH 04/20/17 04:00 05/20/17 03:59 Miscellaneous Information (Consult) 1 ea UD PRN N/A 04/20/17 14:00 05/20/17 13:59 Insulin Aspart (novoLOG ASPART) SLIDING SCALE G... ACHS SC 04/20/17 21:00 05/20/17 05:59 04/25/17 20:40 1 UNITS Piperacillin Sod/ Tazobactam Sod 3.375 gm/Dextrose 115 ml @ 28.75 mls/ hr Q12H IV 04/24/17 00:00 04/29/17 23:59 04/28/17 12:17 28.75 MLS/HR Glucose (Glucose 40% Gel) 15-30 GRAMS 15 GRAMS... UD PRN PO 04/25/17 10:45 05/25/17 10:44 Glucose (Glucose Chew Tab) 4-8 Tablets 4 Tabl... UD PRN PO 04/25/17 10:45 05/25/17 10:44 Dextrose (Dextrose 50% 50ML Syringe) 25-50ML OF 50% DW IV FOR... UD PRN IV 04/25/17 10:45 05/25/17 10:44 Glucagon (Glucagon Inj) 1 mg UD PRN SQ 04/25/17 10:45 05/25/17 10:44 Insulin Glargine (Lantus Solostar Pen) 15 units HS SC 04/25/17 21:00 05/20/17 20:59 04/27/17 21:34 15 UNITS Sodium Bicarbonate (Sodium Bicarbonate Tab) 650 mg BID PO 04/26/17 21:00 05/26/17 20:59 Future Hold 04/26/17 20:40 650 MG Sucralfate (Carafate Susp) 1 gm QID PO 04/26/17 13:30 05/26/17 13:29 Future Hold 04/26/17 22:03 1 GM Pantoprazole Sodium 40 mg/ Dextrose 100 ml @ 20 mls/hr Q5H IV 04/27/17 02:00 05/27/17 01:59 04/28/17 13:36 20 MLS/HR Metoprolol Succinate (Toprol Xl Tab) 25 mg DAILY PO 04/28/17 09:30 05/28/17 09:29 04/28/17 10:01 25 MG Tamsulosin HCl (Flomax Cap) 0.4 mg DAILY PO 04/28/17 09:30 05/28/17 09:29 04/28/17 10:00 0.4 MG I & O: 24-Hour Column 04/29/17 07:59 Intake Total 1086 ml Output Total 775 ml Balance 311 ml Vital Signs: Date Time Temp Pulse Resp B/P (MAP) Pulse Ox O2 Delivery O2 Flow Rate FiO2 04/28/17 13:00 100 18 97 04/28/17 12:01 36.7 101 12 145/84 (104) 97 Room Air 04/28/17 12:00 101 15 97 04/28/17 11:19 92 16 97 Room Air 04/28/17 11:17 96 Room Air 04/28/17 11:00 92 14 97 04/28/17 10:01 93 13 143/81 (101) 97 Room Air 04/28/17 10:00 92 6 96 04/28/17 09:00 95 12 96 04/28/17 08:01 36.7 95 15 164/90 (114) 98 Room Air 04/28/17 08:00 Room Air 04/28/17 08:00 95 14 98 04/28/17 07:45 96 Room Air 04/28/17 07:29 94 16 97 Room Air 04/28/17 07:00 91 14 98 04/28/17 06:01 91 12 132/76 (94) 96 Room Air 04/28/17 04:00 36.7 96 16 144/76 (98) 98 Room Air 04/28/17 04:00 Room Air 04/28/17 02:00 97 12 123/60 (81) 97 Room Air 04/28/17 00:01 36.7 96 15 138/73 (94) 98 Room Air 04/27/17 23:59 Room Air 04/27/17 22:00 96 12 146/66 (92) 97 Room Air 04/27/17 20:00 Room Air 04/27/17 20:00 36.6 102 12 126/77 (93) 99 Room Air 04/27/17 18:57 98 16 98 Room Air 04/27/17 18:00 98 22 135/72 (93) 97 Room Air 04/27/17 16:43 93 18 97 Room Air 04/27/17 16:00 95 Room Air 04/27/17 16:00 99 18 130/76 (94) 97 Room Air Laboratory Results: Last 24 Hours Test 04/27/17 16:16 04/27/17 16:25 04/27/17 19:55 04/27/17 21:21 Bedside Glucose 116 mg/dl 110 mg/dl Hemoglobin 8.3 g/dL 8.5 g/dL Hematocrit 24.2 % 24.8 % Test 04/27/17 23:59 04/28/17 05:10 04/28/17 06:37 04/28/17 08:00 Hemoglobin 8.0 g/dL 8.0 g/dL 7.7 g/dL Hematocrit 23.4 % 24.1 % 22.7 % White Blood Count 6.88 K/uL Red Blood Count 2.85 M/uL Mean Corpuscular Volume 84.6 fL Mean Corpuscular Hemoglobin 28.1 pg Mean Corpuscular Hemoglobin Concent 33.2 g/dl Platelet Count 273 K/uL Mean Platelet Volume 8.8 fL Neutrophils (%) (Auto) 73.3 % Lymphocytes (%) (Auto) 13.8 % Monocytes (%) (Auto) 8.1 % Eosinophils (%) (Auto) 2.6 % Basophils (%) (Auto) 1.2 % Neutrophils # (Auto) 5.04 K/uL Lymphocytes # (Auto) 0.95 K/uL Monocytes # (Auto) 0.56 K/uL Eosinophils # (Auto) 0.18 K/uL Basophils # (Auto) 0.08 K/uL RDW Standard Deviation 49.1 fL RDW Coefficient of Variation 15.8 % Immature Granulocyte % (Auto) 1.0 % Immature Granulocyte # (Auto) 0.07 K/uL Red Blood Cell Morphology Unremarkable Prothrombin Time 10.9 SECONDS Prothromb Time International Ratio 1.0 Sodium Level 137 mmol/L Potassium Level 4.0 mmol/L Chloride Level 109 mmol/L Carbon Dioxide Level 18 mmol/L Anion Gap 10.0 mmol/L Blood Urea Nitrogen 61 mg/dl Creatinine 5.20 mg/dl Est Creatinine Clear Calc Drug Dose 17.6 ml/min Estimated GFR () 12.5 Estimated GFR (Non- 10.8 BUN/Creatinine Ratio 11.6 Random Glucose 127 mg/dl Calcium Level 7.7 mg/dl Total Bilirubin 2.7 mg/dl Direct Bilirubin 2.0 mg/dl Aspartate Amino Transf (AST/SGOT) 39 U/L Alanine Aminotransferase (ALT/SGPT) 29 U/L Alkaline Phosphatase 300 U/L Total Protein 5.5 gm/dl Albumin 1.7 gm/dl Bedside Glucose 125 mg/dl Test 04/28/17 11:08 04/28/17 12:07 Bedside Glucose 121 mg/dl Hemoglobin 7.9 g/dL Hematocrit 23.1 %
--- NOTE | 2017-04-28 14:50 | Nephrology Progress Note ---
Nephrology Progress Note Date of Service Apr 28, 2017. Chief Complaint LIYA Subjective Mr. Plummer was seen & examined in the ICU this morning. He complains of persistent mild RUQ tenderness. He denies further hematemesis. Review of Systems Constitutional: No fever Cardiovascular: No chest pain Respiratory: No dyspnea at rest Abdomen: No pain, No nausea, No vomiting Extremities: No leg edema A complete review of systems was performed. Pertinent positives are noted above. All other systems are negative. Vital Signs Last 8 Hrs Date Time Temp Pulse Resp B/P (MAP) Pulse Ox O2 Delivery O2 Flow Rate FiO2 04/28/17 13:00 100 18 97 04/28/17 12:01 36.7 101 12 145/84 (104) 97 Room Air 04/28/17 12:00 101 15 97 04/28/17 11:19 92 16 97 Room Air 04/28/17 11:17 96 Room Air 04/28/17 11:00 92 14 97 04/28/17 10:01 93 13 143/81 (101) 97 Room Air 04/28/17 10:00 92 6 96 04/28/17 09:00 95 12 96 04/28/17 08:01 36.7 95 15 164/90 (114) 98 Room Air 04/28/17 08:00 Room Air 04/28/17 08:00 95 14 98 04/28/17 07:45 96 Room Air 04/28/17 07:29 94 16 97 Room Air 04/28/17 07:00 91 14 98 I & O 24-Hour Column 04/29/17 08:00 Intake Total 1086 ml Output Total 775 ml Balance 311 ml Last Recorded Weight Weight (Kilograms): 118.000 Physical Exam General Appearance: no apparent distress Head: normocephalic, atraumatic Eyes: PERRL, EOMI Neck: no adenopathy Respiratory/Chest: lungs clear, no respiratory distress Cardiovascular: regular rate, rhythm Abdomen/GI: non tender (mild RUQ tenderness. No guarding), soft Extremities/Musculoskelatal: no pedal edema Neurologic/Psych: alert Family History Negative for CKD / ESRD Social History Smokeless Tobacco Use: No Alcohol Use: Drug Use: none Marital Status: Occupation: other Resides in [place], [place]. . Seven children. Formerly worked in [employer]. Laboratory Results Past 24 Hours 04/27/17 16:25 04/27/17 19:55 04/27/17 23:59 04/28/17 05:10 Red Blood Count 2.85, Mean Corpuscular Volume 84.6, Mean Corpuscular Hemoglobin 28.1, Mean Corpuscular Hemoglobin Concent 33.2, Mean Platelet Volume 8.8, Neutrophils (%) (Auto) 73.3, Lymphocytes (%) (Auto) 13.8, Monocytes (%) (Auto) 8.1, Eosinophils (%) (Auto) 2.6, Basophils (%) (Auto) 1.2, Neutrophils # (Auto) 5.04, Lymphocytes # (Auto) 0.95, Monocytes # (Auto) 0.56, Eosinophils # (Auto) 0.18, Basophils # (Auto) 0.08 04/28/17 08:00 04/28/17 12:07 04/28/17 05:10 Test 04/27/17 16:16 04/27/17 21:21 04/28/17 05:10 04/28/17 06:37 Bedside Glucose 116 mg/dl (70-99) 110 mg/dl (70-99) 125 mg/dl (70-99) White Blood Count 6.88 K/uL (4.8-10.8) Red Blood Count 2.85 M/uL (4.7-6.1) Hemoglobin 8.0 g/dL (14.0-18.0) Hematocrit 24.1 % (42-52) Mean Corpuscular Volume 84.6 fL (80-100) Mean Corpuscular Hemoglobin 28.1 pg (25-34) Mean Corpuscular Hemoglobin Concent 33.2 g/dl (32-36) Platelet Count 273 K/uL (130-400) Mean Platelet Volume 8.8 fL (7.4-10.4) Neutrophils (%) (Auto) 73.3 % Lymphocytes (%) (Auto) 13.8 % Monocytes (%) (Auto) 8.1 % Eosinophils (%) (Auto) 2.6 % Basophils (%) (Auto) 1.2 % Neutrophils # (Auto) 5.04 K/uL (1.4-6.5) Lymphocytes # (Auto) 0.95 K/uL (1.2-3.4) Monocytes # (Auto) 0.56 K/uL (0.11-0.59) Eosinophils # (Auto) 0.18 K/uL (0-0.5) Basophils # (Auto) 0.08 K/uL (0-0.2) RDW Standard Deviation 49.1 fL (36.4-46.3) RDW Coefficient of Variation 15.8 % (11.5-14.5) Immature Granulocyte % (Auto) 1.0 % Immature Granulocyte # (Auto) 0.07 K/uL (0.00-0.02) Red Blood Cell Morphology Unremarkable Prothrombin Time 10.9 SECONDS (9.0-12.0) Prothromb Time International Ratio 1.0 (0.9-1.1) Anion Gap 10.0 mmol/L (3-11) Est Creatinine Clear Calc Drug Dose 17.6 ml/min Estimated GFR () 12.5 Estimated GFR (Non- 10.8 BUN/Creatinine Ratio 11.6 (10-20) Calcium Level 7.7 mg/dl (8.5-10.1) Total Bilirubin 2.7 mg/dl (0.2-1) Direct Bilirubin 2.0 mg/dl (0-0.2) Aspartate Amino Transf (AST/SGOT) 39 U/L (15-37) Alanine Aminotransferase (ALT/SGPT) 29 U/L (12-78) Alkaline Phosphatase 300 U/L (45-117) Total Protein 5.5 gm/dl (6.4-8.2) Albumin 1.7 gm/dl (3.4-5.0) Test 04/28/17 11:08 Bedside Glucose 121 mg/dl (70-99) Allergies Coded Allergies: Iodinated Diagnostic Agents (Verified Allergy, Mild, GI SYMPTOMS, 04/19/17) No Known Drug Allergy (Verified Allergy, Unknown, none, 04/19/17) Uncoded Allergies: dye (Allergy, Unknown, RASH, 04/19/17) patient does not remember what kind of dye or what kind of reaction he is allergic to Medications Current Inpatient Medications Medications (Trade) Dose Ordered Sig/Sarah Route Start Time Stop Time Status Last Admin Dose Admin Acetaminophen (Tylenol Tab) 650 mg Q4H PRN PO 04/19/17 22:45 05/19/17 22:44 Future Hold Polyethylene (Miralax Powder Packet) 17 gm DAILY PRN PO 04/19/17 22:45 05/19/17 22:44 Future Hold Ondansetron HCl (Zofran Inj) 4 mg Q6H PRN IV 04/19/17 22:45 05/19/17 22:44 04/27/17 02:39 4 MG Bisacodyl (Dulcolax Tab) 10 mg DAILY PRN PO 04/20/17 00:45 05/20/17 00:44 Future Hold 04/23/17 17:15 10 MG Furosemide (Lasix Tab) 40 mg DAILY PO 04/20/17 09:00 05/20/17 08:59 Future Hold 04/21/17 08:48 40 MG Albuterol/ Ipratropium (Duoneb) 3 ml QIDR INH 04/20/17 08:00 05/20/17 07:59 04/28/17 11:19 3 ML Nystatin (Mycostatin Powder) 1 appln [id number] EXT 04/20/17 08:00 05/20/17 07:59 04/28/17 12:17 1 APPLN Isosorbide Mononitrate (Imdur Ext Rel Tab) 30 mg DAILY PO 04/20/17 09:00 05/20/17 08:59 Future Hold 04/26/17 07:50 30 MG Polyethylene (Miralax Powder Packet) 17 gm DAILY PO 04/20/17 09:00 05/20/17 08:59 Future Hold 04/25/17 08:17 17 GM Nicotine (Nicoderm Cq 7 Mg Patch) 1 patch QAM TD 04/20/17 09:00 05/20/17 08:59 04/28/17 08:16 1 PATCH Miscellaneous (Remove Nicoderm Patch) 1 ea HS N/A 04/20/17 21:00 05/20/17 20:59 04/27/17 21:12 1 EA Albuterol/ Ipratropium (Duoneb) 3 ml Q4R PRN INH 04/20/17 04:00 05/20/17 03:59 Miscellaneous Information (Consult) 1 ea UD PRN N/A 04/20/17 14:00 05/20/17 13:59 Insulin Aspart (novoLOG ASPART) SLIDING SCALE G... ACHS SC 04/20/17 21:00 05/20/17 05:59 04/25/17 20:40 1 UNITS Piperacillin Sod/ Tazobactam Sod 3.375 gm/Dextrose 115 ml @ 28.75 mls/ hr Q12H IV 04/24/17 00:00 04/29/17 23:59 04/28/17 12:17 28.75 MLS/HR Glucose (Glucose 40% Gel) 15-30 GRAMS 15 GRAMS... UD PRN PO 04/25/17 10:45 05/25/17 10:44 Glucose (Glucose Chew Tab) 4-8 Tablets 4 Tabl... UD PRN PO 04/25/17 10:45 05/25/17 10:44 Dextrose (Dextrose 50% 50ML Syringe) 25-50ML OF 50% DW IV FOR... UD PRN IV 04/25/17 10:45 05/25/17 10:44 Glucagon (Glucagon Inj) 1 mg UD PRN SQ 04/25/17 10:45 05/25/17 10:44 Insulin Glargine (Lantus Solostar Pen) 15 units HS SC 04/25/17 21:00 05/20/17 20:59 04/27/17 21:34 15 UNITS Sodium Bicarbonate (Sodium Bicarbonate Tab) 650 mg BID PO 04/26/17 21:00 05/26/17 20:59 Future Hold 04/26/17 20:40 650 MG Sucralfate (Carafate Susp) 1 gm QID PO 04/26/17 13:30 05/26/17 13:29 Future Hold 04/26/17 22:03 1 GM Pantoprazole Sodium 40 mg/ Dextrose 100 ml @ 20 mls/hr Q5H IV 04/27/17 02:00 05/27/17 01:59 04/28/17 13:36 20 MLS/HR Metoprolol Succinate (Toprol Xl Tab) 25 mg DAILY PO 04/28/17 09:30 05/28/17 09:29 04/28/17 10:01 25 MG Tamsulosin HCl (Flomax Cap) 0.4 mg DAILY PO 04/28/17 09:30 05/28/17 09:29 04/28/17 10:00 0.4 MG Impression (1) Acute kidney injury (2) Dehydration (3) Pancreatic carcinoma (4) Common bile duct obstruction (5) Jaundice Acute kidney injury was likely related to dehydration and inflammation. At the time of presentation patient was on a loop diuretic but no other potential nephrotoxic medications. Clinically doubt obstruction as patient remains nonoliguric. UGI bleed 04/26 complicated by hypotension. EGD w/ severe esophagitis and visible vessel requiring clipping. Patient transfused w/ 6 U PRBC since admission Recommendations -- Continue to hold Furosemide -- Recommend transfusion to maintain Hgb > 8.0 -- Volume status is acceptable. Will start po NaHCO3 to correct metabolic acidosis. 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 Patient does remain nonoliguric -- Monitor serial PRP -- 04/23 Renal US report: No stone or obstruction -- Recommend Oncology evaluation to define prognosis. Consider palliative care consultation
[2017-04-28 16:04] LABS: HEMATOCRIT 23.3 % (42-52); HEMOGLOBIN 8.1 g/dL (14.0-18.0)
[2017-04-28] MEDS: INSULIN GLARGINE SOLOSTAR 100 UNITS/ML 3 ML PEN SC SCH (21:30)
[2017-04-29] VITALS (23 sets, daily range): BP systolic 91–156; BP diastolic 60–81; PULSE 78–95; TEMP 36.4–37.1; O2SAT 92–100
[2017-04-29] MEDS: PIPERACILL/TAZOBAC IV 3.375 GM in DEXTROSE 5% 100ML 100 ML IV SCH ×2 (00:19→12:12)
[2017-04-29] MEDS: PANTOprazole INJ 40 MG in DEXTROSE 5% 100ML IV SCH ×5 (05:07→20:32)
[2017-04-29 06:59] LABS: CALCIUM 7.7 mg/dl (8.5-10.1); CREATININE 5.2 mg/dl (0.60-1.40); POTASSIUM 4.1 mmol/L (3.5-5.1)
[2017-04-29] MEDS: INSULIN ASPART 100 UNITS/ML 3 ML PEN SC SCH ×4 (07:00→20:29)
[2017-04-29] MEDS: ALBUT/IPRATROP 3MG/0.5MG NEB 3 ML VIAL INH SCH ×4 (07:20→19:12)
[2017-04-29] MEDS: METOPROLOL SUCC 25MG EXT REL TAB PO SCH (07:53)
[2017-04-29] MEDS: NICOTINE 7 MG/24 HR TDSY TD SCH (07:53)
[2017-04-29] MEDS: SODIUM BICARBONATE 650 MG TAB PO SCH (07:53)
[2017-04-29] MEDS: NYSTATIN POWDER 15GM BTL EXT SCH ×3 (07:53→16:18)
[2017-04-29] MEDS: TAMSULOSIN HCL 0.4 MG CAP PO SCH (07:53)
[2017-04-29 09:12] LABS: BASO % 1.1 %; BASO ABS # 0.09 K/uL (0-0.2); EOS % 3.6 %; EOS ABS # 0.28 K/uL (0-0.5); HEMATOCRIT 22.6 % (42-52); HEMOGLOBIN 7.7 g/dL (14.0-18.0); IG# 0.07 K/uL (0.00-0.02); LYMPH % 15.7 %; LYMPH ABS # 1.23 K/uL (1.2-3.4); MEAN CORPUSCULAR HEMOGLOBIN 28.9 pg (25-34); MEAN CORPUSCULAR HGB CONC 34.1 g/dl (32-36); MEAN PLATELET VOLUME 8.7 fL (7.4-10.4); MONO % 8.6 %; MONO ABS # 0.67 K/uL (0.11-0.59); NEUT % 70.1 %; NEUT ABS # 5.49 K/uL (1.4-6.5); PLATELET COUNT 290 K/uL (130-400); RED CELL DISTRIBUTION WIDTH CV 16.1 % (11.5-14.5); RED CELL DISTRIBUTION WIDTH SD 49.8 fL (36.4-46.3); WHITE BLOOD COUNT 7.83 K/uL (4.8-10.8)
--- NOTE | 2017-04-29 13:04 | Nephrology Progress Note ---
Nephrology Progress Note Date of Service Apr 29, 2017. Chief Complaint Follow-up for acute kidney injury. Subjective Mr. Plummer was seen and examined in his room this morning. He denies any specific symptom however he does not want to stay in hospital any longer. Creatinine seems to have peaked, staying around 5.2, electrolyte reasonable. Remain non-oliguric. Blood pressure well control. Review of Systems A complete review of systems was performed. Pertinent positives are noted above. All other systems are negative. Vital Signs Last 8 Hrs Date Time Temp Pulse Resp B/P (MAP) Pulse Ox O2 Delivery O2 Flow Rate FiO2 04/29/17 12:00 Room Air 04/29/17 11:59 37.0 85 18 149/81 (103) 96 04/29/17 11:06 91 16 95 Room Air 04/29/17 08:00 Room Air 04/29/17 07:53 36.6 87 19 144/76 (98) 96 Room Air 04/29/17 07:20 87 16 97 Room Air Last Recorded Weight Weight (Kilograms): 116.900 Physical Exam GENERAL: Middle-aged male, AAA x 3, not in any distress. NECK: Supple, no JVD. RESPIRATORY: clear to auscultation bilaterally, no wheezes or rales. CARDIOVASCULAR: S1, S2 normal, rate rhythm regular. EXTREMITY: No lower extremity edema NEURO: speech fluent. PSYCHIATRY: Normal mood and judgment Family History Negative for CKD / ESRD Social History Smokeless Tobacco Use: No Alcohol Use: Drug Use: none Marital Status: Occupation: other Resides in [place], [place]. . Seven children. Formerly worked in [employer]. Laboratory Results Past 24 Hours 04/28/17 15:53 04/29/17 05:45 Red Blood Count 2.66, Mean Corpuscular Volume 85.0, Mean Corpuscular Hemoglobin 28.9, Mean Corpuscular Hemoglobin Concent 34.1, Mean Platelet Volume 8.7, Neutrophils (%) (Auto) 70.1, Lymphocytes (%) (Auto) 15.7, Monocytes (%) (Auto) 8.6, Eosinophils (%) (Auto) 3.6, Basophils (%) (Auto) 1.1, Neutrophils # (Auto) 5.49, Lymphocytes # (Auto) 1.23, Monocytes # (Auto) 0.67, Eosinophils # (Auto) 0.28, Basophils # (Auto) 0.09 04/29/17 05:45 Test 04/28/17 16:17 04/28/17 20:36 04/29/17 05:45 04/29/17 06:45 Bedside Glucose 157 mg/dl (70-99) 169 mg/dl (70-99) 77 mg/dl (70-99) White Blood Count 7.83 K/uL (4.8-10.8) Red Blood Count 2.66 M/uL (4.7-6.1) Hemoglobin 7.7 g/dL (14.0-18.0) Hematocrit 22.6 % (42-52) Mean Corpuscular Volume 85.0 fL (80-100) Mean Corpuscular Hemoglobin 28.9 pg (25-34) Mean Corpuscular Hemoglobin Concent 34.1 g/dl (32-36) Platelet Count 290 K/uL (130-400) Mean Platelet Volume 8.7 fL (7.4-10.4) Neutrophils (%) (Auto) 70.1 % Lymphocytes (%) (Auto) 15.7 % Monocytes (%) (Auto) 8.6 % Eosinophils (%) (Auto) 3.6 % Basophils (%) (Auto) 1.1 % Neutrophils # (Auto) 5.49 K/uL (1.4-6.5) Lymphocytes # (Auto) 1.23 K/uL (1.2-3.4) Monocytes # (Auto) 0.67 K/uL (0.11-0.59) Eosinophils # (Auto) 0.28 K/uL (0-0.5) Basophils # (Auto) 0.09 K/uL (0-0.2) RDW Standard Deviation 49.8 fL (36.4-46.3) RDW Coefficient of Variation 16.1 % (11.5-14.5) Immature Granulocyte % (Auto) 0.9 % Immature Granulocyte # (Auto) 0.07 K/uL (0.00-0.02) Red Blood Cell Morphology Unremarkable Anion Gap 11.0 mmol/L (3-11) Est Creatinine Clear Calc Drug Dose 17.5 ml/min Estimated GFR () 12.5 Estimated GFR (Non- 10.8 BUN/Creatinine Ratio 11.6 (10-20) Calcium Level 7.7 mg/dl (8.5-10.1) Allergies Coded Allergies: Iodinated Diagnostic Agents (Verified Allergy, Mild, GI SYMPTOMS, 04/19/17) No Known Drug Allergy (Verified Allergy, Unknown, none, 04/19/17) Uncoded Allergies: dye (Allergy, Unknown, RASH, 04/19/17) patient does not remember what kind of dye or what kind of reaction he is allergic to Medications Current Inpatient Medications Medications (Trade) Dose Ordered Sig/Sarah Route Start Time Stop Time Status Last Admin Dose Admin Acetaminophen (Tylenol Tab) 650 mg Q4H PRN PO 04/19/17 22:45 05/19/17 22:44 Future Hold Polyethylene (Miralax Powder Packet) 17 gm DAILY PRN PO 04/19/17 22:45 05/19/17 22:44 Future Hold Ondansetron HCl (Zofran Inj) 4 mg Q6H PRN IV 04/19/17 22:45 05/19/17 22:44 04/27/17 02:39 4 MG Bisacodyl (Dulcolax Tab) 10 mg DAILY PRN PO 04/20/17 00:45 05/20/17 00:44 Future Hold 04/23/17 17:15 10 MG Furosemide (Lasix Tab) 40 mg DAILY PO 04/20/17 09:00 05/20/17 08:59 Future Hold 04/21/17 08:48 40 MG Albuterol/ Ipratropium (Duoneb) 3 ml QIDR INH 04/20/17 08:00 05/20/17 07:59 04/29/17 11:05 3 ML Nystatin (Mycostatin Powder) 1 appln [id number] EXT 04/20/17 08:00 05/20/17 07:59 04/29/17 12:12 1 APPLN Isosorbide Mononitrate (Imdur Ext Rel Tab) 30 mg DAILY PO 04/20/17 09:00 05/20/17 08:59 Future Hold 04/26/17 07:50 30 MG Polyethylene (Miralax Powder Packet) 17 gm DAILY PO 04/20/17 09:00 05/20/17 08:59 Future Hold 04/25/17 08:17 17 GM Nicotine (Nicoderm Cq 7 Mg Patch) 1 patch QAM TD 04/20/17 09:00 4/14/18 08:59 04/29/17 07:53 1 PATCH Miscellaneous (Remove Nicoderm Patch) 1 ea HS N/A 04/20/17 21:00 05/20/17 20:59 04/27/17 21:12 1 EA Albuterol/ Ipratropium (Duoneb) 3 ml Q4R PRN INH 04/20/17 04:00 05/20/17 03:59 04/28/17 21:36 3 ML Miscellaneous Information (Consult) 1 ea UD PRN N/A 04/20/17 14:00 05/20/17 13:59 Insulin Aspart (novoLOG ASPART) SLIDING SCALE G... ACHS SC 04/20/17 21:00 05/20/17 05:59 04/28/17 16:56 8 UNITS Piperacillin Sod/ Tazobactam Sod 3.375 gm/Dextrose 115 ml @ 28.75 mls/ hr Q12H IV 04/24/17 00:00 04/29/17 23:59 04/29/17 12:12 28.75 MLS/HR Glucose (Glucose 40% Gel) 15-30 GRAMS 15 GRAMS... UD PRN PO 04/25/17 10:45 05/25/17 10:44 Glucose (Glucose Chew Tab) 4-8 Tablets 4 Tabl... UD PRN PO 04/25/17 10:45 05/25/17 10:44 Dextrose (Dextrose 50% 50ML Syringe) 25-50ML OF 50% DW IV FOR... UD PRN IV 04/25/17 10:45 05/25/17 10:44 Glucagon (Glucagon Inj) 1 mg UD PRN SQ 04/25/17 10:45 05/25/17 10:44 Insulin Glargine (Lantus Solostar Pen) 15 units HS SC 04/25/17 21:00 05/20/17 20:59 04/28/17 21:30 15 UNITS Sucralfate (Carafate Susp) 1 gm QID PO 04/26/17 13:30 05/26/17 13:29 Future Hold 04/26/17 22:03 1 GM Pantoprazole Sodium 40 mg/ Dextrose 100 ml @ 20 mls/hr Q5H IV 04/27/17 02:00 05/27/17 01:59 04/29/17 12:12 20 MLS/HR Metoprolol Succinate (Toprol Xl Tab) 25 mg DAILY PO 04/28/17 09:30 05/28/17 09:29 04/29/17 07:53 25 MG Tamsulosin HCl (Flomax Cap) 0.4 mg DAILY PO 04/28/17 09:30 05/28/17 09:29 04/29/17 07:53 0.4 MG Sodium Bicarbonate (Sodium Bicarbonate Tab) 650 mg QAM PO 04/29/17 09:00 05/29/17 08:59 04/29/17 07:53 650 MG Impression (1) Acute kidney injury (2) Dehydration (3) Pancreatic carcinoma (4) Common bile duct obstruction (5) Jaundice Acute kidney injury was likely related to dehydration and inflammation. At the time of presentation patient was on a loop diuretic but no other potential nephrotoxic medications. Clinically doubt obstruction as patient remains nonoliguric. UGI bleed 04/26 complicated by hypotension. EGD w/ severe esophagitis and visible vessel requiring clipping. Patient transfused w/ 6 U PRBC since admission Recommendations -- creatinine seems to have picked, staying around 5.2, electrolyte remain acceptable. Blood pressure and volume status stable and remain non-oliguric. No indication for dialysis at this time, hopefully renal function will start to improve -- Recommend transfusion to maintain Hgb > 8.0 -- continue [id number] -- Monitor serial PRP -- Recommend Oncology evaluation to define prognosis. Consider palliative care consultation
--- NOTE | 2017-04-29 14:33 | Family Medicine Progress Note ---
Progress Note Date of Service Apr 29, 2017. Subjective Pt evaluation today including: conversation w/ patient Voiding: no voiding problems patient wants to go home "because theres nothing more than can be done" Constitutional: No fever, No chills Respiratory: No cough, No sputum, No shortness of breath, No dyspnea on exertion Cardiovascular: No chest pain Abdomen: No pain, No nausea, No vomiting, No constipation Male : No dysuria, No urinary frequency Objective Physical Exam General Appearance: no apparent distress Eyes: PERRL, EOMI Respiratory/Chest: no respiratory distress, no accessory muscle use, + decreased breath sounds Cardiovascular: regular rate, rhythm, no murmur Abdomen: non tender, + abnormal bowel sounds (hypoactive) Extremities: non-tender Neurologic/Psychiatric: alert, + depressed affect Assessment and Plan 62-year-old male with a past medical history of coronary artery disease, diabetes type 2, diabetic foot ulcer status post amputation of right first and second toes, hypertension, hyperlipidemia, prostate cancer status post radiation therapy 2014, pancreatic adenocarcinoma status post common bile duct stent placement in December 2016 had presented from [facility] with intractable nausea and vomiting on 04/19 04/20 - ERCP with stent removal, brush cytology, stricture dilation and stent placement 04/21 - Emergent ERCP showed intra-op findings included occluded stent, segmental biliary stricture - which was malignant-appearing, dilated bile duct, hepatic ducts, and intrahepatic branches. Mild, pus, sludge flowed through new stents once tracts were patent again. 04/22- Worsening of nausea and vomiting, unknown etiology, renal vs GI. 04/23 - Repeat ERCP, Dr. Deal found a large piece of beef obstructing the lower esophagus, that was removed and bile duct stent was changed - pt showed significant improvement of symptoms. Acute GI bleeding from severe esophagitis - s/p EGD - EGD : - Red blood and clot in the lower third of the esophagus and in the middle third of the esophagus. - Severe esophagitis with a large visible vessel with active oozing. Clips (MR conditional) were placed. - Clotted blood in the stomach, Normal duodenal bulb with bilious fluid. - Continue Protonix drip until tomorrow Acute blood loss Anemia: - likely from upper GI bleed - received 6 units total PRBC transfusion - check serial H &H, transfused 2 units today Sepsis secondary to cholangitis, bile duct occlusion/pancreatic adenocarcinoma - switch zosyn to levaquin and flagyl -Status post ERCP with bile duct stent change -Will need repeat ERCP in 2-4 weeks - Palliative consult Acute kidney injury : -Creatinine at 5.2 - avoid nephrotoxic drugs - bicarb added New onset A fib TSH WNL. s/p digoxin 250mcg and metoprolol tartrate 25mg continue Metoprolol 25mg XL & Imdur. consider outpatient holter to determine if patient needs residential AC. DM2 hba1c 10.2 Home dose of Lantus was 60units and reduced to 20units QHS while patient wasn't tolerating PO. lantus dose has been decreased to 15 units Weakness PT/OT on board. BPH/prostate cancer Continue tamsulosin CAD/hypertension Continue 25 mg Toprol and PO Imdur. COPD: Stable Continue duo nebs Tobacco abuse: smokes one fourth pack per day. Offered smoking cessation counseling NicoDerm patch ordered DVT prophylaxis SCDs FULL CODE Dispo: Home with palliative/hospice services preferable Will discuss with CM and Palliative care. Resident Physician Supervision Note: I interviewed and examined the patient. Discussed with Dr. Heart and agree with findings and plan as documented in the note. Any exceptions or clarifications are listed here: None Documented By: Jd Fish feelign ok mostly wants to go home. revisited yesterdays discussions - again he doesn't directly oppose cancer treatment measures or HD if needed - but more adamantly expresses a desire to go home even if those measures aren't employed cholangitis - ongoing zosyn, s/p multiple stents by GI arf - most likely ATN, not improving although also no acute indications for HD hypoproliferative and hemorrhagic anemia - agree w further transfusion although likely levels still low from prior bleed rather than repeated given his overall clinical stability pharmacologic DVT proph is contraindicated due to bleeding prognosis poor pt asked that i call his sister teri - good and lengthy d/w her - she notes that her brother was thinking more towards hospice even prior to this hsopitalization, they've had family members with cancer who chose a hospice route and they understand what that means, further they as a family all really just want to get him home adelina and believe that is what he would want too. she notes that my discussions with him where he is endorsing more of a palliative approach are quite in line with the same discusssions she's had with him. i did discuss that he hasn't directly said he would not want cancer treatment or HD - she notes to me that he mostly has d/w her not wanting the cancer treated. goal - if able to eat soft foods, able to transfer out of bed to bedside commode (has at home, as well as hospital bed) and he is unequivocally clear that he only wants palliative care - then will work to get him home as soon as possible
[2017-04-29] MEDS: INSULIN GLARGINE SOLOSTAR 100 UNITS/ML 3 ML PEN SC SCH (20:30)
[2017-04-29] MEDS: METRONIDAZOLE 500 MG TAB PO SCH (20:31)
--- NOTE | 2017-04-29 20:44 | Progress Note ---
Post ICU Progress Note Date & Time Apr 29, 2017 at 20:44 Vital Signs Vital Signs Past 12 Hours Date Time Temp Pulse Resp B/P (MAP) Pulse Ox O2 Delivery O2 Flow Rate FiO2 04/29/17 20:03 Room Air 04/29/17 19:36 36.6 88 16 115/76 96 04/29/17 19:12 88 16 96 Room Air 04/29/17 18:40 36.7 92 18 99/66 98 04/29/17 18:03 36.6 92 16 111/74 96 04/29/17 17:49 36.5 90 18 134/68 99 04/29/17 17:26 36.6 93 18 130/76 99 04/29/17 17:13 36.4 95 18 131/73 99 04/29/17 16:43 36.5 93 18 137/81 99 04/29/17 16:13 36.5 94 16 136/81 99 04/29/17 16:00 Room Air 04/29/17 15:49 78 16 94 Room Air 04/29/17 15:43 36.8 87 16 130/79 96 04/29/17 15:30 36.7 90 18 110/69 98 04/29/17 15:26 36.6 86 18 136/81 100 04/29/17 15:11 36.6 86 16 133/81 97 04/29/17 14:53 36.7 86 16 136/74 99 04/29/17 12:00 Room Air 04/29/17 11:59 37.0 85 18 149/81 (103) 96 04/29/17 11:06 91 16 95 Room Air Notes Mental Status: alert / awake Nausea / Vomiting: adequately controlled Pain: adequately controlled Airway Patency, RR, SpO2: stable & adequate BP & HR: stable & adequate Patient is a 62-year-old male who was admitted to the hospital several days ago for an occluded biliary stent secondary to progression of pancreatic adenocarcinoma. He underwent ERCP 2. Eventually, the patient developed an upper GI bleed with acute blood loss anemia requiring multiple rounds of blood products. He underwent upper endoscopy and had clips 2 placed of a bleeding vessel in his stomach. He stabilized it was downgraded from the ICU. Per records, he had maintained his H&H up until the last several hours. He has received 2U PRBCs. He is currently receiving 2nd unit during evaluation. At this point, the patient is looking forward to being discharged on Monday or Monday. He reports that he has had bowel movements, but he is uncertain if they were black or not. He offers no complaints at this point and overall feels better. On further review the patient's chart, his repeat H&H after second unit was still at 7.6 and 22.2 which is concerning for continued bleed. I did speak with nursing staff informing that the patient has had black stools all day. The blood was running at 125 cc/h. I did have her communicate with primary staff to address the issue. He was ordered an additional unit of PRBCs. I did add repeat PT/INR as well as LFTs for assessment of need for repeat dose of FFP. Patient remains hemodynamically stable at this point. Consider outpatient follow up in 1 to 2 weeks with: GI, Palliative Care Repeat imaging needed: Per primary service. Follow up cultures: None at this point. Reviewed progress notes, labs, and inpatient medication list Continue current management Additional recommendations: As above. At this point, the patient appears to be at the end of his disease process w/ persistent GI bleeding. I would strongly encourage, as others have done already, palliative care consult. I feel as though the patient has poor overall understanding of his disease process and terminal nature at this point. He seems more frustrated today and I think this is directly related his personal grieving process. I would recommend having his sister, Pat Chen ([phone]), present for any further conversations regarding palliation. He likes her to be aware of his medical conditions/changes and I feel that she may be instrumental in helping with the patient's grieving process. Thank you for allowing us to participate in the care of this patient. At this point, Critical Care Services will sign off on this case. Please feel free to reconsult as needed. Consults & Procedures Consultants: MONICO Cazares
[2017-04-29 20:57] LABS: HEMATOCRIT 22.2 % (42-52); HEMOGLOBIN 7.6 g/dL (14.0-18.0)
[2017-04-29 23:15] LABS: INR 1.1 (0.9-1.1)
[2017-04-29 23:33] LABS: ALBUMIN 1.4 gm/dl (3.4-5.0); TOTAL PROTEIN 4.6 gm/dl (6.4-8.2)
[2017-04-30] VITALS (10 sets, daily range): BP systolic 105–149; BP diastolic 62–79; PULSE 85–91; TEMP 36.5–36.9; O2SAT 95–100
[2017-04-30 02:10] LABS: HEMATOCRIT 24.2 % (42-52); HEMOGLOBIN 8.2 g/dL (14.0-18.0)
[2017-04-30] MEDS: PANTOprazole INJ 40 MG in DEXTROSE 5% 100ML IV SCH ×2 (02:41→06:24)
[2017-04-30] MEDS: ALBUT/IPRATROP 3MG/0.5MG NEB 3 ML VIAL INH SCH (07:59)
[2017-04-30 08:33] LABS: EOS % 2.6 %; EOS ABS # 0.25 K/uL (0-0.5); HEMATOCRIT 24.5 % (42-52); HEMOGLOBIN 8.4 g/dL (14.0-18.0); IG# 0.09 K/uL (0.00-0.02); LYMPH % 12.9 %; LYMPH ABS # 1.23 K/uL (1.2-3.4); MEAN CORPUSCULAR HEMOGLOBIN 29.5 pg (25-34); MEAN CORPUSCULAR HGB CONC 34.3 g/dl (32-36); MEAN PLATELET VOLUME 8.8 fL (7.4-10.4); MONO % 5.7 %; MONO ABS # 0.55 K/uL (0.11-0.59); NEUT % 76.9 %; NEUT ABS # 7.35 K/uL (1.4-6.5); PLATELET COUNT 289 K/uL (130-400); WHITE BLOOD COUNT 9.57 K/uL (4.8-10.8)
[2017-04-30] MEDS: TAMSULOSIN HCL 0.4 MG CAP PO SCH (08:36)
[2017-04-30] MEDS: METRONIDAZOLE 500 MG TAB PO SCH ×2 (08:36→20:50)
[2017-04-30] MEDS: SODIUM BICARBONATE 650 MG TAB PO SCH (08:36)
[2017-04-30] MEDS: METOPROLOL SUCC 25MG EXT REL TAB PO SCH (08:37)
[2017-04-30] MEDS: NICOTINE 7 MG/24 HR TDSY TD SCH (08:37)
[2017-04-30] MEDS: NYSTATIN POWDER 15GM BTL EXT SCH ×3 (08:37→17:22)
[2017-04-30] MEDS: INSULIN ASPART 100 UNITS/ML 3 ML PEN SC SCH ×4 (08:38→20:53)
[2017-04-30 09:19] LABS: CREATININE 5.27 mg/dl (0.60-1.40); POTASSIUM 3.8 mmol/L (3.5-5.1)
[2017-04-30] MEDS: IPRATROPIUM BROMIDE/ALBUTEROL respimat INH INH SCH ×4 (12:34→20:49)
--- NOTE | 2017-04-30 14:47 | Family Medicine Progress Note ---
Progress Note Date of Service Apr 30, 2017. Subjective Pt evaluation today including: conversation w/ patient Continues to request to go home Has not made a decision as to palliative/hospice service, though family is on board. He would like to discuss with his family later today Tolerating full liquids Constitutional: No fever, No chills Eyes: No worsening of vision ENT: No hearing loss Respiratory: No cough, No sputum, No wheezing, No shortness of breath, No dyspnea on exertion Cardiovascular: No chest pain Abdomen: No pain, No nausea, No vomiting, No diarrhea, No constipation Male : No dysuria, No urinary frequency Medications Medications (Trade) Dose Ordered Sig/Sarah Route Start Time Stop Time Status Last Admin Dose Admin Metronidazole (Flagyl Tab) 500 mg BID PO 04/29/17 21:00 05/09/17 20:59 04/30/17 08:36 500 MG Albuterol/ Ipratropium (Combivent Respimat Inh) 1 puffs QID INH 04/30/17 12:00 05/30/17 11:59 04/30/17 12:34 1 PUFFS Objective Vital Signs Date Time Temp Pulse Resp B/P (MAP) Pulse Ox O2 Delivery O2 Flow Rate FiO2 04/30/17 12:00 Room Air 04/30/17 11:23 36.5 86 16 149/73 (98) 99 Room Air 04/30/17 08:00 91 16 95 Room Air 04/30/17 07:16 36.5 87 16 110/62 (78) 97 Room Air 04/30/17 07:00 Room Air 04/30/17 04:02 Room Air 04/30/17 03:43 36.6 86 18 112/72 (85) 98 04/30/17 00:51 36.9 86 17 113/73 97 04/30/17 00:01 Room Air 04/29/17 23:48 36.7 92 17 91/61 99 04/29/17 23:31 37.1 91 18 99/60 92 04/29/17 20:03 Room Air 04/29/17 19:36 36.6 88 16 115/76 96 04/29/17 19:12 88 16 96 Room Air 04/29/17 18:40 36.7 92 18 99/66 98 04/29/17 18:03 36.6 92 16 111/74 96 04/29/17 17:49 36.5 90 18 134/68 99 04/29/17 17:26 36.6 93 18 130/76 99 04/29/17 17:13 36.4 95 18 131/73 99 04/29/17 16:43 36.5 93 18 137/81 99 04/29/17 16:13 36.5 94 16 136/81 99 04/29/17 16:00 Room Air 04/29/17 15:49 78 16 94 Room Air 04/29/17 15:43 36.8 87 16 130/79 96 04/29/17 15:30 36.7 90 18 110/69 98 04/29/17 15:26 36.6 86 18 136/81 100 04/29/17 15:11 36.6 86 16 133/81 97 04/29/17 14:53 36.7 86 16 136/74 99 Physical Exam General Appearance: no apparent distress, + obese Eyes: PERRL, EOMI ENT: hearing grossly normal Neck: supple, no JVD Respiratory/Chest: lungs clear, normal breath sounds, no respiratory distress, no accessory muscle use Cardiovascular: regular rate, rhythm Abdomen: normal bowel sounds, non tender, soft Extremities: non-tender, no pedal edema, no calf tenderness Neurologic/Psychiatric: alert, + depressed affect Laboratory Results Last 24 Hours Test 04/29/17 16:15 04/29/17 20:28 04/29/17 20:47 04/29/17 22:56 Bedside Glucose 179 mg/dl 149 mg/dl Hemoglobin 7.6 g/dL Hematocrit 22.2 % Prothrombin Time 11.9 SECONDS Prothromb Time International Ratio 1.1 Total Bilirubin 1.7 mg/dl Direct Bilirubin 1.3 mg/dl Aspartate Amino Transf (AST/SGOT) 36 U/L Alanine Aminotransferase (ALT/SGPT) 36 U/L Alkaline Phosphatase 218 U/L Total Protein 4.6 gm/dl Albumin 1.4 gm/dl Test 04/30/17 01:51 04/30/17 06:38 04/30/17 07:55 04/30/17 11:19 Hemoglobin 8.2 g/dL 8.4 g/dL Hematocrit 24.2 % 24.5 % Bedside Glucose 127 mg/dl 98 mg/dl White Blood Count 9.57 K/uL Red Blood Count 2.85 M/uL Mean Corpuscular Volume 86.0 fL Mean Corpuscular Hemoglobin 29.5 pg Mean Corpuscular Hemoglobin Concent 34.3 g/dl Platelet Count 289 K/uL Mean Platelet Volume 8.8 fL Neutrophils (%) (Auto) 76.9 % Lymphocytes (%) (Auto) 12.9 % Monocytes (%) (Auto) 5.7 % Eosinophils (%) (Auto) 2.6 % Basophils (%) (Auto) 1.0 % Neutrophils # (Auto) 7.35 K/uL Lymphocytes # (Auto) 1.23 K/uL Monocytes # (Auto) 0.55 K/uL Eosinophils # (Auto) 0.25 K/uL Basophils # (Auto) 0.10 K/uL RDW Standard Deviation 47.0 fL RDW Coefficient of Variation 15.0 % Immature Granulocyte % (Auto) 0.9 % Immature Granulocyte # (Auto) 0.09 K/uL Red Blood Cell Morphology Unremarkable Sodium Level 141 mmol/L Potassium Level 3.8 mmol/L Chloride Level 111 mmol/L Carbon Dioxide Level 21 mmol/L Anion Gap 9.0 mmol/L Blood Urea Nitrogen 60 mg/dl Creatinine 5.27 mg/dl Est Creatinine Clear Calc Drug Dose 17.3 ml/min Estimated GFR () 12.3 Estimated GFR (Non- 10.6 BUN/Creatinine Ratio 11.3 Random Glucose 101 mg/dl Calcium Level 7.0 mg/dl Test 04/30/17 12:01 Hemoglobin 8.3 g/dL Assessment and Plan 62-year-old male with a past medical history of coronary artery disease, diabetes type 2, diabetic foot ulcer status post amputation of right first and second toes, hypertension, hyperlipidemia, prostate cancer status post radiation therapy 2014, pancreatic adenocarcinoma status post common bile duct stent placement in December 2016 had presented from [facility] with intractable nausea and vomiting on 04/19 04/20 - ERCP with stent removal, brush cytology, stricture dilation and stent placement 04/21 - Emergent ERCP showed intra-op findings included occluded stent, segmental biliary stricture - which was malignant-appearing, dilated bile duct, hepatic ducts, and intrahepatic branches. Mild, pus, sludge flowed through new stents once tracts were patent again. 04/22- Worsening of nausea and vomiting, unknown etiology, renal vs GI. 04/23 - Repeat ERCP, Dr. Deal found a large piece of beef obstructing the lower esophagus, that was removed and bile duct stent was changed - pt showed significant improvement of symptoms. Acute GI bleeding from severe esophagitis - s/p EGD - EGD : - Red blood and clot in the lower third of the esophagus and in the middle third of the esophagus. - Severe esophagitis with a large visible vessel with active oozing. Clips (MR conditional) were placed. - Clotted blood in the stomach, Normal duodenal bulb with bilious fluid. - Protonix drip dc/d, switched po protonix BID - Advance diet to soft diet- recommend avoid hard textured foods. Acute blood loss Anemia. recurrent: - likely from upper GI bleed - received 9 units total PRBC transfusion - check serial H &H Sepsis secondary to cholangitis, bile duct occlusion/pancreatic adenocarcinoma - levaquin and flagyl PO - Status post ERCP with bile duct stent change - Will need repeat ERCP in 2-4 weeks - Palliative consulted Acute kidney injury /ATN: -Creatinine at 5.2 - avoid nephrotoxic drugs - bicarb added - nephrology following New onset A fib TSH WNL. s/p digoxin 250mcg and metoprolol tartrate 25mg continue Metoprolol 25mg XL & Imdur. 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 DM2 hba1c 10.2 lantus dose has been decreased to 15 units Weakness PT/OT on board. BPH/prostate cancer Continue tamsulosin CAD/hypertension Continue 25 mg Toprol and PO Imdur. COPD: Stable Continue duo nebs Tobacco abuse: smokes one fourth pack per day. Offered smoking cessation counseling NicoDerm patch DVT prophylaxis SCDs FULL CODE Dispo: Home with palliative/hospice services preferable- Ultimately patient will need to have a discussion with family and decide what care/services he would like going forward. He is aware of impending need for dialysis given worsening renal function and he will decide if he would want dialysis along with other medical treatments such as on going blood transfusions, palliative radiation. Code status will also need to be re-visited. CM aware Resident Physician Supervision Note: I interviewed and examined the patient. Discussed with Dr. Heart and agree with findings and plan as documented in the note. Any exceptions or clarifications are listed here: None Documented By: Jd Fish feeling ok tolerating food well hasn't been out of bed yet still not entirely clear what he wants as far as treatments, etc. re-explained situation to pt, noted that yesterday he was clearly noting he'd want to go home , but tried to make clear to pt that if home/hospice then he could "lose ground " with other diagnoses if he's not sure that he truly just wants home/hospice. (emphasized because he's been clear on saying he wants to go home but not so much that he only wants comfort care) oscar noted nad breathing unlabored no pallor or icterus cholangitis, pancreatic cancer, esophageal ulcer w UGI bleeding and significant blood loss anemia requiring MANY units transfusion, ARF (likely ATN but not showing recovery yet) -prognosis poor, discussing goals - he seems to be struggling with what he would or wouldn't want - seems to wwant to go home but still want aggressive care - family to come later today and hopefully face to face discussions with them will help him clarify what his goals are. (Dr Heart later facilitated discussion with pt and family)
[2017-04-30] MEDS: PANTOprazole SOD 40 MG TAB PO SCH (20:50)
[2017-04-30] MEDS: INSULIN GLARGINE SOLOSTAR 100 UNITS/ML 3 ML PEN SC SCH (20:58)
[2017-05-01 02:14] LABS: HEMOGLOBIN 7.3 g/dL (14.0-18.0)
[2017-05-01 07:05] VITALS: BP 128/74; PULSE 81; TEMP 36.7; O2SAT 99
[2017-05-01 08:14] LABS: CALCIUM 7.2 mg/dl (8.5-10.1); CREATININE 5.17 mg/dl (0.60-1.40); POTASSIUM 4.6 mmol/L (3.5-5.1)
--- NOTE | 2017-05-01 08:23 | Nephrology Progress Note ---
Nephrology Progress Note Date of Service Apr 30, 2017. Chief Complaint Follow-up for acute kidney injury. Subjective Mr. Plummer was seen and examined in his room this morning. Has been otherwise feeling well, denies any specific symptoms, blood pressure and volume status acceptable. Electrolyte remain stable. Remain non-oliguric however creatinine staying high at 5.3 without significant improvement. Review of Systems A complete review of systems was performed. Pertinent positives are noted above. All other systems are negative. Vital Signs Last 8 Hrs Date Time Temp Pulse Resp B/P (MAP) Pulse Ox O2 Delivery O2 Flow Rate FiO2 04/30/17 08:00 91 16 95 Room Air 04/30/17 07:16 36.5 87 16 110/62 (78) 97 Room Air 04/30/17 04:02 Room Air 04/30/17 03:43 36.6 86 18 112/72 (85) 98 Last Recorded Weight Weight (Kilograms): 116.300 Physical Exam GENERAL: Middle-aged male, AAA x 3, not in any distress. NECK: Supple, no JVD. RESPIRATORY: clear to auscultation bilaterally, no wheezes or rales. CARDIOVASCULAR: S1, S2 normal, rate rhythm regular. EXTREMITY: No lower extremity edema NEURO: speech fluent. PSYCHIATRY: Normal mood and judgment Family History Negative for CKD / ESRD Social History Smokeless Tobacco Use: No Alcohol Use: Drug Use: none Marital Status: Occupation: other Resides in [place], [place]. . Seven children. Formerly worked in [employer]. Laboratory Results Past 24 Hours 04/29/17 20:47 04/30/17 01:51 04/30/17 07:55 Red Blood Count 2.85, Mean Corpuscular Volume 86.0, Mean Corpuscular Hemoglobin 29.5, Mean Corpuscular Hemoglobin Concent 34.3, Mean Platelet Volume 8.8, Neutrophils (%) (Auto) 76.9, Lymphocytes (%) (Auto) 12.9, Monocytes (%) (Auto) 5.7, Eosinophils (%) (Auto) 2.6, Basophils (%) (Auto) 1.0, Neutrophils # (Auto) 7.35, Lymphocytes # (Auto) 1.23, Monocytes # (Auto) 0.55, Eosinophils # (Auto) 0.25, Basophils # (Auto) 0.10 04/30/17 07:55 Test 3/24/18 11:18 04/29/17 16:15 04/29/17 20:28 04/29/17 22:56 Bedside Glucose 108 mg/dl (70-99) 179 mg/dl (70-99) 149 mg/dl (70-99) Prothrombin Time 11.9 SECONDS (9.0-12.0) Prothromb Time International Ratio 1.1 (0.9-1.1) Total Bilirubin 1.7 mg/dl (0.2-1) Direct Bilirubin 1.3 mg/dl (0-0.2) Aspartate Amino Transf (AST/SGOT) 36 U/L (15-37) Alanine Aminotransferase (ALT/SGPT) 36 U/L (12-78) Alkaline Phosphatase 218 U/L (45-117) Total Protein 4.6 gm/dl (6.4-8.2) Albumin 1.4 gm/dl (3.4-5.0) Test 04/30/17 06:38 04/30/17 07:55 Bedside Glucose 127 mg/dl (70-99) White Blood Count 9.57 K/uL (4.8-10.8) Red Blood Count 2.85 M/uL (4.7-6.1) Hemoglobin 8.4 g/dL (14.0-18.0) Hematocrit 24.5 % (42-52) Mean Corpuscular Volume 86.0 fL (80-100) Mean Corpuscular Hemoglobin 29.5 pg (25-34) Mean Corpuscular Hemoglobin Concent 34.3 g/dl (32-36) Platelet Count 289 K/uL (130-400) Mean Platelet Volume 8.8 fL (7.4-10.4) Neutrophils (%) (Auto) 76.9 % Lymphocytes (%) (Auto) 12.9 % Monocytes (%) (Auto) 5.7 % Eosinophils (%) (Auto) 2.6 % Basophils (%) (Auto) 1.0 % Neutrophils # (Auto) 7.35 K/uL (1.4-6.5) Lymphocytes # (Auto) 1.23 K/uL (1.2-3.4) Monocytes # (Auto) 0.55 K/uL (0.11-0.59) Eosinophils # (Auto) 0.25 K/uL (0-0.5) Basophils # (Auto) 0.10 K/uL (0-0.2) RDW Standard Deviation 47.0 fL (36.4-46.3) RDW Coefficient of Variation 15.0 % (11.5-14.5) Immature Granulocyte % (Auto) 0.9 % Immature Granulocyte # (Auto) 0.09 K/uL (0.00-0.02) Red Blood Cell Morphology Unremarkable Anion Gap 9.0 mmol/L (3-11) Est Creatinine Clear Calc Drug Dose 17.3 ml/min Estimated GFR () 12.3 Estimated GFR (Non- 10.6 BUN/Creatinine Ratio 11.3 (10-20) Calcium Level 7.0 mg/dl (8.5-10.1) Allergies Coded Allergies: Iodinated Diagnostic Agents (Verified Allergy, Mild, GI SYMPTOMS, 04/19/17) No Known Drug Allergy (Verified Allergy, Unknown, none, 04/19/17) Medications Current Inpatient Medications Medications (Trade) Dose Ordered Sig/Sarah Route Start Time Stop Time Status Last Admin Dose Admin Acetaminophen (Tylenol Tab) 650 mg Q4H PRN PO 04/19/17 22:45 05/19/17 22:44 Future Hold Polyethylene (Miralax Powder Packet) 17 gm DAILY PRN PO 04/19/17 22:45 05/19/17 22:44 Future Hold Ondansetron HCl (Zofran Inj) 4 mg Q6H PRN IV 04/19/17 22:45 05/19/17 22:44 04/27/17 02:39 4 MG Bisacodyl (Dulcolax Tab) 10 mg DAILY PRN PO 04/20/17 00:45 05/20/17 00:44 Future Hold 04/23/17 17:15 10 MG Furosemide (Lasix Tab) 40 mg DAILY PO 04/20/17 09:00 05/20/17 08:59 Future Hold 04/21/17 08:48 40 MG Nystatin (Mycostatin Powder) 1 appln [id number] EXT 04/20/17 08:00 05/20/17 07:59 04/30/17 08:37 1 APPLN Isosorbide Mononitrate (Imdur Ext Rel Tab) 30 mg DAILY PO 04/20/17 09:00 05/20/17 08:59 Future Hold 04/26/17 07:50 30 MG Polyethylene (Miralax Powder Packet) 17 gm DAILY PO 04/20/17 09:00 05/20/17 08:59 Future Hold 04/25/17 08:17 17 GM Nicotine (Nicoderm Cq 7 Mg Patch) 1 patch QAM TD 04/20/17 09:00 05/20/17 08:59 04/30/17 08:37 1 PATCH Miscellaneous (Remove Nicoderm Patch) 1 ea HS N/A 04/20/17 21:00 05/20/17 20:59 04/29/17 20:31 1 EA Albuterol/ Ipratropium (Duoneb) 3 ml Q4R PRN INH 04/20/17 04:00 05/20/17 03:59 04/28/17 21:36 3 ML Insulin Aspart (novoLOG ASPART) SLIDING SCALE G... ACHS SC 04/20/17 21:00 05/20/17 05:59 04/30/17 08:38 2 UNITS Glucose (Glucose 40% Gel) 15-30 GRAMS 15 GRAMS... UD PRN PO 04/25/17 10:45 05/25/17 10:44 Glucose (Glucose Chew Tab) 4-8 Tablets 4 Tabl... UD PRN PO 04/25/17 10:45 05/25/17 10:44 Dextrose (Dextrose 50% 50ML Syringe) 25-50ML OF 50% DW IV FOR... UD PRN IV 04/25/17 10:45 05/25/17 10:44 Glucagon (Glucagon Inj) 1 mg UD PRN SQ 04/25/17 10:45 05/25/17 10:44 Insulin Glargine (Lantus Solostar Pen) 15 units HS SC 04/25/17 21:00 05/20/17 20:59 04/29/17 20:30 15 UNITS Sucralfate (Carafate Susp) 1 gm QID PO 04/26/17 13:30 05/26/17 13:29 Future Hold 04/26/17 22:03 1 GM Pantoprazole Sodium 40 mg/ Dextrose 100 ml @ 20 mls/hr Q5H IV 04/27/17 02:00 05/27/17 01:59 04/30/17 06:24 20 MLS/HR Metoprolol Succinate (Toprol Xl Tab) 25 mg DAILY PO 04/28/17 09:30 05/28/17 09:29 04/30/17 08:37 25 MG Tamsulosin HCl (Flomax Cap) 0.4 mg DAILY PO 04/28/17 09:30 05/28/17 09:29 04/30/17 08:36 0.4 MG Sodium Bicarbonate (Sodium Bicarbonate Tab) 650 mg QAM PO 04/29/17 09:00 05/29/17 08:59 04/30/17 08:36 650 MG Levofloxacin (Levaquin Tab) 750 mg Q2D@11 PO 05/01/17 11:00 05/11/17 10:59 Metronidazole (Flagyl Tab) 500 mg BID PO 04/29/17 21:00 05/09/17 20:59 04/30/17 08:36 500 MG Albuterol/ Ipratropium (Combivent Respimat Inh) 1 puffs QID INH 04/30/17 12:00 05/30/17 11:59 Impression (1) Acute kidney injury (2) Dehydration (3) Pancreatic carcinoma (4) Common bile duct obstruction (5) Jaundice Acute kidney injury was likely related to dehydration and inflammation. At the time of presentation patient was on a loop diuretic but no other potential nephrotoxic medications. Clinically doubt obstruction as patient remains nonoliguric. UGI bleed 04/26 complicated by hypotension. EGD w/ severe esophagitis and visible vessel requiring clipping. Patient transfused w/ 6 U PRBC since admission Recommendations -- creatinine seems to have picked, staying around 5.2, electrolyte remain acceptable. Blood pressure and volume status stable and remain non-oliguric. No indication for dialysis at this time, hopefully renal function will start to improve -- Recommend transfusion to maintain Hgb > 8.0 -- continue [id number] -- Monitor serial PRP -- Recommend Oncology evaluation to define prognosis. Consider palliative care consultation
--- NOTE | 2017-05-01 09:02 | Family Medicine Progress Note ---
Progress Note Date of Service May 01, 2017. Subjective Pt evaluation today including: conversation w/ patient, conversation w/ family , physical exam, chart review, lab review, review of studies, conversation w/ datapower consultant, review of inpatient medication list Pain: 7/10 abdominal pain PO Intake: adequate Voiding: no voiding problems Pt continues to have large bloody stools. He complains of fatigue, weakness. He has received 9 units PRBC's in total, last transfusion on 04/29. Constitutional: + weakness, + fatigue, No fever Respiratory: No cough, No wheezing, No shortness of breath Cardiovascular: No chest pain, No edema, No palpitations Abdomen: + GI bleeding, No pain, No nausea, No vomiting Musculoskeletal: No swelling, No calf pain Male : No dysuria, No hematuria Heme: + abnormal bleeding/bruising (Gi bleed) Skin: No rash, No itch Objective Vital Signs Date Time Temp Pulse Resp B/P (MAP) Pulse Ox O2 Delivery O2 Flow Rate FiO2 05/01/17 07:05 36.7 81 18 128/74 (92) 99 Room Air 05/01/17 00:00 Room Air 04/30/17 23:23 36.6 88 20 129/77 (94) 100 Room Air 04/30/17 21:51 36.7 88 12 115/71 (86) 99 Room Air 04/30/17 18:25 Room Air 04/30/17 18:20 36.5 85 18 98 10.0 04/30/17 18:17 36.5 85 18 105/68 (80) 98 Room Air 04/30/17 16:00 Room Air 04/30/17 15:18 36.6 88 20 137/79 (98) 100 Room Air 04/30/17 12:00 Room Air 04/30/17 11:23 36.5 86 16 149/73 (98) 99 Room Air Physical Exam Notes: GENERAL alert , no distress EYE EXAM:+ Pale conjunctiva, PERRL and EOM's grossly intact OROPHARYNX: no exudate, no erythema, lips, buccal mucosa, and tongue normal and mucous membranes are moist NECK: supple, no nuchal rigidity, no adenopathy, non-tender LUNGS: Clear to auscultation. Normal chest wall mechanics HEART: no murmurs, S1 normal and S2 normal ABDOMEN: abdomen soft, non-tender, normo-active bowel sounds, no masses, no rebound or guarding. SKIN: no rashes and no bruising UPPER EXTREMITIES: delayed capillary refill, otherwise upper extremities are grossly normal. LOWER EXTREMITIES: No pitting edema. NEURO EXAM: Normal sensorium, cranial nerves II-XII grossly intact, normal speech, Laboratory Results Results Past 24 Hours Test 04/30/17 11:19 04/30/17 12:01 04/30/17 15:55 04/30/17 16:07 Range/Units Bedside Glucose 98 141 70-99 mg/dl Hemoglobin 8.3 8.1 14.0-18.0 g/dL Test 04/30/17 20:13 04/30/17 20:33 05/01/17 02:06 05/01/17 06:57 Range/Units Bedside Glucose 127 70-99 mg/dl Hemoglobin 8.6 7.3 7.5 14.0-18.0 g/dL Hematocrit 21.0 42-52 % Sodium Level 140 136-145 mmol/L Potassium Level 4.6 3.5-5.1 mmol/L Chloride Level 110 98-107 mmol/L Carbon Dioxide Level 21 21-32 mmol/L Anion Gap 9.0 3-11 mmol/L Blood Urea Nitrogen 58 7-18 mg/dl Creatinine 5.17 0.60-1.40 mg/dl Est Creatinine Clear Calc Drug Dose 17.6 ml/min Estimated GFR () 12.6 Estimated GFR (Non- 10.9 BUN/Creatinine Ratio 11.1 10-20 Random Glucose 133 70-99 mg/dl Calcium Level 7.2 8.5-10.1 mg/dl Test 05/01/17 07:30 Range/Units Bedside Glucose 141 70-99 mg/dl Assessment and Plan 63 yo M w/ history of CAD, T2DM, Diabetic foot ulcer s/p amputation of Right 1st , 2nd metatarsal, HTN, Hyperlipidemia, Prostate cancer s/p radiation therapy , pancreatic adenocarcinoma s/p bile duct stent placement (12/23) transfer from [place] presenting with intractable N/V (04/19) 04/20 - ERCP with stent removal, brush cytology, stricture dilation and stent placement 04/21 - Emergent ERCP showed intra-op findings included occluded stent, segmental biliary stricture - which was malignant-appearing, dilated bile duct, hepatic ducts, and intrahepatic branches. Mild, pus, sludge flowed through new stents once tracts were patent again. 04/22- Worsening of nausea and vomiting, unknown etiology, renal vs GI. 04/23 - Repeat ERCP, Dr. Deal found a large piece of beef obstructing the lower esophagus, that was removed and bile duct stent was changed - pt showed significant improvement of symptoms. Acute GI bleeding from severe esophagitis - s/p EGD - EGD = Red blood and clot in the lower third of the esophagus and in the middle third of the esophagus. - Severe esophagitis with a large visible vessel with active oozing. Clips (MR conditional) were placed. - Clotted blood in the stomach, Normal duodenal bulb with bilious fluid. -actively bleeding, no further GI intervention to be attempted - Patient has elected hospice on discharge - will discontinue further transfusions -Transitioning to comfort care - Continue Protonix Acute blood loss Anemia. recurrent: - likely from upper GI bleed - received 9 units total PRBC transfusion - H/H appears stable at present - D/C further lab work Sepsis secondary to cholangitis, bile duct occlusion/pancreatic adenocarcinoma - Palliative consulted - plan to transfer patient home with home hospice - D/C further antibiotic therapy Acute kidney injury /ATN: -Creatinine at 5.1 <--5.2 - bicarb remains - D/C further lab work New onset A fib D/C Metoprolol 25mg XL & Imdur. DM2 Continue to Lantus at present dosing BPH/prostate cancer D/C'd tamsulosin CAD/hypertension D/C'd 25 mg Toprol and PO Imdur. COPD: Stable Continue prn duo nebs Tobacco abuse: smokes one fourth pack per day. Offered smoking cessation counseling NicoDerm patch DVT prophylaxis SCDs Discussion was held with patient and family regarding options for continues medical therapy without operative intervention vs hospice care. Patient and sister understood the options. Patient elected to transition to comfort measures and be discharged with hospice. Case management alerted. Home hospice pending discussion with patient by case management and selection of hospice. Continued [facility] stay due to: multiple IV medications needed Discharge planning: home with Hospice Assessment/Plan Resident Physician Supervision Note: I was present with Dr. Griffin during the history and exam. I discussed the case with the resident and agree with the findings and plan as documented in the note. Any exceptions or clarifications are listed here. Pt seen at bedside - appears somewhat somnolent and pale, but conversant. Engaged in thorough discussion of the patients course of illness including present GIB, recommended courses of action per gastroenterology and primary team to this point, and potential outcomes including , debility and potential recovery. Patient had difficulty grasping the discussion, but clarified and expressed understanding following further description in more straightforward terms. He asked to discuss with his sister, who understands the current state and endorses that she will support him in whatever decision he makes. Neither had additional questions, see Palliative care consultation for conclusion of this conversation - Hospice and DNR transition with discharge to home on hospice. Resident Tracking Resident Involvement: Resident Care Provided Care Provided: Adult [facility]
[2017-05-01] MEDS: INSULIN ASPART 100 UNITS/ML 3 ML PEN SC SCH ×5 (09:20→20:25)
[2017-05-01] MEDS: METRONIDAZOLE 500 MG TAB PO SCH ×2 (09:20→20:30)
[2017-05-01] MEDS: METOPROLOL SUCC 25MG EXT REL TAB PO SCH (09:20)
[2017-05-01] MEDS: SODIUM BICARBONATE 650 MG TAB PO SCH (09:21)
[2017-05-01] MEDS: PANTOprazole SOD 40 MG TAB PO SCH ×2 (09:21→20:30)
[2017-05-01] MEDS: NICOTINE 7 MG/24 HR TDSY TD SCH (09:22)
[2017-05-01] MEDS: NYSTATIN POWDER 15GM BTL EXT SCH ×3 (09:22→17:30)
[2017-05-01] MEDS: TAMSULOSIN HCL 0.4 MG CAP PO SCH (09:22)
[2017-05-01] MEDS: IPRATROPIUM BROMIDE/ALBUTEROL respimat INH INH SCH ×4 (09:22→20:27)
--- NOTE | 2017-05-01 11:19 | Gastroenterology Progress Note ---
Progress Note Date of Service: May 01, 2017 Subjective Pt evaluation today including: conversation w/ patient, physical exam, chart review, lab review, review of studies, review of inpatient medication list Mr. Plummer is a 62 yr old male with pancreatic cancer S/P stenting who presented to [facility] on 04/27 with melena, anemia. Since admission, he underwent EGD with severe esophagitis and a visible vessel that was clipped on 04/27/17. He was on a PPI drip and Octreotide which has since been DC/ed. It appears that he continues to bleed. This morning he had a blood BM on thread winder and again early on day shift, moderate size. He has received a total of 9 units of RBCs this admission; most recent transfusion was 04/29. This morning he is awake, alert, able to tell me today's day/date. However, he does not recall being told the results of the EGD/that he has esophagitis and bleeding. His kidney function is worsening, having arrived with a Cr 1.3 that is now 5.17. Recent BP, HR without hypotension or tachycardia. He was hypotensive on the time of arrival on 04/26 and again on 04/27. Review of Systems Constitutional: + weakness (generalized), No fever Respiratory: No cough Cardiac: + edema (peripheral), No chest pain Abdomen: + pain (mild, epigastric) Male : No dysuria Neuro: No memory loss Heme: No abnormal bleeding/bruising Endo: + fatigue Medications Current Inpatient Medications Medications (Trade) Dose Ordered Sig/Sarah Route Start Time Stop Time Status Last Admin Dose Admin Acetaminophen (Tylenol Tab) 650 mg Q4H PRN PO 04/19/17 22:45 05/19/17 22:44 Future Hold Polyethylene (Miralax Powder Packet) 17 gm DAILY PRN PO 04/19/17 22:45 05/19/17 22:44 Future Hold Ondansetron HCl (Zofran Inj) 4 mg Q6H PRN IV 04/19/17 22:45 05/19/17 22:44 04/27/17 02:39 4 MG Bisacodyl (Dulcolax Tab) 10 mg DAILY PRN PO 04/20/17 00:45 05/20/17 00:44 Future Hold 04/23/17 17:15 10 MG Furosemide (Lasix Tab) 40 mg DAILY PO 04/20/17 09:00 05/20/17 08:59 Future Hold 04/21/17 08:48 40 MG Nystatin (Mycostatin Powder) 1 appln [id number] EXT 04/20/17 08:00 05/20/17 07:59 05/01/17 09:22 1 APPLN Isosorbide Mononitrate (Imdur Ext Rel Tab) 30 mg DAILY PO 04/20/17 09:00 05/20/17 08:59 Future Hold 04/26/17 07:50 30 MG Polyethylene (Miralax Powder Packet) 17 gm DAILY PO 04/20/17 09:00 05/20/17 08:59 Future Hold 04/25/17 08:17 17 GM Nicotine (Nicoderm Cq 7 Mg Patch) 1 patch QAM TD 04/20/17 09:00 05/20/17 08:59 05/01/17 09:22 1 PATCH Miscellaneous (Remove Nicoderm Patch) 1 ea HS N/A 04/20/17 21:00 05/20/17 20:59 04/30/17 20:49 1 EA Albuterol/ Ipratropium (Duoneb) 3 ml Q4R PRN INH 04/20/17 04:00 05/20/17 03:59 04/28/17 21:36 3 ML Insulin Aspart (novoLOG ASPART) SLIDING SCALE G... ACHS SC 04/20/17 21:00 05/20/17 05:59 04/30/17 17:23 2 UNITS Glucose (Glucose 40% Gel) 15-30 GRAMS 15 GRAMS... UD PRN PO 04/25/17 10:45 05/25/17 10:44 Glucose (Glucose Chew Tab) 4-8 Tablets 4 Tabl... UD PRN PO 04/25/17 10:45 05/25/17 10:44 Dextrose (Dextrose 50% 50ML Syringe) 25-50ML OF 50% DW IV FOR... UD PRN IV 04/25/17 10:45 05/25/17 10:44 Glucagon (Glucagon Inj) 1 mg UD PRN SQ 04/25/17 10:45 05/25/17 10:44 Insulin Glargine (Lantus Solostar Pen) 15 units HS SC 04/25/17 21:00 05/20/17 20:59 04/30/17 20:58 15 UNITS Sucralfate (Carafate Susp) 1 gm QID PO 04/26/17 13:30 05/26/17 13:29 Future Hold 04/26/17 22:03 1 GM Metoprolol Succinate (Toprol Xl Tab) 25 mg DAILY PO 04/28/17 09:30 05/28/17 09:29 05/01/17 09:20 25 MG Tamsulosin HCl (Flomax Cap) 0.4 mg DAILY PO 04/28/17 09:30 05/28/17 09:29 05/01/17 09:22 0.4 MG Sodium Bicarbonate (Sodium Bicarbonate Tab) 650 mg QAM PO 04/29/17 09:00 05/29/17 08:59 05/01/17 09:21 650 MG Levofloxacin (Levaquin Tab) 750 mg Q2D@11 PO 05/01/17 11:00 05/11/17 10:59 Metronidazole (Flagyl Tab) 500 mg BID PO 04/29/17 21:00 05/09/17 20:59 05/01/17 09:20 500 MG Albuterol/ Ipratropium (Combivent Respimat Inh) 1 puffs QID INH 04/30/17 12:00 05/30/17 11:59 05/01/17 09:22 1 PUFFS Pantoprazole Sodium (Protonix Tab) 40 mg BID PO 04/30/17 21:00 05/30/17 20:59 05/01/17 09:21 40 MG Objective Vital Signs Date Time Temp Pulse Resp B/P (MAP) Pulse Ox O2 Delivery O2 Flow Rate FiO2 05/01/17 08:20 Room Air 05/01/17 07:05 36.7 81 18 128/74 (92) 99 Room Air 05/01/17 00:00 Room Air 04/30/17 23:23 36.6 88 20 129/77 (94) 100 Room Air 04/30/17 21:51 36.7 88 12 115/71 (86) 99 Room Air 04/30/17 18:25 Room Air 04/30/17 18:20 36.5 85 18 98 10.0 04/30/17 18:17 36.5 85 18 105/68 (80) 98 Room Air 04/30/17 16:00 Room Air 04/30/17 15:18 36.6 88 20 137/79 (98) 100 Room Air 04/30/17 12:00 Room Air 04/30/17 11:23 36.5 86 16 149/73 (98) 99 Room Air Physical Exam General Appearance: no apparent distress, + pertinent finding (appears deconditioned requiring help to ambulate in bed.) Neck: no JVD Respiratory/Chest: lungs clear Cardiovascular: regular rate, rhythm, no murmur Abdomen: soft, + tenderness (minimal epigastric tenderness) Extremities: + pedal edema (2+ lower leg and pedal edema) Neurologic/Psych: alert, oriented x 3, + pertinent finding (flat affect) Skin: normal color Laboratory Results Last 24 Hours Test 04/30/17 11:19 04/30/17 12:01 04/30/17 15:55 04/30/17 16:07 Bedside Glucose 98 mg/dl 141 mg/dl Hemoglobin 8.3 g/dL 8.1 g/dL Test 04/30/17 20:13 04/30/17 20:33 05/01/17 02:06 05/01/17 06:57 Bedside Glucose 127 mg/dl Hemoglobin 8.6 g/dL 7.3 g/dL 7.5 g/dL Hematocrit 21.0 % Sodium Level 140 mmol/L Potassium Level 4.6 mmol/L Chloride Level 110 mmol/L Carbon Dioxide Level 21 mmol/L Anion Gap 9.0 mmol/L Blood Urea Nitrogen 58 mg/dl Creatinine 5.17 mg/dl Est Creatinine Clear Calc Drug Dose 17.6 ml/min Estimated GFR () 12.6 Estimated GFR (Non- 10.9 BUN/Creatinine Ratio 11.1 Random Glucose 133 mg/dl Calcium Level 7.2 mg/dl Test 05/01/17 07:30 Bedside Glucose 141 mg/dl Assessment and Plan Mr. Plummer is a 62 yr old male who was dx'ed with pancreas mass in December 2016 and underwent stent change for obstruction/cholangitis about 2 weeks ago, then EGD with esophagitis and a visible esophagus vessel within the area of esophagitis. Plan: with pancreas mass and now GI bleeding and kidney failure, the pt should consider palliative care - consult placed. Should restart octreotide drip and PPI drip if pt does not wish for palliative care. Continue to support with blood transfusions. Agree with nephrology comment that goal Hb is >8.0. Will continue to follow. I performed a history and physical examination of the patient, including specifically on physical exam - no abdominal tenderness. I have discussed the patient's management with HERNÁN Presley. Please refer to the nurse practitioner's note for the documented findings and plan of care. Patient agreed for Hospice care. Can give PO PPI BID and Carafate. No need to repeat EGD at this time. Please recall if any questions.
--- NOTE | 2017-05-01 12:22 | Nephrology Progress Note ---
Nephrology Progress Note Date of Service May 01, 2017. Chief Complaint Follow-up for acute kidney injury. Subjective Mr. Plummer was seen and examined in his room this morning. Has been otherwise feeling well, denies any specific symptoms, blood pressure and volume status acceptable. Electrolyte remain stable. Remain non-oliguric however creatinine stable at 5.2 without significant improvement. Review of Systems A complete review of systems was performed. Pertinent positives are noted above. All other systems are negative. Vital Signs Last 8 Hrs Date Time Temp Pulse Resp B/P (MAP) Pulse Ox O2 Delivery O2 Flow Rate FiO2 05/01/17 07:05 36.7 81 18 128/74 (92) 99 Room Air Last Recorded Weight Weight (Kilograms): 116.300 Physical Exam GENERAL: Middle-aged male, AAA x 3, , not in any distress. NECK: Supple, no JVD. RESPIRATORY: Normal breathing efforts, no accessory muscle use, clear to auscultation bilaterally, no wheezes or rales. CARDIOVASCULAR: S1, S2 normal, rate rhythm regular. EXTREMITY: No lower extremity edema NEURO: speech fluent. PSYCHIATRY: Normal mood and judgment Family History Negative for CKD / ESRD Social History Smokeless Tobacco Use: No Alcohol Use: Drug Use: none Marital Status: Occupation: other Resides in [place], [place]. . Seven children. Formerly worked in [employer]. Laboratory Results Past 24 Hours 04/30/17 12:01 04/30/17 15:55 04/30/17 20:33 05/01/17 02:06 05/01/17 06:57 05/01/17 06:57 Test 04/30/17 11:19 04/30/17 16:07 04/30/17 20:13 05/01/17 06:57 Bedside Glucose 98 mg/dl (70-99) 141 mg/dl (70-99) 127 mg/dl (70-99) Anion Gap 9.0 mmol/L (3-11) Est Creatinine Clear Calc Drug Dose 17.6 ml/min Estimated GFR () 12.6 Estimated GFR (Non- 10.9 BUN/Creatinine Ratio 11.1 (10-20) Calcium Level 7.2 mg/dl (8.5-10.1) Test 05/01/17 07:30 Bedside Glucose 141 mg/dl (70-99) Allergies Coded Allergies: Iodinated Diagnostic Agents (Verified Allergy, Mild, GI SYMPTOMS, 04/19/17) No Known Drug Allergy (Verified Allergy, Unknown, none, 04/19/17) Medications Current Inpatient Medications Medications (Trade) Dose Ordered Sig/Sarah Route Start Time Stop Time Status Last Admin Dose Admin Acetaminophen (Tylenol Tab) 650 mg Q4H PRN PO 04/19/17 22:45 05/19/17 22:44 Future Hold Polyethylene (Miralax Powder Packet) 17 gm DAILY PRN PO 04/19/17 22:45 05/19/17 22:44 Future Hold Ondansetron HCl (Zofran Inj) 4 mg Q6H PRN IV 04/19/17 22:45 05/19/17 22:44 04/27/17 02:39 4 MG Bisacodyl (Dulcolax Tab) 10 mg DAILY PRN PO 04/20/17 00:45 05/20/17 00:44 Future Hold 04/23/17 17:15 10 MG Furosemide (Lasix Tab) 40 mg DAILY PO 04/20/17 09:00 05/20/17 08:59 Future Hold 04/21/17 08:48 40 MG Nystatin (Mycostatin Powder) 1 appln [id number] EXT 04/20/17 08:00 05/20/17 07:59 04/30/17 17:22 1 APPLN Isosorbide Mononitrate (Imdur Ext Rel Tab) 30 mg DAILY PO 04/20/17 09:00 05/20/17 08:59 Future Hold 04/26/17 07:50 30 MG Polyethylene (Miralax Powder Packet) 17 gm DAILY PO 04/20/17 09:00 05/20/17 08:59 Future Hold 04/25/17 08:17 17 GM Nicotine (Nicoderm Cq 7 Mg Patch) 1 patch QAM TD 04/20/17 09:00 05/20/17 08:59 04/30/17 08:37 1 PATCH Miscellaneous (Remove Nicoderm Patch) 1 ea HS N/A 04/20/17 21:00 05/20/17 20:59 04/30/17 20:49 1 EA Albuterol/ Ipratropium (Duoneb) 3 ml Q4R PRN INH 04/20/17 04:00 05/20/17 03:59 04/28/17 21:36 3 ML Insulin Aspart (novoLOG ASPART) SLIDING SCALE G... ACHS SC 04/20/17 21:00 05/20/17 05:59 04/30/17 17:23 2 UNITS Glucose (Glucose 40% Gel) 15-30 GRAMS 15 GRAMS... UD PRN PO 04/25/17 10:45 05/25/17 10:44 Glucose (Glucose Chew Tab) 4-8 Tablets 4 Tabl... UD PRN PO 04/25/17 10:45 05/25/17 10:44 Dextrose (Dextrose 50% 50ML Syringe) 25-50ML OF 50% DW IV FOR... UD PRN IV 04/25/17 10:45 05/25/17 10:44 Glucagon (Glucagon Inj) 1 mg UD PRN SQ 04/25/17 10:45 05/25/17 10:44 Insulin Glargine (Lantus Solostar Pen) 15 units HS SC 04/25/17 21:00 05/20/17 20:59 04/30/17 20:58 15 UNITS Sucralfate (Carafate Susp) 1 gm QID PO 04/26/17 13:30 05/26/17 13:29 Future Hold 04/26/17 22:03 1 GM Metoprolol Succinate (Toprol Xl Tab) 25 mg DAILY PO 04/28/17 09:30 05/28/17 09:29 04/30/17 08:37 25 MG Tamsulosin HCl (Flomax Cap) 0.4 mg DAILY PO 04/28/17 09:30 05/28/17 09:29 04/30/17 08:36 0.4 MG Sodium Bicarbonate (Sodium Bicarbonate Tab) 650 mg QAM PO 04/29/17 09:00 05/29/17 08:59 04/30/17 08:36 650 MG Levofloxacin (Levaquin Tab) 750 mg Q2D@11 PO 05/01/17 11:00 05/11/17 10:59 Metronidazole (Flagyl Tab) 500 mg BID PO 04/29/17 21:00 05/09/17 20:59 04/30/17 20:50 500 MG Albuterol/ Ipratropium (Combivent Respimat Inh) 1 puffs QID INH 04/30/17 12:00 05/30/17 11:59 04/30/17 20:49 1 PUFFS Pantoprazole Sodium (Protonix Tab) 40 mg BID PO 04/30/17 21:00 05/30/17 20:59 04/30/17 20:50 40 MG Impression (1) Acute kidney injury (2) Dehydration (3) Pancreatic carcinoma (4) Common bile duct obstruction (5) Jaundice Acute kidney injury was likely related to dehydration and inflammation. At the time of presentation patient was on a loop diuretic but no other potential nephrotoxic medications. Clinically doubt obstruction as patient remains nonoliguric. UGI bleed 04/26 complicated by hypotension. EGD w/ severe esophagitis and visible vessel requiring clipping. Patient transfused w/ 6 U PRBC since admission Recommendations -- creatinine stabilized, staying around 5.2, electrolyte remain acceptable. Blood pressure and volume status stable and remain non-oliguric. No indication for dialysis at this time, hopefully renal function will start to improve -- Recommend transfusion to maintain Hgb > 8.0 -- continue [id number] -- Monitor serial PRP Will follow
[2017-05-01] MEDS: LEVOFLOXACIN 750 MG TAB PO SCH (12:40)
[2017-05-01 15:39] LABS: HEMATOCRIT 21.8 % (42-52); HEMOGLOBIN 7.4 g/dL (14.0-18.0)
--- NOTE | 2017-05-01 16:50 | Palliative Care Consultation ---
Consultation Date of Consultation: May 01, 2017. Requesting Physician: Valdez Kraus Attending Physician: Dr Humphreys Reason for Consultation: Determine goals of care and address CODE STATUS History of Present Illness Patient is a 62-year-old male who was admitted on 04/19 from [facility] for suspected cholangitis and removal of bile duct stent. Patient is a fair to poor historian, review of the medical records, studies and labs performed. Discussed with attending physician. Patient was recently diagnosed with pancreatic cancerstatus post common bile duct stent who presented to [facility] with complaints of chest pain, cough, vomiting and diarrhea for approximately 4 days. Patient also complained of mid abdominal pain. CT scan showed obstruction of the common bile duct around the stent, he was treated with IV antibiotics and transferred to [facility]. During this admission patient had a severe GI bleed that required transfusion of 9 units of blood, his last transfusion was on is hemoglobin has been holding at 7.6, but he is continuing to have several bloody bowel movements daily. Patient stated he did not want to continue aggressive treatment including repeat blood draws or further transfusions. Patient would like to return home with hospice care. Patient asked that I speak to his sister Romy, by phone and she agrees with his decision and would like to honor his wishes. Of note patient also is having worsening renal failure, creatinine on admission was 1.33, it peaked at 5.27 on 04/30 and is 5.17 on labs today. Patient underwent EGD which found esophagitis with a visible vessel that was clipped on 04/27. Patient is on a PPI drip but continues to have signs and symptoms of bleeding. Patient and sister are agreeable to comfort care, no further aggressive treatment. Left a message for case management to proceed with hospice at home. Sister reported they would find family members to help care for him at home. Patient's CODE STATUS changed to DNR. 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 Review of Systems Constitutional: No fever Eyes: No worsening of vision ENT: No hearing loss Respiratory: No cough Cardiac: No chest pain Abdomen: + pain (Patient reports minimal abdominal pain) Musculoskeletal: No joint pain Male : No dysuria Psychiatric: No anxiety Heme: + abnormal bleeding/bruising (Continues to have bloody bowel movements) Endo: + fatigue Skin: No rash Allergies Coded Allergies: Iodinated Diagnostic Agents (Verified Allergy, Mild, GI SYMPTOMS, 04/19/17) No Known Drug Allergy (Verified Allergy, Unknown, none, 04/19/17) Medications Current Inpatient Medications Medications (Trade) Dose Ordered Sig/Sarah Route Start Time Stop Time Status Last Admin Dose Admin Acetaminophen (Tylenol Tab) 650 mg Q4H PRN PO 04/19/17 22:45 05/19/17 22:44 Future Hold Polyethylene (Miralax Powder Packet) 17 gm DAILY PRN PO 04/19/17 22:45 05/19/17 22:44 Future Hold Ondansetron HCl (Zofran Inj) 4 mg Q6H PRN IV 04/19/17 22:45 05/19/17 22:44 04/27/17 02:39 4 MG Bisacodyl (Dulcolax Tab) 10 mg DAILY PRN PO 04/20/17 00:45 05/20/17 00:44 Future Hold 04/23/17 17:15 10 MG Furosemide (Lasix Tab) 40 mg DAILY PO 04/20/17 09:00 05/20/17 08:59 Future Hold 04/21/17 08:48 40 MG Nystatin (Mycostatin Powder) 1 appln [id number] EXT 04/20/17 08:00 05/20/17 07:59 05/01/17 12:40 1 APPLN Isosorbide Mononitrate (Imdur Ext Rel Tab) 30 mg DAILY PO 04/20/17 09:00 05/20/17 08:59 Future Hold 04/26/17 07:50 30 MG Polyethylene (Miralax Powder Packet) 17 gm DAILY PO 04/20/17 09:00 05/20/17 08:59 Future Hold 04/25/17 08:17 17 GM Nicotine (Nicoderm Cq 7 Mg Patch) 1 patch QAM TD 04/20/17 09:00 05/20/17 08:59 05/01/17 09:22 1 PATCH Miscellaneous (Remove Nicoderm Patch) 1 ea HS N/A 04/20/17 21:00 05/20/17 20:59 04/30/17 20:49 1 EA Albuterol/ Ipratropium (Duoneb) 3 ml Q4R PRN INH 04/20/17 04:00 05/20/17 03:59 04/28/17 21:36 3 ML Insulin Aspart (novoLOG ASPART) SLIDING SCALE G... ACHS SC 04/20/17 21:00 05/20/17 05:59 05/01/17 12:51 4 UNITS Glucose (Glucose 40% Gel) 15-30 GRAMS 15 GRAMS... UD PRN PO 04/25/17 10:45 05/25/17 10:44 Glucose (Glucose Chew Tab) 4-8 Tablets 4 Tabl... UD PRN PO 04/25/17 10:45 05/25/17 10:44 Dextrose (Dextrose 50% 50ML Syringe) 25-50ML OF 50% DW IV FOR... UD PRN IV 04/25/17 10:45 05/25/17 10:44 Glucagon (Glucagon Inj) 1 mg UD PRN SQ 04/25/17 10:45 05/25/17 10:44 Insulin Glargine (Lantus Solostar Pen) 15 units HS SC 04/25/17 21:00 05/20/17 20:59 04/30/17 20:58 15 UNITS Sucralfate (Carafate Susp) 1 gm QID PO 04/26/17 13:30 05/26/17 13:29 Future Hold 04/26/17 22:03 1 GM Metoprolol Succinate (Toprol Xl Tab) 25 mg DAILY PO 04/28/17 09:30 05/28/17 09:29 05/01/17 09:20 25 MG Tamsulosin HCl (Flomax Cap) 0.4 mg DAILY PO 04/28/17 09:30 05/28/17 09:29 05/01/17 09:22 0.4 MG Sodium Bicarbonate (Sodium Bicarbonate Tab) 650 mg QAM PO 04/29/17 09:00 05/29/17 08:59 05/01/17 09:21 650 MG Levofloxacin (Levaquin Tab) 750 mg Q2D@11 PO 05/01/17 11:00 05/11/17 10:59 05/01/17 12:40 750 MG Metronidazole (Flagyl Tab) 500 mg BID PO 04/29/17 21:00 05/09/17 20:59 05/01/17 09:20 500 MG Albuterol/ Ipratropium (Combivent Respimat Inh) 1 puffs QID INH 04/30/17 12:00 05/30/17 11:59 05/01/17 12:46 1 PUFFS Pantoprazole Sodium (Protonix Tab) 40 mg BID PO 04/30/17 21:00 05/30/17 20:59 05/01/17 09:21 40 MG Physical Exam Date Time Temp Pulse Resp B/P (MAP) Pulse Ox O2 Delivery O2 Flow Rate FiO2 05/01/17 08:20 Room Air 05/01/17 07:05 36.7 81 18 128/74 (92) 99 Room Air 05/01/17 00:00 Room Air 04/30/17 23:23 36.6 88 20 129/77 (94) 100 Room Air 04/30/17 21:51 36.7 88 12 115/71 (86) 99 Room Air 04/30/17 18:25 Room Air 04/30/17 18:20 36.5 85 18 98 10.0 04/30/17 18:17 36.5 85 18 105/68 (80) 98 Room Air General Appearance: no apparent distress Eyes: EOMI ENT: hearing grossly normal Neck: supple Respiratory: lungs clear, normal breath sounds Cardiovascular: regular rate, rhythm, + pertinent finding (1+ pedal edema to below the knee) Abdomen: non tender (On palpation) Musculoskeletal: pertinent finding (Generalized weakness) Neurologic/Psychiatric: alert, + pertinent finding (General low cognitive function) Skin: + pallor Laboratory Results Last 24 Hours Test 04/30/17 20:13 04/30/17 20:33 05/01/17 02:06 05/01/17 06:57 Bedside Glucose 127 mg/dl Hemoglobin 8.6 g/dL 7.3 g/dL 7.5 g/dL Hematocrit 21.0 % Sodium Level 140 mmol/L Potassium Level 4.6 mmol/L Chloride Level 110 mmol/L Carbon Dioxide Level 21 mmol/L Anion Gap 9.0 mmol/L Blood Urea Nitrogen 58 mg/dl Creatinine 5.17 mg/dl Est Creatinine Clear Calc Drug Dose 17.6 ml/min Estimated GFR () 12.6 Estimated GFR (Non- 10.9 BUN/Creatinine Ratio 11.1 Random Glucose 133 mg/dl Calcium Level 7.2 mg/dl Test 05/01/17 07:30 05/01/17 11:18 05/01/17 15:24 05/01/17 16:03 Bedside Glucose 141 mg/dl 119 mg/dl 79 mg/dl Hemoglobin 7.4 g/dL Hematocrit 21.8 % Assessment & Plan Palliative Performance Scale: 40 % (1) Acute blood loss anemia Status: Acute Assessment & Plan: Patient opting for comfort care, no further aggressive care (2) Pancreatic carcinoma Status: Acute Assessment & Plan: Plans to discharge home with hospice care (3) ARF (acute renal failure) Status: Acute Assessment & Plan: Creatinine increasing, patient not a candidate for dialysis Patient's CODE STATUS is now DNR, plan to transfer patient home with home hospice. Will discuss with case management who will help family make plans to care for patient at home. Counseling and Coordination Total time 55 minutes with greater than 50% of the time spent discussing goals of care with patient. Verified wishes with sister Romy, by phone.
[2017-05-01 16:51] VITALS: BP 133/75; PULSE 80; TEMP 36.4; O2SAT 99
[2017-05-01] MEDS: INSULIN GLARGINE SOLOSTAR 100 UNITS/ML 3 ML PEN SC SCH (20:25)
[2017-05-02 07:03] VITALS: BP 145/72; PULSE 89; TEMP 36.4; O2SAT 98
[2017-05-02] MEDS: INSULIN ASPART 100 UNITS/ML 3 ML PEN SC SCH ×4 (08:07→20:50)
[2017-05-02] MEDS: NYSTATIN POWDER 15GM BTL EXT SCH ×3 (08:08→16:00)
[2017-05-02] MEDS: IPRATROPIUM BROMIDE/ALBUTEROL respimat INH INH SCH ×4 (08:08→20:45)
[2017-05-02] MEDS: PANTOprazole SOD 40 MG TAB PO SCH ×2 (08:08→20:45)
[2017-05-02] MEDS: TAMSULOSIN HCL 0.4 MG CAP PO SCH (08:08)
[2017-05-02] MEDS: NICOTINE 7 MG/24 HR TDSY TD SCH (08:09)
[2017-05-02] MEDS: METRONIDAZOLE 500 MG TAB PO SCH ×2 (08:09→20:45)
[2017-05-02] MEDS: METOPROLOL SUCC 25MG EXT REL TAB PO SCH (08:09)
[2017-05-02] MEDS: SODIUM BICARBONATE 650 MG TAB PO SCH (08:10)
--- NOTE | 2017-05-02 08:11 | Family Medicine Progress Note ---
Progress Note Date of Service May 02, 2017. Subjective Pt evaluation today including: conversation w/ patient, physical exam, chart review, lab review, review of studies, review of inpatient medication list Pain: abdominal pain 7/10, tolerating, refuses pain medicine PO Intake: adequate Voiding: no voiding problems Black stools reported. Patient continues to complain of 7/10 abdominal pain, however refuses pain medication currently. He denies n/v fevers, chills, Additional Comments: Constitutional: + weakness, No fever, No chills Respiratory: No cough, No wheezing, No shortness of breath Cardiovascular: No chest pain, No edema, No palpitations Abdomen: + GI bleeding, No nausea, No vomiting Musculoskeletal: No swelling, No calf pain Male : No dysuria, No hematuria Heme: + abnormal bleeding/bruising (Gi bleed) Skin: No rash, No itch Medications Current Inpatient Medications Medications (Trade) Dose Ordered Sig/Sarah Route Start Time Stop Time Status Last Admin Dose Admin Acetaminophen (Tylenol Tab) 650 mg Q4H PRN PO 04/19/17 22:45 05/19/17 22:44 Future Hold Polyethylene (Miralax Powder Packet) 17 gm DAILY PRN PO 04/19/17 22:45 05/19/17 22:44 Future Hold Ondansetron HCl (Zofran Inj) 4 mg Q6H PRN IV 04/19/17 22:45 05/19/17 22:44 04/27/17 02:39 4 MG Bisacodyl (Dulcolax Tab) 10 mg DAILY PRN PO 04/20/17 00:45 05/20/17 00:44 Future Hold 04/23/17 17:15 10 MG Nystatin (Mycostatin Powder) 1 appln [id number] EXT 04/20/17 08:00 05/20/17 07:59 05/02/17 08:08 1 APPLN Isosorbide Mononitrate (Imdur Ext Rel Tab) 30 mg DAILY PO 04/20/17 09:00 05/20/17 08:59 Future Hold 04/26/17 07:50 30 MG Polyethylene (Miralax Powder Packet) 17 gm DAILY PO 04/20/17 09:00 05/20/17 08:59 Future Hold 04/25/17 08:17 17 GM Nicotine (Nicoderm Cq 7 Mg Patch) 1 patch QAM TD 04/20/17 09:00 05/20/17 08:59 05/02/17 08:09 1 PATCH Miscellaneous (Remove Nicoderm Patch) 1 ea HS N/A 04/20/17 21:00 05/20/17 20:59 04/30/17 20:49 1 EA Albuterol/ Ipratropium (Duoneb) 3 ml Q4R PRN INH 04/20/17 04:00 05/20/17 03:59 04/28/17 21:36 3 ML Insulin Aspart (novoLOG ASPART) SLIDING SCALE G... ACHS SC 04/20/17 21:00 05/20/17 05:59 05/02/17 08:07 6 UNITS Glucose (Glucose 40% Gel) 15-30 GRAMS 15 GRAMS... UD PRN PO 04/25/17 10:45 05/25/17 10:44 Glucose (Glucose Chew Tab) 4-8 Tablets 4 Tabl... UD PRN PO 04/25/17 10:45 05/25/17 10:44 Dextrose (Dextrose 50% 50ML Syringe) 25-50ML OF 50% DW IV FOR... UD PRN IV 04/25/17 10:45 05/25/17 10:44 Glucagon (Glucagon Inj) 1 mg UD PRN SQ 04/25/17 10:45 05/25/17 10:44 Insulin Glargine (Lantus Solostar Pen) 15 units HS SC 04/25/17 21:00 05/20/17 20:59 04/30/17 20:58 15 UNITS Sucralfate (Carafate Susp) 1 gm QID PO 04/26/17 13:30 05/26/17 13:29 Future Hold 04/26/17 22:03 1 GM Metoprolol Succinate (Toprol Xl Tab) 25 mg DAILY PO 04/28/17 09:30 05/28/17 09:29 05/02/17 08:09 25 MG Tamsulosin HCl (Flomax Cap) 0.4 mg DAILY PO 04/28/17 09:30 05/28/17 09:29 05/02/17 08:08 0.4 MG Sodium Bicarbonate (Sodium Bicarbonate Tab) 650 mg QAM PO 04/29/17 09:00 05/29/17 08:59 05/02/17 08:10 650 MG Levofloxacin (Levaquin Tab) 750 mg Q2D@11 PO 05/01/17 11:00 05/11/17 10:59 05/01/17 12:40 750 MG Metronidazole (Flagyl Tab) 500 mg BID PO 04/29/17 21:00 05/09/17 20:59 05/02/17 08:09 500 MG Albuterol/ Ipratropium (Combivent Respimat Inh) 1 puffs QID INH 04/30/17 12:00 05/30/17 11:59 05/02/17 08:08 1 PUFFS Pantoprazole Sodium (Protonix Tab) 40 mg BID PO 04/30/17 21:00 05/30/17 20:59 05/02/17 08:08 40 MG Objective Vital Signs Date Time Temp Pulse Resp B/P (MAP) Pulse Ox O2 Delivery O2 Flow Rate FiO2 05/02/17 08:15 Room Air 05/02/17 07:03 36.4 89 18 145/72 (96) 98 Room Air 05/02/17 00:00 Room Air 05/01/17 20:00 Room Air 05/01/17 16:51 36.4 80 18 133/75 (94) 99 Room Air 05/01/17 16:20 Room Air Laboratory Results Results Past 24 Hours Test 05/01/17 15:24 05/01/17 16:03 05/01/17 20:07 05/02/17 07:25 Range/Units Hemoglobin 7.4 14.0-18.0 g/dL Hematocrit 21.8 42-52 % Bedside Glucose 79 96 134 70-99 mg/dl Assessment and Plan 63 yo M w/ history of CAD, T2DM, Diabetic foot ulcer s/p amputation of Right 1st , 2nd metatarsal, HTN, Hyperlipidemia, Prostate cancer s/p radiation therapy , pancreatic adenocarcinoma s/p bile duct stent placement (12/23) transfer from [place] presenting with intractable N/V (04/19) 04/20 - ERCP with stent removal, brush cytology, stricture dilation and stent placement 04/21 - Emergent ERCP showed intra-op findings included occluded stent, segmental biliary stricture - which was malignant-appearing, dilated bile duct, hepatic ducts, and intrahepatic branches. Mild, pus, sludge flowed through new stents once tracts were patent again. 04/22- Worsening of nausea and vomiting, unknown etiology, renal vs GI. 04/23 - Repeat ERCP, Dr. Deal found a large piece of beef obstructing the lower esophagus, that was removed and bile duct stent was changed - pt showed significant improvement of symptoms. Acute GI bleeding from severe esophagitis - s/p EGD - EGD - Red blood and clot in the lower third of the esophagus and in the middle third of the esophagus. - Severe esophagitis with a large visible vessel with active oozing. Clips (MR conditional) were placed. - Clotted blood in the stomach, Normal duodenal bulb with bilious fluid. -actively bleeding, no further GI intervention to be attempted - Patient has elected hospice on discharge - will discontinue further transfusions - Continue Protonix Acute blood loss Anemia. recurrent: - likely from upper GI bleed - received 9 units total PRBC transfusion - H/H appears stable at present - No further transfusions - D/C further lab work Sepsis secondary to cholangitis, bile duct occlusion/pancreatic adenocarcinoma -vitals improved -Continue antibiotics - plan to transfer patient home with home hospice Acute kidney injury /ATN: no further labwork - bicarb remains - D/C further lab work New onset A fib Metoprolol 25mg XL & Imdur. DM2 Continue Lantus, ISS at present dosing BPH/prostate cancer tamsulosin CAD/hypertension 5 mg Toprol and PO Imdur. COPD: Stable Continue prn duo nebs Tobacco abuse: smokes one fourth pack per day. Offered smoking cessation counseling NicoDerm patch DVT prophylaxis SCDs Discharge Per Case management, family has decided on [facility] on discharge, referral placed. F/u with case management Discharge planning: home with Hospice Resident Tracking Resident Involvement: Resident Care Provided Care Provided: Adult Hospital Medicine Assessment/Plan Resident Physician Supervision Note: I was present with Dr. Griffin during the history and exam. I discussed the case with the resident and agree with the findings and plan as documented in the note. Any exceptions or clarifications are listed here. Pt resting comfortably in bed with persistent stable fatigue. Bloody BM have decreased in frequency and severity, and now passing brown stool. Abd is NT/ND BS+ Upon revisiting, pt still wishes to pursue previously discussed hospice planning. Case mgmt aware.
--- NOTE | 2017-05-02 10:16 | Nephrology Progress Note ---
Nephrology Progress Note Date of Service May 02, 2017. Chief Complaint Follow-up for acute kidney injury. Subjective was seen and examined in his room this morning. Overall feeling well , denies any symptom. Review of Systems A complete review of systems was performed. Pertinent positives are noted above. All other systems are negative. Vital Signs Last 8 Hrs Date Time Temp Pulse Resp B/P (MAP) Pulse Ox O2 Delivery O2 Flow Rate FiO2 05/02/17 08:15 Room Air 05/02/17 07:03 36.4 89 18 145/72 (96) 98 Room Air Last Recorded Weight Weight (Kilograms): 116.500 Physical Exam GENERAL:elderly male , AAA x 3, pleasant, pale-appearing, not in any distress. NECK: Supple, no JVD. RESPIRATORY: Normal breathing efforts, no accessory muscle use, clear to auscultation bilaterally, no wheezes or rales. CARDIOVASCULAR: S1, S2 normal, rate rhythm regular. EXTREMITY: 2 + lower extremity edema NEURO: speech fluent. PSYCHIATRY: Normal mood and judgment Family History Negative for CKD / ESRD Social History Smokeless Tobacco Use: No Alcohol Use: Drug Use: none Marital Status: Housing Status: lives alone Occupation: disabled, other Resides in [place], [place]. . Seven children. Formerly worked in [employer]. Laboratory Results Past 24 Hours 05/01/17 15:24 Test 05/01/17 11:18 05/01/17 16:03 05/01/17 20:07 05/02/17 07:25 Bedside Glucose 119 mg/dl (70-99) 79 mg/dl (70-99) 96 mg/dl (70-99) 134 mg/dl (70-99) Test 05/02/17 09:40 Allergies Coded Allergies: Iodinated Diagnostic Agents (Verified Allergy, Mild, GI SYMPTOMS, 04/19/17) No Known Drug Allergy (Verified Allergy, Unknown, none, 04/19/17) Medications Current Inpatient Medications Medications (Trade) Dose Ordered Sig/Sarah Route Start Time Stop Time Status Last Admin Dose Admin Acetaminophen (Tylenol Tab) 650 mg Q4H PRN PO 04/19/17 22:45 05/19/17 22:44 Future Hold Polyethylene (Miralax Powder Packet) 17 gm DAILY PRN PO 04/19/17 22:45 05/19/17 22:44 Future Hold Ondansetron HCl (Zofran Inj) 4 mg Q6H PRN IV 04/19/17 22:45 05/19/17 22:44 04/27/17 02:39 4 MG Bisacodyl (Dulcolax Tab) 10 mg DAILY PRN PO 04/20/17 00:45 05/20/17 00:44 Future Hold 04/23/17 17:15 10 MG Nystatin (Mycostatin Powder) 1 appln [id number] EXT 04/20/17 08:00 05/20/17 07:59 05/02/17 08:08 1 APPLN Isosorbide Mononitrate (Imdur Ext Rel Tab) 30 mg DAILY PO 04/20/17 09:00 05/20/17 08:59 Future Hold 04/26/17 07:50 30 MG Polyethylene (Miralax Powder Packet) 17 gm DAILY PO 04/20/17 09:00 05/20/17 08:59 Future Hold 04/25/17 08:17 17 GM Nicotine (Nicoderm Cq 7 Mg Patch) 1 patch QAM TD 04/20/17 09:00 05/20/17 08:59 05/02/17 08:09 1 PATCH Miscellaneous (Remove Nicoderm Patch) 1 ea HS N/A 04/20/17 21:00 05/20/17 20:59 04/30/17 20:49 1 EA Albuterol/ Ipratropium (Duoneb) 3 ml Q4R PRN INH 04/20/17 04:00 05/20/17 03:59 04/28/17 21:36 3 ML Insulin Aspart (novoLOG ASPART) SLIDING SCALE G... ACHS SC 04/20/17 21:00 05/20/17 05:59 05/02/17 08:07 6 UNITS Glucose (Glucose 40% Gel) 15-30 GRAMS 15 GRAMS... UD PRN PO 04/25/17 10:45 05/25/17 10:44 Glucose (Glucose Chew Tab) 4-8 Tablets 4 Tabl... UD PRN PO 04/25/17 10:45 05/25/17 10:44 Dextrose (Dextrose 50% 50ML Syringe) 25-50ML OF 50% DW IV FOR... UD PRN IV 04/25/17 10:45 05/25/17 10:44 Glucagon (Glucagon Inj) 1 mg UD PRN SQ 04/25/17 10:45 05/25/17 10:44 Insulin Glargine (Lantus Solostar Pen) 15 units HS SC 04/25/17 21:00 05/20/17 20:59 04/30/17 20:58 15 UNITS Sucralfate (Carafate Susp) 1 gm QID PO 04/26/17 13:30 05/26/17 13:29 Future Hold 04/26/17 22:03 1 GM Metoprolol Succinate (Toprol Xl Tab) 25 mg DAILY PO 04/28/17 09:30 05/28/17 09:29 05/02/17 08:09 25 MG Tamsulosin HCl (Flomax Cap) 0.4 mg DAILY PO 04/28/17 09:30 05/28/17 09:29 05/02/17 08:08 0.4 MG Sodium Bicarbonate (Sodium Bicarbonate Tab) 650 mg QAM PO 04/29/17 09:00 05/29/17 08:59 05/02/17 08:10 650 MG Levofloxacin (Levaquin Tab) 750 mg Q2D@11 PO 05/01/17 11:00 05/11/17 10:59 05/01/17 12:40 750 MG Metronidazole (Flagyl Tab) 500 mg BID PO 04/29/17 21:00 05/09/17 20:59 05/02/17 08:09 500 MG Albuterol/ Ipratropium (Combivent Respimat Inh) 1 puffs QID INH 04/30/17 12:00 05/30/17 11:59 05/02/17 08:08 1 PUFFS Pantoprazole Sodium (Protonix Tab) 40 mg BID PO 04/30/17 21:00 05/30/17 20:59 05/02/17 08:08 40 MG Impression (1) Acute kidney injury (2) Dehydration (3) Pancreatic carcinoma (4) Common bile duct obstruction (5) Jaundice Acute kidney injury was likely related to dehydration and inflammation. At the time of presentation patient was on a loop diuretic but no other potential nephrotoxic medications. Clinically doubt obstruction as patient remains nonoliguric. UGI bleed 04/26 complicated by hypotension. EGD w/ severe esophagitis and visible vessel requiring clipping. Patient transfused w/ 6 U PRBC since admission Recommendations -- creatinine stabilized, staying around 5.2, electrolyte remain acceptable. Blood pressure and volume status stable and remain non-oliguric. After discussion with palliative care he opted for hospice care and going home tomorrow, no further lab done. Will sign off
--- NOTE | 2017-05-02 11:03 | Palliative Care Progress Note ---
Palliative Care Progress Note Date of Service May 02, 2017. Subjective Pt evaluation today including: conversation w/ patient, physical exam, chart review, lab review Pain: none on exam PO Intake: good - ate 100% of breakfast Voiding: no voiding problems Patient awake and alert, no acute distress. Patient reiterates that he "just wants to go home ", the sooner the better. Patient agreeable to going home with hospice. Discussed with case management, will coordinate care at home with patient's sister. Nursing reports bowel movements have become less frequent, but were still reported as bloody overnight. Patient has not had a bowel movement since change of shift this a.m. Patient is now a DNR, comfort care, no further lab draws. Patient's last hemoglobin was 7.4, creatinine was 5.17. Patient defers to his sister, Romy, for any questions regarding returning home with hospice. Review of Systems Constitutional: No fever Eyes: No worsening of vision ENT: No hearing loss Respiratory: No cough Cardiac: + edema, No chest pain Abdomen: + pain (None at the time of exam), + GI bleeding Male : No dysuria Neurologic: + weakness, + problem reported (Decreased cognitive function,? Baseline) Psychiatric: No anxiety Endo: + fatigue Skin: No rash Objective Vital Signs Date Time Temp Pulse Resp B/P (MAP) Pulse Ox O2 Delivery O2 Flow Rate FiO2 05/02/17 08:15 Room Air 05/02/17 07:03 36.4 89 18 145/72 (96) 98 Room Air 05/02/17 00:00 Room Air 05/01/17 20:00 Room Air 05/01/17 16:51 36.4 80 18 133/75 (94) 99 Room Air 05/01/17 16:20 Room Air Physical Exam General Appearance: no apparent distress Eyes: EOMI ENT: hearing grossly normal Neck: supple Respiratory/Chest: no respiratory distress Cardiovascular: regular rate, rhythm, + pertinent finding (Lower extremity edema, not increased) Abdomen: non tender (To light palpation), soft Extremities: + pedal edema Neurologic/Psychiatric: alert, + pertinent finding (Not sure patient's baseline , patient defers decision making to his sister Romy) Skin: warm/dry Laboratory Results Last 24 Hours Test 05/01/17 11:18 05/01/17 15:24 05/01/17 16:03 05/01/17 20:07 Bedside Glucose 119 mg/dl 79 mg/dl 96 mg/dl Hemoglobin 7.4 g/dL Hematocrit 21.8 % Test 05/02/17 07:25 Bedside Glucose 134 mg/dl Assessment and Plan (1) Acute blood loss anemia Status: Acute Assessment & Plan: Patient continues to have evidence of GI bleeding. Patient excepting of discharge home with hospice care (2) Pancreatic carcinoma Status: Acute Assessment & Plan: No further treatment planned (3) ARF (acute renal failure) Status: Acute Assessment & Plan: Last creatinine was 5.17, patient not a candidate for dialysis. Patient is a 62-year-old male with multiple medical problems including pancreatic cancer status post bile duct stent placement and removal. Patient has had no further vomiting, was found to have GI bleeding that required 9 units of packed red blood cells, last transfusion was on 04/29, last hemoglobin was 7.4. Patient is taking p.o. very well, eating 100% of his meals. Patient denies significant pain with meals, none on exam today. Patient with a history of diabetes and acute on chronic renal failure, last creatinine was 5.17 up from his admission creatinine of 1.33. Patient sister, Romy, is also agreeable to getting patient home as per his wishes under hospice care. Case management to work with patient's sister regarding family availability to assist with his care at home. Palliative Performance Scale: 30 % Continued [facility] stay due to: multiple IV medications needed Discharge planning: home with Hospice Counseling and Coordination Total time 30 minutes with greater than 50% of time spent speaking with patient and collaborating with case management
[2017-05-02 16:07] VITALS: BP 113/67; PULSE 81; TEMP 36.6; O2SAT 98
[2017-05-02] MEDS: INSULIN GLARGINE SOLOSTAR 100 UNITS/ML 3 ML PEN SC SCH (20:50)
[2017-05-02 23:48] VITALS: BP 128/75; PULSE 90; TEMP 36.6; O2SAT 98
[2017-05-03] MEDS: IPRATROPIUM BROMIDE/ALBUTEROL respimat INH INH SCH ×2 (07:48→12:37)
--- NOTE | 2017-05-03 08:11 | Family Medicine Progress Note ---
Progress Note Date of Service May 03, 2017. Objective Vital Signs Date Time Temp Pulse Resp B/P (MAP) Pulse Ox O2 Delivery O2 Flow Rate FiO2 05/03/17 00:00 Room Air 05/02/17 23:48 36.6 90 20 128/75 (92) 98 Room Air 05/02/17 16:07 36.6 81 18 113/67 (82) 98 Room Air 05/02/17 16:00 Room Air 05/02/17 08:15 Room Air Laboratory Results Results Past 24 Hours Test 05/02/17 11:37 05/02/17 16:15 05/02/17 20:34 05/03/17 07:46 Range/Units Bedside Glucose 154 157 258 220 70-99 mg/dl Microbiology Results 05/03/17 C.difficile Toxin B Gene (PCR) - Final, Complete No C. difficile toxin B gene detected Resident Tracking Resident Involvement: Resident Care Provided Care Provided: Adult Hospital Medicine
[2017-05-03 08:53] VITALS: BP 162/84; PULSE 88; TEMP 36.4; O2SAT 97
[2017-05-03] MEDS: PANTOprazole SOD 40 MG TAB PO SCH (09:00)
[2017-05-03] MEDS: NICOTINE 7 MG/24 HR TDSY TD SCH (09:00)
[2017-05-03] MEDS: TAMSULOSIN HCL 0.4 MG CAP PO SCH (09:00)
[2017-05-03] MEDS: METOPROLOL SUCC 25MG EXT REL TAB PO SCH (09:00)
[2017-05-03] MEDS: SODIUM BICARBONATE 650 MG TAB PO SCH (09:00)
[2017-05-03] MEDS: METRONIDAZOLE 500 MG TAB PO SCH (09:00)
[2017-05-03] MEDS: NYSTATIN POWDER 15GM BTL EXT SCH ×2 (09:01→12:33)
[2017-05-03] MEDS: INSULIN ASPART 100 UNITS/ML 3 ML PEN SC SCH ×2 (09:07→12:36)
[2017-05-03 10:13] VITALS: O2SAT 98
[2017-05-03 10:49] VITALS: BP 162/84; PULSE 88; TEMP 36.4; O2SAT 98
[2017-05-03] MEDS: LEVOFLOXACIN 750 MG TAB PO SCH (11:00)
--- NOTE | 2017-05-03 12:18 | Discharge Instructions ---
Discharge Instructions Date of Service May 03, 2017. Admission Reason for Admission: Nausea, Common Bile Duct Stent Discharge Discharge Diagnosis / Problem: GI Bleed Discharge Goals Goal(s): Decrease discomfort, Improve function, Improve nutritional status, Learn about illness Activity Recommendations Activity Limitations: resume your previous activity . Instructions / Follow-Up Instructions / Follow-Up You were admitted with an obstruction in the biliary stent and corresponding infection. You had your stent replaced and were treated with antibiotics. You were also found to have significant bleeding in the GI tract due to an inflamed Esophagus. You were given multiple units of blood, and a procedure to clip the vessels that were bleeding however the bleeding continued. Given high risk of your condition, it was not advisable for the Gastroenterologists to attempt another procedure of to fix the bleeding. After discussion with you and your family, the decision has been made to transition to focusing on providing you comfort in a Hospice. Please address all questions regarding worsening symptoms with your hospice doctor who will address them accordingly. Current Hospital Diet Patient's current hospital diet: Regular Diet Discharge Diet Recommended Diet: Regular Diet Procedures Procedures Performed: Esophagogastroduodenoscopy for Hemostasis Pending Studies Studies pending at discharge: no Laboratory Results Hemoglobin A1c Test 04/20/17 06:24 Range/Units Estimated Average Glucose 246 mg/dl Hemoglobin A1c 10.2 H 4.5-5.6 % Medical Emergencies . Who to Call and When: Medical Emergencies: If at any time you feel your situation is an emergency, please call 911 immediately. . Non-Emergent Contact Non-Emergency issues call your: Primary Care Provider (Hospice Physician) Call Non-Emergent contact if: you have a fever, your pain is not controlled, your pain is worsening, your pain is unusual for you, your pain is concerning you, you have any medication questions . . "Provider Documentation" section prepared by Rahat Griffin. .
--- NOTE | 2017-05-03 12:20 | Discharge Summary ---
Discharge Summary Date of Service May 03, 2017. Discharge Summary Admission Date: Apr 19, 2017 at 19:42 Discharge Date: May 03, 2017 Problems/Secondary Diagnoses: (1) Jaundice Status: Chronic Hospital Course This includes examination of the patient, discharge planning, medication reconciliation, and communication with other providers. Discharge Instructions Please refer to the electronic Patient Visit Report (Discharge Instructions) for additional information. Assessment/Plan Resident Physician Supervision Note: I was present with Dr. Griffin during the history and exam. I discussed the case with the resident and agree with the findings and plan as documented in the note. Any exceptions or clarifications are listed here. Pt continues to rest in bed without complaint. Recurrent bloody BM have resolved , now brown and less frequent. After discussion, still concurs that hospice course with [facility] would be preferable. Upon discharge, should re-evaluate for discontinuation of chronic medications where able. Per GI recommendation, can d/ c abx therapy on discharge for cholangitis.
== END 2017-05-03 13:20 | disposition hospice, home (50) | DRG 907 ==
LOC: C.MSN 19:42 → CMPBEDREQ 04-20 13:59 → C.2T 04-20 19:19 → ENRESERV 04-27 01:55 → C.MSICU 04-27 02:01 → ENRESERV 04-28 19:34 → C.2T 04-28 19:48 → ENRESERV 04-30 15:17 → C.MS2W 04-30 18:16
PROVIDERS: ADMIT Internal Medicine; ATTEND Family Medicine
PROC: 0FHB8DZ Insertion of Intraluminal Device into Hepatobiliary Duct, Via Natural or Artificial Opening Endoscopic (ICD-10-PCS; principal; 2017-04-20 13:30)
PROC: 0FPB8DZ Removal of Intraluminal Device from Hepatobiliary Duct, Via Natural or Artificial Opening Endoscopic (ICD-10-PCS; principal; 2017-04-20 13:30)
PROC: 0FHB8DZ Insertion of Intraluminal Device into Hepatobiliary Duct, Via Natural or Artificial Opening Endoscopic (ICD-10-PCS; 2017-04-23)
PROC: 0FPB8DZ Removal of Intraluminal Device from Hepatobiliary Duct, Via Natural or Artificial Opening Endoscopic (ICD-10-PCS; 2017-04-23)
PROC: 0DC38ZZ Extirpation of Matter from Lower Esophagus, Via Natural or Artificial Opening Endoscopic (ICD-10-PCS; 2017-04-23)
PROC: 0W338ZZ Control Bleeding in Oral Cavity and Throat, Via Natural or Artificial Opening Endoscopic (ICD-10-PCS; 2017-04-27)
DX: T85.590A Other mechanical complication of bile duct prosthesis, initial encounter (principal); K83.1 Obstruction of bile duct; A41.9 Sepsis, unspecified organism; N17.0 Acute kidney failure with tubular necrosis; K22.11 Ulcer of esophagus with bleeding; R57.8 Other shock; C25.9 Malignant neoplasm of pancreas, unspecified; K83.0 Cholangitis; N39.0 Urinary tract infection, site not specified; D61.9 Aplastic anemia, unspecified; D62 Acute posthemorrhagic anemia; Z51.5 Encounter for palliative care; T18.128A Food in esophagus causing other injury, initial encounter; K72.90 Hepatic failure, unspecified without coma; I25.10 Atherosclerotic heart disease of native coronary artery without angina pectoris; E11.40 Type 2 diabetes mellitus with diabetic neuropathy, unspecified; I48.91 Unspecified atrial fibrillation; I10 Essential (primary) hypertension; E78.5 Hyperlipidemia, unspecified; E86.0 Dehydration; R11.2 Nausea with vomiting, unspecified; R53.1 Weakness; F17.200 Nicotine dependence, unspecified, uncomplicated; Z66 Do not resuscitate; Z79.4 Long term (current) use of insulin; Z79.899 Other long term (current) drug therapy; Z85.46 Personal history of malignant neoplasm of prostate; Z89.411 Acquired absence of right great toe; Z89.422 Acquired absence of other left toe(s); Z92.3 Personal history of irradiation; Z91.041 Radiographic dye allergy status; Y83.2 Surgical operation with anastomosis, bypass or graft as the cause of abnormal reaction of the patient, or of later complication, without mention of misadventure at the time of the procedure; X58.XXXA Exposure to other specified factors, initial encounter